=== PATIENT | female | born 1935 | race Caucasian/White ===

== ENCOUNTER → 2017-07-07 13:29 | Outpatient (CLI) | payer MEDICARE, OTHER, SELFPAY ==
--- NOTE | 2017-07-07 13:43 | RAD_ITS ---
STUDY: X-RAY CHEST REASON FOR EXAM: Female, 81 years old. Yearly screening TECHNIQUE: Frontal and lateral views of the chest were obtained. COMPARISON: July 15, 2016 FINDINGS: The lungs are slightly hyperinflated. There are no focal airspace opacities. There is no demonstrated pleural abnormality. The cardiac silhouette is normal in size. The mediastinum and hilar regions are unremarkable. Normal visualized pulmonary arteries. Normal visualized aortic arch and descending thoracic aorta. There are diffuse degenerative changes of the visualized spine. There are degenerative changes in both shoulders. There is no demonstrated abnormality of the visualized upper abdomen. RAD/Chest PA and Lateral IMPRESSION: No acute cardiopulmonary abnormalities or changes. Stable hyperinflation. Electronically Signed: Aimee Holloway MD at 23:38 EDT Tel Direct: [phone], Service support ,
[2017-07-07 15:41] LABS: Absolute Lymphocyte Count 2.44 X10^3/ul (0.83-4.51); Absolute Neutrophil Count 3.1 X10^3/uL (2.0-7.7); Basophil# 0.03 X10^3/uL; Basophil% 0.5 % (0-1); Eosinophil# 0.18 X10^3/uL; Eosinophils% 2.8 % (0-5); Hematocrit 34.1 % (37-47); Hemoglobin 10.8 g/dl (12.0-15.0); Lymphocyte # 2.44 X10^3/ul (4.0); Lymphocyte % 38.2 % (19-41); Mean Corp Hgb Conc 31.7 g/gl (32-36); Mean Corpuscular Hgb 28.1 pg (27.0-32.0); Mean Corpuscular Volume 88.6 fL (81-99); Mean Platelet Vol. 9.4 fl (6.2-12.0); Monocyte# 0.58 X10^3/uL; Monocyte% 9.1 % (0-10); Neutrophil # 3.14 X10^3/uL (2.7-7.7); Neutrophil % 49.1 % (47-70); Platelet Count 263 K/mm3 (150-450); RBC Distribution Width CV 14.9 % (11.6-14.6); RBC Distribution Width SD 47.8 fl (35.1-43.9); Red Blood Count 3.85 M/mm3 (4.2-5.4); White Blood Count 6.4 K/mm3 (4.4-11.0)
[2017-07-07 15:50] LABS: POSITIVE COUNT NO; POSITIVE DIFFERENTIAL NO; POSITIVE MORPHOLOGY NO
[2017-07-07 16:30] LABS: ALB/GLOB Ratio 0.8 RATIO (0.9-2.4); AST(SGOT) 21 U/L (15-37); Alanine Aminotransfer ALT/SGPT 19 U/L (13-56); Albumin, Serum 3.5 g/dL (3.2-5.0); Alkaline Phosphatase 116 U/L (45-117); Anion Gap 8 (5-15); BUN 10 mg/dL (7-18); BUN/Creat Ratio 9.3 RATIO (10-20); Calcium,Total 8.7 mg/dL (8.5-10.1); Chloride 105 mmol/L (98-107); Creatinine, Serum 1.07 mg/dL (0.55-1.02); EST Glomerular Filtration Rate 53 mL/min (>60); Est Glom Filt Rate - Afr Amer 64 mL/min (>60); Globulin 4.2 g/dL (2.2-4.2); Glucose 81 mg/dL (74-106); Potassium 4.4 mmol/L (3.5-5.1); Protein, Total 7.7 g/dL (6.4-8.2); Sodium Level 138 mmol/L (136-145); Thyroid Stim Hormone (TSH) 2.38 uIU/mL (0.358-3.74)
[2017-07-08 08:15] LABS: Vitamin D,25 Hydroxy 44.2 ng/mL (29.95-100.01)
== END ==
PROVIDERS: Family Provider Family Medicine Geriatric Medicine; PCP Family Medicine Geriatric Medicine; Visit Provider Family Medicine Geriatric Medicine
DX: E11.9 Type 2 diabetes mellitus without complications (principal); I10 Essential (primary) hypertension; E55.9 Vitamin D deficiency, unspecified; J44.9 Chronic obstructive pulmonary disease, unspecified
CPT/HCPCS: 36415; 71046; 80053; 82306; 84443; 85025

== ENCOUNTER → 2017-08-26 15:04 | Outpatient (CLI) | payer MEDICARE, OTHER, SELFPAY | PROVIDERS: Family Provider Family Medicine Geriatric Medicine; PCP Family Medicine Geriatric Medicine; Visit Provider Family Medicine Geriatric Medicine | DX: D64.9 Anemia, unspecified (principal) | CPT/HCPCS: 36415; 85014; 85018 ==

== ENCOUNTER → 2017-10-08 12:49 | Outpatient (CLI) | payer MEDICARE, OTHER, SELFPAY ==
--- NOTE | 2017-10-08 13:05 | RAD_ITS ---
STUDY: X-RAY CHEST REASON FOR EXAM: Female, 81 years old. Dyspnea, shortness of breath and coughing for one week. History of esophageal cancer. TECHNIQUE: PA and lateral views of the chest. COMPARISON: Prior chest radiograph of July 07, 2017 FINDINGS: The lungs are clear and expanded. There is no demonstrated pleural abnormality. Normal size heart. Normal mediastinum and dwayne. Normal visualized pulmonary arteries. Normal visualized aortic arch and descending thoracic aorta. Normal visualized thoracic spine. Normal visualized ribs, clavicles, and shoulders. There is no demonstrated abnormality of the visualized soft tissue structures of the upper abdomen. RAD/Chest PA and Lateral IMPRESSION: Normal x-ray examination of the chest. Electronically Signed: Violet Siegel MD at 23:19 EDT , Service support ,
== END ==
PROVIDERS: Family Provider Family Medicine Geriatric Medicine; PCP Family Medicine Geriatric Medicine; Visit Provider Internal Medicine Pulmonary Disease
DX: R06.00 Dyspnea, unspecified (principal)
CPT/HCPCS: 71046

== ENCOUNTER → 2017-10-29 14:30 | Outpatient (CLI) | payer MEDICARE, OTHER, SELFPAY ==
[2017-05-04 13:26] VITALS: BP 135/76; BMI 29.0
--- NOTE | 2017-10-29 14:34 | CT_ITS ---
STUDY: CT CHEST WITH CONTRAST REASON FOR EXAM: Female, 81 years old. History of esophageal neoplasm with chemotherapy and radiation and is esophageal dilatations. RADIATION DOSAGE (If Supplied By Facility): CTDIvol = ( 17.45 ) mGy, DLP = ( 1111.79 ) mGycm TECHNIQUE: Transaxial imaging was performed following intravenous administration of 100 ml of Isovue 300 contrast material. Multiplanar coronal and sagittal images were reformatted. Individualized dose optimization techniques were used for this CT. COMPARISON: Chest x-ray October 08, 2017. Chest CT August 26, 2016 FINDINGS: There is wall thickening of the proximal esophagus, series 2 image / through . There are fibrotic densities of the lungs. There is stable 0.6 cm right lower lung nodule, series 6 image 70/127. There is no demonstrated pleural abnormality. There are calcifications of the coronary arteries. There is stable 1.5 cm right lower paratracheal lymph node. Normal hilar regions. Normal enhanced pulmonary arteries. There is atherosclerotic calcification of the aortic arch with tortuosity and elongation of the aortic arch and descending thoracic aorta. Normal osseous structures. There is no demonstrated abnormality of the visualized upper abdomen. CT/Chest WITH Contrast IMPRESSION: Wall thickening of the proximal esophagus. Stable right lower lung nodule. Fibrotic densities. No new infiltrate. Electronically Signed: Zay Posadas MD at 8:41 EDT , Service support ,
--- NOTE | 2017-10-29 14:35 | CT_ITS ---
STUDY: CT SOFT TISSUE NECK WITH CONTRAST REASON FOR EXAM: Female, 81 years old. History of malignant neoplasm of esophagus RADIATION DOSAGE (If Supplied By Facility): CTDIvol = ( 17.45 ) mGy, DLP = ( 1111.79 ) mGycm TECHNIQUE: The patient was scanned in a multi-detector CT scanner. High resolution transaxial imaging was performed following intravenous administration of 100 ml of Isovue 300 contrast material. Sagittal and coronal images were reconstructed. Individualized dose optimization techniques were used for this CT. COMPARISON: Prior study of July 15, 2016 FINDINGS: Normal bilateral parotid glands. 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 Normal bilateral parapharyngeal spaces. Normal bilateral carotid spaces. Normal bilateral sublingual and submandibular glands and spaces. Normal visualized nasopharynx. Normal retropharyngeal space. Normal perivertebral space. Normal visualized bilateral faucial tonsils. The visualized tongue, tongue base and oropharynx are normal. The visualized cervical lymph nodes (levels I-) are within normal size limits, and maintain normal morphology. There is no demonstrated solid or cystic mass lesion. There is no abnormal contrast enhancement. Normal epiglottis, bilateral vallecula and hypopharynx. The pre-epiglottic and paraglottic adipose spaces are normal. Normal visualized bilateral piriform sinuses, aryepiglottic folds, vocal cords, and arytenoid-cricoid articulations. Normal subglottic trachea. Minimal thyroidal tissue is noted. Normal visualized pulmonary apices. Normal visualized paranasal sinuses. There are mild degenerative changes of the cervical spine. CT/Soft Tissue Neck WITH Contrast IMPRESSION: 1. Minimal thyroidal tissue is noted. 2. There are mild degenerative changes of the cervical spine. 3. Findings are otherwise unremarkable and similar to the previous study. Electronically Signed: Dawit Higgins MD at 23:51 EDT , Service support ,
[2017-10-29 15:06] LABS: CREATININE FINGERSTICK 0.7 mg/dL (0.55-1.02)
== END ==
PROVIDERS: Family Provider Family Medicine Geriatric Medicine; PCP Family Medicine Geriatric Medicine; Visit Provider Internal Medicine Medical Oncology
DX: R91.1 Solitary pulmonary nodule (principal); Z85.01 Personal history of malignant neoplasm of esophagus
CPT/HCPCS: 70491; 71260; Q9967

== ENCOUNTER 2017-11-12 18:23 | Emergency (ER) | payer MEDICARE, OTHER, SELFPAY ==
[2017-11-12 18:25] VITALS: BP 160/89; PULSE 103; RESP 12; TEMP 37.1; O2SAT 95; BMI 28.0
[2017-11-12] MEDS: 0.9% Normal Saline 1,000 ML 125 ML IV (19:01)
[2017-11-12 19:14] LABS: Absolute Lymphocyte Count 1.75 X10^3/ul (0.83-4.51); Absolute Neutrophil Count 7.6 X10^3/uL (2.0-7.7); Basophil# 0.02 X10^3/uL; Basophil% 0.2 % (0-1); Eosinophil# 0.36 X10^3/uL; Eosinophils% 3.3 % (0-5); Hematocrit 33.6 % (37-47); Hemoglobin 11.1 g/dl (12.0-15.0); Lymphocyte # 1.75 X10^3/ul (4.0); Lymphocyte % 16.2 % (19-41); Mean Corpuscular Hgb 29.1 pg (27.0-32.0); Mean Corpuscular Volume 88.2 fL (81-99); Mean Platelet Vol. 8.8 fl (6.2-12.0); Monocyte# 1.06 X10^3/uL; Monocyte% 9.8 % (0-10); Neutrophil # 7.57 X10^3/uL (2.7-7.7); Neutrophil % 70.3 % (47-70); Platelet Count 348 K/mm3 (150-450); RBC Distribution Width CV 13.4 % (11.6-14.6); RBC Distribution Width SD 43.1 fl (35.1-43.9); Red Blood Count 3.81 M/mm3 (4.2-5.4); White Blood Count 10.8 K/mm3 (4.4-11.0)
[2017-11-12 19:16] LABS: POSITIVE COUNT NO; POSITIVE DIFFERENTIAL NO; POSITIVE MORPHOLOGY NO
[2017-11-12 19:25] LABS: ALB/GLOB Ratio 0.5 RATIO (0.9-2.4); AST(SGOT) 20 U/L (15-37); Alanine Aminotransfer ALT/SGPT 15 U/L (13-56); Albumin, Serum 2.9 g/dL (3.2-5.0); Alkaline Phosphatase 114 U/L (45-117); Anion Gap 8 (5-15); BUN 9 mg/dL (7-18); BUN/Creat Ratio 9.4 RATIO (10-20); Calcium,Total 9.1 mg/dL (8.5-10.1); Chloride 103 mmol/L (98-107); Creatinine, Serum 0.96 mg/dL (0.55-1.02); EST Glomerular Filtration Rate 60 mL/min (>60); Est Glom Filt Rate - Afr Amer 72 mL/min (>60); Estimated Creatinine Clearance 39.31 ml/min; Globulin 5.4 g/dL (2.2-4.2); Glucose 115 mg/dL (74-106); Lipase 141 U/L (73-393); Potassium 3.7 mmol/L (3.5-5.1); Protein, Total 8.3 g/dL (6.4-8.2); Sodium Level 135 mmol/L (136-145)
[2017-11-12 19:32] LABS: Lactic Acid 1.4 mmol/L (0.4-2.0)
[2017-11-12 20:07] VITALS: BP 135/62; PULSE 81; RESP 16; O2SAT 95
[2017-11-12 22:35] VITALS: BP 121/76; PULSE 81; RESP 16; O2SAT 96
[2017-11-12 22:39] VITALS: BP 125/90; PULSE 84; RESP 17; O2SAT 96
[2017-11-12 23:11] LABS: Bacteria 0 SEEN /hpf (None Seen); Mucous, Urine 0 SEEN /hpf (<or=2+); Red Blood Cells-Urine 0 SEEN /hpf (0-5); Squamous Epithelial Cells - UA 0 SEEN /hpf (5-10)
[2017-11-12 23:17] LABS: Color, Urine Yellow (Yellow); Glucose, Dipstick Normal (Normal); Ketone-Dipstick Negative (Negative); Leukocyte Esterase-Dipstick 500 /ul (Negative); Nitrite-Dipstick Negative (Negative); Occult Blood-Urine 10 /ul (Negative); Protein-Dipstick 15 mg/dl (Negative); Specific Gravity, Urine 1.005 (1.002-1.030); Urine Bilirubin Dipstick Negative (Negative); Urine Clarity Sl. Cloudy (Clear); Urine Urobilinogen Normal (Normal)
[2017-11-12 23:18] LABS: Thyroid Stim Hormone (TSH) 3.37 uIU/mL (0.358-3.74)
[2017-11-12 23:29] LABS: White Blood Cells 5-10 SEEN /hpf (0-5)
--- NOTE | 2017-11-12 23:35 | ED.VISSUMM ---
- ER Visit Summary Date of Service: 11/12/17 Chief Complaint: [Abdominal pain and generalized weakness] History of Present Illness: The patient is a 81 F [presents to the emergency department complaint of abdominal pain that she has had for over a week. Patient states that she has had this intermittent discomfort in the upper abdomen at last minute of the time and then returns. Patient describes it as a aching and burning. Patient's had nausea but no vomiting. She denies any diarrhea. She denies any blood in her stool or black tarry stools. Patient also is just generally feels weak. Patient states that she does have a history of esophageal cancer and she underwent chemo and radiation 3 years ago. Because of the radiation she is developed strictures in her esophagus and gets dilated by Dr. Garcia every 4 weeks. Patient denies urinary symptoms. Patient denies fevers. She denies chest pain or shortness of breath.] Physical Examination: [HEENT-PERRLA, EOMI. Cranial nerves II through XII grossly intact. TMs clear. Mucous membranes moist. No adenopathy. Cardiovascular-regular rate and rhythm without murmur or ectopy Lungs-clear to auscultation, chest wall stable without crepitus or subcu emphysema Abdomen-normoactive bowel sounds, soft. Patient has some tenderness over the epigastric region that reproduces her pain. There is no rebound, rigidity, or perineal signs. Extremities-intact ?4, normal range of motion, normal pulses, atraumatic] Test Results: [CBC with differential obtained showed normal white count of 10.8, hemoglobin 11, hematocrit 33, platelets 348. Chemistries unremarkable. LFTs were normal. Lipase was normal at 141. EKG shows sinus rhythm with a ventricular rate of 89 bpm with no acute ST segment changes. Troponin was less than 0.015. CT scan of the abdomen pelvis with IV p.o. contrast showed nothing acute.] Urinalysis was unremarkable. Emergency Department Course and Treatment: [Patient was given normal saline and she did not want anything for pain here.] Treatment Plan: [Patient to follow-up with primary care physician within next 3-5 days] Disposition: [Discharged home in stable condition] Impression: [Abdominal pain-etiology uncertain Generalized weakness] This note was generated with [employer] dictation software. It may contain incorrect words, spelling, and punctuation that were not noted in review of the chart prior to signing ED Disposition - Plan for ED Patient: Chief Complaint: Abd Pain Referrals: Reynaldo Aden Chi, MD [Primary Care Provider] -
--- NOTE | 2017-11-12 23:38 | ED.DEP ---
ED Disposition - Plan for ED Patient: Chief Complaint: Abd Pain Instructions: ED Abdominal Pain Unkn Cause, ED Weakness [facility] Referrals: Reynaldo Aden Chi, MD [Primary Care Provider] - 3-5 Days
[2017-11-12 23:42] VITALS: PULSE 82; RESP 12; O2SAT 94
== END 2017-11-12 23:43 | disposition home or self-care (01) ==
LOC: ED 19:19
PROVIDERS: Emergency Provider Emergency Medicine; Family Provider Family Medicine Geriatric Medicine; PCP Family Medicine Geriatric Medicine
DX: R10.9 Unspecified abdominal pain (principal); R53.1 Weakness; R11.0 Nausea; J44.9 Chronic obstructive pulmonary disease, unspecified; E11.9 Type 2 diabetes mellitus without complications; I10 Essential (primary) hypertension; E03.9 Hypothyroidism, unspecified; K21.9 Gastro-esophageal reflux disease without esophagitis; Z79.899 Other long term (current) drug therapy; Z85.01 Personal history of malignant neoplasm of esophagus; Z92.21 Personal history of antineoplastic chemotherapy; Z92.3 Personal history of irradiation
CPT/HCPCS: 74177; 80053; 81001; 83605; 83690; 84443; 84484; 85025; 93005; 96360; 96361; 99285; J7030; Q9967; A4216

== ENCOUNTER → 2018-01-11 13:32 | Outpatient (CLI) | payer MEDICARE, OTHER, SELFPAY ==
[2018-01-11 16:31] LABS: Absolute Lymphocyte Count 2.79 X10^3/ul (0.83-4.51); Absolute Neutrophil Count 4.6 X10^3/uL (2.0-7.7); Basophil# 0.04 X10^3/uL; Basophil% 0.5 % (0-1); Eosinophil# 0.17 X10^3/uL; Hematocrit 34.8 % (37-47); Hemoglobin 11.1 g/dl (12.0-15.0); Lymphocyte # 2.79 X10^3/ul (4.0); Mean Corp Hgb Conc 31.9 g/gl (32-36); Mean Corpuscular Hgb 29.3 pg (27.0-32.0); Mean Corpuscular Volume 91.8 fL (81-99); Mean Platelet Vol. 9.9 fl (6.2-12.0); Monocyte% 9.5 % (0-10); Neutrophil # 4.64 X10^3/uL (2.7-7.7); Neutrophil % 54.8 % (47-70); Platelet Count 284 K/mm3 (150-450); RBC Distribution Width CV 15.5 % (11.6-14.6); RBC Distribution Width SD 50.4 fl (35.1-43.9); Red Blood Count 3.79 M/mm3 (4.2-5.4); White Blood Count 8.5 K/mm3 (4.4-11.0)
[2018-01-11 16:45] LABS: Vitamin D,25 Hydroxy 26.7 ng/mL (29.95-100.01)
[2018-01-11 17:03] LABS: ALB/GLOB Ratio 0.7 RATIO (0.9-2.4); AST(SGOT) 19 U/L (15-37); Alanine Aminotransfer ALT/SGPT 20 U/L (13-56); Albumin, Serum 3.3 g/dL (3.2-5.0); Alkaline Phosphatase 108 U/L (45-117); Anion Gap 7 (5-15); BUN 14 mg/dL (7-18); BUN/Creat Ratio 12.2 RATIO (10-20); Calcium,Total 9.2 mg/dL (8.5-10.1); Chloride 104 mmol/L (98-107); Creatinine, Serum 1.15 mg/dL (0.55-1.02); EST Glomerular Filtration Rate 48 mL/min (>60); Est Glom Filt Rate - Afr Amer 58 mL/min (>60); Globulin 4.7 g/dL (2.2-4.2); Glucose 99 mg/dL (74-106); Potassium 4.3 mmol/L (3.5-5.1); Sodium Level 138 mmol/L (136-145)
[2018-01-11 17:10] LABS: POSITIVE COUNT NO; POSITIVE DIFFERENTIAL NO; POSITIVE MORPHOLOGY NO
== END ==
PROVIDERS: Family Provider Family Medicine Geriatric Medicine; PCP Family Medicine Geriatric Medicine; Visit Provider Family Medicine Geriatric Medicine
DX: I10 Essential (primary) hypertension (principal); E55.9 Vitamin D deficiency, unspecified
CPT/HCPCS: 36415; 80053; 82306; 84443; 85025

== ENCOUNTER 2018-07-01 10:34 | Emergency (ER) | payer MEDICARE, OTHER, SELFPAY ==
[2018-07-01 10:34] VITALS: BMI 29.0
[2018-07-01 10:35] VITALS: BP 156/81; PULSE 64; RESP 18; TEMP 36.6; O2SAT 99; BMI 30.1
--- NOTE | 2018-07-01 12:09 | CT_ITS ---
STUDY: CT BRAIN WITHOUT CONTRAST REASON FOR EXAM: Female, 82 years old. Acute occipital headaches and vertigo. History of esophageal carcinoma. RADIATION DOSAGE (If Supplied By Facility): CTDIvol = ( 44.99 ) mGy, DLP = ( 711.75 ) mGycm TECHNIQUE: Transaxial CT imaging of the brain was performed without administration of intravenous contrast material. Individualized dose optimization techniques were used for this CT. COMPARISON: Comparison is made with prior study dated July 15, 2016. FINDINGS: Normal soft tissue structures. Normal calvarium. There is mild cerebral atrophy with widening of the extra-axial spaces and ventricular dilatation. There are areas of decreased attenuation within the white matter tracts of the supratentorial brain, consistent with microvascular disease changes. Normal basal ganglia and thalami. Normal brainstem. Normal cerebellum. There is no intracranial hemorrhage. There are no findings of an acute ischemic infarction. Atherosclerotic calcification of the cavernous portions of the internal carotid arteries bilaterally. Normal visualized paranasal sinuses. CT/Brain/Head without Contrast IMPRESSION: Chronic involutional changes of the brain. Electronically Signed: Josh Singh, at 13:33 EDT , Service support ,
--- NOTE | 2018-07-01 14:51 | ED.RN ---
PT FAMILY OUT TO THE DESK MULTIPLE TIMES REGARDING PT DISPO. REQUESTS DR TO COME AND TALK TO HER
--- NOTE | 2018-07-01 14:54 | ED.VIS.GEN ---
History of Present Illness Chief Complaint: Dizziness Detail of Chief Complaint: Acute positional vertigo Informant: Patient, Family Onset: Today Context: Sudden Onset Timing: Intermittent Quality: Spinning sensation Location: Home Maximum Severity: Severe Worsened by: Change in position Relieved by: Remaining still Associated Symptoms: Nausea only Narrative: Patient is an elderly woman who presents with abrupt onset of spinning sensation with no ocular symptoms. Does report nausea. Symptoms are precipitated by change in position especially upright position. She denies blurred vision, loss of vision or double vision. She denies ringing or ears, decreased hearing or ear pain. She does report occipital headache. She states his headache is unusual for her. She denies paresthesia, anesthesia or motor weakness upper or lower extremity. She denies cardiac, respiratory or GI symptoms other than nausea. She denies urologic symptoms. She is on no anticoagulant. Prior similar symptoms: No Recent Illness/Hospitalization: No - Past Medical History (1) COPD (chronic obstructive pulmonary disease) Status: Chronic (2) Dysphagia Status: Chronic (3) Esophageal cancer Status: Chronic (4) GERD (gastroesophageal reflux disease) Status: Chronic (5) HLD (hyperlipidemia) Status: Chronic (6) History of tobacco use Status: Chronic (7) Hypertension Status: Chronic (8) Hypothyroidism Status: Chronic (9) Obesity (BMI 30.0-34.9) Status: Chronic (10) Radiation-induced esophageal stricture Status: Chronic (11) Tachyarrhythmia Status: Chronic (12) Type II diabetes mellitus Status: Chronic Past Medical History - Allergies and Home Meds Allergies/Adverse Reactions: Allergies hydrocodone bitartrate [From Vicodin] Adverse Reaction (Verified 07/01/18 10:37) CONFUSION GETS WEIRD Primary Care Physician: Reynaldo Aden Chi, MD [Primary Care Provider] - Prior records reviewed: Yes Surgical History: arthroscopy, knee Smoking Status: Former smoker Alcohol: None Drugs: None - Family History Maternal Family History: Family History (Last Reviewed 11/03/17 @ 12:56 by Angela Kemp) Mother Osteoporosis Heart disease Family History: Reports: - - mother with heart disease Paternal Family History: Family History (Last Reviewed 11/03/17 @ 12:56 by Angela Kemp) Mother Osteoporosis Heart disease Family History: Reports: No pertinent history Review of Systems General: Denies: Chills, Fever, Malaise, Sweats Eyes: Denies: Visual changes - bilaterally, Blurred Vision - bilaterally, Diplopia ENT: Reports: - - Denies tinnitus or decreased hearing.. Denies: Bilateral ear pain, Rhinorrhea, Sore throat Cardiovascular: Denies: Chest pain, Palpitations Respiratory: Denies: Dyspnea, Cough, Dyspnea on exertion Gastrointestinal: Denies: Abdominal pain, Nausea, Vomiting, Diarrhea, Melena, Hematochezia Genitourinary: Denies: Dysuria, Hematuria, Frequency Musculoskeletal: Denies: Myalgias, Arthralgias, Neck pain, Back pain, Extremity Pain Skin: Denies: Rash, Wounds Neurological: Reports: Headache - Complains of occipital headache. Denies: Weakness, Parasthesia, Numbness, -, - Hematologic: Denies: Easy bruising, Easy bleeding Allergy: Denies: Uticaria Physical Exam Inital Vital Signs reviewed: Yes General: Well nourished, Well developed, No Acute Distress Head: Normocephalic, Atraumatic Eyes: Perrl, EOMI ENT: Moist mucous membranes, No rhinorrhea Neck: Supple, Nontender Cardiovascular: Regular rate, Regular rhythm, No murmurs Respiratory: No distress, CTA bilaterally, Chest nontender Abdomen: Soft, Nontender, Nondistended, Normal bowel sounds Back: Nontender, Normal Inspection Extremities: Nontender, No edema Skin: Normal color, No rash Neurological: Alert, Oriented x3, Cranial nerves II-XII grossly intact, Normal Strength, Normal Sensation, Normal DTR, Normal Gait, - - Finger-nose to finger and heel to flannery are normal. There is no truncal ataxia. Kisha-Hallpike maneuver initially causes upward deflection with fast component to the right. The eye Ifeoma test was negative. The HINT test was negative. Psychological: Normal affect, Normal Mood Diagnostic/Tx/Re-eval Impressions Brain CT 07/01/18 12:09 IMPRESSION: Chronic involutional changes of the brain. Electronically Signed: Josh Singh, at 13:33 EDT , Service support , 07/01/18 12:09 Brain/Head without Contrast [CT] Stat - Medical Decision Making Because she is elderly with unusual headaches CT was obtained to evaluate for intracranial bleed. None was noted on my review or intubation by radiologist. Since Gordon-Hallpike maneuver exacerbated her vertigo Yumi maneuver was performed. She had symptoms when she was upright and looking downward. Patient was reassessed at 1500. Headache is still present. Vertigo has resolved. Yumi maneuver was performed and took a total of 15 minutes. Procedures Procedure(s): Yumi maneuver total time 15 minutes ED Disposition - Plan for ED Patient: Disposition: Home or Assisted Living Diagnosis: Benign paroxysmal positional vertigo of left ear, Occipital headache Instructions: ED BPV Vertigo, ED Cephalgia Unspecified Referrals: Reynaldo Aden Chi, MD [Primary Care Provider] - 3-5 Days
[2018-07-01 15:13] VITALS: BP 146/81; PULSE 78; RESP 16; O2SAT 98
== END 2018-07-01 15:14 | disposition home or self-care (01) ==
PROVIDERS: Emergency Provider Emergency Medicine; Family Provider Family Medicine Geriatric Medicine; PCP Family Medicine Geriatric Medicine
DX: H81.12 Benign paroxysmal vertigo, left ear (principal); R51 Headache; R13.10 Dysphagia, unspecified; K22.2 Esophageal obstruction; Y84.2 Radiological procedure and radiotherapy as the cause of abnormal reaction of the patient, or of later complication, without mention of misadventure at the time of the procedure; Y92.9 Unspecified place or not applicable; E11.9 Type 2 diabetes mellitus without complications; J44.9 Chronic obstructive pulmonary disease, unspecified; C15.9 Malignant neoplasm of esophagus, unspecified; I10 Essential (primary) hypertension; E78.5 Hyperlipidemia, unspecified; E03.9 Hypothyroidism, unspecified; K21.9 Gastro-esophageal reflux disease without esophagitis; E66.9 Obesity, unspecified; Z87.891 Personal history of nicotine dependence
CPT/HCPCS: 70450; 99282; A4216

== ENCOUNTER → 2018-07-08 13:40 | Outpatient (CLI) | payer MEDICARE, OTHER, SELFPAY ==
[2018-07-01 10:35] VITALS: BMI 30.1
[2018-07-08 16:41] LABS: Absolute Lymphocyte Count 3.41 X10^3/ul (0.83-4.51); Absolute Neutrophil Count 6.7 X10^3/uL (2.0-7.7); Basophil# 0.04 X10^3/uL; Basophil% 0.3 % (0-1); Eosinophil# 0.27 X10^3/uL; Eosinophils% 2.4 % (0-5); Hematocrit 34.7 % (37-47); Hemoglobin 11.3 g/dl (12.0-15.0); Lymphocyte # 3.41 X10^3/ul (4.0); Lymphocyte % 29.8 % (19-41); Mean Corp Hgb Conc 32.6 g/gl (32-36); Mean Corpuscular Hgb 29.6 pg (27.0-32.0); Mean Corpuscular Volume 90.8 fL (81-99); Mean Platelet Vol. 10.1 fl (6.2-12.0); Monocyte# 1.04 X10^3/uL; Monocyte% 9.1 % (0-10); Neutrophil # 6.67 X10^3/uL (2.7-7.7); Neutrophil % 58.1 % (47-70); Platelet Count 343 K/mm3 (150-450); RBC Distribution Width CV 13.8 % (11.6-14.6); RBC Distribution Width SD 44.9 fl (35.1-43.9); Red Blood Count 3.82 M/mm3 (4.2-5.4); White Blood Count 11.5 K/mm3 (4.4-11.0)
[2018-07-08 16:44] LABS: POSITIVE COUNT NO; POSITIVE DIFFERENTIAL NO; POSITIVE MORPHOLOGY NO
[2018-07-08 17:34] LABS: Vitamin D,25 Hydroxy 14.5 ng/mL (29.95-100.01)
[2018-07-08 17:40] LABS: ALB/GLOB Ratio 0.7 RATIO (0.9-2.4); AST(SGOT) 22 U/L (15-37); Alanine Aminotransfer ALT/SGPT 22 U/L (13-56); Albumin, Serum 3.4 g/dL (3.2-5.0); Alkaline Phosphatase 118 U/L (45-117); Anion Gap 7 (5-15); BUN 16 mg/dL (7-18); BUN/Creat Ratio 14.3 RATIO (10-20); Calcium,Total 9.1 mg/dL (8.5-10.1); Chloride 100 mmol/L (98-107); Creatinine, Serum 1.12 mg/dL (0.55-1.02); EST Glomerular Filtration Rate 50 mL/min (>60); Est Glom Filt Rate - Afr Amer 60 mL/min (>60); Globulin 4.6 g/dL (2.2-4.2); Glucose 81 mg/dL (74-106); Potassium 4.5 mmol/L (3.5-5.1); Sodium Level 132 mmol/L (136-145)
== END ==
PROVIDERS: Family Provider Family Medicine Geriatric Medicine; PCP Family Medicine Geriatric Medicine; Visit Provider Family Medicine Geriatric Medicine
DX: I10 Essential (primary) hypertension (principal); E55.9 Vitamin D deficiency, unspecified
CPT/HCPCS: 36415; 80053; 82306; 84443; 85025

== ENCOUNTER → 2018-08-05 12:25 | Outpatient (CLI) | payer MEDICARE, OTHER, SELFPAY ==
--- NOTE | 2018-08-05 12:27 | RAD_ITS ---
STUDY: X-RAY - PELVIS AND BILATERAL HIPS REASON FOR EXAM: Female, 82 years old. Pain TECHNIQUE: AP view of the pelvis.? 2 views of the right hip, and 2 views of the left hip were obtained. COMPARISON: None. FINDINGS: There is a non-specific bowel gas pattern. Normal visualized soft tissue structures. There is diffuse demineralization of the osseous structures. There is narrowing with cortical sclerosis and osteophyte formation of the sacroiliac joint consistent with degenerative osteoarthritic changes. Normal bilateral superior and inferior pubic rami. Normal pubic symphysis. Normal bilateral ischial tuberosities. Normal visualized right femoral head. Normal right acetabulum. There is moderate articular joint space narrowing of the right hip. Normal visualized left femoral head. Normal left acetabulum. There is moderate articular joint space narrowing of the left hip. RAD/Hips B/L min 2 views w/ Pelvis IMPRESSION: Degenerative arthrosis, no demonstrated fracture or suspicious osseous lesion. However, hip and pelvic fractures in patients of this age can be subtle, if there is strong clinical suspicion of a fracture, recommend further evaluation with CT Electronically Signed: Reji Tucker MD at 16:44 EDT , Service support ,
[2018-08-05 17:36] LABS: Absolute Lymphocyte Count 2.92 X10^3/ul (0.83-4.51); Absolute Neutrophil Count 5.3 X10^3/uL (2.0-7.7); Basophil# 0.04 X10^3/uL; Basophil% 0.4 % (0-1); Eosinophil# 0.31 X10^3/uL; Eosinophils% 3.3 % (0-5); Hematocrit 36.1 % (37-47); Hemoglobin 11.7 g/dl (12.0-15.0); Lymphocyte # 2.92 X10^3/ul (4.0); Lymphocyte % 31.1 % (19-41); Mean Corp Hgb Conc 32.4 g/gl (32-36); Mean Corpuscular Hgb 29.5 pg (27.0-32.0); Mean Corpuscular Volume 91.2 fL (81-99); Mean Platelet Vol. 10.1 fl (6.2-12.0); Monocyte% 8.5 % (0-10); Neutrophil # 5.29 X10^3/uL (2.7-7.7); Neutrophil % 56.5 % (47-70); Platelet Count 290 K/mm3 (150-450); RBC Distribution Width CV 14.6 % (11.6-14.6); RBC Distribution Width SD 47.9 fl (35.1-43.9); Red Blood Count 3.96 M/mm3 (4.2-5.4); White Blood Count 9.4 K/mm3 (4.4-11.0)
[2018-08-05 17:37] LABS: POSITIVE COUNT NO; POSITIVE DIFFERENTIAL NO; POSITIVE MORPHOLOGY NO
[2018-08-05 17:59] LABS: Anion Gap 8 (5-15); BUN 16 mg/dL (7-18); Calcium,Total 9.6 mg/dL (8.5-10.1); Chloride 104 mmol/L (98-107); Creatinine, Serum 1.07 mg/dL (0.55-1.02); EST Glomerular Filtration Rate 52 mL/min (>60); Est Glom Filt Rate - Afr Amer 63 mL/min (>60); Glucose 114 mg/dL (74-106); Potassium 4.5 mmol/L (3.5-5.1); Sodium Level 137 mmol/L (136-145)
[2018-08-05 18:03] LABS: Erythrocyte Sedimentation Rate 33 mm/hr (0-30)
[2018-08-12 03:06] LABS: Lyme IgG P18 Ab Absent (.); Lyme IgG P23 Ab Absent (.); Lyme IgG P28 Ab Absent (.); Lyme IgG P30 Ab Absent (.); Lyme IgG P39 Ab Absent (.); Lyme IgG P41 Ab Absent (.); Lyme IgG P45 Ab Absent (.); Lyme IgG P58 Ab Absent (.); Lyme IgG P66 Ab Absent (.); Lyme IgG P93 Ab Absent (.); Lyme IgM P23 Ab Absent (.); Lyme IgM P39 Ab Absent (.); Lyme IgM P41 Ab Absent (.)
[2018-08-12 14:31] LABS: Lyme IgG WB Interpretation Negative (.); Lyme IgM WB Interpretation Negative (.)
== END ==
PROVIDERS: Family Provider Family Medicine Geriatric Medicine; PCP Family Medicine Geriatric Medicine; Referring Provider Family Medicine Geriatric Medicine; Visit Provider Family Medicine Geriatric Medicine
DX: M25.559 Pain in unspecified hip (principal); A69.20 Lyme disease, unspecified; L03.317 Cellulitis of buttock
CPT/HCPCS: 36415; 73521; 80048; 85025; 85652; 86140; 86617

== ENCOUNTER → 2018-08-06 11:08 | Outpatient (CLI) | payer MEDICARE, OTHER, SELFPAY ==
--- NOTE | 2018-08-06 11:13 | US_ITS ---
STUDY: SUPERFICIAL ULTRASOUND - RIGHT UPPER BUTTOCK. REASON FOR EXAM: Female, 82 years old. Palpable abnormality. TECHNIQUE: A superficial ultrasound was performed with real-time and static coy-scale imaging. COMPARISON: None. FINDINGS: The palpable abnormality corresponds to a 1.4 cm x 1.3 cm x 1 cm complex cystic density. A biopsy may be indicated for further evaluation. US/Ext Non Vasc Limited/Soft Tiss IMPRESSION: The palpable abnormality corresponds to a 1.4 cm x 1.3 cm x 1 cm complex cystic density. Histologic diagnosis is recommended. Electronically Signed: Josh Singh, at 12:29 EDT , Service support ,
== END ==
PROVIDERS: Family Provider Family Medicine Geriatric Medicine; PCP Family Medicine Geriatric Medicine; Referring Provider Family Medicine Geriatric Medicine; Visit Provider Family Medicine Geriatric Medicine
DX: L03.317 Cellulitis of buttock (principal); L02.31 Cutaneous abscess of buttock
CPT/HCPCS: 76882

== ENCOUNTER → 2018-10-29 12:24 | Outpatient (CLI) | payer MEDICARE, OTHER, SELFPAY ==
--- NOTE | 2018-10-29 12:35 | CT_ITS ---
STUDY: CT SOFT TISSUE NECK WITH CONTRAST REASON FOR EXAM: Female, 82 years old. Follow-up esophageal cancer. RADIATION DOSAGE (If Supplied By Facility): CTDIvol = ( 15.55 ) mGy, DLP = ( 1137.45 ) mGycm TECHNIQUE: The patient was scanned in a multi-detector CT scanner. High resolution transaxial imaging was performed following intravenous administration of 100 IV Isovue 300. Sagittal and coronal images were reconstructed. Individualized dose optimization techniques were used for this CT. COMPARISON: 10/29/2017. FINDINGS: Normal bilateral parotid glands. 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 Normal bilateral parapharyngeal spaces. Normal bilateral carotid spaces. Normal bilateral sublingual and submandibular glands and spaces. Normal visualized nasopharynx. Normal retropharyngeal space. Normal perivertebral space. Abnormal intramural thickening of the cervical esophagus is unchanged. Normal visualized bilateral faucial tonsils. The visualized tongue, tongue base and oropharynx are normal. The visualized cervical lymph nodes (levels I-) are within normal size limits, and maintain normal morphology. There is no demonstrated solid or cystic mass lesion. There is no abnormal contrast enhancement. Normal epiglottis, bilateral vallecula and hypopharynx. The pre-epiglottic and paraglottic adipose spaces are normal. Normal visualized bilateral piriform sinuses, aryepiglottic folds, vocal cords, and arytenoid-cricoid articulations. Normal subglottic trachea. Normal bilateral lobes of the thyroid gland. Normal visualized pulmonary apices. Normal visualized paranasal sinuses. Normal visualized cervical spine. CT/Soft Tissue Neck WITH Contrast IMPRESSION: 1. Intramural thickening of the cervical esophagus is unchanged. 2. No CT evidence of mass suprahyoid neck and infrahyoid neck outside the cervical esophagus. 3. No significant interval change when compared to 10/29/2017. Electronically Signed: Jamie Balderas MD at 11:14 EDT , Service support ,
--- NOTE | 2018-10-29 12:35 | CT_ITS ---
STUDY: CT CHEST WITH CONTRAST REASON FOR EXAM: Female, 82 years old. Esophageal cancer. History of chemotherapy and radiation. RADIATION DOSAGE (If Supplied By Facility): CTDIvol = ( 15.55 ) mGy, DLP = ( 1137.45 ) mGycm TECHNIQUE: Transaxial imaging was performed following intravenous administration of 100 ml of Isovue 300 contrast material. Coronal and sagittal reformatted images were created. Individualized dose optimization techniques were used for this CT. COMPARISON: 10/29/2017 FINDINGS: There are no pulmonary infiltrates or pleural effusions. There is a stable 6 cm nodule in the right lower lobe. There are no new pulmonary nodules or masses. There is no pneumothorax. The heart and pericardium are within normal limits. There is no esophageal mass identified. There is no thoracic lymphadenopathy. There is no evidence of thoracic aortic aneurysm. Images through the upper abdomen demonstrate no significant abnormality. There are no destructive osseous lesions. CT/Chest WITH Contrast IMPRESSION: No esophageal mass identified. Stable 6 mm nodule in the right lower lobe. Otherwise, clear lungs. No significant change when compared with the prior exam. Electronically Signed: Huy Steven, at 10:11 EDT Tel , Service support ,
[2018-10-29 12:42] LABS: Absolute Lymphocyte Count 2.84 X10^3/uL (0.83-4.51); Absolute Neutrophil Count 4.6 X10^3/uL (2.0-7.7); Basophil# 0.05 X10^3/uL; Basophil% 0.6 % (0-1); Eosinophil# 0.21 X10^3/uL; Eosinophils% 2.4 % (0-5); Hematocrit 34.5 % (37-47); Hemoglobin 11.3 g/dL (12.0-15.0); Lymphocyte # 2.84 X10^3/ul (4.0); Lymphocyte % 33.1 % (19-41); Mean Corp Hgb Conc 32.8 g/dL (32-36); Mean Corpuscular Hgb 29.9 pg (27.0-32.0); Mean Corpuscular Volume 91.3 fL (81-99); Mean Platelet Vol. 9.2 fl (6.2-12.0); Monocyte# 0.78 X10^3/uL; Monocyte% 9.1 % (0-10); NRBC Flagged by Analyzer 0 % (0-5); Neutrophil # 4.63 X10^3/uL (2.7-7.7); Platelet Count 276 K/mm3 (150-450); RBC Distribution Width SD 46.5 fl (35.1-43.9); Red Blood Count 3.78 M/mm3 (4.2-5.4); White Blood Count 8.6 K/mm3 (4.4-11.0)
[2018-10-29 12:51] LABS: CREATININE FINGERSTICK 0.8 mg/dL (0.55-1.02); EGFR FINGERSTICK > 60.0000 mL/min (>60)
[2018-10-29 12:55] LABS: ALB/GLOB Ratio 0.8 RATIO (0.9-2.4); AST(SGOT) 21 U/L (15-37); Alanine Aminotransfer ALT/SGPT 23 U/L (13-56); Albumin, Serum 3.5 g/dL (3.2-5.0); Alkaline Phosphatase 93 U/L (45-117); Anion Gap 6 (5-15); BUN 16 mg/dL (7-18); BUN/Creat Ratio 14.8 RATIO (10-20); Calcium,Total 9.2 mg/dL (8.5-10.1); Chloride 101 mmol/L (98-107); Creatinine, Serum 1.08 mg/dL (0.55-1.02); EST Glomerular Filtration Rate 52 mL/min (>60); Est Glom Filt Rate - Afr Amer 63 mL/min (>60); Globulin 4.5 g/dL (2.2-4.2); Glucose 95 mg/dL (74-106); Potassium 4.2 mmol/L (3.5-5.1); Sodium Level 134 mmol/L (136-145)
[2018-10-29 13:19] LABS: Thyroid Stim Hormone (TSH) 3.05 uIU/mL (0.358-3.74)
== END ==
PROVIDERS: Family Provider Family Medicine Geriatric Medicine; PCP Family Medicine Geriatric Medicine; Referring Provider Internal Medicine Medical Oncology; Visit Provider Internal Medicine Medical Oncology
DX: C15.3 Malignant neoplasm of upper third of esophagus (principal); Z92.21 Personal history of antineoplastic chemotherapy; Z92.3 Personal history of irradiation; Z85.01 Personal history of malignant neoplasm of esophagus
CPT/HCPCS: 36415; 70491; 71260; 80053; 84443; 85025; Q9967

== ENCOUNTER → 2019-01-12 13:50 | Outpatient (CLI) | payer MEDICARE, OTHER, SELFPAY ==
[2018-11-23 10:46] VITALS: BMI 30.6
[2019-01-12 17:10] LABS: Absolute Lymphocyte Count 2.72 X10^3/uL (0.83-4.51); Absolute Neutrophil Count 4.5 X10^3/uL (2.0-7.7); Basophil# 0.08 X10^3/uL; Basophil% 0.9 % (0-1); Eosinophil# 0.26 X10^3/uL; Eosinophils% 3.1 % (0-5); Hematocrit 33.4 % (37-47); Hemoglobin 10.8 g/dL (12.0-15.0); Lymphocyte # 2.72 X10^3/ul (4.0); Mean Corp Hgb Conc 32.3 g/dL (32-36); Mean Corpuscular Hgb 29.5 pg (27.0-32.0); Mean Corpuscular Volume 91.3 fL (81-99); Mean Platelet Vol. 9.8 fl (6.2-12.0); Monocyte# 0.85 X10^3/uL; NRBC Flagged by Analyzer 0 % (0-5); Neutrophil # 4.54 X10^3/uL (2.7-7.7); Neutrophil % 53.5 % (47-70); Platelet Count 321 K/mm3 (150-450); RBC Distribution Width SD 46.6 fl (35.1-43.9); Red Blood Count 3.66 M/mm3 (4.2-5.4); White Blood Count 8.5 K/mm3 (4.4-11.0)
[2019-01-12 17:35] LABS: Vitamin D,25 Hydroxy 26.4 ng/mL (29.95-100.01)
[2019-01-12 17:40] LABS: ALB/GLOB Ratio 0.7 RATIO (0.9-2.4); AST(SGOT) 24 U/L (15-37); Alanine Aminotransfer ALT/SGPT 27 U/L (13-56); Albumin, Serum 3.4 g/dL (3.2-5.0); Alkaline Phosphatase 110 U/L (45-117); Anion Gap 7 (5-15); BUN 14 mg/dL (7-18); BUN/Creat Ratio 13.5 RATIO (10-20); Calcium,Total 9.3 mg/dL (8.5-10.1); Chloride 102 mmol/L (98-107); Creatinine, Serum 1.04 mg/dL (0.55-1.02); EST Glomerular Filtration Rate 54 mL/min (>60); Est Glom Filt Rate - Afr Amer 65 mL/min (>60); Globulin 4.8 g/dL (2.2-4.2); Glucose 100 mg/dL (74-106); Potassium 4.2 mmol/L (3.5-5.1); Protein, Total 8.2 g/dL (6.4-8.2); Sodium Level 135 mmol/L (136-145); Thyroid Stim Hormone (TSH) 2.17 uIU/mL (0.358-3.74)
== END ==
PROVIDERS: Family Provider Family Medicine Geriatric Medicine; PCP Family Medicine Geriatric Medicine; Visit Provider Family Medicine Geriatric Medicine
DX: E11.9 Type 2 diabetes mellitus without complications (principal); I10 Essential (primary) hypertension; E55.9 Vitamin D deficiency, unspecified; E03.9 Hypothyroidism, unspecified
CPT/HCPCS: 36415; 80053; 82306; 84443; 85025

== ENCOUNTER 2019-02-01 05:52 | Day surgery (SDC) | payer MEDICARE, OTHER, SELFPAY ==
[2018-11-23 10:46] VITALS: BMI 30.6
--- NOTE | 2019-01-31 17:10 | PCM.HP.BLA ---
History and Physical Date of Admission: 02/01/19 HISTORY OF PRESENT ILLNESS 82 year old woman presents with a soft tissue mass right upper gluteal area that had increased in size over the last few months. It then started to decrease in size. She denies any trauma. She denies any fever. 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 The mass has decreased in size and has become less painful. An Ultrasound was done on 08/06/18. It showed a 1.4 cm complex cystic density. She presents at this time for further evaluation and treatment. PAST MEDICAL HISTORY Arthritis Cancer of upper third of esophagus Cataracts, bilateral Diabetes mellitus Hearing problem History of esophageal dilatation History of pneumonia Squamous cell carcinoma Thyroid disease Vitamin D deficiency PAST SURGICAL HISTORY cholecystectomy tubal ligation ALLERGIES hydrocodone bitartrate [From Vicodin] MEDICATIONS Atenolol [Tenormin (beta bear)] Pantoprazole Sodium [Protonix] Budesonide/Formoterol 160/4.5 [Symbicort 160/4.5 Mcg Inhaler (SP)] Levothyroxine Sodium Albuterol Inhaler [Ventolin Hfa] Cyanocobalamin [Vitamin B12] Ergocalciferol [Vitamin D] Ferrous Sulfate Syrup FAMILY HISTORY Mother - Osteoporosis, Heart disease SOCIAL HISTORY Smoking Status: Former smoker substance use type: does not use REVIEW OF SYSTEMS General - Denies fever, fatigue, and weight loss. Eyes - Denies cataracts and glaucoma. ENT - Denies nasal congestion and sore throat. Endocrine - Denies excessive thirst and urination. Skin - Has personal history of skin cancer. Has soft tissue mass right upper gluteal area. Musculoskeletal - Denies joint pain, joint stiffness, weakness of muscles and joints, back pain, and arthritis. Neuro - Denies headaches. Cardiovascular - Denies chest pain, fatigue, and shortness of breath with exertion. Psych - Denies anxiety and depression. Respiratory - Denies chronic cough and shortness of breath. Patient is a former smoker. Gastrointestinal - Denies nausea, vomiting, diarrhea, and constipation. Hematologic - Denies abnormal bruising and bleeding. Genitourinary - Denies hematuria and urinary frequency. PHYSICAL EXAMINATION General - Alert and Oriented. HEENT - PERRL. EOMI. Throat is clear. No suspicious lesions noted. Neck - Supple and nontender. No cervical adenopathy. No suspicious lesions noted. Lungs - Clear to auscultation. Heart - Regular rate and rhythm. Abdomen - Soft and nondistended. Extremities - FROM. No axillary adenopathy. Radial pulses are palpable. No suspicious lesions noted. Back - No suspicious lesions noted except for the right upper gluteal area. There is a palpable soft tissue mass. Mobile. Measures about 1.5 cm. No evidence of infection. No skin retraction or skin dimpling. Clinically feels cystic in nature. Mild tenderness to palpation. Neuro - CN II-XII grossly intact. Psych - Normal mood and affect. ASSESSMENT 1. 1.5 cm painful soft tissue mass right upper gluteal area. 2. Personal history of skin cancer. 3. Former smoker. PLAN Recommend excision of this soft tissue mass and send it to Pathology for analysis to rule out carcinoma. Clinically and ultrasonically it appears to be a cystic lesion. Since it is getting smaller and less painful, the patient wants to wait about having it excised and will think about it and let me know when she wants to proceed. She was instructed to come sooner if it became bigger in size or became more symptomatic for evaluation for excision. Surgery would be done on an outpatient basis under local anesthesia and IV sedation. Depending on how large the cavity is, a drain may be necessary after surgery. Followup 3 months for a re-evaluation. Patient was informed of the risks and complications of the procedure including alternatives to surgery. These were discussed with the patient personally. Patient voices understanding and wishes to proceed with the current plan of thinking about the surgery and will call us when she wants to proceed, otherwise she will followup in 3 months for re-evaluation.
[2019-02-01] VITALS (9 sets, daily range): BP systolic 99–131; BP diastolic 43–73; PULSE 67–79; RESP 16–18; TEMP 36.1–37; O2SAT 98–100; BMI 29.5
[2019-02-01 06:21] LABS: Bedside Glucose 111 mg/dL (70-110)
[2019-02-01] MEDS: Lactated Ringers 1,000 ML 100 ML IV (07:27)
--- NOTE | 2019-02-01 07:30 | MASS_PTH ---
PATIENT: TONO SHEN LOC: [facility] [place] U#:[id number] AGE/SX: 83/F ROOM: RE02/01/[address]: Dr. Roosevelt Mccarthy MD : [id number] BED: DIS: 02/01/2019 SPEC #: [id number] RECD: 02/01/19 12:32 STATUS: OSCAR BRITTANY #: [id number] VIPIN: 02/01/19 07:[address]: Roosevelt Mccarthy DEPT: SURGICAL PATHOLOGY RECD BY: Julio Houston ENTERED: 02/01/19 13:11 SP TYPE: Mass OTHR DR: Dr. Reynaldo Aden MD Tissues: Buttock, NOS Procedures: Surgery Specimen Level IV HEADER OPERATION: Excision, painful soft tissue mass, upper gluteal area PRE-OP DIAGNOSIS: 1.5 cm painful soft tissue mass right upper gluteal area; skin cancer TISSUE SUBMITTED: Soft tissue mass right upper gluteal area MICROSCOPIC DIAGNOSIS Soft tissue mass right upper gluteal area, excision: Mature adipose tissue consistent with lipoma with extensive fat necrosis and dystrophic calcifications. GRABIEL:meghan 02/02/19 MICROSCOPIC DESCRIPTION Slides are reviewed. GROSS DESCRIPTION Received in fixative is one container labeled with the patient's name and designated soft tissue mass right upper gluteal area. The specimen consists of an irregular piece of adipose tissue measuring 5 x 3 x 1.5 cm. A piece of skin is noted at one edge measuring 1.8 x 0.3 cm. Patient Care Specialist sections are submitted in three cassettes. Cassette 1 also contains the skin. / GRABIEL:meghan 02/01/19 TC:5 CPT: 35724
[2019-02-01] MEDS: Cefazolin 2 GM in 0.9% Normal Saline 100 ML IV (07:35)
[2019-02-01] MEDS: Mupirocin Ointment 22gm Tube 1 APPLIC (08:06)
--- NOTE | 2019-02-01 08:11 | PCM.OPRPT ---
Report of Operation Date of Procedure: 02/01/19 Pre-Operative Diagnosis: 1. 1.5 cm painful soft tissue mass right upper gluteal area. 2. Personal history of skin cancer. 3. Former smoker. Post-Operative Diagnosis: Same. Surgery/Procedure Performed:: Excision 1.5 cm painful soft tissue mass right upper gluteal area with 1.5 cm layered closure. Description of Surgical Findings:: 82 year old woman presents with a soft tissue mass right upper gluteal area that had increased in size over the last few months. It then started to decrease in size. She denies any trauma. She denies any fever. 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 The mass has decreased in size and has become less painful. An Ultrasound was done on 08/06/18. It showed a 1.4 cm complex cystic density. Patient was informed of the risks and complications of the procedure including alternatives to surgery. These were discussed with the patient personally. Patient voices understanding and wishes to proceed. Some of the risks and complications were included in a form from the [employer]. I used Miesha absorbable hemostat. Reference Number - [id number]. Lot Number - [id number]. October 25, 2023. medical and health services manager: None Type of Anesthesia:: Local MAC - xylocaine with epinephrine and IV sedation. Specimen's removed: Painful soft tissue mass right upper gluteal area to Pathology. Drains: None. Estimated Blood Loss (mL): 5 ml. Description of Procedure: Patient was taken to OR in supine position and was given IV sedation. She was then placed in the lateral position. The right upper gluteal area was prepped and draped in the usual fashion. SCD's were placed for DVT prophylaxis. Perioperative antibiotics were given intravenously. The painful soft tissue mass right upper gluteal area was infiltrated with xylocaine and epinephrine. After waiting 5 minutes for the anesthetic to take effect, I made an oblique elliptical excision over this mass. Dissection was carried into the subcutaneous tissue. The mass was easily palpable and firm. It was adherent to the underlying gluteus muscular fascia which explains her painful symptomatology. The mass was easily dissected off the muscular fascia without difficulty. It did not involve the muscular tissue. The mass was sent to Pathology for analysis to rule out carcinoma. Hemostasis was obtained with electrocautery. The wound was irrigated with saline. I then sprayed Miesha absorbable hemostat into the wound to minimize seroma formation. The wound was closed in a layered fashion using 3-0 Monocryl figure of eight interrupted sutures for the deep subcutaneous tissue to minimize space. The deep dermis and subcutaneous tissue was approximated with 3-0 Monocryl interrupted sutures. The skin was approximated with 3-0 Prolene simple interrupted sutures. Antibiotic ointment was applied to the suture line followed by compression gauze dressing. The length of the layered closure was 1.5 cm. Patient tolerated the procedure well and was sent to PACU in satisfactory condition. Patient will be sent home on antibiotics and pain medication. Patient will followup in a week for a wound check and for discussion of the pathology report. The sutures will be removed in 2 weeks. Grafts/Implants Used: None. - Complications None. - Admit VTE Documentation VTE Present on Admission: No VTE Mechan Device Prophylaxis: SCD's VTE Pharm Prophylaxis ordered?: No Code Visit Surgery Charges CPT - 75877 ICD-10 -R22.2, Z85.828, Z87.891
--- NOTE | 2019-02-01 08:18 | DCINST_ITS ---
You will use the following diet at home:: Calorie/Carbohydrate Controlled (specify 1200, 1400, etc) Discharge Activity: May not drive while taking narcotic pain medications., May Shower - in 2 days. May shower in (days): 2 May resume sexual activity in: No Restrictions Weight Bearing Status: Weight bearing as tolerated Call your doctor if your incision/area has: Continuous Slow Oozing, Sudden Increased Bleeding, Increased Pain/ Swelling, Increased Redness, Foul Smelling Discharge, Swelling at the incision site Call your doctor if you observe: Fever of 101 or Higher, Coldness, Increased Pain, Shortness of breath, Chest pain, Calf discomfort, Uncontrolled pain Suture Line Care: - - after dressing removed in two days, apply antibiotic ointment to suture line daily. Change Dressing in (Days):: 2 - antibiotic ointment daily. Cleanse incision/area with: - - may get incision wet in the shower in two days. Allergies/Adverse Reactions: Allergies hydrocodone bitartrate [From Vicodin] Adverse Reaction (Verified 02/01/19 06:16) CONFUSION GETS WEIRD Medications to take at Discharge Atenolol [Tenormin (beta bear)] 25 mg PO DAILY 06/01/15 Pantoprazole Sodium [Protonix] 40 mg PO DAILY 06/07/15 Budesonide/Formoterol 160/4.5 [Symbicort 160/4.5 Mcg Inhaler (SP)] 2 puff I NHALATION BID 07/15/16 Cyanocobalamin [Vitamin B12] 1 injectable SQ QMONTH 05/04/17 Ferrous Sulfate Syrup 300 mg PO DAILY@0800 11/12/17 Cholecalciferol (VIT D3) [Vitamin D3] 1,000 unit PO DAILY 11/23/18 Levothyroxine [Synthroid] 112 mcg PO DAILY 11/23/18 Cefadroxil [Duricef] 500 mg PO BID #8 cap 02/01/19 Lactobacillus Acidophilus/Fos [Acidophilus Probiotic Tablet] 1 ea PO BID #10 tab 02/01/19 Oxycodone HCl/Acetaminophen [Percocet 5/325] 1 tab PO TID PRN PRN 7 Days #20 tab 02/01/19 The following prescriptions were given: Lactobacillus Acidophilus/Fos [Acidophilus Probiotic Tablet] 1 ea PO BID #10 tab Prescription Printed Cefadroxil [Duricef] 500 mg PO BID #8 cap Prescription Printed Oxycodone HCl/Acetaminophen [Percocet 5/325] 1 tab PO TID PRN PRN 7 Days #20 tab PRN Reason: Pain Score 4-5/10 Prescription Printed Primary Care Physician: Reynaldo Aden Chi, MD [Primary Care Provider] - Test Results: Test results from this visit will be discussed in further detail at your follow- up appointment, if applicable. Please Follow Up With: Roosevelt Mccarthy MD Proposed Discharge Date: 02/01/19
== END 2019-02-01 09:38 | disposition home or self-care (01) ==
LOC: SDC 05:52 → AC 05:54
PROVIDERS: Family Provider Family Medicine Geriatric Medicine; PCP Family Medicine Geriatric Medicine; Referring Provider Surgery; Visit Provider Surgery
PROC: (CPT 27047; principal; 2019-02-01 07:15)
DX: R22.2 Localized swelling, mass and lump, trunk (principal); Z85.828 Personal history of other malignant neoplasm of skin; Z87.891 Personal history of nicotine dependence; M19.90 Unspecified osteoarthritis, unspecified site; E11.9 Type 2 diabetes mellitus without complications; E06.9 Thyroiditis, unspecified; J44.9 Chronic obstructive pulmonary disease, unspecified; G25.81 Restless legs syndrome; K21.9 Gastro-esophageal reflux disease without esophagitis; E78.00 Pure hypercholesterolemia, unspecified; D64.9 Anemia, unspecified; Z87.01 Personal history of pneumonia (recurrent); Z85.01 Personal history of malignant neoplasm of esophagus; Z78.0 Asymptomatic menopausal state; Z79.899 Other long term (current) drug therapy
CPT/HCPCS: 27047; 82962; 88305; J7120

== ENCOUNTER 2019-02-02 13:07 | Emergency (ER) | payer MEDICARE, OTHER, SELFPAY ==
[2019-02-01 06:09] VITALS: BMI 29.5
[2019-02-02 13:09] VITALS: BP 131/56; PULSE 82; RESP 18; TEMP 36.4; O2SAT 97; BMI 29.4
[2019-02-02] MEDS: DiphenhydrAMINE 50 MG/ML Syringe 25 MG IV (13:36)
[2019-02-02] MEDS: Famotidine 20 MG Tablet 40 MG PO (13:36)
[2019-02-02] MEDS: MethylPREDNISolone 125 MG/2 ML Vial IV (13:36)
--- NOTE | 2019-02-02 15:25 | ED.DCSUM_ITS ---
- ER Visit Summary Date of Service: 02/02/19 Chief Complaint: Allergic reaction History of Present Illness: The patient is a 83 F who states that she had a cyst taken off her right hip yesterday in the operating room by Dr. parvin Bueno. After the surgery at home last night she took an oxycodone and felt okay. This morning she took her other new medication which I find out through chart review was Duricef. She states that within the hour she began to have diffuse itching she felt very flushed shaky little short of breath. EMS was called. She refused an IV stating that she was a difficult stick. Physical Examination: Afebrile vital signs are stable Gen: Well-nourished well-developed Head: Normocephalic atraumatic Eyes: Perrl EOMI ENT: TMs clear no rhinorrhea moist mucous membranes Neck: Supple no lymphadenopathy no JVD nontender CVS: Regular rate rhythm no murmurs normal S1-S2 Respiratory: No distress clear to auscultation bilaterally chest nontender Abdomen: Soft nontender nondistended normal bowel sounds no masses Back: Nontender Extremity: Nontender no edema Skin: Patient is diffusely erythematous. Neuro: alert orientated ?3 CN II-XII intact Psych: Normal affect normal mood Emergency Department Course and Treatment: Patient received Benadryl Pepcid and Solu-Medrol. She was observed for several hours. She is doing better. No further itching no further rash. The patient will be discharged home with instructions to follow-up. I spoke with Dr. Mccarthy regarding the medication. Duricef will be stopped the patient will begin clindamycin Impression: 1. Acute allergic reaction to medication This note was generated with [employer] dictation software. It may contain incorrect words, spelling, and punctuation that were not noted in review of the chart prior to signing ED Disposition - Plan for ED Patient: Disposition: Home or Assisted Living Instructions: ALLERGIC REACTION, Drug Prescriptions: Clindamycin Palm Suspension [Cleocin Suspension] 300 mg PO 4X/DAY #400 ml Transmission Status: Pending to [facility]/pharmacy #[id number] Referrals: Reynaldo Aden Chi, MD [Primary Care Provider] - Keep Ophelia appointment Additional Instructions: Please inform your doctors of your new allergy. Benadryl 12.5 mg to 25 mg every 6 hours as needed for rash and itching. You call 911 if you feel your reaction is worsening
[2019-02-02 16:48] VITALS: BP 135/77; PULSE 62; RESP 17; O2SAT 97
== END 2019-02-02 16:50 | disposition home or self-care (01) ==
PROVIDERS: Emergency Provider Emergency Medicine; Family Provider Family Medicine Geriatric Medicine; PCP Family Medicine Geriatric Medicine
DX: R06.02 Shortness of breath (principal); R11.0 Nausea; R23.2 Flushing; T36.1X5A Adverse effect of cephalosporins and other beta-lactam antibiotics, initial encounter; Y92.9 Unspecified place or not applicable; J44.9 Chronic obstructive pulmonary disease, unspecified; E11.9 Type 2 diabetes mellitus without complications; I10 Essential (primary) hypertension; K21.9 Gastro-esophageal reflux disease without esophagitis; Z79.899 Other long term (current) drug therapy; Z87.891 Personal history of nicotine dependence
CPT/HCPCS: 96374; 96375; 99285; A4216

== ENCOUNTER → 2019-04-01 12:17 | Outpatient (CLI) | payer MEDICARE, OTHER, SELFPAY ==
[2019-02-16 15:36] VITALS: BMI 29.4
== END ==
PROVIDERS: Family Provider Family Medicine Geriatric Medicine; PCP Family Medicine Geriatric Medicine; Visit Provider Family Medicine Geriatric Medicine
DX: N39.0 Urinary tract infection, site not specified (principal)
CPT/HCPCS: 87086; 87088

== ENCOUNTER → 2019-04-04 08:22 | Outpatient (CLI) | payer MEDICARE, OTHER, SELFPAY ==
[2019-02-16 15:36] VITALS: BMI 29.4
--- NOTE | 2019-04-04 08:28 | RAD_ITS ---
STUDY: X-RAY - ESOPHAGUS (BARIUM SWALLOW) WITH FLUOROSCOPY REASON FOR EXAM: Female, 83 years old. DYSPHAGIA SINCE LAST ESOPHAGEAL STRETCHING LAST THURSDAY. HISTORY OF ESOPHAGEAL CANCER. PATIENT UNABLE TO SWALLOW 12mm TABLET. TECHNIQUE: 31 view(s) of the esophagus were obtained following swallowing of barium. FLUOROSCOPY TIME (if supplied): (0:46) minutes/seconds COMPARISON: Comparison is made with prior examination dated April 27, 2014. FINDINGS: There is no demonstrated esophageal foreign body. There is no demonstrated stricture or mucosal abnormality. There is a small hiatal hernia of the fundus of the stomach. The patient was unable to swallow a 12 mm tablet of barium. There is atherosclerotic calcification of the aortic arch with tortuosity of the descending aorta. Normal visualized pulmonary parenchyma. There are diffuse degenerative changes of the visualized thoracic spine. RAD/Esophagus Only IMPRESSION: Small sliding hiatal hernia without gastroesophageal reflux. Patient was unable to swallow a 12 mm tablet of barium. Electronically Signed: Josh Singh, at 14:59 EST , Service support ,
== END ==
PROVIDERS: Family Provider Family Medicine Geriatric Medicine; PCP Family Medicine Geriatric Medicine; Referring Provider Internal Medicine Gastroenterology; Visit Provider Internal Medicine Gastroenterology
DX: R13.10 Dysphagia, unspecified (principal); K44.9 Diaphragmatic hernia without obstruction or gangrene; Z85.01 Personal history of malignant neoplasm of esophagus
CPT/HCPCS: 74220

== ENCOUNTER → 2019-05-06 10:56 | Outpatient (CLI) | payer MEDICARE, OTHER, SELFPAY ==
[2019-02-16 15:36] VITALS: BMI 29.4
--- NOTE | 2019-05-06 13:05 | RAD_ITS ---
STUDY: X-RAY CHEST REASON FOR EXAM: Female, 83 years old. COPD TECHNIQUE: PA and lateral views of the chest. COMPARISON: 10/08/2017 FINDINGS: The lungs are clear and expanded. There is no demonstrated pleural abnormality. Normal size heart. Normal mediastinum and dwayne. Normal visualized pulmonary arteries. There is atherosclerotic calcification of the aortic arch with tortuosity. There is demineralization of the osseous structures. Normal visualized ribs, clavicles, and shoulders. There is no demonstrated abnormality of the visualized soft tissue structures of the upper abdomen. RAD/Chest PA and Lateral IMPRESSION: Stable, nonacute x-ray examination of the chest. Electronically Signed: Davie Funes MD (Brooks) at 11:33 EST , Service support ,
== END ==
PROVIDERS: PCP Family Medicine Geriatric Medicine; Referring Provider Internal Medicine Pulmonary Disease; Visit Provider Internal Medicine Pulmonary Disease
DX: J44.9 Chronic obstructive pulmonary disease, unspecified (principal)
CPT/HCPCS: 71046; 87070; 87205

== ENCOUNTER → 2019-05-26 14:29 | Outpatient (CLI) | payer MEDICARE, OTHER, SELFPAY ==
[2019-02-16 15:36] VITALS: BMI 29.4
--- NOTE | 2019-05-26 14:33 | CT_ITS ---
STUDY: CT SOFT TISSUE NECK WITH CONTRAST REASON FOR EXAM: Female, 83 years old. RT VOCAL CORD IMMOBILITY, HX VOCAL CORD CANCER W/ RADIATION/CHEMO, VOCAL CORD DILATION EVERY 2 WKS, MOST RECENT 1 DAY AGO RADIATION DOSAGE (If Supplied By Facility): CTDIvol = ( 18.88 ) mGy, DLP = ( 575.16 ) mGycm TECHNIQUE: The patient was scanned in a multi-detector CT scanner. High resolution transaxial imaging was performed following intravenous administration of IV 75mL Isovue-300. Sagittal and coronal images were reconstructed. Individualized dose optimization techniques were used for this CT. COMPARISON: October 29, 2018 FINDINGS: Normal bilateral parotid glands. Normal bilateral investigator operator spaces. Normal bilateral parapharyngeal spaces. Carotid calcifications. Normal bilateral sublingual and submandibular glands and spaces. Normal visualized nasopharynx. Normal retropharyngeal space. Normal perivertebral space. Normal visualized bilateral faucial tonsils. The visualized tongue, tongue base and oropharynx are normal. The visualized cervical lymph nodes (levels I-) are within normal size limits, and maintain normal morphology. There is no demonstrated solid or cystic mass lesion. There is no abnormal contrast enhancement. Normal epiglottis, bilateral vallecula and hypopharynx. The pre-epiglottic and paraglottic adipose spaces are normal. Normal visualized bilateral piriform sinuses, aryepiglottic folds, vocal cords, and arytenoid-cricoid articulations. Normal subglottic trachea. Normal bilateral lobes of the thyroid gland. Normal visualized pulmonary apices. Normal visualized paranasal sinuses. There is multilevel degenerative changes of the cervical spine. Bilateral lens replacements. Wall thickening of the proximal esophagus could be related to prior radiation therapy. Correlate clinically for esophagitis. CT/Soft Tissue Neck WITH Contrast IMPRESSION: No evidence of mass or adenopathy. Wall thickening of the proximal esophagus could be related to prior radiation therapy. Correlate clinically for esophagitis. Electronically Signed: Cesar Ruiz MD at 0:59 EST Tel , Service support ,
[2019-05-26 14:45] LABS: CREATININE FINGERSTICK 0.9 mg/dL (0.55-1.02); EGFR FINGERSTICK > 60.0000 mL/min (>60)
== END ==
PROVIDERS: PCP Family Medicine Geriatric Medicine; Referring Provider Otolaryngology; Visit Provider Otolaryngology
DX: J38.01 Paralysis of vocal cords and larynx, unilateral (principal)
CPT/HCPCS: 70491; Q9967

== ENCOUNTER 2019-10-25 07:57 | Day surgery (SDC) | payer MEDICARE, OTHER, SELFPAY ==
[2019-02-16 15:36] VITALS: BMI 29.4
[2019-06-16 11:34] VITALS: BMI 27.3
--- NOTE | 2019-10-21 14:44 | EKG12_ITS ---
Test Reason : PRE OP Blood Pressure : / mmHG Vent. Rate : 078 BPM Atrial Rate : 078 BPM P-R Int : 144 ms QRS Dur : 086 ms QT Int : 362 ms P-R-T Axes : 053 038 064 degrees QTc Int : 412 ms Normal sinus rhythm Normal ECG Confirmed by CYNTHIA WANG ([id number]), web content editor PEGGY JOHNSTON ([id number]) on 10/24/2019 11:40:52 AM Referred By: Ravi Last Confirmed By:CYNTHIA WANG
[2019-10-21 16:13] LABS: Anion Gap 4 (5-15); BUN 30 mg/dL (7-18); BUN/Creat Ratio 31.5 RATIO (10-20); Calcium,Total 9.2 mg/dL (8.5-10.1); Chloride 97 mmol/L (98-107); Creatinine, Serum 0.95 mg/dL (0.55-1.02); EST Glomerular Filtration Rate 60 mL/min (>60); Est Glom Filt Rate - Afr Amer 72 mL/min (>60); Glucose 105 mg/dL (74-106); Potassium 4.4 mmol/L (3.5-5.1); Sodium Level 131 mmol/L (136-145)
[2019-10-25] VITALS (9 sets, daily range): BP systolic 116–144; BP diastolic 34–69; PULSE 77–89; RESP 16; TEMP 35.8–36.9; O2SAT 92–100; BMI 28.6
[2019-10-25 08:30] LABS: Bedside Glucose 103 mg/dL (70-110)
[2019-10-25] MEDS: Lactated Ringers 1,000 ML 100 ML IV ×2 (08:35→10:11)
--- NOTE | 2019-10-25 08:39 | DCINST_ITS ---
You will use the following diet at home:: No restrictions Your food should be the consistency of: Regular Discharge Activity: Return to Normal Activity Additional Activity Instructions:: voice rest for 24 hours Allergies/Adverse Reactions: Allergies acetaminophen [From Percocet] Allergy (Verified 10/18/19 11:20) Rash cefadroxil Allergy (Verified 10/25/19 08:24) PT UNSURE OF REACTION clindamycin Allergy (Verified 10/25/19 08:24) PT UNSURE OF REACTION oxycodone [From Percocet] Allergy (Verified 10/18/19 11:20) Rash hydrocodone bitartrate [From Vicodin] Adverse Reaction (Verified 10/18/19 11:20) CONFUSION GETS WEIRD Medications to take at Discharge Atenolol [Tenormin (beta bear)] 25 mg PO QHS 06/01/15 Levothyroxine [Synthroid] 112 mcg PO DAILY 11/23/18 Fluticasone/Salmeterol [Advair Hfa 115-21 Mcg Inhaler] 2 puff INHALATION BID 10/18/19 Omeprazole [Prilosec] 10 mg PO BID 10/18/19 Primary Care Physician: Reynaldo Aden Chi, MD [Primary Care Provider] - Test Results: Test results from this visit will be discussed in further detail at your follow- up appointment, if applicable. Please Follow Up With: Ravi Last MD When: 1 month
--- NOTE | 2019-10-25 08:39 | PCM.OPRPT ---
Problem List (1) Vocal cord paralysis, unilateral complete Status: Chronic Report of Operation Date of Procedure: 10/25/19 Pre-Operative Diagnosis: right vocal cord immobility Post-Operative Diagnosis: right vocal cord immobility Surgery/Procedure Performed:: diagnostic laryngoscopy with injection vocal cord, right Type of Anesthesia:: General Description of Procedure: on the day of the procedure, after appropriate informed consent was obtained, the patient was brought to the operating room and placed in supine position on the operating table. she was placed under general endotracheal anesthesia by the anesthesiologist. the endotracheal tube was secured. the eyes were taped. the table was rotated 90 degrees toward the surgeon. a mouth guard was placed and the shaunna laryngoscope was inserted and suspended. the zero degree endoscope was used to visualize the glottis. the right vocal cord junction of the anterior 2/3 and posterior 1/3 was noted and 0.8cc of prolaryn plus was injected lateral to this point into the paraglottic space, medializing the vocal cord. the patient was brought out of anesthesia and transferred to the PACU in stable condition.
== END 2019-10-25 12:01 | disposition home or self-care (01) ==
LOC: SDC 07:59 → AC 07:59
PROVIDERS: Anesthesiology; PCP Family Medicine Geriatric Medicine; Referring Provider Otolaryngology; Visit Provider Otolaryngology
PROC: (CPT 31570; principal; 2019-10-25 09:15)
DX: J38.01 Paralysis of vocal cords and larynx, unilateral (principal); J44.9 Chronic obstructive pulmonary disease, unspecified; K21.9 Gastro-esophageal reflux disease without esophagitis; E78.00 Pure hypercholesterolemia, unspecified; E11.9 Type 2 diabetes mellitus without complications; E06.9 Thyroiditis, unspecified; R00.0 Tachycardia, unspecified; Z79.899 Other long term (current) drug therapy; Z85.01 Personal history of malignant neoplasm of esophagus; Z87.891 Personal history of nicotine dependence; Z20.828 Contact with and (suspected) exposure to other viral communicable diseases
CPT/HCPCS: 00320; 31570; 36415; 80048; 82962; 87635; 93005; G2023; J7120; J2405; U0003

== ENCOUNTER → 2019-12-12 13:24 | Outpatient (CLI) | payer MEDICARE, OTHER, SELFPAY ==
[2019-10-25 08:25] VITALS: BMI 28.6
--- NOTE | 2019-12-12 13:27 | CT_ITS ---
STUDY: CT CHEST WITHOUT CONTRAST REASON FOR EXAM: Female, 84 years old. LUNG NODULE FOLLOW UP -- HX-ESOPHAGUS CA W/ RAD TX and amp; CHEMO RADIATION DOSAGE (If Supplied By Facility): CTDIvol = ( 9.67 ) mGy, DLP = ( 281.03 ) mGycm TECHNIQUE: Transaxial imaging was performed without the administration of intravenous contrast material. Multiplanar coronal and sagittal images were reformatted. Individualized dose optimization techniques were used for this CT. COMPARISON: Comparison is made with prior examination 10/29/2018. FINDINGS: Enlargement of the right lobe of the thyroid gland with focal calcification posteriorly. This compresses the right side of the trachea. Stable calcified granuloma in the peripheral lateral aspect of the right upper lobe. Stable 5.2 mm noncalcified nodule in the posterior medial segment of the right lower lobe as seen on axial image #127. There is no demonstrated pleural abnormality. There are calcifications of the coronary arteries. There are multiple small lymph nodes within the mediastinum, which are normal in size and morphology most compatible with reactive lymph hyperplasia. Normal hilar regions. Normal unenhanced pulmonary arteries. There is atherosclerotic calcification of the aortic arch with tortuosity and elongation of the aortic arch and descending thoracic aorta. There is demineralization of the thoracic spine. Small hiatal hernia. CT/Chest without Contrast IMPRESSION: Stable examination. Electronically Signed: Josh Singh, at 15:48 EDT , Service support ,
== END ==
PROVIDERS: PCP Family Medicine Geriatric Medicine; Referring Provider Internal Medicine Pulmonary Disease; Visit Provider Internal Medicine Pulmonary Disease
DX: R91.1 Solitary pulmonary nodule (principal); Z85.01 Personal history of malignant neoplasm of esophagus
CPT/HCPCS: 71250

== ENCOUNTER 2020-01-07 05:33 | Emergency (ER) | payer MEDICARE, OTHER, SELFPAY ==
[2019-10-25 08:25] VITALS: BMI 28.6
[2020-01-07 05:34] VITALS: BP 130/68; PULSE 90; RESP 18; TEMP 36.4; O2SAT 98; BMI 29.5
--- NOTE | 2020-01-07 05:55 | ED.DCSUM_ITS ---
- ER Visit Summary Date of Service: 01/07/20 Chief Complaint: Feeding tube coming out History of Present Illness: The patient is a 84 F who comes in this morning complaining that her feeding tube is coming out. She had a gush of fluid come out of the hole that houses her PEG tube. Her family is concerned that the tube balloon deflated. Yesterday at [facility] the patient had the PEG tube replaced by Dr. Garcia. She is denying any pain in this area. The patient has a history of esophageal strictures and cancer. She usually feeds herself at night through the feeding tube. Physical Examination: Vital signs reviewed. HEENT exam unremarkable. Heart is regular rate and rhythm without murmurs. Lungs are clear to auscultation. Abdomen is soft and nontender. There is a PEG tube in the right upper quadrant. The area is moist with fluid but there is no bleeding, erythema or drainage. Extremities reveal no edema. Skin exam normal. Neurologic exam normal. Test Results: None performed Emergency Department Course and Treatment: The balloon is supposed to be filled with 20 cc of fluid. When I shabbir back there was no return. The balloon was not holding any air. I then replaced this with a new 20 Arabic PEG tube. There was return of stomach contents into the tube. I heard a auscultation during air bolus. I feel confident that this is in the correct position. The daughter states that only the tube was replaced yesterday. No new hole in the abdominal wall or tract was made at that time. It looks well-healed and mature. Patient will be discharged to follow-up with her GI doctor Treatment Plan: [] Disposition: Discharge Impression: PEG tube dysfunction This note was generated with [employer] dictation software. It may contain incorrect words, spelling, and punctuation that were not noted in review of the chart prior to signing ED Disposition - Plan for ED Patient: Disposition: Home or Assisted Living Instructions: ED GASTROSTOMY TUBE REPLACEMENT Referrals: Reynaldo Aden Chi, MD [Primary Care Provider] -
[2020-01-07 06:02] VITALS: BP 130/68; PULSE 90; RESP 18; O2SAT 98
== END 2020-01-07 06:07 | disposition home or self-care (01) ==
LOC: ED 06:06
PROVIDERS: Emergency Provider Emergency Medicine; PCP Family Medicine Geriatric Medicine
DX: K94.23 Gastrostomy malfunction (principal); K21.9 Gastro-esophageal reflux disease without esophagitis; I10 Essential (primary) hypertension; E03.9 Hypothyroidism, unspecified; Z85.01 Personal history of malignant neoplasm of esophagus
CPT/HCPCS: 43762; 99282; J7030

== ENCOUNTER → 2020-01-18 13:00 | Outpatient (CLI) | payer MEDICARE, OTHER, SELFPAY ==
[2020-01-07 05:34] VITALS: BMI 29.5
[2020-01-18 16:39] LABS: Absolute Neutrophil Count 11.1 X10^3/uL (2.0-7.7); Basophil# 0.07 X10^3/uL; Basophil% 0.4 % (0-1); Eosinophil# 0.18 X10^3/uL; Eosinophils% 1.1 % (0-5); Hematocrit 36.1 % (37-47); Hemoglobin 11.4 g/dL (12.0-15.0); Lymphocyte % 21.2 % (19-41); Mean Corp Hgb Conc 31.6 g/dL (32-36); Mean Corpuscular Hgb 28.6 pg (27.0-32.0); Mean Corpuscular Volume 90.5 fL (81-99); Mean Platelet Vol. 10.3 fl (6.2-12.0); Monocyte# 1.47 X10^3/uL; Monocyte% 8.9 % (0-10); NRBC Flagged by Analyzer 0 % (0-5); Neutrophil # 11.14 X10^3/uL (2.7-7.7); Neutrophil % 67.6 % (47-70); Platelet Count 365 K/mm3 (150-450); RBC Distribution Width CV 14.5 % (11.6-14.6); RBC Distribution Width SD 47.8 fl (35.1-43.9); Red Blood Count 3.99 M/mm3 (4.2-5.4); White Blood Count 16.5 K/mm3 (4.4-11.0)
[2020-01-18 17:00] LABS: Vitamin D,25 Hydroxy 17.6 ng/mL
[2020-01-18 17:09] LABS: ALB/GLOB Ratio 0.7 RATIO (0.9-2.4); AST(SGOT) 22 U/L (15-37); Alanine Aminotransfer ALT/SGPT 34 U/L (13-56); Albumin, Serum 3.3 g/dL (3.2-5.0); Alkaline Phosphatase 139 U/L (45-117); Anion Gap 8 (5-15); BUN 31 mg/dL (7-18); BUN/Creat Ratio 29.8 RATIO (10-20); Calcium,Total 9.5 mg/dL (8.5-10.1); Chloride 100 mmol/L (98-107); Creatinine, Serum 1.04 mg/dL (0.55-1.02); EST Glomerular Filtration Rate 54 mL/min (>60); Est Glom Filt Rate - Afr Amer 65 mL/min (>60); Globulin 4.5 g/dL (2.2-4.2); Glucose 102 mg/dL (74-106); Potassium 4.6 mmol/L (3.5-5.1); Protein, Total 7.8 g/dL (6.4-8.2); Sodium Level 133 mmol/L (136-145)
== END ==
PROVIDERS: PCP Family Medicine Geriatric Medicine; Visit Provider Family Medicine Geriatric Medicine
DX: E55.9 Vitamin D deficiency, unspecified (principal); I10 Essential (primary) hypertension
CPT/HCPCS: 36415; 80053; 82306; 84443; 85025

== ENCOUNTER → 2020-03-08 14:22 | Outpatient (CLI) | payer MEDICARE, OTHER, SELFPAY ==
--- NOTE | 2020-03-08 14:35 | RAD_ITS ---
STUDY: X-RAY - ABDOMEN/PELVIS REASON FOR EXAM: Female, 84 years old. G-TUBE PLACEMENT CHECK -- 50/50 MIXTURE GASTRO AND WATER MIX. 120cc TECHNIQUE: Single AP view of the abdomen / pelvis. COMPARISON: None. FINDINGS: A gastrostomy tube has been placed. It lies in the distal stomach. Contrast is seen within the stomach and proximal small bowel loops. RAD/Abdomen Single View IMPRESSION: Satisfactory position of the gastrostomy tube. Electronically Signed: Josh Singh, at 15:10 EST , Service support ,
== END ==
PROVIDERS: PCP Family Medicine Geriatric Medicine; Visit Provider Family Medicine Geriatric Medicine
DX: Z93.1 Gastrostomy status (principal)
CPT/HCPCS: 74018

== ENCOUNTER → 2020-05-15 14:48 | Outpatient (CLI) | payer MEDICARE, OTHER, SELFPAY ==
--- NOTE | 2020-05-15 14:51 | RAD_ITS ---
STUDY: X-RAY CHEST REASON FOR EXAM: Female, 84 years old. Hemoptysis -- cough, sob TECHNIQUE: PA and lateral views of the chest. COMPARISON: Comparison is made with prior study dated 05/06/2019. FINDINGS: Hyperinflation. Scattered calcified granulomas. There is no demonstrated pleural abnormality. Normal size heart. Normal mediastinum and dwayne. Normal visualized pulmonary arteries. Normal visualized aortic arch and descending thoracic aorta. Normal visualized thoracic spine. Normal visualized ribs, clavicles, and shoulders. There is no demonstrated abnormality of the visualized soft tissue structures of the upper abdomen. RAD/Chest PA and Lateral IMPRESSION: Hyperinflation. Electronically Signed: Josh Singh MD at 15:09 EST , Service support ,
== END ==
PROVIDERS: PCP Family Medicine Geriatric Medicine; Referring Provider Internal Medicine Gastroenterology; Visit Provider Internal Medicine Gastroenterology
DX: R04.2 Hemoptysis (principal)
CPT/HCPCS: 71046

== ENCOUNTER 2020-07-10 06:25 | Day surgery (SDC) | payer MEDICARE, OTHER, SELFPAY ==
--- NOTE | 2020-07-05 10:33 | EKG12_ITS ---
Test Reason : PRE OP Blood Pressure : / mmHG Vent. Rate : 081 BPM Atrial Rate : 081 BPM P-R Int : 142 ms QRS Dur : 078 ms QT Int : 368 ms P-R-T Axes : 077 067 078 degrees QTc Int : 427 ms Normal sinus rhythm Normal ECG Confirmed by TIANA GRANT, DESIRAE ([id number]), business editor KIKO SÁNCHEZ ([id number]) on 07/06/2020 2:45:17 PM Referred By: Ravi Last Confirmed By:SOFYA MONTIEL MD
[2020-07-05 11:39] LABS: Anion Gap 5 (5-15); BUN 32 mg/dL (7-18); BUN/Creat Ratio 28.8 RATIO (10-20); Calcium,Total 9.4 mg/dL (8.5-10.1); Chloride 103 mmol/L (98-107); Creatinine, Serum 1.11 mg/dL (0.55-1.02); EST Glomerular Filtration Rate 50 mL/min (>60); Est Glom Filt Rate - Afr Amer 60 mL/min (>60); Glucose 105 mg/dL (74-106); Potassium 4.8 mmol/L (3.5-5.1); Sodium Level 135 mmol/L (136-145)
[2020-07-10] VITALS (17 sets, daily range): BP systolic 94–134; BP diastolic 49–83; PULSE 70–100; RESP 16–20; TEMP 35.8–37.2; O2SAT 95–100; BMI 30.4
[2020-07-10] MEDS: Lactated Ringers 1,000 ML 100 ML IV ×2 (07:13→11:05)
[2020-07-10 08:01] LABS: Bedside Glucose 126 mg/dL (70-110)
--- NOTE | 2020-07-10 08:05 | DCINST_ITS ---
You will use the following diet at home:: No restrictions Your food should be the consistency of: Regular Discharge Activity: Return to Normal Activity Call your doctor if your incision/area has: Increased Pain/ Swelling Allergies/Adverse Reactions: Allergies acetaminophen [From Percocet] Allergy (Verified 07/10/20 07:05) Rash cefadroxil Allergy (Verified 07/10/20 07:05) PT UNSURE OF REACTION clindamycin Allergy (Verified 07/10/20 07:05) PT UNSURE OF REACTION oxycodone [From Percocet] Allergy (Verified 07/10/20 07:05) Rash codeine Adverse Reaction (Verified 07/10/20 07:05) PT UNSURE OF REACTION hydrocodone bitartrate [From Vicodin] Adverse Reaction (Verified 07/10/20 07:05) CONFUSION GETS WEIRD Medications to take at Discharge Atenolol [Tenormin (beta bear)] 25 mg PO QHS 06/01/15 Levothyroxine [Synthroid] 112 mcg PO DAILY 11/23/18 Fluticasone/Salmeterol [Advair Hfa 115-21 Mcg Inhaler] 2 puff INHALATION BID 10/18/19 Omeprazole [Prilosec] 40 mg PO DAILY 10/18/19 Albuterol Inhaler [Ventolin Hfa (SP)] 1 - 2 puff INHALATION Q6H PRN PRN 07/03/20 Primary Care Physician: Reynaldo Aden Chi, MD [Primary Care Provider] - Test Results: Test results from this visit will be discussed in further detail at your follow- up appointment, if applicable. Please Follow Up With: Ravi Last MD When: 1 month
--- NOTE | 2020-07-10 08:07 | PCM.OPRPT ---
Problem List (1) Vocal cord paralysis, unilateral complete Status: Chronic Report of Operation Date of Procedure: 07/10/20 Pre-Operative Diagnosis: vocal cord immobility, right Post-Operative Diagnosis: vocal cord immobility, right Surgery/Procedure Performed:: diagnostic laryngoscopy with use of operative telescope and injection vocal cord, right Type of Anesthesia:: General Description of Procedure: on the day of the procedure, after appropriate informed consent was obtained, the patient was brought to the operating room and placed in supine position on the operating table. she was placed under general endotracheal anesthesia by the anesthesiologist. the endotracheal tube was secured. the eyes were taped. the table was rotated 90 degrees toward the surgeon. a mouth guard was placed and the shaunna laryngoscope was inserted and suspended. the zero degree endoscope was used to visualize the glottis. the right vocal cord junction of the anterior 2/3 and posterior 1/3 was noted and 0.6cc of prolaryn plus was injected lateral to this point into the paraglottic space, medializing the vocal cord. the patient was brought out of anesthesia and transferred to the PACU in stable condition.
--- NOTE | 2020-07-10 08:57 | SUR.PHASEI ---
Patient states sensation of unable to breathe through her mouth. Her pulse ox is 95-97%. I told her that it is probably from the procedure. the sensation. She is coughing up frequent red/white colored sputum.
--- NOTE | 2020-07-10 09:24 | SUR.PHASEI ---
PATIENT CONTINUALLY SAYS SHE CANT BREATHE. HER PULSE OXIMETRY IS 96-98%. AIRWAY CLEAR. I PUT A COUPLE LITERS OF O2 ON TO SEE IF THE SENSATION DISAPPEARS.
[2020-07-10] MEDS: Ipratropium/Albuterol Sulfate 3 ML AMPUL.NEB INHALATION (09:50)
--- NOTE | 2020-07-10 09:50 | SUR.PHASEI ---
DR ALVAREZ CALLED BY THIS NURSE TO REQUEST A BREATHING TREATMENT FOR THE PATIENT. HER O2 SAT IS STILL 98-100 ON 2 LITERS O2. I LISTENED TO HER LUNGS AGAIN AND SHE DOES HAS SOME ANTERIOR UPPER AIRWAY FAINT WHEEZING. RESPIRATORY CALLED FOR THE TREATMENT.
[2020-07-10] MEDS: Racepinephrine HCl 0.5 ML VIAL.NEB. INHALATION (10:24)
--- NOTE | 2020-07-10 10:56 | SUR.PHASEI ---
Patient states she is feeling better after racemic epi via breathing treatment.
== END 2020-07-10 12:00 | disposition home or self-care (01) ==
LOC: SDC 06:27 → AC 06:27
PROVIDERS: PCP Family Medicine Geriatric Medicine; Referring Provider Otolaryngology; Visit Provider Otolaryngology
PROC: (CPT 31571; principal; 2020-07-10 07:55)
DX: J38.01 Paralysis of vocal cords and larynx, unilateral (principal); E11.9 Type 2 diabetes mellitus without complications; E07.9 Disorder of thyroid, unspecified; J44.9 Chronic obstructive pulmonary disease, unspecified; K21.9 Gastro-esophageal reflux disease without esophagitis; R00.0 Tachycardia, unspecified; Z79.899 Other long term (current) drug therapy; Z85.01 Personal history of malignant neoplasm of esophagus; Z87.891 Personal history of nicotine dependence
CPT/HCPCS: 00320; 31571; 36415; 80048; 82962; 93005; 94640; J7120; A4216; J2405

== ENCOUNTER 2020-07-11 10:24 | Observation (INO) | payer MEDICARE, OTHER, SELFPAY ==
[2020-07-10 06:54] VITALS: BMI 30.4
[2020-07-11] VITALS (19 sets, daily range): BP systolic 111–152; BP diastolic 39–84; PULSE 71–101; RESP 12–22; TEMP 36.3–36.7; O2SAT 65–99; BMI 32.1; BMI 30.1
--- NOTE | 2020-07-11 10:37 | ED.DCSUM_ITS ---
History of Present Illness Chief Complaint: Edema Informant: Patient, Family Narrative: 84-year-old female with a history of esophageal cancer status post radiation therapy received a second injection of pro-Flaco yesterday in the operating room under anesthesia with endotracheal tube. The patient states that her throat feels swollen and her voice is extremely hoarse. She is having difficulty clearing her secretions. Daughter states she gave her something to drink today and almost aspirated. They did not to get in contact with her surgeon but called 911 to bring her to the hospital. Daughter tells me that EMS reported that her throat was swollen. - Past Medical History (1) Hoarseness of voice Status: Chronic (2) COPD (chronic obstructive pulmonary disease) Status: Chronic (3) Dysesthesia Status: Chronic Comment: right upper gluteal area (4) Dysphagia Status: Chronic (5) Esophageal cancer Status: Chronic (6) GERD (gastroesophageal reflux disease) Status: Chronic (7) HLD (hyperlipidemia) Status: Chronic (8) History of esophageal cancer Status: Chronic (9) History of skin cancer Status: Chronic (10) History of tobacco use Status: Chronic (11) Hypertension Status: Chronic (12) Hypothyroidism Status: Chronic (13) Radiation-induced esophageal stricture Status: Chronic (14) Type II diabetes mellitus Status: Chronic (15) Vocal cord paralysis, unilateral complete Status: Chronic Past Medical History - Allergies and Home Meds Allergies/Adverse Reactions: Allergies acetaminophen [From Percocet] Allergy (Verified 07/11/20 10:30) Rash amoxicillin [From Augmentin] Allergy (Verified 07/11/20 10:30) PT UNSURE OF REACTION cefadroxil Allergy (Verified 07/11/20 10:30) PT UNSURE OF REACTION clavulanic acid [From Augmentin] Allergy (Verified 07/11/20 10:30) PT UNSURE OF REACTION clindamycin Allergy (Verified 07/11/20 10:30) PT UNSURE OF REACTION oxycodone [From Percocet] Allergy (Verified 07/11/20 10:30) Rash codeine Adverse Reaction (Verified 07/11/20 10:30) PT UNSURE OF REACTION hydrocodone bitartrate [From Vicodin] Adverse Reaction (Verified 07/11/20 10:30) CONFUSION GETS WEIRD Primary Care Physician: Ravi Last MD [STAFF PHYSICIAN] - (Go directly to the office) Surgical History: arthroscopy, knee, - - Soffa GL dilation. Vocal cord inject ions. Lives: With Family Smoking Status: Never smoker Drugs: None - Family History Maternal Family History: Family History (Last Reviewed 06/16/19 @ 11:31 by Sadie Forte) Mother Osteoporosis Heart disease Family History: Reports: - Paternal Family History: Family History (Last Reviewed 06/16/19 @ 11:31 by Sadie Forte) Mother Osteoporosis Heart disease Family History: Reports: No pertinent history Review of Systems General: Denies: Chills, Fever, Sweats Eyes: Denies: Visual changes - bilaterally, Diplopia ENT: Reports: Sore throat. Denies: Rhinorrhea Cardiovascular: Denies: Chest pain, Palpitations Respiratory: Denies: Dyspnea, Cough, Dyspnea on exertion Gastrointestinal: Denies: Abdominal pain, Nausea, Vomiting, Diarrhea, Melena, Hematochezia Genitourinary: Denies: Dysuria, Hematuria, Frequency Musculoskeletal: Denies: Back pain, Extremity Pain Skin: Denies: Rash, Wounds Neurological: Denies: Headache, Weakness, Numbness Physical Exam Vital Signs/Narrative: Vital Signs Temp Pulse Resp BP Pulse Ox 07/11/20 10:32 98 F 98 22 H 146/63 H 99 07/11/20 10:25 98 F 87 21 H 146/66 H 99 Inital Vital Signs reviewed: Yes General: Well nourished, Well developed, No Acute Distress Head: Normocephalic, Atraumatic Eyes: Perrl, EOMI ENT: Moist mucous membranes, No rhinorrhea, - - Patient has a hoarse voice but no stridor. I do not see any oral pharyngeal swelling to the limits that I can see the injection site though. She is spitting some of her secretions. Neck: Supple, Nontender Cardiovascular: Regular rate, Regular rhythm, No murmurs Respiratory: No distress, CTA bilaterally, Chest nontender Abdomen: Soft, Nontender, Nondistended, Normal bowel sounds Back: Nontender, Normal Inspection Extremities: Nontender, No edema Skin: Normal color, No rash Neurological: Alert, Oriented x3, Cranial nerves II-XII grossly intact, Normal Strength, Normal Sensation Psychological: Normal affect, Normal Mood Diagnostic/Tx/Re-eval - Medical Decision Making I spoke with Dr. Blair who would like to have the patient sent to his office for a scope. Prior to that he would like her to have a dose of Decadron. Family states that she is an extremely hard IV stick and would prefer to give the medicine a different route. I will give her 10 mg through her PEG tube. If there is something that they feel she needs to be hospitalized for after the scope she can be brought back to the ED. I spoke with Dr. Burks after he scoped in the office. He notes some swelling related to the injection sites. He states that treatment will be supportive but we should watch her in the ICU tonight. Patient was brought back to the emergency room and we will work on getting an ICU bed and an IV. ED Disposition - Plan for ED Patient: Disposition: Acute Care Hospital [facility] Diagnosis: Throat swelling Referrals: Ravi Last MD [STAFF PHYSICIAN] - (Go directly to the office)
[2020-07-11] MEDS: dexAMETHasone 10 MG/ML Vial PO.IVFORM (11:08)
[2020-07-11 12:13] LABS: Absolute Lymphocyte Count 2.81 X10^3/uL (0.83-4.51); Absolute Neutrophil Count 7.1 X10^3/uL (2.0-7.7); Basophil# 0.06 X10^3/uL; Basophil% 0.5 % (0-1); Eosinophil# 0.24 X10^3/uL; Eosinophils% 2.2 % (0-5); Hematocrit 34.5 % (37-47); Lymphocyte # 2.81 X10^3/ul (4.0); Lymphocyte % 25.2 % (19-41); Mean Corp Hgb Conc 31.9 g/dL (32-36); Mean Corpuscular Hgb 28.2 pg (27.0-32.0); Mean Corpuscular Volume 88.5 fL (81-99); Mean Platelet Vol. 10.1 fl (6.2-12.0); Monocyte# 0.91 X10^3/uL; Monocyte% 8.2 % (0-10); NRBC Flagged by Analyzer 0 % (0-5); Neutrophil # 7.08 X10^3/uL (2.7-7.7); Neutrophil % 63.5 % (47-70); Platelet Count 323 K/mm3 (150-450); RBC Distribution Width CV 14.5 % (11.6-14.6); RBC Distribution Width SD 46.5 fl (35.1-43.9); White Blood Count 11.1 K/mm3 (4.4-11.0)
[2020-07-11 12:32] LABS: Anion Gap 4 (5-15); BUN 24 mg/dL (7-18); BUN/Creat Ratio 21.8 RATIO (10-20); Calcium,Total 9.2 mg/dL (8.5-10.1); Chloride 104 mmol/L (98-107); EST Glomerular Filtration Rate 51 mL/min (>60); Est Glom Filt Rate - Afr Amer 61 mL/min (>60); Estimated Creatinine Clearance 32.62 ml/min; Glucose 116 mg/dL (74-106); Potassium 4.9 mmol/L (3.5-5.1); Sodium Level 135 mmol/L (136-145)
--- NOTE | 2020-07-11 14:55 | CON.PCM_ITS ---
Problem List (1) Type II diabetes mellitus Status: Chronic (2) History of skin cancer Status: Chronic (3) HLD (hyperlipidemia) Status: Chronic (4) Tachyarrhythmia Status: Chronic (5) Dysphagia Status: Chronic (6) Obesity (BMI 30.0-34.9) Status: Chronic (7) COPD (chronic obstructive pulmonary disease) Status: Chronic (8) GERD (gastroesophageal reflux disease) Status: Chronic (9) Hypertension Status: Chronic (10) Esophageal cancer Status: Chronic (11) Radiation-induced esophageal stricture Status: Chronic (12) Hoarseness of voice Status: Chronic (13) Vocal cord paralysis, unilateral complete Status: Chronic (14) Throat swelling Status: Acute Reason for Consult Date of Consultation: 07/11/20 Reason for Consultation: Stridor History of Present Illness: The patient is an 84 year old F, with past medical history listed below, who presented to [facility] on 07/11/2020 secondary to progressive shortness of breath following a second injection of pro-Flaco in the operating room yesterday under anesthesia secondary to a unilateral vocal cord paralysis. Patient had stated that her throat was feeling more swollen and her voice was becoming more hoarse so she was concerned enough to come to the ER for evaluation. Patient reportedly has had issues with handling her secretions and had choked on a drink of water earlier in the day. In the ER, patient was slightly hypertensive at 146/66, but saturating 99% on room air. Patient was not tachycardic, but was noted to have a significant hoarse voice. Patient reportedly was spitting out some of her secretions. ENT was called and recommended a dose of Decadron. Given family concerns, patient was admitted to the intensive care unit for observation. On arrival to the intensive care unit, patient felt she was subjectively unchanged compared to previous. Patient continues to report significant hoarseness, but has not had any fevers or chills. Patient was saturating well on room air. Patient reportedly has had injections previously without complications. Did discuss with ENT, ER and hospitalist independently. Review of systems otherwise negative from a constitutional, HEENT, respiratory, cardiovascular, GI, genitourinary, musculoskeletal, skin, neurologic, psychiatric and hematologic system unless stated above. Past Medical History Past Medical History (Chronic Problems): Chronic Problems (Last Reviewed 06/20/19 @ 16:49 by Angela Kemp) Type II diabetes mellitus (Chronic) History of skin cancer (Chronic) History of tobacco use (Chronic) HLD (hyperlipidemia) (Chronic) Hypothyroidism (Chronic) Tachyarrhythmia (Chronic) Dysphagia (Chronic) Obesity (BMI 30.0-34.9) (Chronic) COPD (chronic obstructive pulmonary disease) (Chronic) GERD (gastroesophageal reflux disease) (Chronic) Hypertension (Chronic) Esophageal cancer (Chronic) Radiation-induced esophageal stricture (Chronic) History of esophageal cancer (Chronic) Pulmonary nodule, right (Chronic) Nodule of buttock (Chronic) 1.5 cm soft tissue mass right upper gluteal area Lipoma of buttock (Chronic) 1.5 cm painful lipoma right upper gluteal area Dysesthesia (Chronic) right upper gluteal area Hoarseness of voice (Chronic) Vocal cord paralysis, unilateral complete (Chronic) Medical History: Medical History (Last Reviewed 06/20/19 @ 16:49 by Angela Kemp) Arthritis M19.90 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 Cataracts, bilateral H26.9 Diabetes mellitus E11.9 Hearing problem H91.90 History of esophageal dilatation Z98.890 every [address] Garcia History of pneumonia Z87.01 Squamous cell carcinoma C44.92 Thyroid disease E07.9 Vitamin D deficiency E55.9 Allergies acetaminophen [From Percocet] Allergy (Verified 07/11/20 10:30) Rash amoxicillin [From Augmentin] Allergy (Verified 07/11/20 10:30) PT UNSURE OF REACTION cefadroxil Allergy (Verified 07/11/20 10:30) PT UNSURE OF REACTION clavulanic acid [From Augmentin] Allergy (Verified 07/11/20 10:30) PT UNSURE OF REACTION clindamycin Allergy (Verified 07/11/20 10:30) PT UNSURE OF REACTION oxycodone [From Percocet] Allergy (Verified 07/11/20 10:30) Rash codeine Adverse Reaction (Verified 07/11/20 10:30) PT UNSURE OF REACTION hydrocodone bitartrate [From Vicodin] Adverse Reaction (Verified 07/11/20 10:30) CONFUSION GETS WEIRD Home Medications: Ambulatory Orders Medication Instructions Recorded Atenolol [Tenormin (beta bear)] 25 mg PO QHS 06/01/15 Levothyroxine [Synthroid] 112 mcg PO DAILY 11/23/18 Fluticasone/Salmeterol [Advair Hfa 2 puff INHALATION BID 10/18/19 115-21 Mcg Inhaler] Omeprazole [Prilosec] 40 mg PO DAILY 10/18/19 Albuterol Inhaler [Ventolin Hfa 1 - 2 puff INHALATION Q6H PRN PRN 07/03/20 (SP)] Surgical History: Surgical History (Last Reviewed 06/16/19 @ 11:31 by Sadie Forte) History of cholecystectomy Z98.890, Z90.49 History of tubal ligation Z98.51 S/P dilatation of esophageal stricture Z98.890, Z87.19 Every two weeks [address] Dr Garcia. Surgical History: arthroscopy, knee, - - Soffa GL dilation. Vocal cord injections. 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 hx INTERPRETER DEAF History: No pertinent INTERPRETER DEAF history Lives: With Family Smoking Status: Former smoker Tobacco Use: Cigarettes Drugs: None - *Family History Maternal Family History: Family History (Last Reviewed 06/16/19 @ 11:31 by Sadie Forte) Mother Osteoporosis Heart disease History Items: - Paternal Family History: Family History (Last Reviewed 06/16/19 @ 11:31 by Sadie Forte) Mother Osteoporosis Heart disease History Items: No pertinent history Review of Systems Comment: See HPI Patient Problems: Active and Suspected Problems (Last Reviewed 06/20/19 @ 16:49 by Angela Kemp) Throat swelling (Acute) - Physical Exam Vitals/I&O's: Vital Signs Temp Pulse Resp BP Pulse Ox 36.6 C 99 18 142/67 H 99 07/11/20 12:53 07/11/20 12:53 07/11/20 12:53 07/11/20 12:53 07/11/20 14:03 Oxygen Delivery Method Room Air Weight: 77.2 kg Body Mass Index (BMI) 30.1 General: Alert, Oriented x3, Cooperative, No apparent distress, - - Very hoarse voice HEENT: Atraumatic, PERRLA, EOMI, Normocephalic, - - No scleral icterus or injection noted Oral: Moist Mucosa, No Gingival or Mucosal Lesions/ Ulcerations, - - No tongue or pharyngeal swelling appreciated Neck: Supple, No JVD, No Nodes, Trachea Midline, - - No stridor Lungs: Normal air movement, No rhonchi, No wheeze, No rales Cardiovascular: Regular rate, Regular Rhythm, Normal S1, Normal S2, No murmurs, No rub noted, No Gallop Abdomen: Bowel Sounds Present, Soft, Non Tender, Non-Distended, Obese Extremities: No clubbing, No cyanosis, No edema Skin: No rashes, No breakdown Musculoskeletal: No Tenderness to Palpation of Joints or Extremities Lymphatic: No Cervical, Supraclavicular, or Inguinal Adenopathy Neurological: Cranial nerves II-XII grossly intact, Neuro grossly intact, Motor Exam 5/5 strength throughout Psych/Mental Status: Alert and oriented to time, place, person, mood and affect Laboratory Results 07/11/20 12:10: WBC 11.1 H, RBC 3.90 L, Hgb 11.0 L, Hct 34.5 L, MCV 88.5, MCH 28.2, MCHC 31.9 L, RDW Std Deviation 46.5 H, RDW Coeff of Mickey 14.5, Plt Count 323, MPV 10.1, Immature Gran % (Auto) 0.400, Neut % (Auto) 63.5, Lymph % (Auto) 25.2, [place] % (Auto) 8.2, Eos % (Auto) 2.2, Baso % (Auto) 0.5, Absolute Neuts (auto) 7.1, Absolute Lymphs (auto) 2.81, Nucleated RBC % 0 07/11/20 12:10: Sodium 135 L, Potassium 4.9, Chloride 104, Carbon Dioxide 27.0, Anion Gap 4 L, BUN 24 H, Creatinine 1.10 H, Estim Creat Clear Calc 32.62, Est GFR (MDRD) Af Amer 61, Est GFR (MDRD) Non-Af 51 L, BUN/Creatinine Ratio 21.8 H, Glucose 116 H, Calcium 9.2 Current Medications Dexamethasone (Dexamethasone 4 Mg Tablet) 6 mg PO DAILYCM ANISH Heparin Sodium (Porcine) (Heparin Injection (Vial) 5,000 Unit/Ml Vial) 5,000 unit SC Q8 ANISH Hydromorphone HCl (Hydromorphone 0.5 Mg/0.5 Ml Syringe) 0.5 mg IV Q4H PRN PRN PRN Reason: Pain Score 6-10 Ondansetron HCl (Ondansetron 4 Mg/2 Ml Vial) 4 mg IV Q8H PRN PRN PRN Reason: NAUSEA/VOMITING Sodium Chloride (0.9% Saline Lock 10 Ml Syringe) 10 - 40 ml IV UD PRN PRN Reason: SALINE FLUSH Assessment/Plan Active and Suspected Problems (Last Reviewed 06/20/19 @ 16:49 by Angela Kemp) Throat swelling (Acute) RECOMMENDATIONS: 1. Await ENT recommendations 2. Monitor overnight in intensive care 3. Optimize availability of glide scope 4. Possible discharge after 24 hours IMPRESSIONS: 1. Respiratory insufficiency secondary to vocal cord injection Patient with increased hoarseness and shortness of breath following intervention on vocal cord. Airway appears to be stable at this time. There does not appear to be any indication that intubation is required urgently. Patient has been given steroids. ENT to evaluate patient. Will make glide scope readily available. Patient will have her CODE STATUS changed to DNR comfort care with intubation with the understanding that intubation would be temporary to allow for recovery from vocal cord complications. Defer antibiotics to ENT. 2. Reported COPD Reportedly follows with Dr. Ramos. Patient does have a history of smoking in the past and reports that she is on Advair. Therapeutic substitution would be appropriate. Patient does not appear to be in acute exacerbation of COPD. 3. GERD/history of esophageal cancer/hyperlipidemia/diabetes Complicates care, management, recovery and prognosis. Recommend monitorin g blood sugars given Decadron therapy as this can lead to significant hyperglycemia. Inpatient E&M: 78184 Init Hosp L2
--- NOTE | 2020-07-11 14:55 | PCM.NTREPORT ---
Nutrition Therapy Report - History Nutrition Services has been consulted to:: Manage nutrient details of diet order, Manage enteral nutrition Current diet / nutrition support order:: NPO - Anthropometric Measurements Height:: 5 ft 3 in Weight:: 77.2 kg Body Mass Index (BMI):: 30.1 - Relevant Labs Relevant Labs:: WBC 11.1 K/mm3 (4.4-11.0) H 07/11/20 12:10 RBC 3.90 M/mm3 (4.2-5.4) L 07/11/20 12:10 Hgb 11.0 g/dL (12.0-15.0) L 07/11/20 12:10 Hct 34.5 % (37-47) L 07/11/20 12:10 MCHC 31.9 g/dL (32-36) L 07/11/20 12:10 RDW Std Deviation 46.5 fl (35.1-43.9) H 07/11/20 12:10 Sodium 135 mmol/L (136-145) L 07/11/20 12:10 Anion Gap 4 (5-15) L 07/11/20 12:10 BUN 24 mg/dL (7-18) H 07/11/20 12:10 Creatinine 1.10 mg/dL (0.55-1.02) H 07/11/20 12:10 Est GFR (MDRD) Non-Af 51 mL/min (>60) L 07/11/20 12:10 BUN/Creatinine Ratio 21.8 RATIO (10-20) H 07/11/20 12:10 Glucose 116 mg/dL (74-106) H 07/11/20 12:10 - Assessment Food / Nutrition-Related History:: Information gathered from pt and daughter via telephone. Pt states most calories/protein provided via PEG. Occassionally takes soft foods PO but cannot at this time d/t throat swelling. Nocturnally does 3.5 cartons of TwoCal HN from 9PM to 7AM (provides 1659 calories, 69.65 g protein). Pt flushes PEG w/ 60mL H2O every 2 hours (720mL in flushes, 581mL from formula= 1301mL fluid/day). Denies wt changes. Feels she has been gradually gaining wt. - Nutrition Diagnosis Problem / Etiology / Signs & Symptoms (PES):: swallow difficulty r/t hx of radiation induced esophageal stricture as evidenced by inability to consume sufficient nutrients via oral diet and need for PEG tube for long-term nutrition support. Evidence of Malnutrition Exists:: No - Nutrition Intervention Nutrition Prescription:: [id number] calories/day (1.3xRMR). 77-87 g protein/day (1g/kg). 1925mL fluid/day (1mL/kg) - Food / Nutrient Delivery Interventions Summary of nutrition intervention:: Will provide enteral nutrition recommendations/orders while admitted. Discussed home tube feeds further w/ pt. Pt states Dr. Garcia has been signing script for tube feeds and supplies. Current home tube feeds have pt awakening every 2 hours to provide flush and add formula to bag. Pt also states she has loose BMs throughout the night. Noted home formula only provides ~4 g fiber/day which is not ideal for long-term enteral nutrition support. Nutrition support ordered as / adjusted to:: maintain NPO status; Pivot 1.5 at 80mL/hour for 12 hours overnight (8P-8A) w/ 200mL H2O flush every 4 hours to provide 1440 calories, 90 g protein, and 1920mL fluid/day. OK to start at goal rate, home tube feeds generally infuse at 84mL/hour. Nutrition education provided?: Yes - Pt would strongly benefit from outpatient f/u w/RDN to address home TFs - MNT Monitoring Further MNT monitoring and evaluation required?: Yes MNT Follow-up in:: 1-2 days
[2020-07-11] MEDS: Heparin Injection (Vial) 5,000 UNIT/ML VIAL 5000 UNIT SC ×2 (15:00→22:08)
--- NOTE | 2020-07-11 15:42 | PCM.CONS.GEN ---
Problem List (1) Dysphagia Status: Chronic Reason for Consult Date of Consultation: 07/11/20 History of Present Illness: The patient is a 84 year old F s/p radiation therapy for esophageal carcinoma who is POD#1 s/p right vocal cord injection. she noted increasing difficulty tolerating secretions, voice changes and shortness of breath. she has never had stridor. she was scoped at [facility] which noted right sided isolated supraglottic watery edema and a patent airway. she wasd admitted to the ICU after recieving decadron in the ED for observation. she feels a bit better than she did this am with no acute changes since. Past Medical History Past Medical History (Chronic Problems): Chronic Problems (Last Reviewed 06/20/19 @ 16:49 by Angela Kemp) Type II diabetes mellitus (Chronic) History of skin cancer (Chronic) History of tobacco use (Chronic) HLD (hyperlipidemia) (Chronic) Hypothyroidism (Chronic) Tachyarrhythmia (Chronic) Dysphagia (Chronic) Obesity (BMI 30.0-34.9) (Chronic) COPD (chronic obstructive pulmonary disease) (Chronic) GERD (gastroesophageal reflux disease) (Chronic) Hypertension (Chronic) Esophageal cancer (Chronic) Radiation-induced esophageal stricture (Chronic) History of esophageal cancer (Chronic) Pulmonary nodule, right (Chronic) Nodule of buttock (Chronic) 1.5 cm soft tissue mass right upper gluteal area Lipoma of buttock (Chronic) 1.5 cm painful lipoma right upper gluteal area Dysesthesia (Chronic) right upper gluteal area Hoarseness of voice (Chronic) Vocal cord paralysis, unilateral complete (Chronic) Medical History: Medical History (Last Reviewed 06/20/19 @ 16:49 by Angela Kemp) Arthritis M19.90 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 Cataracts, bilateral H26.9 Diabetes mellitus E11.9 Hearing problem H91.90 History of esophageal dilatation Z98.890 every [address] Garcia History of pneumonia Z87.01 Squamous cell carcinoma C44.92 Thyroid disease E07.9 Vitamin D deficiency E55.9 Allergies acetaminophen [From Percocet] Allergy (Verified 07/11/20 10:30) Rash amoxicillin [From Augmentin] Allergy (Verified 07/11/20 10:30) PT UNSURE OF REACTION cefadroxil Allergy (Verified 07/11/20 10:30) PT UNSURE OF REACTION clavulanic acid [From Augmentin] Allergy (Verified 07/11/20 10:30) PT UNSURE OF REACTION clindamycin Allergy (Verified 07/11/20 10:30) PT UNSURE OF REACTION oxycodone [From Percocet] Allergy (Verified 07/11/20 10:30) Rash codeine Adverse Reaction (Verified 07/11/20 10:30) PT UNSURE OF REACTION hydrocodone bitartrate [From Vicodin] Adverse Reaction (Verified 07/11/20 10:30) CONFUSION GETS WEIRD Home Medications: Ambulatory Orders Medication Instructions Recorded Atenolol [Tenormin (beta bear)] 25 mg PO QHS 06/01/15 Levothyroxine [Synthroid] 112 mcg PO DAILY 11/23/18 Fluticasone/Salmeterol [Advair Hfa 2 puff INHALATION BID 10/18/19 115-21 Mcg Inhaler] Omeprazole [Prilosec] 40 mg PO DAILY 10/18/19 Albuterol Inhaler [Ventolin Hfa 1 - 2 puff INHALATION Q6H PRN PRN 07/03/20 (SP)] Surgical History: Surgical History (Last Reviewed 06/16/19 @ 11:31 by Sadie Forte) History of cholecystectomy Z98.890, Z90.49 History of tubal ligation Z98.51 S/P dilatation of esophageal stricture Z98.890, Z87.19 Every two weeks with Dr Garcia. Surgical History: arthroscopy, knee, - - Soffa GL dilation. Vocal cord injections. 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 Denies: Shortness of Breath, Shortness of breath at rest Patient Problems: Active and Suspected Problems (Last Reviewed 06/20/19 @ 16:49 by Angela Kemp) Throat swelling (Acute) Subjective: x - Physical Exam Vitals/I&O's: Vital Signs Temp Pulse Resp BP Pulse Ox 98 F 99 18 142/67 H 99 07/11/20 12:53 07/11/20 12:53 07/11/20 12:53 07/11/20 12:53 07/11/20 14:03 Oxygen Delivery Method Room Air Weight: 77.2 kg Body Mass Index (BMI) 30.1 Intake and Output for Last 24 Hours 07/09/20 07/10/20 07/11/20 23:59 23:59 23:59 Output Total 150 / 150 Balance -150 / -150 General: Alert, Oriented x3 Oral: Moist Mucosa, - - no palate edema Neck: - - soft, no tenderness Lungs: - - voice hoarse, no stridor or stertor Laboratory Results 07/11/20 12:10: WBC 11.1 H, RBC 3.90 L, Hgb 11.0 L, Hct 34.5 L, MCV 88.5, MCH 28.2, MCHC 31.9 L, RDW Std Deviation 46.5 H, RDW Coeff of Mickey 14.5, Plt Count 323, MPV 10.1, Immature Gran % (Auto) 0.400, Neut % (Auto) 63.5, Lymph % (Auto) 25.2, [place] % (Auto) 8.2, Eos % (Auto) 2.2, Baso % (Auto) 0.5, Absolute Neuts (auto) 7.1, Absolute Lymphs (auto) 2.81, Nucleated RBC % 0 07/11/20 12:10: Sodium 135 L, Potassium 4.9, Chloride 104, Carbon Dioxide 27.0, Anion Gap 4 L, BUN 24 H, Creatinine 1.10 H, Estim Creat Clear Calc 32.62, Est GFR (MDRD) Af Amer 61, Est GFR (MDRD) Non-Af 51 L, BUN/Creatinine Ratio 21.8 H, Glucose 116 H, Calcium 9.2 Current Medications Dexamethasone (Dexamethasone 4 Mg Tablet) 6 mg PO DAILYCM ANISH Heparin Sodium (Porcine) (Heparin Injection (Vial) 5,000 Unit/Ml Vial) 5,000 unit SC Q8 ANISH Last Admin: 07/11/20 15:00 Dose: 5,000 unit Documented by: Hydromorphone HCl (Hydromorphone 0.5 Mg/0.5 Ml Syringe) 0.5 mg IV Q4H PRN PRN PRN Reason: Pain Score 6-10 Ondansetron HCl (Ondansetron 4 Mg/2 Ml Vial) 4 mg IV Q8H PRN PRN PRN Reason: NAUSEA/VOMITING Sodium Chloride (0.9% Saline Lock 10 Ml Syringe) 10 - 40 ml IV UD PRN PRN Reason: SALINE FLUSH Assessment/Plan All Active Problems (Last Reviewed 06/20/19 @ 16:49 by Angela Kemp) Abdominal pain (Acute) Medical management (Acute) Throat swelling (Acute) 84 year old female with a history of RT for esophageal carcinoma, POD #1 s/p right vocal cord injection -supraglottic edema on right attributable to previous radiation and injection site reaction -stable, if not improved exam since 11am. resting comfortably watching TV -IVF, antibiotics -will re-scope in the am
--- NOTE | 2020-07-11 16:32 | HP.PCM_ITS ---
History of Present Illness Date of Admission: 07/11/20 Mrs. Peña is a 84 year old WF with a history of esophageal cancer status post radiation therapy and multiple esophageal dilations who presented to the emergency department at [facility] on 07/11/2020 complaining that her throat feels swollen and her voice was extremely hoarse. She received a pro-Flaco injection on 07/10/2020 in the operating room under anesthesia while endotracheal intubated and reported that today her throat feels more swollen and she was having trouble clearing her secretions. The daughter reports that she was giving her some Tylenol for pain to drink orally and that she almost aspirated. The patient does have a PEG tube as well for nutrition. The ER physician talked to the ENT physician and had her sent to the office for scope and right sided isolated supraglottic watery edema with a patent airway was noted. She was given Decadron in the emergency department and we were asked to admit her as an observation to the ICU to monitor her airway closely. There are plans to repeat her scope in the morning and if she is improved possibly discharge. She was placed on Decadron daily at this time. Past Medical History Past Medical History (Chronic Problems): Chronic Problems (Last Reviewed 06/20/19 @ 16:49 by Angela Kemp) Type II diabetes mellitus (Chronic) History of skin cancer (Chronic) History of tobacco use (Chronic) HLD (hyperlipidemia) (Chronic) Hypothyroidism (Chronic) Tachyarrhythmia (Chronic) Dysphagia (Chronic) Obesity (BMI 30.0-34.9) (Chronic) COPD (chronic obstructive pulmonary disease) (Chronic) GERD (gastroesophageal reflux disease) (Chronic) Hypertension (Chronic) Esophageal cancer (Chronic) Radiation-induced esophageal stricture (Chronic) History of esophageal cancer (Chronic) Pulmonary nodule, right (Chronic) Nodule of buttock (Chronic) 1.5 cm soft tissue mass right upper gluteal area Lipoma of buttock (Chronic) 1.5 cm painful lipoma right upper gluteal area Dysesthesia (Chronic) right upper gluteal area Hoarseness of voice (Chronic) Vocal cord paralysis, unilateral complete (Chronic) Medical History: Medical History (Last Reviewed 07/11/20 @ 16:[address] Amy Soto DO) Arthritis M19.90 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 Cataracts, bilateral H26.9 Diabetes mellitus E11.9 Hearing problem H91.90 History of esophageal dilatation Z98.890 every [address] Garcia History of pneumonia Z87.01 Squamous cell carcinoma C44.92 Thyroid disease E07.9 Vitamin D deficiency E55.9 Allergies acetaminophen [From Percocet] Allergy (Verified 07/11/20 10:30) Rash amoxicillin [From Augmentin] Allergy (Verified 07/11/20 10:30) PT UNSURE OF REACTION cefadroxil Allergy (Verified 07/11/20 10:30) PT UNSURE OF REACTION clavulanic acid [From Augmentin] Allergy (Verified 07/11/20 10:30) PT UNSURE OF REACTION clindamycin Allergy (Verified 07/11/20 10:30) PT UNSURE OF REACTION oxycodone [From Percocet] Allergy (Verified 07/11/20 10:30) Rash codeine Adverse Reaction (Verified 07/11/20 10:30) PT UNSURE OF REACTION hydrocodone bitartrate [From Vicodin] Adverse Reaction (Verified 07/11/20 10:30) CONFUSION GETS WEIRD Home Medications: Ambulatory Orders Medication Instructions Recorded Atenolol [Tenormin (beta bear)] 25 mg PO QHS 16 Levothyroxine [Synthroid] 112 mcg PO DAILY 11/23/18 Fluticasone/Salmeterol [Advair Hfa 2 puff INHALATION BID 10/18/19 115-21 Mcg Inhaler] Omeprazole [Prilosec] 40 mg PO DAILY 10/18/19 Albuterol Inhaler [Ventolin Hfa 1 - 2 puff INHALATION Q6H PRN PRN 07/03/20 (SP)] Surgical History: Surgical History (Last Reviewed 07/11/20 @ 16:[address] Amy Soto, DO) History of cholecystectomy Z98.890, Z90.49 History of tubal ligation Z98.51 S/P dilatation of esophageal stricture Z98.890, Z87.19 Every two weeks [address] Dr Garcia. Surgical History: arthroscopy, knee, - - Soffa GL dilation. Vocal cord injections. 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 Amy Soto DO) Mother Osteoporosis Heart disease History Items: - Paternal Family History: Family History (Last Reviewed 07/11/20 @ 16:[address] Amy Soto DO) Mother Osteoporosis Heart disease History Items: No pertinent history Review of Systems Constitutional: Denies: Anorexia, Chills, Fever, Night Sweats, Malaise, Weakness, Weight Change, Fatigue HEENT: Reports: Difficulty Swallowing, Dysphasia, Sore Throat. Denies: Difficulty Hearing, Ear Pain, Eye Pain, Head Aches, Hearing Changes, Nasal bleeding, Nasal Congestion, Post Nasal Drip, Sinus Congestion, Sinus Drainage, Visual Changes Cardiovascular: Denies: Chest Pain, Claudication, Chest Pressure, Chest Tightness, Edema, Heaviness, Light Headedness, Orthopnea, Palpitations, Paroxysmal Noc. Dyspnea, Syncope Respiratory: Reports: Shortness of Breath, Shortness of breath at rest, Shortness of breath upon exertion. Denies: Cough, Hemoptysis, Pleuritic Pain, Sputum production, Wheezing Gastrointestinal: Denies: Abdominal Pain, Constipation, Diarrhea, Dyspepsia, Hematemesis, Hematochezia, Nausea, Melena, Vomiting Genitourinary: Reports: Frequency, Incontinence, Nocturia. Denies: Dysuria, Hematuria, Hesitancy, Retention, Urgency Musculoskeletal: Denies: Back Pain, Joint Pain, Joint stiffness, Joint swelling, Joint Tenderness, Muscle pain, Neck Pain Skin: Denies: Dryness, Jaundice, Lesions, Pruritis, Rash, Skin Changes, Wounds Neurological: Denies: Balance problems, Blurred vision, Double vision, Change in Speech, Slurred speech, Confusion, Difficulty swallowing, Focal weakness, Headaches, Incoordination, Numbness, Tingling, Tremor, Seizures Psychiatric: Denies: Anxiety, Depression Endocrine: Denies: Change in Body Habitus, Heat/ Cold Intolerance, Polydipsia, Polyuria Hematologic/ Lymphatic: Denies: Adenopathy, Anemia, Easy Bruising, Easy Ble eding, Petechiae, Purpura VTE Information - Inpt Only VTE Present on Admission: No VTE Mechan Device Prophylaxis: SCD's VTE Pharm Prophylaxis ordered?: Yes Patient Problems: Active and Suspected Problems (Last Reviewed 06/20/19 @ 16:49 by Angela Kemp) Throat swelling (Acute) - Physical Exam Vitals/I&O's: Vital Signs Temp Pulse Resp BP Pulse Ox 98.1 F 90 13 129/70 H 95 07/11/20 13:30 07/11/20 15:30 07/11/20 15:30 07/11/20 15:30 07/11/20 15:30 Oxygen Delivery Method Room Air Weight: 77.2 kg Body Mass Index (BMI) 30.1 Intake and Output for Last 24 Hours 07/09/20 07/10/20 07/11/20 23:59 23:59 23:59 Output Total 150 / 150 Balance -150 / -150 General: Alert, Oriented x3, Cooperative, No apparent distress, Well developed, Well nourished, - - Elderly white female in right side-lying, weak voice, no current signs of respiratory distress HEENT: Atraumatic, EOMI Oral: Moist Mucosa Neck: Supple, Trachea Midline, Thyroid Normal Size and Texture, - - No audible stridor Lungs: No rhonchi, No wheeze, No rales, Diminished Cardiovascular: Regular rate, Regular Rhythm, Normal S1, Normal S2, No murmurs, No Ectopic Activity, No rub noted, No Gallop Abdomen: Bowel Sounds Present, Soft, Non Tender, Non-Distended, Obese Extremities: No clubbing, No cyanosis, No edema, Capillary Refill Less than 3 Seconds, Peripheral Pulses Normal Neurological: Cranial nerves II-XII grossly intact, Neuro grossly intact Psych/Mental Status: Anxious, Flat Affect Laboratory Results 07/11/20 12:10: WBC 11.1 H, RBC 3.90 L, Hgb 11.0 L, Hct 34.5 L, MCV 88.5, MCH 28.2, MCHC 31.9 L, RDW Std Deviation 46.5 H, RDW Coeff of Mickey 14.5, Plt Count 323, MPV 10.1, Immature Gran % (Auto) 0.400, Neut % (Auto) 63.5, Lymph % (Auto) 25.2, [place] % (Auto) 8.2, Eos % (Auto) 2.2, Baso % (Auto) 0.5, Absolute Neuts (auto) 7.1, Absolute Lymphs (auto) 2.81, Nucleated RBC % 0 07/11/20 12:10: Sodium 135 L, Potassium 4.9, Chloride 104, Carbon Dioxide 27.0, Anion Gap 4 L, BUN 24 H, Creatinine 1.10 H, Estim Creat Clear Calc 32.62, Est GFR (MDRD) Af Amer 61, Est GFR (MDRD) Non-Af 51 L, BUN/Creatinine Ratio 21.8 H, Glucose 116 H, Calcium 9.2 Current Medications Dexamethasone (Dexamethasone 4 Mg Tablet) 6 mg PO DAILYCM ANISH Diphenhydramine HCl (Diphenhydramine 50 Mg/Ml Syringe) 25 mg IV Q6H PRN PRN PRN Reason: itching with narcotics Heparin Sodium (Porcine) (Heparin Injection (Vial) 5,000 Unit/Ml Vial) 5,000 unit SC Q8 ANISH Last Admin: 07/11/20 15:00 Dose: 5,000 unit Documented by: Hydromorphone HCl (Hydromorphone 0.5 Mg/0.5 Ml Syringe) 0.5 mg IV Q4H PRN PRN PRN Reason: Pain Score 6-10 Ondansetron HCl (Ondansetron 4 Mg/2 Ml Vial) 4 mg IV Q8H PRN PRN PRN Reason: NAUSEA/VOMITING Sodium Chloride (0.9% Saline Lock 10 Ml Syringe) 10 - 40 ml IV UD PRN PRN Reason: SALINE FLUSH Assessment/Plan All Active Problems (Last Reviewed 06/20/19 @ 16:49 by Angela Kemp) Abdominal pain (Acute) Medical management (Acute) Throat swelling (Acute) Respiratory insufficiency secondary to supraglottic edema right secondary to previous radiation and injection reaction -Continue Decadron -Overall has improved -Plan to rescope in a.m -Continue supportive care -[place] scope has been available at bedside -IV Dilaudid for pain with Benadryl support for itching -Appreciate pulmonary/ENT input History of esophageal cancer -Sequelae of this diagnosis as above Hypothyroidism -Continue levothyroxine GERD -Continue PPI Hypertension -Continue atenolol COPD Continue Advair HFA and as needed albuterol DVT prophylaxis -Heparin subcu 5000 units every 8 hours CODE STATUS -DNR CCA okay for short-term intubation Inpatient E&M: 52184 Init Hosp L2
[2020-07-11] MEDS: Pivot 1.5 Cal 1,000 ML 80 ML GT (20:14)
[2020-07-11] MEDS: 0.9% Saline Lock 10 ML Syringe IV (23:44)
[2020-07-12] VITALS (23 sets, daily range): BP systolic 86–130; BP diastolic 45–64; PULSE 69–91; RESP 11–19; TEMP 36.2–36.6; O2SAT 92–99; BMI 30.3
[2020-07-12] MEDS: Heparin Injection (Vial) 5,000 UNIT/ML VIAL 5000 UNIT SC ×2 (05:45→13:34)
--- NOTE | 2020-07-12 06:47 | PN_ITS ---
Subjective: Patient did well through the evening without any respiratory compromise. Patient feels subjectively slightly improved today compared to previous. Patient is not reporting any chest pain, abdominal pain, nausea or vomiting. Patient has continued to be hoarse with a harsh cough that is nonproductive. Patient told nursing staff that she is to wake up every 2 hours to flush her PEG tube to avoid occlusion. Patient was reportedly told this by an ER physician and has been doing this at home. General: Alert, Oriented x3, Cooperative, No apparent distress, - - Obese. Hoarse voice. HEENT: Atraumatic, PERRLA, EOMI, Normocephalic, - - No scleral icterus or injection noted Oral: Moist Mucosa, No Gingival or Mucosal Lesions/ Ulcerations Neck: Supple, No JVD, No Nodes, Trachea Midline Lungs: Normal air movement, No rhonchi, No wheeze, No rales, - - Rhonchi transmitted from some upper airway. No stridor. Cardiovascular: Regular rate, Regular Rhythm, Normal S1, Normal S2, No murmurs, No rub noted, No Gallop Abdomen: Bowel Sounds Present, Soft, Non Tender, Non-Distended, Obese, - - PEG is clean, dry and intact Extremities: No clubbing, No cyanosis, No edema Skin: - - No change from previous Musculoskeletal: No Tenderness to Palpation of Joints or Extremities Lymphatic: No Cervical, Supraclavicular, or Inguinal Adenopathy Neurological: Cranial nerves II-XII grossly intact, Neuro grossly intact, Motor Exam 5/5 strength throughout Psych/Mental Status: Alert and oriented to time, place, person, mood and affect Vital Signs Temp Pulse Resp BP Pulse Ox 36.2 C L 78 18 103/57 L 98 07/12/20 04:00 07/12/20 06:00 07/12/20 06:00 07/12/20 06:00 07/12/20 06:00 Oxygen Delivery Method Room Air Weight: 77.6 kg Body Mass Index (BMI) 30.1 Intake and Output for Last 24 Hours 07/10/20 07/11/20 07/12/20 23:59 23:59 23:59 Intake Total 688 / 688 919 / 919 Output Total 725 / 725 225 / 225 Balance -37 / -37 694 / 694 Labs (Last 48 Hours) 07/11/20 07/11/20 12:10 12:10 WBC 11.1 H RBC 3.90 L Hgb 11.0 L Hct 34.5 L MCV 88.5 MCH 28.2 MCHC 31.9 L RDW Std Deviation 46.5 H RDW Coeff of Mickey 14.5 Plt Count 323 MPV 10.1 Immature Gran % (Auto) 0.400 Neut % (Auto) 63.5 Lymph % (Auto) 25.2 [place] % (Auto) 8.2 Eos % (Auto) 2.2 Baso % (Auto) 0.5 Absolute Neuts (auto) 7.1 Absolute Lymphs (auto) 2.81 Nucleated RBC % 0 Sodium 135 L Potassium 4.9 Chloride 104 Carbon Dioxide 27.0 Anion Gap 4 L BUN 24 H Creatinine 1.10 H Estim Creat Clear Calc 32.62 Est GFR (MDRD) Af Amer 61 Est GFR (MDRD) Non-Af 51 L BUN/Creatinine Ratio 21.8 H Glucose 116 H Calcium 9.2 Medical Necessity - Tobacco Use Smoking Status: Former smoker Tobacco Use: Cigarettes Assessment/Plan All Active Problems (Last Reviewed 07/11/20 @ 16:[address] Amy Soto, DO) Abdominal pain (Acute) Medical management (Acute) Throat swelling (Acute) RECOMMENDATIONS: 1. Await visualization by ENT 2. Possible discharge later today 3. Dietitian to evaluate patient for recommendations and possible outpatient follow-up 4. No indication for labs from my perspective IMPRESSIONS: 1. Respiratory insufficiency secondary to vocal cord injection Patient appears to be doing well at this time. Patient subjectively is improved and is not having any stridor on exam. Patient did receive steroids yesterday. ENT to evaluate this morning. Possible discharge pending the results of this investigation. Defer to ENT on course of Decadron necessary. 2. Reported COPD Reportedly follows with Dr. Ramos. Patient does have a history of smoking in the past and reports that she is on Advair. Therapeutic substitution would be appropriate. Patient does not appear to be in acute exacerbation of COPD. 3. GERD/history of esophageal cancer/hyperlipidemia/diabetes Complicates care, management, recovery and prognosis. Recommend monitoring blood sugars given Decadron therapy as this can lead to significant hyperglycemia. Await dietitian recommendations on free water and caloric needs. Inpatient E&M: 63420 Subs Hosp L2
[2020-07-12] MEDS: dexAMETHasone 4 MG Tablet 6 MG PO (07:55)
--- NOTE | 2020-07-12 08:50 | PCM.PROGNOTE ---
Patient Problems: Active and Suspected Problems (Last Reviewed 07/11/20 @ 16:[address] Amy Soto DO) Throat swelling (Acute) Subjective: doing well - Physical Exam Vitals/I&O's: Vital Signs Temp Pulse Resp BP Pulse Ox 97.8 F 82 12 129/56 H 99 07/12/20 08:00 07/12/20 08:00 07/12/20 08:00 07/12/20 08:00 07/12/20 08:00 Oxygen Delivery Method Room Air Weight: 77.6 kg Body Mass Index (BMI) 30.1 Intake and Output for Last 24 Hours 07/10/20 07/11/20 07/12/20 23:59 23:59 23:59 Intake Total 688 / 688 1119 / 1119 Output Total 725 / 725 425 / 425 Balance -37 / -37 694 / 694 General: Alert Oral: - - no soft palate edema Neck: - - no edema Lungs: - - no stridor Laboratory Results 07/11/20 12:10: WBC 11.1 H, RBC 3.90 L, Hgb 11.0 L, Hct 34.5 L, MCV 88.5, MCH 28.2, MCHC 31.9 L, RDW Std Deviation 46.5 H, RDW Coeff of Mickey 14.5, Plt Count 323, MPV 10.1, Immature Gran % (Auto) 0.400, Neut % (Auto) 63.5, Lymph % (Auto) 25.2, [place] % (Auto) 8.2, Eos % (Auto) 2.2, Baso % (Auto) 0.5, Absolute Neuts (auto) 7.1, Absolute Lymphs (auto) 2.81, Nucleated RBC % 0 07/11/20 12:10: Sodium 135 L, Potassium 4.9, Chloride 104, Carbon Dioxide 27.0, Anion Gap 4 L, BUN 24 H, Creatinine 1.10 H, Estim Creat Clear Calc 32.62, Est GFR (MDRD) Af Amer 61, Est GFR (MDRD) Non-Af 51 L, BUN/Creatinine Ratio 21.8 H, Glucose 116 H, Calcium 9.2 Current Medications Dexamethasone (Dexamethasone 4 Mg Tablet) 6 mg PO DAILYCM [facility] Last Admin: 07/12/20 07:55 Dose: 6 mg Documented by: Diphenhydramine HCl (Diphenhydramine 50 Mg/Ml Syringe) 25 mg IV Q6H PRN PRN PRN Reason: itching with narcotics Heparin Sodium (Porcine) (Heparin Injection (Vial) 5,000 Unit/Ml Vial) 5,000 unit SC Q8 ANISH Last Admin: 07/12/20 05:45 Dose: 5,000 unit Documented by: Hydromorphone HCl (Hydromorphone 0.5 Mg/0.5 Ml Syringe) 0.5 mg IV Q4H PRN PRN PRN Reason: Pain Score 6-10 Ondansetron HCl (Ondansetron 4 Mg/2 Ml Vial) 4 mg IV Q8H PRN PRN PRN Reason: NAUSEA/VOMITING Sodium Chloride (0.9% Saline Lock 10 Ml Syringe) 10 - 40 ml IV UD PRN PRN Reason: SALINE FLUSH Last Admin: 07/11/20 23:44 Dose: 10 ml Documented by: Medical Necessity - Tobacco Use Smoking Status: Former smoker Tobacco Use: Cigarettes Assessment/Plan All Active Problems (Last Reviewed 07/11/20 @ 16:[address] Amy Soto, DO) Abdominal pain (Acute) Medical management (Acute) Throat swelling (Acute) 84 year old POD #2 s/p vocal cord injection -dramatically improved laryngeal exam -will d/w dr brink
--- NOTE | 2020-07-12 08:55 | PCM.OPRPT ---
Problem List (1) Dysphagia Status: Chronic Report of Operation Date of Procedure: 07/12/20 Pre-Operative Diagnosis: laryngeal edema Post-Operative Diagnosis: laryngeal edema Surgery/Procedure Performed:: flexible laryngoscopy Type of Anesthesia:: Local Description of Procedure: the flexible laryngoscope was inserted into the left nasal cavity. the choanae were normal. the oropharynx is normal. the right vocal cord is medialized with a dramatic reduction / resolution of right supraglottic edema. the left cord is mobile. airway widely patent. visualized subglottis normal.
--- NOTE | 2020-07-12 10:02 | CASEMGMT ---
RN CM NOTE: Per tram inspectorMaría, she is recommending a change in pt's PEG tube formula. Dr Garcia manages pt's TF's as an Out-pt. Call placed to Dr Garcia's office and spoke w/nurse Jacklyn. She was made aware of tram inspector's recommendations. Marbleizing Machine Tender to fax new script for change in TF's to Dr Garcia's office for his signature and then to arrange delivery of same through pt's current DME co: [employer]. María to give pt/dtr detailed instructions w/new TF regimen and flushes. Maryam ANGELES RN CM
--- NOTE | 2020-07-12 10:30 | CASEMGMT ---
Addendum entered by Tiffani Wilks 07/12/20 14:46: Pt being discharged home. RN CM to room to review MEYER form. MEYER form explained re: Observation status for treatment of respiratory insufficiency. Explained hospitalization will be paid per insurance policy for Outpatient billing and condition will continue to be evaluated for Inpt necessity. Also let pt know that [facility] sends paper in the billing packet with their phone number if questions arise. Discussed Pharmacy section of MEYER form and self administered medication guideline. Pt verbalizes understanding and does not have further questions. Form signed, copy made and placed in chart, and original given to pt. PT/OT evals have been done. HHC is recommended. Pt has been provided with list of [facility] providers including quality and resource use data and consistent with the patient's preferred geographic region, medical needs, and insurance network. The pt's preferred provider is [facility]. Call placed to [facility] and spoke w/Maria E--referral made. She was made aware pt is discharging home today. They are able to accept pt. SOC will be either tomorrow or Sat. Pt made aware and is agreeable to same. Script for FWW obtained from Dr Soto and faxed to [facility]. FWW has been delivered to pt's room. . Original Note: RN CM BUSINESS MANAGEMENT ANALYST CM to room to meet with patient for initial transition planning/care coordination assessment. RN JEANNINE introduced self and role at [facility]. Pt voices understanding and consents to assessment at this time. Pt resting in bed in no distress at this time. Pt is A/O at this time and answers all questions appropriately. There were a few things pt could not recall, and asked RN CM to call her daughter, Soo. Call placed to Soo at this time. Care providers, pharmacy, and demographics verified at this time w/pt and daughter. PCP: Dr Aden Specialists: Dr Last--ENT, Dr Garcia--GI, Dr Ramos--pulmonology Preferred Pharmacy: [facility] Retail Insurance: MCR, AARP Prescription Benefit: Yes Living Will/HPOA: States does not have LW or HCPOA . Interested in more information but [facility] does not want to talk with SW at this time to complete paperwork. Provided information on advanced directives and given Social Service rac card with number to call if chooses in the future to utilize [facility] social work for advanced directive completion. Educated pt/dtr that, if patient so chooses, can come back to [facility] and meet with a SW as an outpatient to complete health care advanced directives. They express understanding. LNOK: DaughterSoo Living Arrangements: Lives with her daughter, Soo, and son-in-law in one-story home w/one step to enter. Independent w/ADL's and IADL's. Daughter able to help if needed. Pt manages her own PEG TF's and flushes. Pt gets TF formula and supplies from [employer]. Transportation: dtr/son-in-law DME: States has the following DME: shower chair, cane, walker, adjustable bed. Pt states she would like a new walker and did not get the current walker she has through [facility]. Pt provided w/list of local DME companies. Made aware [facility] is affiliated w/[facility] and she states agreeable w/[facility]. HHC/SNF: No history of SNF. Has had [facility]HC in the past after getting PEG tube. Pt/dtr report that pt has been having difficulty with her legs and has been using a walker recently. Pt wishes to return home and may be interested in HHC--she states she wants to see how well she does once she gets OOB. CM to follow for any discharge planning/needs. Pt voices no further concerns/needs at this time. Advised pt to ask for CM if any further questions/concerns/needs arise. Voices understanding. PLAN: Home w/support of daughter and discharge plans in place. Follow for any HHC needs. Maryam ANGELES RN CM
--- NOTE | 2020-07-12 12:19 | NT.THERAPY_ITS ---
Nutrition Therapy Report - History Nutrition Services has been consulted to:: Manage nutrient details of diet order, Manage enteral nutrition Current diet / nutrition support order:: NPO. overnight- Pivot 1.5 via PEG for 12 hours w/ 200mL H2O flush every 4 hours to provide 1440 calories, 90 g p rotein, and 1920mL fluid/day - Anthropometric Measurements Height:: 5 ft 3 in Weight:: 77.6 kg Body Mass Index (BMI):: 30.3 - Relevant Labs Relevant Labs:: WBC 11.1 K/mm3 (4.4-11.0) H 07/11/20 12:10 RBC 3.90 M/mm3 (4.2-5.4) L 07/11/20 12:10 Hgb 11.0 g/dL (12.0-15.0) L 07/11/20 12:10 Hct 34.5 % (37-47) L 07/11/20 12:10 MCHC 31.9 g/dL (32-36) L 07/11/20 12:10 RDW Std Deviation 46.5 fl (35.1-43.9) H 07/11/20 12:10 Sodium 135 mmol/L (136-145) L 07/11/20 12:10 Anion Gap 4 (5-15) L 07/11/20 12:10 BUN 24 mg/dL (7-18) H 07/11/20 12:10 Creatinine 1.10 mg/dL (0.55-1.02) H 07/11/20 12:10 Est GFR (MDRD) Non-Af 51 mL/min (>60) L 07/11/20 12:10 BUN/Creatinine Ratio 21.8 RATIO (10-20) H 07/11/20 12:10 Glucose 116 mg/dL (74-106) H 07/11/20 12:10 - Assessment Food / Nutrition-Related History:: Tolerated enteral nutrition support overnight. SANDBLAST OR SHOTBLAST EQUIPMENT TENDER evaluated- to continue NPO status. Pt does not desire to follow- up w/ speech as an outpatient and plans to use PEG for all nutrition/hydration needs. Discussed w/ pt and daughter about quality of life w/ nocturnal feeds. Pt does not sleep well at night, wakes up every 2 hours for flushes and has to be positioned upright for feeds. Pt has frequent loose stools w/ current formula not providing significant fiber. Pt states she also continues to gain wt w/ current home tube feeds. - Nutrition Diagnosis Problem / Etiology / Signs & Symptoms (PES):: swallowing difficulty as evidenced by inability to consume sufficient nutrients via oral diet and need for PEG tube for long-term nutrition support. Evidence of Malnutrition Exists:: No - Nutrition Intervention Nutrition Prescription:: 7984-3320 calories/day (1.2-1.3xRMR). 60-70 g protein/day (0.8g/kg). 1940mL fluid/day (25mL/kg) - Food / Nutrient Delivery Interventions Summary of nutrition intervention:: Pt is agreeable to adjusting home tube feed formula/rate. RN JEANNINE Nixon called Dr. Garcia's RN who stated physician is agreeable to this RDN adjusting tube feeds. Will switch formula to Jevity 1.5 which provides more fiber/day. Will change to bolus feeds 4x/day while awake. Pt agreeable to starting Jevity 1.5 while admitted via continuous, trophic rate. Pt will need to gradually increase intake of Jevity 1.5 d/t change in fiber content of formula. Nutrition support ordered as / adjusted to:: continue NPO status; will trial Jevity 1.5 at 20mL/hour and continue 200mL H2O flush every 4 hours while admitted. For discharge, will recommend Jevity 1.5 - 4 cartons per day (237mL each) w/ 150mL H2O flush before and after each bolus to provide 1420 calories, 60.4 g protein, and 1920mL total fluid/day. Pt will be provided instructions on gradually increasing home tube feeds as tolerated. - MNT Monitoring Further MNT monitoring and evaluation required?: Yes MNT Follow-up in:: 1-2 days
[2020-07-12] MEDS: Jevity 1.5 1,000 ML 20 ML GT (13:34)
--- NOTE | 2020-07-12 14:42 | NS ---
Updated enteral nutrition order sent to Dr. Garcia's office. Discharge instructions for new home tube feeds discussed w/ pt. Alma Hannah MS, RDN, LD.
--- NOTE | 2020-07-12 15:31 | DCINST_ITS ---
- Discharge Diagnoses Current Active Problems: Current Active and Chronic Problems (Last Reviewed 07/11/20 @ 16:[address] Amy Soto, DO) Type II diabetes mellitus (Chronic) History of skin cancer (Chronic) History of tobacco use (Chronic) HLD (hyperlipidemia) (Chronic) Hypothyroidism (Chronic) Tachyarrhythmia (Chronic) Dysphagia (Chronic) Obesity (BMI 30.0-34.9) (Chronic) COPD (chronic obstructive pulmonary disease) (Chronic) GERD (gastroesophageal reflux disease) (Chronic) Hypertension (Chronic) Esophageal cancer (Chronic) Radiation-induced esophageal stricture (Chronic) History of esophageal cancer (Chronic) Dysesthesia (Chronic) right upper gluteal area Hoarseness of voice (Chronic) Vocal cord paralysis, unilateral complete (Chronic) Throat swelling (Acute) You will use the following diet at home:: Other - Nothing by mouth until 07/16/2020 continue tube feed and free water flushes as were already performing Discharge Activity: Return to Normal Activity Allergies/Adverse Reactions: Allergies acetaminophen [From Percocet] Allergy (Verified 07/11/20 10:30) Rash amoxicillin [From Augmentin] Allergy (Verified 07/11/20 10:30) PT UNSURE OF REACTION cefadroxil Allergy (Verified 07/11/20 10:30) PT UNSURE OF REACTION clavulanic acid [From Augmentin] Allergy (Verified 07/11/20 10:30) PT UNSURE OF REACTION clindamycin Allergy (Verified 07/11/20 10:30) PT UNSURE OF REACTION oxycodone [From Percocet] Allergy (Verified 07/11/20 10:30) Rash codeine Adverse Reaction (Verified 07/11/20 10:30) PT UNSURE OF REACTION hydrocodone bitartrate [From Vicodin] Adverse Reaction (Verified 07/11/20 10:30) CONFUSION GETS WEIRD Medications to take at Discharge Atenolol [Tenormin (beta bear)] 25 mg PO QHS 06/01/15 Levothyroxine [Synthroid] 112 mcg PO DAILY 11/23/18 Fluticasone/Salmeterol [Advair Hfa 115-21 Mcg Inhaler] 2 puff INHALATION BID 10/18/19 Omeprazole [Prilosec] 40 mg PO DAILY 10/18/19 Albuterol Inhaler [Ventolin Hfa] 1 - 2 puff INHALATION Q6H PRN PRN 07/03/20 Dexamethasone [Decadron] 6 mg PO DAILYCM #2 tablet 07/12/20 The following prescriptions were given: Dexamethasone [Decadron] 6 mg PO DAILYCM #2 tablet Transmission Status: Pending to [facility] Primary Care Physician: Ravi Last MD [STAFF PHYSICIAN] - (Go directly to the office) Please follow up with your Primary Care Physician in: end of next week as scheduled Test Results: Test results from this visit will be discussed in further detail at your follow- up appointment, if applicable.
--- NOTE | 2020-07-12 15:34 | PCM.DC.SUM ---
Discharge Date and Diagnosis - Problem List Patient Problems: Active and Suspected Problems (Last Reviewed 07/11/20 @ 16:[address] Amy Soto DO) Throat swelling (Acute) Date of Admission: 07/11/20 - Primary Discharge Diagnosis Acute Problems: Active Problems (Last Reviewed 07/11/20 @ 16:[address] Amy Soto DO) Throat swelling (Acute) - Secondary Discharge Diagnosis Chronic Problems: Chronic Problems (Last Reviewed 07/11/20 @ 16:[address] Amy Soto DO) Type II diabetes mellitus (Chronic) History of skin cancer (Chronic) History of tobacco use (Chronic) HLD (hyperlipidemia) (Chronic) Hypothyroidism (Chronic) Tachyarrhythmia (Chronic) Dysphagia (Chronic) Obesity (BMI 30.0-34.9) (Chronic) COPD (chronic obstructive pulmonary disease) (Chronic) GERD (gastroesophageal reflux disease) (Chronic) Hypertension (Chronic) Esophageal cancer (Chronic) Radiation-induced esophageal stricture (Chronic) History of esophageal cancer (Chronic) Pulmonary nodule, right (Chronic) Nodule of buttock (Chronic) 1.5 cm soft tissue mass right upper gluteal area Lipoma of buttock (Chronic) 1.5 cm painful lipoma right upper gluteal area Dysesthesia (Chronic) right upper gluteal area Hoarseness of voice (Chronic) Vocal cord paralysis, unilateral complete (Chronic) Hospital Course and Treatment Operations: ERCP - attempt, - - PEG tube placement, EGD w/ bx mass, dilation Summary of Care Provided: Mrs. Peña is a 84 year old WF with a history of esophageal cancer status post radiation therapy and multiple esophageal dilations who presented to the emergency department at [facility] on 07/11/2020 complaining that her throat feels swollen and her voice was extremely hoarse. She received a pro-Flaco injection on 07/10/2020 in the operating room under anesthesia while endotracheal intubated and reported that today her throat feels more swollen and she was having trouble clearing her secretions. The daughter reports that she was giving her some Tylenol for pain to drink orally and that she almost aspirated. The patient does have a PEG tube as well for nutrition. The ER physician talked to the ENT physician and had her sent to the office for scope and right sided isolated supraglottic watery edema with a patent airway was noted. She was given Decadron in the emergency department and we were asked to admit her as an observation to the ICU to monitor her airway closely. She was maintained on Decadron and remained n.p.o. while she was in the hospital. On the a.m. of 07/12/2020 she reported that she felt like she was approximately 50% better than she was upon admission. A repeat flexible laryngoscopy was performed in the right glottic area that was edematous the day prior showed resolution of the edema. It was felt that she was safe for discharge home. Dr. Burks, ENT, would like her continued on Decadron 6 mg daily for another 48 hours. She is to remain nothing by mouth until Thursday when she can resume p.o. intake. She is to continue with her PEG tube feeds as she does at baseline. He will see her in the office at the end of next week for follow-up. Discharge diagnoses Respiratory insufficiency secondary to supraglottic edema due to previous radiation and injection reaction History of esophageal cancer Hypothyroidism GERD Hypertension COPD Obesity Patient Problems: Active and Suspected Problems (Last Reviewed 07/11/20 @ 16:[address] Amy Soto, DO) Throat swelling (Acute) Subjective: Reports being at least 50% better since admission. She still concerned about thin liquids with swallowing. - Physical Exam Vitals/I&O's: Vital Signs Temp Pulse Resp BP Pulse Ox 98 F 73 11 L 114/62 96 07/12/20 14:00 07/12/20 14:00 07/12/20 14:00 07/12/20 14:00 07/12/20 14:00 Oxygen Delivery Method Room Air Weight: 77.6 kg Body Mass Index (BMI) 30.3 Intake and Output for Last 24 Hours 07/10/20 07/11/20 07/12/20 23:59 23:59 23:59 Intake Total 688 / 688 1319 / 1319 Output Total 725 / 725 925 / 925 Balance -37 / -37 394 / 394 General: Alert, Oriented x3, Cooperative, No apparent distress, Well developed, Well nourished, - - Elderly white female sitting up in bed, watching television, appears comfortable HEENT: Atraumatic, PERRLA, EOMI, Normocephalic, EAC Clear Oral: Moist Mucosa Lungs: Clear to auscultation, Normal air movement, No rhonchi, No wheeze, No rales, - - Mild upper airway wheeze Cardiovascular: Regular rate, Regular Rhythm, Normal S1, Normal S2, No murmurs, No Ectopic Activity, No rub noted, No Gallop Abdomen: Bowel Sounds Present, Soft, Non Tender, Non-Distended, Obese Extremities: No clubbing, No cyanosis, No edema, Capillary Refill Less than 3 Seconds, Peripheral Pulses Normal Neurological: Cranial nerves II-XII grossly intact, Neuro grossly intact Psych/Mental Status: Appropriate, Flat Affect Current Medications Dexamethasone (Dexamethasone 4 Mg Tablet) 6 mg PO DAILYCM [facility] Last Admin: 07/12/20 07:55 Dose: 6 mg Documented by: Diphenhydramine HCl (Diphenhydramine 50 Mg/Ml Syringe) 25 mg IV Q6H PRN PRN PRN Reason: itching with narcotics Heparin Sodium (Porcine) (Heparin Injection (Vial) 5,000 Unit/Ml Vial) 5,000 unit SC Q8 [facility] Last Admin: 07/12/20 13:34 Dose: 5,000 unit Documented by: Hydromorphone HCl (Hydromorphone 0.5 Mg/0.5 Ml Syringe) 0.5 mg IV Q4H PRN PRN PRN Reason: Pain Score 6-10 Enteral Nutritional Formula (Jevity 1.5) 1,000 mls @ 20 mls/hr GT .Q48H [facility] Last Admin: 07/12/20 13:34 Dose: 20 mls/hr Documented by: Ondansetron HCl (Ondansetron 4 Mg/2 Ml Vial) 4 mg IV Q8H PRN PRN PRN Reason: NAUSEA/VOMITING Sodium Chloride (0.9% Saline Lock 10 Ml Syringe) 10 - 40 ml IV UD PRN PRN Reason: SALINE FLUSH Last Admin: 07/11/20 23:44 Dose: 10 ml Documented by: Discharge Activity: Return to Normal Activity Home Medications: Medications to take at Discharge Atenolol [Tenormin (beta bear)] 25 mg PO QHS 06/01/15 Levothyroxine [Synthroid] 112 mcg PO DAILY 11/23/18 Fluticasone/Salmeterol [Advair Hfa 115-21 Mcg Inhaler] 2 puff INHALATION BID 10/18/19 Omeprazole [Prilosec] 40 mg PO DAILY 10/18/19 Albuterol Inhaler [Ventolin Hfa] 1 - 2 puff INHALATION Q6H PRN PRN 07/03/20 Dexamethasone [Decadron] 6 mg PO DAILYCM #2 tablet 07/12/20 Following Prescriptions Were Given to Patient: Dexamethasone [Decadron] 6 mg PO DAILYCM #2 tablet Transmission Status: Pending to [facility] Primary Care Physician: Ravi Last MD [STAFF PHYSICIAN] - (Go directly to the office) Please follow up with your Primary Care Physician in: end of next week as scheduled Medical Necessity - Tobacco Use Smoking Status: Former smoker Tobacco Use: Cigarettes Meaningful Use Info Meaningful Use Diagnoses (Choose all that apply): None applicable Inpatient E&M: [address] [facility]
== END 2020-07-12 16:44 | disposition home health service (06) ==
LOC: ED 11:07 → ICU 13:02
PROVIDERS: Admitting Provider Internal Medicine; Emergency Provider Emergency Medicine; PCP Family Medicine Geriatric Medicine; Visit Provider Internal Medicine
DX: J38.4 Edema of larynx (principal); R06.89 Other abnormalities of breathing; J44.9 Chronic obstructive pulmonary disease, unspecified; R20.8 Other disturbances of skin sensation; K21.9 Gastro-esophageal reflux disease without esophagitis; E78.5 Hyperlipidemia, unspecified; E11.9 Type 2 diabetes mellitus without complications; E03.9 Hypothyroidism, unspecified; J38.01 Paralysis of vocal cords and larynx, unilateral; I10 Essential (primary) hypertension; R91.1 Solitary pulmonary nodule; C15.3 Malignant neoplasm of upper third of esophagus; M19.90 Unspecified osteoarthritis, unspecified site; Z92.3 Personal history of irradiation; Z87.891 Personal history of nicotine dependence; Z85.828 Personal history of other malignant neoplasm of skin; Z79.899 Other long term (current) drug therapy; Z79.51 Long term (current) use of inhaled steroids; E66.9 Obesity, unspecified; Z68.30 Body mass index [BMI] 30.0-30.9, adult; Z93.1 Gastrostomy status; Z66 Do not resuscitate
CPT/HCPCS: 31575; 80048; 85025; 92526; 92610; 96372; 97162; 97166; 97802; 97803; 99218; 99251; 99285; A4216; G0378; G0463

== ENCOUNTER 2020-07-13 13:10 | Emergency (ER) | payer MEDICARE, OTHER, SELFPAY ==
[2020-07-12 12:46] VITALS: BMI 30.3
[2020-07-13 13:12] VITALS: BP 140/68; PULSE 75; RESP 18; TEMP 36.9; O2SAT 99; BMI 30.1
--- NOTE | 2020-07-13 14:40 | RAD_ITS ---
STUDY: X-RAY - ABDOMEN/PELVIS REASON FOR EXAM: Female, 84 years old. Gastrografin after PEG replacement TECHNIQUE: Single AP view of the abdomen / pelvis. COMPARISON: Comparison is made with prior examination dated 03/08/2020. FINDINGS: Normal visualized lung bases. A PEG tube is seen in the distal stomach. Contrast is seen within the stomach. RAD/Abdomen Single View IMPRESSION: The PEG tube is in the distal stomach. Oral contrast is seen within the stomach. Electronically Signed: Josh Singh MD at 14:53 EDT , Service support ,
--- NOTE | 2020-07-13 14:48 | ED.DCSUM_ITS ---
- ER Visit Summary Date of Service: 07/13/20 Chief Complaint: PEG tube leaking History of Present Illness: The patient is a [address] Garcia and Dr. Aden. She has a history of esophageal cancer and gets all nutrition through her PEG tube. She has had this current tube for approximately 1 year. She states that she went to use it today and that it leaked around it onto her abdomen. States that this is happened in the past when she has needed to have it replaced. Patient reports that 3 days ago she had an injection by Dr. Burks and it sounds as though she had an allergic reaction. She was discharged from the hospital yesterday and reports that she has been doing well until her PEG tube did not work. She denies abdominal pain. She denies nausea or vomiting. She reports he has chronic diarrhea that is unchanged. There is been no blood in her stools. She is passing flatus. Physical Examination: Vitals: Stable. Afebrile. General: Well-nourished and well-developed. Head: Normocephalic atraumatic. Neck: Supple, no lymphadenopathy. No JVD. Nontender. Cardiovascular: Regular rate and rhythm. 2 out of 6 systolic murmur. Respiratory: No respiratory distress. Clear to auscultation bilaterally. Abdominal: Soft, nontender, nondistended, normal bowel sounds. No guarding, rebound, or peritoneal signs. The PEG site appears irritated. However, there is no significant erythema. There is no induration or fluctuance. Back: Nontender. Extremities: Nontender, no edema. Skin: Normal color, no rash. Neurologic: Alert and oriented ?3. Cranial nerves II through XII are intact. Normal strength and sensation. Psych: Normal affect. Test Results: KUB shows the PEG tube to be in place. Emergency Department Course and Treatment: Patient refused pain medications. She had her PEG tube replaced. She tolerated this well. Treatment Plan: Patient be discharged instructions to follow-up Dr. Garcia as needed. Return to the emergency department for any worsening symptoms. Disposition: To home in improved and stable condition. Impression: 1. PEG tube replacement. This note was generated with [employer] software. It may contain incorrect words, spelling, and punctuation that were not noted in review of the chart prior to signing ED Disposition - Plan for ED Patient: Instructions: ED Feeding Tube Replacement Referrals: Michael Garcia MD [NON-STAFF] - As Needed
== END 2020-07-13 15:10 | disposition home or self-care (01) ==
LOC: ED 13:50
PROVIDERS: Emergency Provider Emergency Medicine; PCP Family Medicine Geriatric Medicine
DX: K94.23 Gastrostomy malfunction (principal); J44.9 Chronic obstructive pulmonary disease, unspecified; Z79.899 Other long term (current) drug therapy; Z85.01 Personal history of malignant neoplasm of esophagus
CPT/HCPCS: 43762; 74018; 99281; 99282

== ENCOUNTER → 2020-07-18 13:54 | Outpatient (CLI) | payer MEDICARE, OTHER, SELFPAY ==
[2020-07-13 13:12] VITALS: BMI 30.1
[2020-07-18 14:28] LABS: Absolute Lymphocyte Count 3.97 X10^3/uL (0.83-4.51); Absolute Neutrophil Count 6.6 X10^3/uL (2.0-7.7); Basophil# 0.04 X10^3/uL; Basophil% 0.3 % (0-1); Eosinophil# 0.18 X10^3/uL; Eosinophils% 1.5 % (0-5); Hematocrit 37.1 % (37-47); Hemoglobin 11.6 g/dL (12.0-15.0); Lymphocyte # 3.97 X10^3/ul (0.83-4.51); Lymphocyte % 33.2 % (19-41); Mean Corp Hgb Conc 31.3 g/dL (32-36); Mean Corpuscular Hgb 27.5 pg (27.0-32.0); Mean Corpuscular Volume 87.9 fL (81-99); Mean Platelet Vol. 10.4 fl (6.2-12.0); Monocyte# 1.12 X10^3/uL; Monocyte% 9.4 % (0-10); NRBC Flagged by Analyzer 0 % (0-5); Neutrophil # 6.55 X10^3/uL (2.7-7.7); Neutrophil % 54.9 % (47-70); Platelet Count 351 K/mm3 (150-450); RBC Distribution Width CV 14.7 % (11.6-14.6); RBC Distribution Width SD 46.9 fl (35.1-43.9); Red Blood Count 4.22 M/mm3 (4.2-5.4); White Blood Count 11.9 K/mm3 (4.4-11.0)
[2020-07-18 14:49] LABS: ALB/GLOB Ratio 0.7 RATIO (0.9-2.4); AST(SGOT) 34 U/L (15-37); Alanine Aminotransfer ALT/SGPT 54 U/L (13-56); Albumin, Serum 3.2 g/dL (3.2-5.0); Alkaline Phosphatase 120 U/L (45-117); Anion Gap 7 (5-15); BUN 23 mg/dL (7-18); BUN/Creat Ratio 19.8 RATIO (10-20); Chloride 99 mmol/L (98-107); Creatinine, Serum 1.16 mg/dL (0.55-1.02); EST Glomerular Filtration Rate 48 mL/min (>60); Est Glom Filt Rate - Afr Amer 57 mL/min (>60); Globulin 4.6 g/dL (2.2-4.2); Glucose 106 mg/dL (74-106); Potassium 4.2 mmol/L (3.5-5.1); Protein, Total 7.8 g/dL (6.4-8.2); Sodium Level 132 mmol/L (136-145); Thyroid Stim Hormone (TSH) 3.45 uIU/mL (0.358-3.74)
== END ==
PROVIDERS: PCP Family Medicine Geriatric Medicine; Visit Provider Family Medicine Geriatric Medicine
DX: E55.9 Vitamin D deficiency, unspecified (principal); R53.83 Other fatigue
CPT/HCPCS: 36415; 80053; 82306; 84443; 85025

== ENCOUNTER 2020-08-07 09:05 | Emergency (ER) | payer MEDICARE, OTHER, SELFPAY ==
[2020-08-07 09:06] VITALS: BP 138/75; PULSE 78; RESP 15; TEMP 36.4; O2SAT 99; BMI 29.7
--- NOTE | 2020-08-07 09:17 | EDS_ITS ---
HPI History of Present Illness Chief Complaint: Other, Pain/Inj Informant: patient Onset/Context/Timing Onset: Hours Context: Sudden Onset Timing: Continuous Quality: Sleep of gastric contents around gastrostomy tube Location: Gastrostomy tube Current Severity: Moderate Maximum Severity: Moderate Worsened by: Nothing Relieved by: Nothing Associated Symptoms Associated Symptoms: Skin irritation Narrative Narrative: Patient is an elderly woman who had her gastrostomy tube replaced several weeks ago. She presents because of significant leakage. She has a 22 [place] [employer] Manuel tube in place. Prior similar symptoms: Yes Recent Illness/Hospitalization: Yes PFSH PFS Medical History Arthritis Cancer of upper third of esophagus Cataracts, bilateral Diabetes mellitus Hearing problem History of esophageal dilatation History of pneumonia Squamous cell carcinoma Thyroid disease Vitamin D deficiency Home Medications atenolol 25 mg PO QHS 06/01/15 [History Last Taken 07/09/20] levothyroxine 112 mcg PO DAILY 11/23/18 [History Last Taken 07/09/20] fluticasone propion-salmeterol 2 puff INHALATION BID 10/18/19 [History Last Taken 07/10/20] omeprazole 40 mg PO DAILY 10/18/19 [History Last Taken 07/09/20] albuterol sulfate 1 - 2 puff INHALATION Q6H PRN PRN 07/03/20 [History Last Taken 07/10/20] dexamethasone 6 mg PO DAILYCM #2 tablet 07/12/20 [Rx Last Taken Unknown] Allergy/AdvReac Type Severity Reaction Status Date / Time acetaminophen [From Percocet] Allergy Rash Verified 08/07/20 09:08 amoxicillin [From Augmentin] Allergy PT UNSURE Verified 08/07/20 09:08 OF REACTION cefadroxil Allergy PT UNSURE Verified 08/07/20 09:08 OF REACTION clavulanic acid Allergy PT UNSURE Verified 08/07/20 09:08 [From Augmentin] OF REACTION clindamycin Allergy PT UNSURE Verified 08/07/20 09:08 OF REACTION oxycodone [From Percocet] Allergy Rash Verified 08/07/20 09:08 codeine AdvReac PT UNSURE Verified 08/07/20 09:08 OF REACTION hydrocodone bitartrate AdvReac CONFUSION Verified 08/07/20 09:08 [From Vicodin] Family History Mother Osteoporosis Heart disease Surgical History History of cholecystectomy History of tubal ligation S/P dilatation of esophageal stricture Social History (Updated 08/07/20 @ 09:[address] Albert Cabrera MD) household members: none Smoking Status: Former smoker alcohol intake: never substance use type: does not use ROS ROS ED Constitutional Constitutional ED: Denies chills, fever(s), subjective or sweats Cardiovascular Cardiovascular: Denies chest pain or palpitations Respiratory/Chest Respiratory/Chest: Denies cough, dyspnea or dyspnea on exertion Gastrointestinal Gastrointestinal: Reports other Details: Gastrostomy tube is leaking ; Denies abdominal pain, diarrhea, nausea or vomiting Integumentary Reports rash and other Details: Irritation due to gastric fluid ; Denies abscess or Abrasions EXAM Physical Exam Const Vital Signs: 08/07/20 09:06 Temperature 97.5 F L Temperature Source Temporal Pulse Rate 78 Respiratory Rate 15 Blood Pressure 138/75 H Blood Pressure Mean 96 Pulse Ox 99 Oxygen Delivery Method Room Air Positive well nourished, well developed and obese General Appearance ED: well developed and NAD; Negative for pallor Nutritional Appearance: obese Eyes PERRL and EOMs intact bilaterally General Eye ED: Negative for pale conjunctiva or scleral icterus Neck no lymphadenopathy, supple and no JVD Chest Wall inspection of chest normal Resp normal respiratory effort and clear to auscultation bilaterally Cardio regular rate, regular rhythm, S1 normal heart sound, S2 normal heart sound and no murmurs GI non-tender, non-distended and no masses GI Narrative: There is leakage of gastric fluid around the gastrostomy tube. Plan is to replace. Auscultation: hypoactive bowel sounds Palpation: soft Extremity normal to inspection Neuro oriented x3, CN's II-XII intact bilaterally and no sensory deficits noted Sensorium / Orientation: alert Motor Exam: strength 5/5 throughout Psych mental status grossly normal Skin skin turgor normal General Skin Exam: Negative for pallor Rashes: rashes noted Erythema due to irritation from gastric juices. MDM MDM MDM Narrative Medical decision making narrative: Plan is to replace PAUL gastrostomy tube. Please read procedure note. Procedures Other Procedures Procedure(s): The gastrostomy tube was placed prior visit had a leak. There was only 4 cc of saline in the balloon. The response to B6. A new tube was placed. A [employer] standard balloon replacement kit was used. Ox 322 [place]. The old tube was removed easily. The new tube was inserted easily. Gauze was placed to protect the skin. Presently there is no leakage of gastric contents. Will reassess and if there is no leakage patient will be discharged home otherwise she will need to follow-up with her GI specialist, Dr. Michael Garcia. Discharge Plan Triage Chief Complaint: Other, Pain/Inj ED Provider: Albert Cabrera Dx/Rx/DC Orders Clinical Impression: Malfunction of gastrostomy tube, Gastrostomy tube skin breakdown Instructions: Caring for Your Gastrostomy Tube (G-Tube), ED Feeding Tube Replacement Prescriptions: No Action atenolol 25 MG tablet 25 mg PO QHS RF: 0 levothyroxine 112 MCG tablet 112 mcg PO DAILY RF: 0 omeprazole 10 MG capsule 40 mg PO DAILY RF: 0 fluticasone propion-salmeterol 1 PUFF inhaler 2 puff inhalation BID RF: 0 albuterol sulfate 1 INHALER inhaler 1 - 2 puff INHALATION Q6H PRN PRN (Reason: Asthma) RF: 0 dexamethasone 4 MG tablet 6 mg PO DAILYCM Qty: 2 RF: 0 Primary Care Provider: Reynaldo Aden Chi Referrals: Reynaldo Aden Chi, MD [Primary Care Provider] - Michael Garcia MD [NON-STAFF] - As Needed Disposition Disposition: Home, self care
== END 2020-08-07 09:51 | disposition home or self-care (01) ==
LOC: ED 09:47
PROVIDERS: Emergency Provider Emergency Medicine; PCP Family Medicine Geriatric Medicine
DX: K94.23 Gastrostomy malfunction (principal); M19.90 Unspecified osteoarthritis, unspecified site; E66.9 Obesity, unspecified; Z68.29 Body mass index [BMI] 29.0-29.9, adult; Z79.899 Other long term (current) drug therapy; Z87.891 Personal history of nicotine dependence
CPT/HCPCS: 43762; 99282

== ENCOUNTER 2020-08-12 08:24 | Emergency (ER) | payer MEDICARE, OTHER, SELFPAY ==
[2020-08-12 08:25] VITALS: BP 124/76; PULSE 78; RESP 18; TEMP 36.4; O2SAT 98; BMI 29.9
--- NOTE | 2020-08-12 08:42 | EDS_ITS ---
HPI History of Present Illness Chief Complaint: Wound Check Informant: patient Onset/Context/Timing Onset: Today Context: Gradual Onset Timing: Continuous Current Severity: Mild Maximum Severity: Mild Narrative Narrative: The patient is an 84-year-old female that presents to the emergency department with PEG tube leaking. She states she had a replaced 2 weeks ago. She states that they did put a larger tube in. She notices that from time to time in the morning, she will have some leakage. She has a difficult time keeping the tube site tight because she does have some skin irritation around it. She has been using barrier cream 3 times a day. She denies any vomiting. She has been tolerating her tube use without issue. She is moving bowels without issue. She denies any significant pain. [facility] Medical History Arthritis Cancer of upper third of esophagus Cataracts, bilateral Diabetes mellitus Hearing problem History of esophageal dilatation History of pneumonia Squamous cell carcinoma Thyroid disease Vitamin D deficiency Home Medications atenolol 25 mg PO QHS 06/01/15 [History Last Taken 07/09/20] levothyroxine 112 mcg PO DAILY 11/23/18 [History Last Taken 07/09/20] fluticasone propion-salmeterol 2 puff INHALATION BID 10/18/19 [History Last Taken 07/10/20] omeprazole 40 mg PO DAILY 10/18/19 [History Last Taken 07/09/20] albuterol sulfate 1 - 2 puff INHALATION Q6H PRN PRN 07/03/20 [History Last Taken 07/10/20] dexamethasone 6 mg PO DAILYCM #2 tablet 07/12/20 [Rx Last Taken Unknown] Allergy/AdvReac Type Severity Reaction Status Date / Time acetaminophen [From Percocet] Allergy Rash Verified 08/12/20 08:28 amoxicillin [From Augmentin] Allergy PT UNSURE Verified 08/12/20 08:28 OF REACTION cefadroxil Allergy PT UNSURE Verified 08/12/20 08:28 OF REACTION clavulanic acid Allergy PT UNSURE Verified 08/12/20 08:28 [From Augmentin] OF REACTION clindamycin Allergy PT UNSURE Verified 08/12/20 08:28 OF REACTION oxycodone [From Percocet] Allergy Rash Verified 08/12/20 08:28 codeine AdvReac PT UNSURE Verified 08/12/20 08:28 OF REACTION hydrocodone bitartrate AdvReac CONFUSION Verified 08/12/20 08:28 [From Vicodin] Family History Mother Osteoporosis Heart disease Surgical History History of cholecystectomy History of tubal ligation S/P dilatation of esophageal stricture Social History household members: none Smoking Status: Former smoker alcohol intake: never substance use type: does not use ROS ROS ED Constitutional Constitutional ED: Denies chills or fever(s) Eyes Eyes: Denies blurry vision or change in vision ENT ENT ED: Denies ear pain or sore throat Cardiovascular Cardiovascular: Denies chest pain or palpitations Respiratory/Chest Respiratory/Chest: Denies cough, dyspnea or dyspnea on exertion Gastrointestinal Gastrointestinal: Denies abdominal pain, nausea or vomiting Genitourinary Genitourinary ED: Denies dysuria or urinary frequency Musculoskeletal Musculoskeletal: Denies arthralgias or myalgias Integumentary Denies rash Neurologic Neurologic: Denies headache(s) or paresthesias Psychiatric Psychiatric: Denies anxiety or depression Endocrine Endocrinology: Denies polydipsia or polyuria Allergic/Immunologic Allergic/Immunologic ED: Denies urticaria EXAM Physical Exam Const Vital Signs: 08/12/20 08:25 08/12/20 08:44 Temperature 97.6 F L 97.6 F L Temperature Source Temporal Temporal Pulse Rate 78 78 Respiratory Rate 18 18 Blood Pressure 124/76 H 124/76 H Blood Pressure Mean 92 92 Pulse Ox 98 98 Oxygen Delivery Method Room Air Room Air Positive well nourished and well developed General Appearance ED: well developed HEENT Reports normocephalic, head/scalp atraumatic and moist mucous membranes Eyes PERRL and EOMs intact bilaterally Neck no lymphadenopathy and supple General: Negative for tenderness Chest Wall inspection of chest normal Resp normal respiratory effort and clear to auscultation bilaterally Cardio regular rate, regular rhythm and no murmurs GI normal to inspection, nondistended, normoactive bowel sounds GI Narrative: The PEG site is intact. There is some erythema around the edges. There is some leakage around the dressing. There is no purulence. Palpation: Negative for tender, guarding or rebound tenderness present Back/Spine no CVA tenderness Cervical Spine: Negative for cervical spine tenderness Thoracic Spine / Upper Back: Negative for thoracic spinal tenderness Extremity normal to inspection General Extremety ED: Negative for tenderness Neuro oriented x3 and CN's II-XII intact bilaterally Neuro Narrative: No focal deficits appreciated. Sensorium / Orientation: alert Psych mental status grossly normal Skin no rashes or lesions noted, no wounds and skin turgor normal MDM MDM MDM Narrative Medical decision making narrative: The patient presents with leaking from her PEG tube. It was recently replaced. I did aspirate from the balloon and there was only about 5 cc as opposed to the 6. Because of this, I did replace the tube. [employer] was done. This was replaced easily and secured. Gastrografin KUB was obtained. The PEG site is normal and Gastrografin does fill the stomach. Unfortunately, I do feel that this leaking is going to be difficult to control. The patient cannot wear it very tight because of skin breakdown. I did discuss her case with Dr. Bustos. He states that there is actually various procedures that can be done as an outpatient to protect the site and encourage wound healing. He is very comfortable seeing the patient as an outpatient. The patient and her daughter are very appreciative of this and they are going to follow-up with Dr. Bustos in the office this week. She will be discharged home. Impression 1. PEG tube replacement Discharge Plan Triage Chief Complaint: Wound Check ED Provider: Alok Blount Dx/Rx/DC Orders Instructions: ED Feeding Tube Replacement Prescriptions: No Action atenolol 25 MG tablet 25 mg PO QHS RF: 0 levothyroxine 112 MCG tablet 112 mcg PO DAILY RF: 0 omeprazole 10 MG capsule 40 mg PO DAILY RF: 0 fluticasone propion-salmeterol 1 PUFF inhaler 2 puff inhalation BID RF: 0 albuterol sulfate 1 INHALER inhaler 1 - 2 puff INHALATION Q6H PRN PRN (Reason: Asthma) RF: 0 dexamethasone 4 MG tablet 6 mg PO DAILYCM Qty: 2 RF: 0 Primary Care Provider: Reynaldo Aden Chi Referrals: Charlie Bustos MD [STAFF PHYSICIAN] - 3-5 Days Reynaldo Aden Chi, MD [Primary Care Provider] -
[2020-08-12 08:44] VITALS: BP 124/76; PULSE 78; RESP 18; TEMP 36.4; O2SAT 98
--- NOTE | 2020-08-12 09:11 | RAD_ITS ---
STUDY: X-RAY - ABDOMEN/PELVIS REASON FOR EXAM: Female, 84 years old. peg replacement TECHNIQUE: Single AP view of the abdomen / pelvis. COMPARISON: 07/13/2020 FINDINGS: Percutaneous gastrostomy tube was injected with contrast which empties into the stomach without evidence of contrast extravasation to suggest leak. There is an unremarkable bowel gas pattern. The visualized liver, spleen and kidneys are grossly normal in size and morphology. Normal soft tissue structures. Normal visualized osseous structures. RAD/Abdomen Single View IMPRESSION: Percutaneous gastrostomy tube empties into the stomach without leak. Electronically Signed: Sander Garcia MD at 10:13 EDT Tel , Service support ,
[2020-08-12 09:41] VITALS: RESP 18
== END 2020-08-12 09:42 | disposition home or self-care (01) ==
LOC: ED 09:14
PROVIDERS: Emergency Provider Emergency Medicine; PCP Family Medicine Geriatric Medicine
DX: K94.23 Gastrostomy malfunction (principal); E55.9 Vitamin D deficiency, unspecified; M19.90 Unspecified osteoarthritis, unspecified site; Z79.899 Other long term (current) drug therapy; Z87.891 Personal history of nicotine dependence
CPT/HCPCS: 43762; 74018; 99282

== ENCOUNTER → 2021-01-21 14:14 | Outpatient (CLI) | payer MEDICARE, OTHER, SELFPAY ==
[2021-01-21 16:28] LABS: Absolute Lymphocyte Count 3.49 X10^3/uL (0.83-4.51); Absolute Neutrophil Count 4.9 X10^3/uL (2.0-7.7); Basophil# 0.05 X10^3/uL; Basophil% 0.5 % (0-1); Eosinophils% 2.1 % (0-5); Hematocrit 31.4 % (37-47); Lymphocyte # 3.49 X10^3/ul (0.83-4.51); Lymphocyte % 36.3 % (19-41); Mean Corp Hgb Conc 31.8 g/dL (32-36); Mean Corpuscular Hgb 27.6 pg (27.0-32.0); Mean Corpuscular Volume 86.7 fL (81-99); Mean Platelet Vol. 10.3 fl (6.2-12.0); Monocyte# 0.94 X10^3/uL; Monocyte% 9.8 % (0-10); NRBC Flagged by Analyzer 0 % (0-5); Neutrophil # 4.89 X10^3/uL (2.7-7.7); Neutrophil % 50.8 % (47-70); Platelet Count 331 K/mm3 (150-450); RBC Distribution Width CV 14.8 % (11.6-14.6); RBC Distribution Width SD 47.2 fl (35.1-43.9); Red Blood Count 3.62 M/mm3 (4.2-5.4); White Blood Count 9.6 K/mm3 (4.4-11.0)
[2021-01-21 16:48] LABS: Vitamin D,25 Hydroxy 23.8 ng/mL
[2021-01-21 16:56] LABS: ALB/GLOB Ratio 0.6 RATIO (0.9-2.4); AST(SGOT) 24 U/L (15-37); Alanine Aminotransfer ALT/SGPT 29 U/L (13-56); Alkaline Phosphatase 107 U/L (45-117); Anion Gap 8 (5-15); BUN 25 mg/dL (7-18); BUN/Creat Ratio 24.5 RATIO (10-20); Calcium,Total 9.2 mg/dL (8.5-10.1); Chloride 97 mmol/L (98-107); Creatinine, Serum 1.02 mg/dL (0.55-1.02); EST Glomerular Filtration Rate 55 mL/min (>60); Est Glom Filt Rate - Afr Amer 67 mL/min (>60); Glucose 101 mg/dL (74-106); Potassium 4.4 mmol/L (3.5-5.1); Sodium Level 131 mmol/L (136-145); Thyroid Stim Hormone (TSH) 0.61 uIU/mL (0.358-3.74)
== END ==
PROVIDERS: PCP Family Medicine Geriatric Medicine; Visit Provider Family Medicine Geriatric Medicine
DX: I10 Essential (primary) hypertension (principal); E11.9 Type 2 diabetes mellitus without complications; E55.9 Vitamin D deficiency, unspecified
CPT/HCPCS: 36415; 80053; 82306; 84443; 85025

== ENCOUNTER 2021-01-25 12:42 | Emergency (ER) | payer MEDICARE, OTHER, SELFPAY ==
[2021-01-25 12:43] VITALS: BP 102/68; PULSE 74; RESP 20; TEMP 35.9; O2SAT 100; BMI 28.5
--- NOTE | 2021-01-25 13:30 | RAD_ITS ---
STUDY: X-RAY - ABDOMEN/PELVIS REASON FOR EXAM: Female, 85 years old. PEG Tube Replacement TECHNIQUE: Single AP view of the abdomen / pelvis. GASTROGRAFIN was introduced into the PEG tube. COMPARISON: None. FINDINGS: Normal visualized lung bases. The PEG tube is seen within the distal portion of the stomach. No evidence of extravasation. The visualized liver, spleen and kidneys are grossly normal in size and morphology. Normal soft tissue structures. Normal visualized osseous structures. RAD/Abdomen Single View (Portable) IMPRESSION: PEG tube is seen within the distal portion of the stomach. There is no evidence of extravasation Electronically Signed: Josh Singh MD at 13:50 EDT , Service support ,
--- NOTE | 2021-01-25 13:37 | EDS_ITS ---
HPI History of Present Illness Chief Complaint: General Illness Informant: patient and family Narrative Narrative: 85-year-old female presents with leakage around her PEG tube. Patient had a PEG tube for about 2 years due to esophageal cancer and radiation-induced stricture. Patient states that after her feedings today there is a significant amount of tube feeds coming out around it. She last had her feeding tube change 6 months ago. PFSH PFSH Medical History Arthritis Cancer of upper third of esophagus Cataracts, bilateral Diabetes mellitus Hearing problem History of esophageal dilatation History of pneumonia Squamous cell carcinoma Thyroid disease Vitamin D deficiency Home Medications atenolol 25 mg PO QHS 06/01/15 [History Last Taken 07/09/20] levothyroxine 112 mcg PO DAILY 11/23/18 [History Last Taken 07/09/20] fluticasone propion-salmeterol 2 puff INHALATION BID 10/18/19 [History Last Taken 07/10/20] omeprazole 40 mg PO DAILY 10/18/19 [History Last Taken 07/09/20] albuterol sulfate 1 - 2 puff INHALATION Q6H PRN PRN 07/03/20 [History Last Taken 07/10/20] dexamethasone 6 mg PO DAILYCM #2 tablet 07/12/20 [Rx Last Taken Unknown] Allergy/AdvReac Type Severity Reaction Status Date / Time acetaminophen [From Percocet] Allergy Rash Verified 01/25/21 12:45 amoxicillin [From Augmentin] Allergy PT UNSURE Verified 01/25/21 12:45 OF REACTION cefadroxil Allergy PT UNSURE Verified 01/25/21 12:45 OF REACTION clavulanic acid Allergy PT UNSURE Verified 01/25/21 12:45 [From Augmentin] OF REACTION clindamycin Allergy PT UNSURE Verified 01/25/21 12:45 OF REACTION oxycodone [From Percocet] Allergy Rash Verified 01/25/21 12:45 codeine AdvReac PT UNSURE Verified 01/25/21 12:45 OF REACTION hydrocodone bitartrate AdvReac CONFUSION Verified 01/25/21 12:45 [From Vicodin] Family History Mother Osteoporosis Heart disease Surgical History History of cholecystectomy History of tubal ligation S/P dilatation of esophageal stricture Social History household members: none Smoking Status: Former smoker alcohol intake: never substance use type: does not use ROS ROS ED Constitutional Constitutional ED: Denies chills, fever(s) or weight loss Eyes Eyes: Denies change in vision or diplopia ENT ENT ED: Denies ear pain, rhinorrhea or sore throat Cardiovascular Cardiovascular: Denies chest pain, orthopnea, palpitations or racing heartbeat Respiratory/Chest Respiratory/Chest: Denies cough, dyspnea or orthopnea Gastrointestinal Gastrointestinal: Denies abdominal pain, diarrhea, nausea or vomiting Genitourinary Genitourinary ED: Denies dysuria, hematuria or urinary frequency Musculoskeletal Musculoskeletal: Denies arthralgias or myalgias Integumentary Denies abscess or rash Neurologic Neurologic: Denies headache(s) or weakness Psychiatric Psychiatric: Denies anxiety, depression, suicidal ideation or suicidal thoughts Endocrine Endocrinology: Denies polydipsia, polyphagia or polyuria Allergic/Immunologic Allergic/Immunologic ED: Denies mouth swelling, tongue swelling or urticaria EXAM Physical Exam Const Vital Signs: 01/25/21 12:43 01/25/21 13:26 Temperature 96.7 F L Temperature Source Temporal Pulse Rate 74 Respiratory Rate 20 H Respiratory Effort Normal Non-Labored Blood Pressure 102/68 Blood Pressure Mean 79 Pulse Ox 100 Oxygen Delivery Method Room Air Positive well nourished and well developed General Appearance ED: well developed HEENT Reports normocephalic, head/scalp atraumatic, TM's clear and moist mucous membranes Negative for trauma Tympanic Membrane ED: Yes TM's clear Eyes PERRL and EOMs intact bilaterally Neck no lymphadenopathy, supple and no JVD Resp normal respiratory effort and clear to auscultation bilaterally Cardio regular rate, regular rhythm and no murmurs GI non-tender GI Narrative: PEG tube is in place. There is leakage of tube feeds coming from the stoma. Auscultation: normoactive bowel sounds Palpation: soft; Negative for tender Back/Spine no CVA tenderness and normal ROM Extremity normal to inspection General Extremety ED: Negative for edema General Extremity: Negative for edema Neuro oriented x3 and CN's II-XII intact bilaterally Sensorium / Orientation: alert Motor Exam: strength 5/5 throughout Psych mental status grossly normal Mood & Affect: Negative for depressed or tearful Skin no rashes or lesions noted and no wounds MDM MDM MDM Narrative Medical decision making narrative: 24 [place] PEG tube was removed and a 24 [place] PEG tube was placed easily without any difficulty. Balloon inflated to 6 cc. My interpretation of the plain film of the abdomen with Gastrografin injection is adequate placement. Patient will be referred to GI. Discharge Plan Triage Chief Complaint: General Illness ED Provider: Charlie Vaughan Dx/Rx/DC Orders Clinical Impression: PEG tube malfunction, Malfunction of gastrostomy tube Prescriptions: No Action atenolol 25 MG tablet 25 mg PO QHS RF: 0 levothyroxine 112 MCG tablet 112 mcg PO DAILY RF: 0 omeprazole 10 MG capsule 40 mg PO DAILY RF: 0 fluticasone propion-salmeterol 1 PUFF inhaler 2 puff inhalation BID RF: 0 albuterol sulfate 1 INHALER inhaler 1 - 2 puff INHALATION Q6H PRN PRN (Reason: Asthma) RF: 0 dexamethasone 4 MG tablet 6 mg PO DAILYCM Qty: 2 RF: 0 Primary Care Provider: Reynaldo Aden Chi Referrals: Dexter Alvarez DO [STAFF PHYSICIAN] - As Needed (For gastroenterology) Reynaldo Aden Chi, MD [Primary Care Provider] - Disposition Disposition: Home, Self Care
== END 2021-01-25 14:06 | disposition home or self-care (01) ==
PROVIDERS: Emergency Provider Emergency Medicine; PCP Family Medicine Geriatric Medicine
DX: K94.23 Gastrostomy malfunction (principal); M19.90 Unspecified osteoarthritis, unspecified site; Z79.899 Other long term (current) drug therapy; Z87.891 Personal history of nicotine dependence
CPT/HCPCS: 43762; 74018; 99282

== ENCOUNTER 2021-01-25 19:39 | Emergency (ER) | payer MEDICARE, OTHER, SELFPAY ==
[2021-01-25 19:40] VITALS: BP 96/66; PULSE 71; RESP 18; TEMP 36.2; O2SAT 99; BMI 28.5
--- NOTE | 2021-01-25 21:37 | RAD_ITS ---
STUDY: X-RAY - ABDOMEN/PELVIS REASON FOR EXAM: Female, 85 years old. PEG tube placement -- Please use Gastrografin TECHNIQUE: KUB COMPARISON: None. FINDINGS: Normal visualized lung bases. There is an unremarkable bowel gas pattern. There is no demonstrated free abdominal air. PEG tube noted with tip in gastric antrum. There is contrast noted within the stomach, small bowel and colon but no extraluminal extravasation The visualized liver, spleen and kidneys are grossly normal in size and morphology. Normal soft tissue structures. Lumbar spine demonstrates degenerative change RAD/Abdomen Single View (Portable) IMPRESSION: Headache tube placement with tip in the gastric antrum. Electronically Signed: Alec Pham MD at 22:12 EDT , Service support ,
--- NOTE | 2021-01-25 21:58 | EDS_ITS ---
HPI History of Present Illness Chief Complaint: General Illness Narrative Narrative: Patient has a longstanding history of PEG tube. Her last [address] for about 6 months when it began to malfunction and she was actually seen in the ER earlier today. At that time she had the PEG tube replaced. She states that this evening she noticed that it seems like the balloon has ruptured as the tube is trying to slide out. Therefore with concern that she will need a repeat replacement she presents for evaluation [facility] Medical History Arthritis Cancer of upper third of esophagus Cataracts, bilateral Diabetes mellitus Hearing problem History of esophageal dilatation History of pneumonia Squamous cell carcinoma Thyroid disease Vitamin D deficiency Home Medications atenolol 25 mg PO QHS 06/01/15 [History Last Taken 07/09/20] levothyroxine 112 mcg PO DAILY 11/23/18 [History Last Taken 07/09/20] fluticasone propion-salmeterol 2 puff INHALATION BID 10/18/19 [History Last Taken 07/10/20] omeprazole 40 mg PO DAILY 10/18/19 [History Last Taken 07/09/20] albuterol sulfate 1 - 2 puff INHALATION Q6H PRN PRN 07/03/20 [History Last Taken 07/10/20] dexamethasone 6 mg PO DAILYCM #2 tablet 07/12/20 [Rx Last Taken Unknown] Allergy/AdvReac Type Severity Reaction Status Date / Time acetaminophen [From Percocet] Allergy Rash Verified 01/25/21 19:40 amoxicillin [From Augmentin] Allergy PT UNSURE Verified 01/25/21 19:40 OF REACTION cefadroxil Allergy PT UNSURE Verified 01/25/21 19:40 OF REACTION clavulanic acid Allergy PT UNSURE Verified 01/25/21 19:40 [From Augmentin] OF REACTION clindamycin Allergy PT UNSURE Verified 01/25/21 19:40 OF REACTION oxycodone [From Percocet] Allergy Rash Verified 01/25/21 19:40 codeine AdvReac PT UNSURE Verified 01/25/21 19:40 OF REACTION hydrocodone bitartrate AdvReac CONFUSION Verified 01/25/21 19:40 [From Vicodin] Family History Mother Osteoporosis Heart disease Surgical History History of cholecystectomy History of tubal ligation S/P dilatation of esophageal stricture Social History household members: none Smoking Status: Former smoker alcohol intake: never substance use type: does not use ROS ROS ED Constitutional Constitutional ED: Denies chills or fever(s) ENT ENT ED: Reports sore throat Cardiovascular Cardiovascular: Denies chest pain Respiratory/Chest Respiratory/Chest: Denies cough or dyspnea Gastrointestinal Gastrointestinal: Denies abdominal pain Musculoskeletal Musculoskeletal: Denies myalgias Integumentary Denies rash Neurologic Neurologic: Denies headache(s) Hematologic/Lymphatic Hematologic/Lymphatic: Denies easy bleeding or easy bruising EXAM Physical Exam Const Vital Signs: 01/25/21 19:40 01/25/21 20:10 Temperature 97.1 F L Temperature Source Temporal Pulse Rate 71 Respiratory Rate 18 Respiratory Effort Normal Respiratory Pattern Normal Blood Pressure 96/66 Blood Pressure Mean 76 Pulse Ox 99 Oxygen Delivery Method Room Air Positive well nourished and well developed General Appearance ED: well developed Eyes PERRL and EOMs intact bilaterally Neck supple Resp normal respiratory effort and clear to auscultation bilaterally Cardio regular rate and regular rhythm GI normal to inspection, nondistended, normoactive bowel sounds, non-tender and non-distended GI Narrative: Patient has a PEG tube in place in the midepigastric region with no surrounding soft tissue changes to suggest infection however the PEG tube is very loose and does not feel secure at this time Auscultation: hypoactive bowel sounds Palpation: soft Extremity normal to inspection Neuro oriented x3 and CN's II-XII intact bilaterally Sensorium / Orientation: alert Psych mental status grossly normal Skin no rashes or lesions noted MDM MDM MDM Narrative Medical decision making narrative: Patient presented with a PEG tube that appeared to be malfunctioning and the fact that the balloon was no longer holding fluid/air. The PEG tube was removed and a new 22 Portuguese PEG tube was inserted. The PEG tube was threaded through the opening without difficulty and then a Gastrografin KUB was obtained which confirmed placement. Therefore at this time as the PEG tube is in the proper place and there is no signs of malfunction after insertion she is safe for discharge. Radiography Diagnostic Testing: Clinical Impression(s) from Imaging Studies KUB X-Ray 01/25/21 21:37 IMPRESSION: Headache tube placement with tip in the gastric antrum. Electronically Signed: Alec Pham MD at 22:12 EDT , Service support , Discharge Plan Triage Chief Complaint: General Illness ED Provider: Josue Irene Dx/Rx/DC Orders Clinical Impression: PEG tube malfunction Instructions: ED Feeding Tube Insertion Prescriptions: No Action atenolol 25 MG tablet 25 mg PO QHS RF: 0 levothyroxine 112 MCG tablet 112 mcg PO DAILY RF: 0 omeprazole 10 MG capsule 40 mg PO DAILY RF: 0 fluticasone propion-salmeterol 1 PUFF inhaler 2 puff inhalation BID RF: 0 albuterol sulfate 1 INHALER inhaler 1 - 2 puff INHALATION Q6H PRN PRN (Reason: Asthma) RF: 0 dexamethasone 4 MG tablet 6 mg PO DAILYCM Qty: 2 RF: 0 Primary Care Provider: Reynaldo Aden Chi Referrals: Reynaldo Aden Chi, MD [Primary Care Provider] - Disposition Disposition: Home, Self Care Discharge Date/Time: 01/25/21 22:06
== END 2021-01-25 22:06 | disposition home or self-care (01) ==
PROVIDERS: Emergency Provider Emergency Medicine; PCP Family Medicine Geriatric Medicine
DX: K94.23 Gastrostomy malfunction (principal); M19.90 Unspecified osteoarthritis, unspecified site; Z79.899 Other long term (current) drug therapy; Z87.891 Personal history of nicotine dependence
CPT/HCPCS: 43762; 74018; 99282

== ENCOUNTER 2021-03-09 10:41 | Emergency (ER) | payer MEDICARE, OTHER, SELFPAY ==
[2021-03-09 10:42] VITALS: BP 98/66; PULSE 79; RESP 18; TEMP 36; O2SAT 100; BMI 27.8
--- NOTE | 2021-03-09 11:49 | RAD_ITS ---
STUDY: X-RAY - ABDOMEN/PELVIS REASON FOR EXAM: Female, 85 years old. PEG placement -- Needs gastrographin injection TECHNIQUE: Single AP view of the abdomen / pelvis. COMPARISON: None. FINDINGS: Single AP view of the abdomen was obtained following injection of contrast through the existing gastrostomy tube. Contrast opacified the stomach. No definite extravasation is seen. RAD/Abdomen Single View IMPRESSION: G-tube appears to be in the stomach. Electronically Signed: Shubham Rose, at 12:34 EST Tel , Service support ,
--- NOTE | 2021-03-09 12:18 | EX.ED.DYSGE1 ---
HPI History of Present Illness Chief Complaint: General Illness Detail of Chief Complaint: PEG tube leaking Informant: patient Narrative Narrative: Patient presents needing a PEG tube change. She had longstanding PEG tube. She believes the balloon is leaking. This particular PEG tube is been in since the end of December. She has an appointment coming up with Dr. Garcia to see about having her PEG tube site changed. [facility] Medical History Arthritis Cancer of upper third of esophagus Cataracts, bilateral Diabetes mellitus Hearing problem History of esophageal dilatation History of pneumonia Squamous cell carcinoma Thyroid disease Vitamin D deficiency Home Medications atenolol 25 mg PO QHS 06/01/15 [History Last Taken 07/09/20] levothyroxine 112 mcg PO DAILY 11/23/18 [History Last Taken 07/09/20] fluticasone propion-salmeterol 2 puff INHALATION BID 10/18/19 [History Last Taken 07/10/20] omeprazole 40 mg PO DAILY 10/18/19 [History Last Taken 07/09/20] albuterol sulfate 1 - 2 puff INHALATION Q6H PRN PRN 07/03/20 [History Last Taken 07/10/20] dexamethasone 6 mg PO DAILYCM #2 tablet 07/12/20 [Rx Last Taken Unknown] Allergy/AdvReac Type Severity Reaction Status Date / Time acetaminophen [From Percocet] Allergy Rash Verified 03/09/21 10:45 amoxicillin [From Augmentin] Allergy PT UNSURE Verified 03/09/21 10:45 OF REACTION cefadroxil Allergy PT UNSURE Verified 03/09/21 10:45 OF REACTION clavulanic acid Allergy PT UNSURE Verified 03/09/21 10:45 [From Augmentin] OF REACTION clindamycin Allergy PT UNSURE Verified 03/09/21 10:45 OF REACTION oxycodone [From Percocet] Allergy Rash Verified 03/09/21 10:45 codeine AdvReac PT UNSURE Verified 03/09/21 10:45 OF REACTION hydrocodone bitartrate AdvReac CONFUSION Verified 03/09/21 10:45 [From Vicodin] Family History Mother Osteoporosis Heart disease Surgical History History of cholecystectomy History of tubal ligation S/P dilatation of esophageal stricture Social History household members: none Smoking Status: Former smoker alcohol intake: never substance use type: does not use ROS ROS ED Constitutional Constitutional ED: Denies chills or fever(s) Eyes Eyes: Denies change in vision ENT ENT ED: Denies sore throat Cardiovascular Cardiovascular: Denies chest pain Respiratory/Chest Respiratory/Chest: Denies cough or dyspnea Gastrointestinal Gastrointestinal: Denies abdominal pain, nausea or vomiting Musculoskeletal Musculoskeletal: Denies back pain Integumentary Reports rash Neurologic Neurologic: Denies headache(s) or weakness Allergic/Immunologic Allergic/Immunologic ED: Denies urticaria EXAM Physical Exam Const Vital Signs: 03/09/21 10:42 03/09/21 10:54 Temperature 96.8 F L Temperature Source Temporal Pulse Rate 79 Respiratory Rate 18 Respiratory Effort Normal Non-Labored Respiratory Pattern Normal Blood Pressure 98/66 Blood Pressure Mean 76 Pulse Ox 100 Oxygen Delivery Method Room Air Positive well nourished and well developed General Appearance ED: well developed HEENT Reports moist mucous membranes Eyes PERRL and EOMs intact bilaterally Neck supple Chest Wall inspection of chest normal and palpation of chest normal Resp normal respiratory effort and clear to auscultation bilaterally Cardio regular rate and regular rhythm GI normal to inspection, nondistended, normoactive bowel sounds and non-tender GI Narrative: Skin irritation around the PEG tube site with no sign of secondary infection. Palpation: soft Neuro oriented x3 Sensorium / Orientation: alert MDM MDM Treatment and Re-Evaluation Comments:: 22 Bangladeshi PEG tube removed easily and new tube placed. Abdominal x-ray with Gastrografin obtained and tube in good position. Patient will follow up Dr. Garcia as planned. Discharge Plan Triage Chief Complaint: General Illness ED Provider: Aimee White Dx/Rx/DC Orders Clinical Impression: PEG tube malfunction Instructions: ED Feeding Tube Replacement Prescriptions: No Action atenolol 25 MG tablet 25 mg PO QHS RF: 0 levothyroxine 112 MCG tablet 112 mcg PO DAILY RF: 0 omeprazole 10 MG capsule 40 mg PO DAILY RF: 0 fluticasone propion-salmeterol 1 PUFF inhaler 2 puff inhalation BID RF: 0 albuterol sulfate 1 INHALER inhaler 1 - 2 puff INHALATION Q6H PRN PRN (Reason: Asthma) RF: 0 dexamethasone 4 MG tablet 6 mg PO DAILYCM Qty: 2 RF: 0 Primary Care Provider: Reynaldo Aden Chi Referrals: Reynaldo Aden Chi, MD [Primary Care Provider] - Michael Garcia MD [NON-STAFF] - Keep Ophelia appointment Disposition Disposition: Home, Self Care
== END 2021-03-09 12:47 | disposition home or self-care (01) ==
PROVIDERS: Emergency Provider Emergency Medicine; PCP Family Medicine Geriatric Medicine
DX: K94.23 Gastrostomy malfunction (principal); C15.3 Malignant neoplasm of upper third of esophagus; E07.9 Disorder of thyroid, unspecified; M19.90 Unspecified osteoarthritis, unspecified site; Z79.899 Other long term (current) drug therapy; Z87.891 Personal history of nicotine dependence
CPT/HCPCS: 43762; 74018; 99282

== ENCOUNTER 2021-04-29 20:50 | Emergency (ER) | payer MEDICARE, OTHER, SELFPAY ==
[2021-04-29 20:51] VITALS: BP 143/70; PULSE 95; RESP 18; TEMP 36.9; O2SAT 96; BMI 28.5
--- NOTE | 2021-04-29 21:41 | CT_ITS ---
INDICATION: headache EXAMINATION: CT BRAIN - CT Head or Brain W/O Contrast Injection TECHNIQUE: Multiple axial images were obtained of the head without intravenous contrast. A radiation dose optimization technique was used for this scan. IV Contrast dosage and agent: None. COMPARISON: 07/01/[address] FINDINGS: BRAIN PARENCHYMA: No intra- or extra-axial hemorrhage. No intracranial mass or mass effect. Osorio/white matter differentiation is maintained and there is no blurring of the basal ganglia. There is no hyperdense vessel. Posterior fossa structures are unremarkable. CSF SPACES: Appropriate for age. No hydrocephalus. Basal cisterns are patent. CALVARIUM, SKULL BASE, PARANASAL SINUSES AND MASTOID AIR CELLS: Right mastoid is underpneumatized compared to the left, unchanged in appearance compared with 07/01/2018. Mastoid air cells, middle ear some paranasal sinuses are otherwise clear. No discrete lytic or blastic abnormalities. ORBITS: Both globes, extraocular muscles, optic nerves and retrobulbar fat appear unremarkable. CT/Brain/Head without Contrast IMPRESSION: Negative Brain CT without contrast. Electronically Signed: Alok Xavier DO at 22:43 EST ,
--- NOTE | 2021-04-29 21:41 | EKG12_ITS ---
Test Reason : DYSRYTHMIA Blood Pressure : / mmHG Vent. Rate : 101 BPM Atrial Rate : 101 BPM P-R Int : 148 ms QRS Dur : 078 ms QT Int : 340 ms P-R-T Axes : 042 038 057 degrees QTc Int : 440 ms Sinus tachycardia Otherwise normal ECG Confirmed by MABEL GRANT, ROSALES ([id number]), development editor MELQUIADES MEJIAS ([id number]) on 04/30/2021 8:42:12 AM Referred By: AYLIN Confirmed By:ROSALES MONROE MD
[2021-04-29 21:50] LABS: Absolute Lymphocyte Count 2.81 X10^3/uL (0.83-4.51); Basophil# 0.06 X10^3/uL; Basophil% 0.6 % (0-1); Hematocrit 28.6 % (37-47); Hemoglobin 9.4 g/dL (12.0-15.0); Lymphocyte # 2.81 X10^3/ul (0.83-4.51); Mean Corp Hgb Conc 32.9 g/dL (32-36); Mean Corpuscular Hgb 28.1 pg (27.0-32.0); Mean Corpuscular Volume 85.6 fL (81-99); Monocyte# 0.95 X10^3/uL; Monocyte% 9.5 % (0-10); NRBC Flagged by Analyzer 0 % (0-5); Neutrophil # 5.96 X10^3/uL (2.7-7.7); Neutrophil % 59.5 % (47-70); Platelet Count 354 K/mm3 (150-450); RBC Distribution Width CV 14.7 % (11.6-14.6); RBC Distribution Width SD 46.3 fl (35.1-43.9); Red Blood Count 3.34 M/mm3 (4.2-5.4)
--- NOTE | 2021-04-29 21:55 | EDS_ITS ---
HPI History of Present Illness Chief Complaint: Nausea/Vomiting Informant: patient and family Narrative Narrative: Patient presents with episodes of nausea at home. She has not really vomited. She has no abdominal pain. No diarrhea. She occasionally does get ba d reflux and will get symptoms like this. However they noted that it gets much worse if she moves. If she stays still is not as bad. She has had vertigo before. But she does not have as much of the spinning sensation as she normally has. She does feel that when she sits up things shake a little bit and then she gets nauseated but she is not sure if it is the same as the spinning. She has no chest pain or palpitations. No headache. She has not been sick recently. It sounds like she has had success with Yumi maneuver in the past. She has no neurologic complaints. [facility] Medical History Arthritis Cancer of upper third of esophagus Cataracts, bilateral Diabetes mellitus Hearing problem History of esophageal dilatation History of pneumonia Squamous cell carcinoma Thyroid disease Vitamin D deficiency Home Medications atenolol 25 mg PO QHS 06/01/15 [History Last Taken 07/09/20] levothyroxine 112 mcg PO DAILY 11/23/18 [History Last Taken 07/09/20] fluticasone propion-salmeterol 2 puff INHALATION BID 10/18/19 [History Last Taken 07/10/20] omeprazole 40 mg PO DAILY 10/18/19 [History Last Taken 07/09/20] albuterol sulfate 1 - 2 puff INHALATION Q6H PRN PRN 07/03/20 [History Last Taken 07/10/20] Allergy/AdvReac Type Severity Reaction Status Date / Time acetaminophen [From Percocet] Allergy Rash Verified 04/29/21 20:51 amoxicillin [From Augmentin] Allergy PT UNSURE Verified 04/29/21 20:51 OF REACTION cefadroxil Allergy PT UNSURE Verified 04/29/21 20:51 OF REACTION clavulanic acid Allergy PT UNSURE Verified 04/29/21 20:51 [From Augmentin] OF REACTION clindamycin Allergy PT UNSURE Verified 04/29/21 20:51 OF REACTION oxycodone [From Percocet] Allergy Rash Verified 04/29/21 20:51 codeine AdvReac PT UNSURE Verified 04/29/21 20:51 OF REACTION hydrocodone bitartrate AdvReac CONFUSION Verified 04/29/21 20:51 [From Vicodin] Family History Mother Osteoporosis Heart disease Surgical History History of cholecystectomy History of tubal ligation S/P dilatation of esophageal stricture Social History household members: none Smoking Status: Former smoker alcohol intake: never substance use type: does not use ROS ROS ED Constitutional Constitutional ED: Denies chills or fever(s) Eyes Eyes: Reports other Details: Sense of shaking if she sits up. ; Denies blurry vision or diplopia ENT ENT ED: Denies rhinorrhea or sore throat Cardiovascular Cardiovascular: Denies chest pain, palpitations or racing heartbeat Respiratory/Chest Respiratory/Chest: Denies dyspnea Gastrointestinal Gastrointestinal: Reports nausea; Denies abdominal pain or vomiting Genitourinary Genitourinary ED: Denies dysuria Musculoskeletal Musculoskeletal: Denies arthralgias or myalgias Integumentary Denies rash Neurologic Neurologic: Denies headache(s), paresthesias or weakness Psychiatric Psychiatric: Denies anxiety or depression Endocrine Endocrinology: Denies polydipsia or polyuria Allergic/Immunologic Allergic/Immunologic ED: Denies mouth swelling or urticaria EXAM Physical Exam Const Vital Signs: 04/29/21 20:51 04/29/21 23:18 Temperature 98.4 F Temperature Source Oral Pulse Rate 95 91 Respiratory Rate 18 15 Blood Pressure 143/70 H 116/57 L Blood Pressure Mean 94 76 Pulse Ox 96 97 Oxygen Delivery Method Room Air Room Air Positive well nourished and well developed General Appearance ED: well developed and NAD; Negative for cyanotic, diaphoretic or pallor HEENT Reports moist mucous membranes Eyes General Eye ED: Negative for pale conjunctiva or scleral icterus Neck no JVD Chest Wall inspection of chest normal Resp normal respiratory effort and clear to auscultation bilaterally Effort and Inspection: Negative for pain with movement Auscultation: Negative for rales, rhonchi or wheezes Cardio regular rhythm GI normal to inspection, nondistended, normoactive bowel sounds and non-tender GI Narrative: PEG tube intact. No sign of infection. Palpation: soft Back/Spine no CVA tenderness Extremity normal to inspection General Extremety ED: Negative for tenderness Neuro oriented x3 Neuro Narrative: Patient does seem to have more symptoms sitting up. Right now she really does not want to move a lot. She states she gets too nauseated. We will repeat testing after some Zofran. It was hard to get her to lay fully back and then sit fully up to look for nystagmus. Sensorium / Orientation: alert Psych mental status grossly normal Mood & Affect: Negative for depressed or tearful Skin no rashes or lesions noted General Skin Exam: Negative for jaundice or pallor MDM MDM MDM Narrative Medical decision making narrative: Blood work shows normal white count. Mild anemia but she has a history of this. Platelets are normal. Electrolytes show minimal decreased sodium part of which is attributed to the elevated sugar at 181. BUN and creatinine have minimal elevations but not significantly off baseline. Troponin is negative. CT is negative. Patient kept stating that she is not dizzy but when she moves she gets a shaking feeling in her vision like things are shaking [id number]. I think she is describing nystagmus. She prefers her to keep her eyes closed when she feels this. We did perform the Yumi maneuver. This was done over about a 7-minute period. When we sat her up she states that that shaking in her vision is gone. She was able to look left right up and down and felt like her symptoms had resolved. We will recheck her and make sure she is stable and getting up and walking. Patient's recheck. She states she walked to the bathroom and back. She has no symptoms at all anymore. She states they resolved with the Yumi maneuver. She verifies that she has no urinary symptoms at all. She states she has had UTIs before but when she does she has symptoms of them and she sees her physician. She would prefer not to wait for urinalysis Lab Data Attestation: I reviewed the patient's lab results. Labs: Laboratory Results - last 24 hr 04/29/21 04/29/21 21:00 21:00 WBC 10.0 RBC 3.34 L Hgb 9.4 L Hct 28.6 L MCV 85.6 MCH 28.1 MCHC 32.9 RDW Std Deviation 46.3 H RDW Coeff of Mickey 14.7 H Plt Count 354 MPV 10.0 Immature Gran % (Auto) 0.400 Neut % (Auto) 59.5 Lymph % (Auto) 28.0 [place] % (Auto) 9.5 Eos % (Auto) 2.0 Baso % (Auto) 0.6 Absolute Neuts (auto) 6.0 Absolute Lymphs (auto) 2.81 Nucleated RBC % 0 Sodium 130 L Potassium 4.5 Chloride 99 Carbon Dioxide 23.0 Anion Gap 8 BUN 25 H Creatinine 1.05 H Estim Creat Clear Calc 33.58 Est GFR (MDRD) Af Amer 64 Est GFR (MDRD) Non-Af 53 L BUN/Creatinine Ratio 23.8 H Glucose 181 H Calcium 8.8 Troponin I High Sens 8 Radiography Diagnostic Testing: Clinical Impression(s) from Imaging Studies Brain CT 04/29/21 21:41 IMPRESSION: Negative Brain CT without contrast. Electronically Signed: Alok Xavier, at 22:43 EST , EKG Initial EKG: Comments: EKG done due to nausea and elderly female. EKG read by me shows sinus rhythm with mildly tachycardic rate at 101. No ventricular ectopy. No acute ST elevation or depression. ME interval, QRS duration and QTc normal. Discharge Plan Triage Chief Complaint: Nausea/Vomiting ED Provider: Harris Mars Dx/Rx/DC Orders Clinical Impression: Vertigo, Nausea Instructions: ED Vertigo, Unspecified Prescriptions: No Action atenolol 25 MG tablet 25 mg PO QHS RF: 0 levothyroxine 112 MCG tablet 112 mcg PO DAILY RF: 0 omeprazole 10 MG capsule 40 mg PO DAILY RF: 0 fluticasone propion-salmeterol 1 PUFF inhaler 2 puff inhalation BID RF: 0 albuterol sulfate 1 INHALER inhaler 1 - 2 puff INHALATION Q6H PRN PRN (Reason: Asthma) RF: 0 Primary Care Provider: Reynaldo Aden Chi Referrals: Reynaldo Aden Chi, MD [Primary Care Provider] - 3-5 Days if not improving Disposition Disposition: Home, Self Care
[2021-04-29 22:11] LABS: Anion Gap 8 (5-15); BUN 25 mg/dL (7-18); BUN/Creat Ratio 23.8 RATIO (10-20); Calcium,Total 8.8 mg/dL (8.5-10.1); Chloride 99 mmol/L (98-107); Creatinine, Serum 1.05 mg/dL (0.55-1.02); EST Glomerular Filtration Rate 53 mL/min (>60); Est Glom Filt Rate - Afr Amer 64 mL/min (>60); Estimated Creatinine Clearance 33.58 ml/min; Glucose 181 mg/dL (74-106); Potassium 4.5 mmol/L (3.5-5.1); Sodium Level 130 mmol/L (136-145); Troponin-I HS 8 pg/mL (3.0-54.0)
[2021-04-29] MEDS: Ondansetron 4 MG/2 ML Vial IV (22:20)
--- NOTE | 2021-04-29 22:32 | ED.RN ---
Antivert given through G-tube per dr order. Unable to document on may due to required Dysphagia screen. pt takes no oral Meds or nutrition. melissa stringer, rn [id number]
[2021-04-29 23:18] VITALS: BP 116/57; PULSE 91; RESP 15; O2SAT 97
[2021-04-29 23:34] VITALS: O2SAT 98
[2021-04-29 23:47] LABS: Bacteria 0 SEEN /hpf (None Seen); Mucous, Urine 0 SEEN /hpf (<or=2+); Red Blood Cells-Urine 0 SEEN /hpf (0-5); Squamous Epithelial Cells - UA 0 SEEN /hpf (5-10)
[2021-04-30 00:05] VITALS: BP 100/67; PULSE 93; RESP 17; O2SAT 98
[2021-04-30 00:15] LABS: Color, Urine Yellow (Yellow); Glucose, Dipstick Normal (Normal); Ketone-Dipstick Negative (Negative); Leukocyte Esterase-Dipstick 25 /ul (Negative); Nitrite-Dipstick Negative (Negative); Occult Blood-Urine Negative /ul (Negative); Protein-Dipstick Negative (Negative); Urine Bilirubin Dipstick Negative (Negative); Urine Clarity Clear (Clear); Urine Urobilinogen Normal (Normal)
[2021-04-30 00:24] LABS: Amorphous Sediment 1+; White Blood Cells 0-5 SEEN /hpf (0-5)
== END 2021-04-30 00:06 | disposition home or self-care (01) ==
PROVIDERS: Emergency Provider Emergency Medicine; PCP Family Medicine Geriatric Medicine; Visit Provider Emergency Medicine
DX: R42 Dizziness and giddiness (principal); R11.2 Nausea with vomiting, unspecified; D64.9 Anemia, unspecified; E07.9 Disorder of thyroid, unspecified; M19.90 Unspecified osteoarthritis, unspecified site; Z87.440 Personal history of urinary (tract) infections; Z79.899 Other long term (current) drug therapy; Z87.891 Personal history of nicotine dependence
CPT/HCPCS: 70450; 80048; 81001; 84484; 85025; 93005; 96374; 99285; A4216; J2405

== ENCOUNTER 2021-05-07 04:50 | Inpatient (IN) | payer MEDICARE, OTHER, SELFPAY ==
[2021-05-07] VITALS (14 sets, daily range): BP systolic 101–129; BP diastolic 45–61; PULSE 64–84; RESP 12–20; TEMP 36.1–37.3; O2SAT 92–100; BMI 31.8; BMI 27.3
--- NOTE | 2021-05-07 05:14 | EDS_ITS ---
HPI History of Present Illness Chief Complaint: Complaint Informant: patient Onset/Context/Timing Onset: Weeks (1) Context: Gradual Onset Timing: Continuous Quality: Weakness Location: Generalized Worsened by: Nothing Relieved by: Nothing Narrative Narrative: Patient presents with multiple complaints that have been getting worse over the past week. Patient states she has been constipated. Patient states she was recently started on a medication that may cause constipation. Patient admits to some nausea and leaking around her PEG tube site. Patient denies any vomiting. Patient also admits to some generalized weakness. Patient also admits to some urinary frequency. Patient denies any melena or hematochezia. Patient denies any dysuria or hematuria. Patient admits to some subjective chills. Patient has a history of esophageal cancer. [facility] Medical History Arthritis Cancer of upper third of esophagus Cataracts, bilateral Diabetes mellitus Hearing problem History of esophageal dilatation History of pneumonia Squamous cell carcinoma Thyroid disease Vitamin D deficiency Home Medications atenolol 25 mg PO QHS 06/01/15 [History Last Taken 07/09/20] levothyroxine 112 mcg PO DAILY 11/23/18 [History Last Taken 07/09/20] fluticasone propion-salmeterol 2 puff INHALATION BID 10/18/19 [History Last Taken 07/10/20] omeprazole 40 mg PO DAILY 10/18/19 [History Last Taken 07/09/20] albuterol sulfate 1 - 2 puff INHALATION Q6H PRN PRN 07/03/20 [History Last Taken 07/10/20] Allergy/AdvReac Type Severity Reaction Status Date / Time acetaminophen [From Percocet] Allergy Rash Verified 05/07/21 05:00 amoxicillin [From Augmentin] Allergy PT UNSURE Verified 05/07/21 05:00 OF REACTION cefadroxil Allergy PT UNSURE Verified 05/07/21 05:00 OF REACTION clavulanic acid Allergy PT UNSURE Verified 05/07/21 05:00 [From Augmentin] OF REACTION clindamycin Allergy PT UNSURE Verified 05/07/21 05:00 OF REACTION oxycodone [From Percocet] Allergy Rash Verified 05/07/21 05:00 codeine AdvReac PT UNSURE Verified 05/07/21 05:00 OF REACTION hydrocodone bitartrate AdvReac CONFUSION Verified 05/07/21 05:00 [From Vicodin] Family History Mother Osteoporosis Heart disease Surgical History History of cholecystectomy History of tubal ligation S/P dilatation of esophageal stricture Social History household members: none Smoking Status: Former smoker alcohol intake: never substance use type: does not use ROS ROS ED Constitutional Constitutional ED: Reports chills and subjective; Denies fever(s) Eyes Eyes: Denies blurry vision or change in vision ENT ENT ED: Denies rhinorrhea or sore throat Cardiovascular Cardiovascular: Reports chest pain; Denies palpitations Respiratory/Chest Respiratory/Chest: Denies cough or dyspnea Gastrointestinal Gastrointestinal: Reports constipation and nausea; Denies vomiting Genitourinary Genitourinary ED: Reports urinary frequency; Denies dysuria or hematuria Musculoskeletal Musculoskeletal: Reports back pain; Denies neck pain Integumentary Denies abscess or rash Neurologic Neurologic: Reports headache(s); Denies weakness Allergic/Immunologic Allergic/Immunologic ED: Denies mouth swelling or urticaria EXAM Physical Exam Const Vital Signs: 05/07/21 04:51 05/07/21 06:00 Temperature 99.1 F 98.3 F Temperature Source Temporal Oral Pulse Rate 84 82 Respiratory Rate 16 18 Blood Pressure 129/60 H 120/52 L Blood Pressure Mean 83 74 Pulse Ox 100 97 Oxygen Delivery Method Room Air Room Air Positive well nourished and well developed General Appearance ED: well developed HEENT Reports moist mucous membranes Neck supple and no JVD Resp normal respiratory effort and clear to auscultation bilaterally Cardio regular rate and regular rhythm GI normal to inspection, nondistended, normoactive bowel sounds Palpation: soft and tender other (There is some mild tenderness and erythema around the PEG tube site.) Neuro oriented x3, CN's II-XII intact bilaterally and no sensory deficits noted Sensorium / Orientation: alert Motor Exam: strength 5/5 throughout Psych mental status grossly normal MDM MDM MDM Narrative Medical decision making narrative: EKG was obtained. On my interpretation, it showed a normal sinus rhythm with a rate of 86. NM interval, QRS interval, and QTc intervals were all normal. [place] was normal. There are no acute ST or T wave changes. CBC shows a leukocytosis of 15.7. There is also mild anemia with a hemoglobin of 10.3 hematocrit 31.9. PT was INR and PTT are within normal limits. Comprehensive metabolic profile showed a mild hyponatremia of 127 and a hypochloremia of 94. Glucose was slightly elevated at 137. Lipase was normal. Urinalysis was obtained and was within normal limits. Portable chest x-ray was obtained. There is 1 view. On my interpretation there is a possible right upper lobe infiltrate. There are multiple lung nodules and masses. Radiologist also interpreted the x-ray and agrees. Because of this, CTA of the chest was ordered. This is pending. CT scan of the abdomen pelvis was also ordered and is pending. Care of the patient was turned over to the oncoming physician. Lab Data Attestation: I reviewed the patient's lab results. Labs: Laboratory Results - last 24 hr 05/07/21 05/07/21 05/07/21 04:58 04:58 04:58 WBC 15.7 H RBC 3.78 L Hgb 10.3 L Hct 31.9 L MCV 84.4 MCH 27.2 MCHC 32.3 RDW Std Deviation 45.0 H RDW Coeff of Mickey 14.6 Plt Count 363 MPV 9.6 Immature Gran % (Auto) 0.800 Neut % (Auto) 80.6 H Lymph % (Auto) 9.0 L [place] % (Auto) 9.0 Eos % (Auto) 0.4 Baso % (Auto) 0.2 Absolute Neuts (auto) 12.6 H Absolute Lymphs (auto) 1.41 Nucleated RBC % 0 PT 13.7 INR 1.1 APTT 34.2 Sodium 127 L Potassium 4.7 Chloride 94 L Carbon Dioxide 24.0 Anion Gap 9 BUN 27 H Creatinine 0.95 Estim Creat Clear Calc 37.12 Est GFR (MDRD) Af Amer 72 Est GFR (MDRD) Non-Af 60 BUN/Creatinine Ratio 28.5 H Glucose 137 H Lactic Acid Calcium 9.2 Total Bilirubin 0.30 AST 14 L ALT 22 Alkaline Phosphatase 109 Troponin I High Sens 46 Total Protein 8.2 Albumin 2.6 L Globulin 5.6 H Albumin/Globulin Ratio 0.5 L Lipase 129 Urine Color Urine Clarity Urine pH Ur Specific [place] Urine Protein Urine Glucose (UA) Urine Ketones Urine Occult Blood Urine Nitrite Urine Bilirubin Urine Urobilinogen Ur Leukocyte Esterase Urine RBC Urine WBC Ur Squamous Epith Cells Amorphous Sediment Urine Bacteria Urine Mucus 05/07/21 05/07/21 05:30 06:10 WBC RBC Hgb Hct MCV MCH MCHC RDW Std Deviation RDW Coeff of [place] Plt Count MPV Immature Gran % (Auto) Neut % (Auto) Lymph % (Auto) [place] % (Auto) Eos % (Auto) Baso % (Auto) Absolute Neuts (auto) Absolute Lymphs (auto) Nucleated RBC % PT INR APTT Sodium Potassium Chloride Carbon Dioxide Anion Gap BUN Creatinine Estim Creat Clear Calc Est GFR (MDRD) Af Amer Est GFR (MDRD) Non-Af BUN/Creatinine Ratio Glucose Lactic Acid 2.3 H* Calcium Total Bilirubin AST ALT Alkaline Phosphatase Troponin I High Sens Total Protein Albumin Globulin Albumin/Globulin Ratio Lipase Urine Color Yellow Urine Clarity Sl Cloudy Urine pH 8.0 Ur Specific [place] 1.015 Urine Protein 30 H Urine Glucose (UA) Normal Urine Ketones Negative Urine Occult Blood 10 H Urine Nitrite Negative Urine Bilirubin Negative Urine Urobilinogen Normal Ur Leukocyte Esterase Negative Urine RBC 0-5 SEEN Urine WBC 0-5 SEEN Ur Squamous Epith Cells 0 SEEN Amorphous Sediment 1+ Urine Bacteria 1+ Urine Mucus 0 SEEN Radiography Chest X-Ray - ED: 1 View, Read by ED Physician, Read by Radiologist and Right Infiltrate Diagnostic Testing: Clinical Impression(s) from Imaging Studies Chest X-Ray 05/07/21 05:17 IMPRESSION: Hyperinflation, possible mild underlying interstitial lung disease. Multiple lung nodules/masses. Neoplastic etiology possible. Consider CT examination chest. Focal area of airspace disease in the right upper lung, this could be acute or chronic. Obscuration of the aortopulmonary window. Shoulder GE. Attention on CT chest recommended. Electronically Signed: Laurence Dover MD at 6:41 EST Reading Location ID and State: , Service support , EKG Initial EKG: Attestation: I personally reviewed and interpreted this EKG as follows: Interpretation: Sinus Rhythm (86) and No Acute Injury Pattern Prior EKG tracings: available for review Prior: Unchanged (04/29/21) Discharge Plan Triage Chief Complaint: Complaint Other Complaint: Constipation ED Provider: Jacob Carvalho Dx/Rx/DC Orders Clinical Impression: General weakness Prescriptions: No Action atenolol 25 MG tablet 25 mg PO QHS RF: 0 levothyroxine 112 MCG tablet 112 mcg PO DAILY RF: 0 omeprazole 10 MG capsule 40 mg PO DAILY RF: 0 fluticasone propion-salmeterol 1 PUFF inhaler 2 puff inhalation BID RF: 0 albuterol sulfate 1 INHALER inhaler 1 - 2 puff INHALATION Q6H PRN PRN (Reason: Asthma) RF: 0 Primary Care Provider: Reynaldo Aden Chi Referrals: Reynaldo Aden Chi, MD [Primary Care Provider] -
--- NOTE | 2021-05-07 05:17 | RAD_ITS ---
STUDY: X-RAY CHEST REASON FOR EXAM: Female, 85 years old. Chest pain TECHNIQUE: Single AP portable view of the chest. COMPARISON: None. FINDINGS: There are superimposed monitor leads. There is hyperinflation. Multiple nodular densities in the right perihilar parenchyma measuring 0.8 x 1.3, 1.1 x 1.6 and in the left upper lung 1.1 x 1.6 cm. Hazy airspace disease in the right upper lung. There is no demonstrated pleural abnormality. Normal size heart. Obscured aortopulmonary window. Normal visualized pulmonary arteries. There is atherosclerotic calcification of the aortic arch with tortuosity. There are diffuse degenerative changes of the visualized thoracic spine. There is demineralization of osseous structures. Normal visualized ribs, clavicles, and shoulders. There is no demonstrated abnormality of the visualized soft tissue structures of the upper abdomen. RAD/Chest 1 View (Portable) IMPRESSION: Hyperinflation, possible mild underlying interstitial lung disease. Multiple lung nodules/masses. Neoplastic etiology possible. Consider CT examination chest. Focal area of airspace disease in the right upper lung, this could be acute or chronic. Obscuration of the aortopulmonary window. Shoulder GE. Attention on CT chest recommended. Electronically Signed: Laurence Dover MD at 6:41 EST Reading Location ID and State: , Service support ,
--- NOTE | 2021-05-07 05:17 | EKG12_ITS ---
Test Reason : WEAKNESS Blood Pressure : / mmHG Vent. Rate : 086 BPM Atrial Rate : 086 BPM P-R Int : 140 ms QRS Dur : 080 ms QT Int : 340 ms P-R-T Axes : 057 042 068 degrees QTc Int : 406 ms Normal sinus rhythm Normal ECG Confirmed by MABEL GRANT, ROSALES ([id number]), newspaper copy editor MELQUIADES MEJIAS ([id number]) on 05/08/2021 9:41:01 AM Referred By: PEDRO Confirmed By:ROSALES MONROE MD
--- NOTE | 2021-05-07 05:19 | CT_ITS ---
STUDY: CT ABDOMEN AND PELVIS WITH CONTRAST REASON FOR EXAM: Female, 85 years old. Abdominal pain -- IV PO Contrast RADIATION DOSAGE (If Supplied By Facility): CTDIvol = ( 13.59 ) mGy, DLP = ( 1370.3 ) mGycm TECHNIQUE: Transaxial 3.75 mm images were obtained from the dome of the diaphragm to the symphysis pubis with luminal contrast. Oral and amp; IV Gastrografin and amp; 100mL Isovue-370 was administered. Sagittal and coronal images were reconstructed. There is obesity, the entirety of soft tissue is not imaged. Individualized dose optimization techniques were used for this CT. COMPARISON: None. FINDINGS: The visualized lung bases are unremarkable. The visualized portions of the heart are within normal limits. Normal liver. Mild intrahepatic biliary ductal prominence with absent gallbladder most consistent cholecystectomy. Left hepatic low attenuation measuring 0.9 x 1.2 cm slightly denser than water at 20 [place] units. Splenic low attenuation 1 x 1 cm with 25 [place] units likely a cyst. Normal pancreas. Normal bilateral adrenal glands. Right renal cyst 5 x 4.7 cm. Low-attenuation in the right upper renal cortex and left posterior interpolar cortex are too small to characterize. Normal left kidney. Percutaneous gastrostomy catheter in good position. Minimal subcutaneous stranding along the catheter course.. Normal small intestine. There are multiple predominantly sigmoid colonic diverticula consistent with diverticulosis. Wall thickening of the sigmoid colon without pericolonic fat stranding. Retained fecal material in the right colon from cecum to the transverse colon. The appendix is visualized and appears normal. There is atherosclerosis of the abdominal aorta, greater branches and pelvic arteries without aneurysm or leak. Normal inferior vena cava. Normal retroperitoneum. Normal urinary bladder. There is atrophy of the uterus. Calcification off subcutaneous gluteal fat likely injection granulomata. There are diffuse degenerative changes of the visualized lumbar spine, bilateral sacroiliac joints, osteopenia, mild retrolisthesis L3 on L4. Acute angulation at the sacral coccygeal junction. No acute cortical disruption. CT/Abdomen/Pelvis WITH Contrast IMPRESSION: There is no appendicitis, colitis, ascites, hydronephrosis, abscess, collection, perforation or obstruction. Significant sigmoid diverticulosis, there is mild wall thickening without pericolonic fat stranding which may be due to chronic changes. No acute diverticulitis detected. Hepatic and splenic cysts, right renal cysts, the smallest ones are indeterminate. If needed this can be further assessed with ultrasound. Retained fecal material in the right colon. Arteriosclerosis, degenerative changes, osteopenia and other nonacute findings as above. Electronically Signed: Laurence Dover MD at 7:33 EST Reading Location ID and State: , Service support ,
[2021-05-07 05:30] LABS: Absolute Lymphocyte Count 1.41 X10^3/uL (0.83-4.51); Absolute Neutrophil Count 12.6 X10^3/uL (2.0-7.7); Basophil# 0.03 X10^3/uL; Basophil% 0.2 % (0-1); Eosinophil# 0.07 X10^3/uL; Eosinophils% 0.4 % (0-5); Hematocrit 31.9 % (37-47); Hemoglobin 10.3 g/dL (12.0-15.0); Lymphocyte # 1.41 X10^3/ul (0.83-4.51); Mean Corp Hgb Conc 32.3 g/dL (32-36); Mean Corpuscular Hgb 27.2 pg (27.0-32.0); Mean Corpuscular Volume 84.4 fL (81-99); Mean Platelet Vol. 9.6 fl (6.2-12.0); Monocyte# 1.41 X10^3/uL; NRBC Flagged by Analyzer 0 % (0-5); Neutrophil # 12.61 X10^3/uL (2.7-7.7); Neutrophil % 80.6 % (47-70); Platelet Count 363 K/mm3 (150-450); RBC Distribution Width CV 14.6 % (11.6-14.6); Red Blood Count 3.78 M/mm3 (4.2-5.4); White Blood Count 15.7 K/mm3 (4.4-11.0)
[2021-05-07] MEDS: Morphine 4 MG/ML Syringe IV (05:35)
[2021-05-07] MEDS: Ondansetron 4 MG/2 ML Vial IV (05:35)
[2021-05-07 05:50] LABS: International Normalized Ratio 1.1; Prothrombin Time (Protime)PT. 13.7 SECONDS (11.7-14.9)
[2021-05-07 05:51] LABS: ALB/GLOB Ratio 0.5 RATIO (0.9-2.4); AST(SGOT) 14 U/L (15-37); Alanine Aminotransfer ALT/SGPT 22 U/L (13-56); Albumin, Serum 2.6 g/dL (3.2-5.0); Alkaline Phosphatase 109 U/L (45-117); Anion Gap 9 (5-15); BUN 27 mg/dL (7-18); BUN/Creat Ratio 28.5 RATIO (10-20); Calcium,Total 9.2 mg/dL (8.5-10.1); Chloride 94 mmol/L (98-107); Creatinine, Serum 0.95 mg/dL (0.55-1.02); EST Glomerular Filtration Rate 60 mL/min (>60); Est Glom Filt Rate - Afr Amer 72 mL/min (>60); Estimated Creatinine Clearance 37.12 ml/min; Globulin 5.6 g/dL (2.2-4.2); Glucose 137 mg/dL (74-106); Lipase 129 U/L (73-393); Potassium 4.7 mmol/L (3.5-5.1); Protein, Total 8.2 g/dL (6.4-8.2); Sodium Level 127 mmol/L (136-145); Troponin-I HS 46 pg/mL (3.0-54.0)
[2021-05-07 05:52] LABS: Partial Thromboplast Time 34.2 Seconds (24.1-36.2)
[2021-05-07 06:09] LABS: Lactic Acid 2.3 mmol/L (0.4-1.9)
[2021-05-07 06:13] LABS: Mucous, Urine 0 SEEN /hpf (<or=2+); Squamous Epithelial Cells - UA 0 SEEN /hpf (5-10)
[2021-05-07 06:16] LABS: Glucose, Dipstick Normal (Normal); Ketone-Dipstick Negative (Negative); Leukocyte Esterase-Dipstick Negative /ul (Negative); Nitrite-Dipstick Negative (Negative); Occult Blood-Urine 10 /ul (Negative); Protein-Dipstick 30 mg/dl (Negative); Specific Gravity, Urine 1.015 (1.002-1.030); Urine Bilirubin Dipstick Negative (Negative); Urine Urobilinogen Normal (Normal)
[2021-05-07 06:19] LABS: Color, Urine Yellow (Yellow); Urine Clarity Sl Cloudy (Clear)
[2021-05-07 06:22] LABS: Amorphous Sediment 1+; Bacteria 1+ /hpf (None Seen); Red Blood Cells-Urine 0-5 SEEN /hpf (0-5); White Blood Cells 0-5 SEEN /hpf (0-5)
[2021-05-07] MEDS: 0.9% Normal Saline 1,000 ML 1000 ML IV (06:24)
--- NOTE | 2021-05-07 06:49 | CT_ITS ---
STUDY: CTA CHEST REASON FOR EXAM: Female, 85 years old. Pulmonary nodules RADIATION DOSAGE (If Supplied By Facility): CTDIvol = ( 13.59 ) mGy, DLP = ( 1370.3 ) mGycm TECHNIQUE: The examination was performed with the intravenous administration of Oral and amp; IV Gastrografin and amp; 100mL Isovue-370. Post-processing of the angiographic images was performed, with multiplanar reformation and 3D reconstruction. Individualized dose optimization techniques were used for this CT. COMPARISON: Portable chest x-ray 05/07/2021. Neck soft tissue 05/26/2019. FINDINGS: Bilateral numerous parenchymal masses most pronounced in the right lower lobe, bilobed in contour versus 2 adjacent nodules measuring 2.5 and 0.6 with a width of 1.2 cm image 125, 0.7 x 0.7 cm image 112, 1.3 x 1.5 cm image 107, 1.5 x 1.7 cm image 95, pleural-based 0.3 cm image 90 and 0.6 x 0.7 cm image 80. The left upper lobe contains an spiculated mass off one 0.2 x 1.5 cm image 124. Right upper lobe contains numerous small nodular densities and interstitial changes. There are bilateral interseptal prominence in the left greater than right upper lobe. Nonspecific compression of dependent lung parenchyma. Images correlated on series 2. Small calcified granuloma right upper lobe. There is soft tissue in the right superior mediastinum surrounding the proximal common carotid artery, superior aspect is incompletely imaged. There is displacement of the trachea to the left and indentation along the posterior right tracheal contour. Greatest dimension measures approximately 4.7 x 3.8 cm there is a punctate calcification. Normal enhancement of the main pulmonary artery and right and left pulmonary arteries. Normal enhancement of the bilateral peripheral pulmonary arteries. There is no demonstrated pulmonary embolism. There is mild atherosclerosis of the abdominal aorta, greater branches and pelvic arteries without aneurysm or leak. There is no demonstrated aortic dissection. Normal heart and pericardium. There are calcifications of the coronary arteries. Subcarinal soft tissue mass limited separation from adjacent esophagus measuring 1.9 x 5.6 x 4 cm. Smaller right and left hilar lymph nodes. The lungs are well expanded. Normal pleura. Multiple right axillary lymph nodes, largest measures 1 x 1.2 cm.. There are degenerative changes of thoracic spine and osteopenia. No destructive osseous lesions. Normal adrenal glands. CT/CTA Chest W/WO Contrast IMPRESSION: No demonstrated pulmonary embolism, aneurysm, leak or arterial dissection. Numerous lung masses as above, as seen on chest x-ray suspicious for neoplasm. PET scan, staging and tissue sampling recommended. Mediastinal lymphadenopathy. There is an incomplete soft tissue mass along the right lower neck extending into superior mediastinum. This was not present on previous CT neck soft tissue 05/26/2019. CT neck contrast recommended. Right axillary lymphadenopathy. Mild atherosclerosis and coronary artery disease. No destructive osseous lesions detected. Normal adrenal glands. Electronically Signed: Laurence Dover MD at 7:48 EST Reading Location ID and State: , Service support ,
--- NOTE | 2021-05-07 08:35 | HP.PCM.HOS_ITS ---
HPI - General General Date of Admission: 05/08/21 HPI Narrative TONO SHEN, is a 85 F with an extensive PMH as outlined who presents via the ED on 05/07/2021 with multiple myriad complaints. She complained of generalized weakness, frequency of urination and constipation. She has a history of esophageal cancer and is s/p radiation. She apparently had esophageal strictures after the radiation and required repeated esophageal dilatations till the point where she was told she couldnt have such dilatations again. She subsequently had a PEG tube placed and has been on tube feeds since. She denied any burning with urination, and denied any fever, chills, cough, chest pain, nausea or vomiting. REview of systems is otherwise negative. Vitals in [facility] ed were temperature of 98.8F, GA of 66, BP of 127/49 and RR of 16. .CBC showed Hb of 10.3, with wbc of 15.7, platelets of 363. BMp shwoed sodium of 127, bicarb of 24 nad potassium of 4.7. Lactic acid was 1.7. Urinalysis showed 1+ bacteria. CT done in the ED showed no PE, but showed numerous lung masses, and mediastinal lymphadenopathy, with an incomplete soft tissue mass along the right lower neck extending into the superior mediastinum which wasn't present on previous imaging. She is being admitted to be managed for debility due to hyponatremia, UTI and lung lesions, likely due to metastatic cancer. [facility] Medical History Arthritis Cancer of upper third of esophagus Cataracts, bilateral Diabetes mellitus Hearing problem History of esophageal dilatation History of pneumonia Squamous cell carcinoma Thyroid disease Vitamin D deficiency Home Medications atenolol 25 mg PO BID 06/01/15 [History Last Taken 07/09/20] levothyroxine 112 mcg PO DAILY 11/23/18 [History Last Taken 07/09/20] fluticasone propion-salmeterol 2 puff INHALATION BID 10/18/19 [History Last Take n 07/10/20] omeprazole 40 mg PO DAILY 10/18/19 [History Last Taken 07/09/20] albuterol sulfate 1 - 2 puff INHALATION Q4H PRN PRN 07/03/20 [History Last Taken 07/10/20] food supplemt, lactose-reduced [Jevity] 240 ml FEEDING TUBE Q6H 05/07/21 [History Last Taken Unknown] simethicone [Infants Simethicone] 0.6 ml FEEDING TUBE TID 05/07/21 [History Last Taken Unknown] Allergy/AdvReac Type Severity Reaction Status Date / Time amoxicillin [From Augmentin] Allergy PT UNSURE Verified 05/07/21 05:00 OF REACTION cefadroxil Allergy PT UNSURE Verified 05/07/21 05:00 OF REACTION clavulanic acid Allergy PT UNSURE Verified 05/07/21 05:00 [From Augmentin] OF REACTION clindamycin Allergy PT UNSURE Verified 05/07/21 05:00 OF REACTION oxycodone [From Percocet] Allergy Rash Verified 05/07/21 05:00 codeine AdvReac PT UNSURE Verified 05/07/21 05:00 OF REACTION hydrocodone bitartrate AdvReac CONFUSION Verified 05/07/21 05:00 [From Vicodin] Family History Mother Osteoporosis Heart disease Surgical History History of cholecystectomy History of tubal ligation S/P dilatation of esophageal stricture Social History household members: none Smoking Status: Former smoker alcohol intake: never substance use type: does not use ROS Constitutional Constitutional: Reports fatigue, malaise and weakness; Denies anorexia, change in weight, chills or fever(s) Eyes Eyes: Denies change in vision ENT HEENT: Denies abnormal hearing, dysphagia, headache(s) or sore throat Cardiovascular Cardiovascular: Denies chest pain, dyspnea on exertion, edema, lightheadedness, orthopnea, palpitations, paroxysmal nocturnal dyspnea or rapid heart rate Respiratory/Chest Respiratory/Chest: Denies cough, dyspnea, productive cough, shortness of breath at rest, shortness of breath with exertion or wheezing Gastrointestinal Gastrointestinal: Reports nausea; Denies abdominal pain, constipation, diarrhea, hematemesis, melena or vomiting Genitourinary Genitourinary: Reports urinary frequency; Denies burning urination, difficulty urinating, dysuria, nocturia, urinary hesitancy, urinary incontinence or urinary urgency Musculoskeletal Musculoskeletal: Denies back pain Neurologic Neurologic: Denies confusion, dizziness, focal weakness, headache(s), numbness, seizure-like activity or seizures Psychiatric Psychiatric: Denies anxiety or depression Endocrine Endocrinology: Denies change in body appearance or cold intolerance Hematologic/Lymphatic Hematologic/Lymphatic: Denies anemia Allergic/Immunologic Allergic/Immunologic: Denies asthma Vital Signs Vital Signs Vital Signs: 05/07/21 04:51 05/07/21 06:00 05/07/21 07:00 Temperature 99.1 F 98.3 F 98.2 F Temperature Source Temporal Oral Oral Pulse Rate 84 82 78 Respiratory Rate 16 18 19 H Blood Pressure 129/60 H 120/52 L 104/61 Blood Pressure Mean 83 74 75 Pulse Ox 100 97 94 Oxygen Delivery Method Room Air Room Air Room Air Weight Weight: 179 lb 10.828 oz Body Mass Index (BMI) 31.8 Physical Exam Const alert, oriented x3 and no apparent distress General Appearance: cooperative HEENT normocephalic, head/scalp atraumatic, moist oral mucous membranes and oropharynx normal Eyes PERRL, EOMs intact bilaterally and conjunctivae normal Neck no lymphadenopathy and supple Resp normal respiratory effort, no retractions and clear to auscultation bilaterally Cardio regular rate, regular rhythm, S1 normal heart sound, S2 normal heart sound and no murmurs GI normal to inspection, nondistended, normoactive bowel sounds, soft to palpation, non-tender and non-distended GI Narrative: PEG Tube in situ Extremity normal to inspection, full ROM and no clubbing, cyanosis or edema Peripheral Pulses: Yes pulses 2+ throughout Skin no rashes or lesions noted, no wounds and skin turgor normal Neuro oriented x3, CN's II-XII intact bilaterally and moves all extremities Sensorium / Orientation: awake and alert Psych affect normal Results Lab / Micro Data Result Diagrams: 05/08/21 04:07 05/08/21 04:07 Labs: Laboratory Results - last 24 hr 05/07/21 04:58: WBC 15.7 H, RBC 3.78 L, Hgb 10.3 L, Hct 31.9 L, MCV 84.4, MCH 27.2, MCHC 32.3, RDW Std Deviation 45.0 H, RDW Coeff of Imckey 14.6, Plt Count 363, MPV 9.6, Immature Gran % (Auto) 0.800, Neut % (Auto) 80.6 H, Lymph % (Auto) 9.0 L, [place] % (Auto) 9.0, Eos % (Auto) 0.4, Baso % (Auto) 0.2, Absolute Neuts (auto) 12.6 H, Absolute Lymphs (auto) 1.41, Nucleated RBC % 0 05/07/21 04:58: PT 13.7, INR 1.1, APTT 34.2 05/07/21 04:58: Sodium 127 L, Potassium 4.7, Chloride 94 L, Carbon Dioxide 24.0, Anion Gap 9, BUN 27 H, Creatinine 0.95, Estim Creat Clear Calc 37.12, Est GFR (MDRD) Af Amer 72, Est GFR (MDRD) Non-Af 60, BUN/Creatinine Ratio 28.5 H, Glucose 137 H, Calcium 9.2, Total Bilirubin 0.30, AST 14 L, ALT 22, Alkaline Phosphatase 109, Troponin I High Sens 46, Total Protein 8.2, Albumin 2.6 L, Globulin 5.6 H, Albumin/Globulin Ratio 0.5 L, Lipase 129 05/07/21 05:30: Lactic Acid 2.3 H* 05/07/21 06:10: Urine Color Yellow, Urine Clarity Sl Cloudy, Urine pH 8.0, Ur Specific [place] 1.015, Urine Protein 30 H, Urine Glucose (UA) Normal, Urine Ketones Negative, Urine Occult Blood 10 H, Urine Nitrite Negative, Urine Bilirubin Negative, Urine Urobilinogen Normal, Ur Leukocyte Esterase Negative, Urine RBC 0-5 SEEN, Urine WBC 0-5 SEEN, Ur Squamous Epith Cells 0 SEEN, Amorphous Sediment 1+, Urine Bacteria 1+, Urine Mucus 0 SEEN Micro: Microbiology 05/07/21 05:26 Nasal Secretion SARS-CoV-2 Antigen (Rapid) - Final Radiology Impression Chest X-Ray 05/07/21 05:17 IMPRESSION: Hyperinflation, possible mild underlying interstitial lung disease. Multiple lung nodules/masses. Neoplastic etiology possible. Consider CT examination chest. Focal area of airspace disease in the right upper lung, this could be acute or chronic. Obscuration of the aortopulmonary window. Shoulder GE. Attention on CT chest recommended. Electronically Signed: Laurence Dover MD at 6:41 EST Reading Location ID and State: , Service support , Abdomen/Pelvis CT 05/07/21 05:19 IMPRESSION: There is no appendicitis, colitis, ascites, hydronephrosis, abscess, collection, perforation or obstruction. Significant sigmoid diverticulosis, there is mild wall thickening without pericolonic fat stranding which may be due to chronic changes. No acute diverticulitis detected. Hepatic and splenic cysts, right renal cysts, the smallest ones are indeterminate. If needed this can be further assessed with ultrasound. Retained fecal material in the right colon. Arteriosclerosis, degenerative changes, osteopenia and other nonacute findings as above. Electronically Signed: Laurence Dover MD at 7:33 EST Reading Location ID and State: , Service support , Chest CTA 05/07/21 06:49 IMPRESSION: No demonstrated pulmonary embolism, aneurysm, leak or arterial dissection. Numerous lung masses as above, as seen on chest x-ray suspicious for neoplasm. PET scan, staging and tissue sampling recommended. Mediastinal lymphadenopathy. There is an incomplete soft tissue mass along the right lower neck extending into superior mediastinum. This was not present on previous CT neck soft tissue 05/26/2019. CT neck contrast recommended. Right axillary lymphadenopathy. Mild atherosclerosis and coronary artery disease. No destructive osseous lesions detected. Normal adrenal glands. Electronically Signed: Laurence Dover MD at 7:48 EST Reading Location ID and State: , Service support , Assessment & Plan Assessment/Plan (1) Esophageal cancer: (2) Hyponatremia: (3) UTI (urinary tract infection): PLAN: #Hyponatremia * sodium is 127. Likely due to dehydration. * Patient is on PEG tube feed and says she also gives herself free water flushes' * admit to [facility] with telemetry * hydrate with IVF NS @ 125cc/hr * if hyponatremia worsens,will get full workup with serum osmolality and urine osmolality et al * #UTI * UA showed 1+ bacteria. Start IV ceftriaxone 1gram q24. * urine culture pending * #Lung lesions, probably due to mets from esophageal CA * CT chest showed multiple lung lesions. Was known to have a 2mm lesion in the right lower lobe, per oncology documentation in 2019. * oncology consulted. Will order CT guided biopsy of lung lesion * #Debillity due to hyponatremia and UTI * PT/OT consulted. Fall precautions * #History of esophageal cancer * S/p radiation. Has PEG tube in place due to esophageal strictures. * oncology consulted in light of new lung lesions per CT chest' * #Hypertension: On atenolol 25 mg twice daily #Nutrition: On Jevity 240mls every 6 hours via PEG tube #Hypothyroidism: On Synthroid DVT prophylaxis: Lovenox CODE STATUS: * Patient and daughter counseled extensively about different types of CODE STATUS including full code, DNR CCA and DNR CCA. * Patient elects to be DNRCCA no intubation * Total [id number] time 17 minutes. Charges/Coding Visit Charges Inpatient E&M: 85234 Init Hosp L3 Procedures Hospitalists Procedures: 08085 Advncd Care Plan 30 Min
--- NOTE | 2021-05-07 08:36 | NURSING ---
DR LUCIO KUNZ
--- NOTE | 2021-05-07 09:16 | NURSING ---
med surg obs koram weakness, hyponatremia
[2021-05-07 09:36] LABS: Reflex Lactate? Y
[2021-05-07 11:26] LABS: Bedside Glucose 97 mg/dL (70-110)
[2021-05-07 11:31] LABS: Lactic Acid 1.7 mmol/L (0.4-1.9)
[2021-05-07] MEDS: 0.9% Saline Lock 10 ML Syringe IV (12:52)
[2021-05-07] MEDS: 0.9% Normal Saline 1,000 ML 125 ML IV ×2 (12:53→21:35)
--- NOTE | 2021-05-07 13:38 | CHAPLAIN ---
Type of Pastoral Visit _x__ Initial Visit ___ Follow-up Visit ___ On-call Visit ___ General Patient Visit ___ Spiritual Assessment ___ Family Conference ___ Bereavement ___ Rapid Response ___ Code Blue ___ Other (describe below) Pastoral Care Referral From _x__ Patient ___ Family ___ Nurse ___ Physician ___ Airborne Operations ___ Front End Developer ___ Other (describe below) Sacrament/Intervention _x__ Active listening ___ Anointing ___ Church ___ Bereavement ___ Communion ___ Yari exploration ___ ___ Life review _x__ Prayer ___ Reconciliation ___ Sacrament of Sick _x__ Supportive presence ___ Wedding ___ Other (describe below) Pastoral Comments patient speaks of her health in recent years including her bout with cancer; pt just wants to hope; pt lives with daughter for support/help; 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
--- NOTE | 2021-05-07 13:50 | ONC.CONSULT ---
Assessment & Plan Assessment/Plan (1) History of esophageal cancer: Status: Chronic Code(s): Z85.01 - Personal history of malignant neoplasm of esophagus (2) Multiple lung nodules: Status: Acute Code(s): R91.8 - Other nonspecific abnormal finding of lung field Plan: R/o metastatic disease from esophageal cancer vs new primary cancer. Suggest obtaining CT guided biopsy of lung nodules. Will follow with further management suggestions base on biopsy results. If she is discharged, she should follow up in the [facility] clinic. HPI Consult Data Date of Service:: 05/07/21 PCP / Referring Provider: Dr. Reynaldo Aden MD Attending: Dr. Alice Silverman MD Chief Complaint Chief Complaint: Asked to see Pt for new lung nodules. History of Present Illness History of Present Illness: 85-year-old woman was diagnosed with upper third esophageal cancer, squamous cell type on 05/18/2014, she was treated with chemotherapy with Taxol + carboplatin and radiation therapy. She developed esophageal stricture and has been getting periodic dilation by Dr. Garcia. CT chest showed small RLL nodule. She developed hoarseness and ENT evaluation showed some edema in vocal cords, throat. CT on 05/26/2019 showed thickening of the proximal esophagus. PET/CT on 06/13/2019 was negative. She presented to ER with vague symptoms, CTA on 05/06/2021 showed multiple bilateral lung nodules. Advanced Directives Power of [employer]: No Living Will: No PFSH Medical History Arthritis Cancer of upper third of esophagus Cataracts, bilateral Diabetes mellitus Hearing problem History of esophageal dilatation History of pneumonia Squamous cell carcinoma Thyroid disease Vitamin D deficiency Home Medications atenolol 25 mg PO BID 06/01/15 [History Last Taken 07/09/20] levothyroxine 112 mcg PO DAILY 11/23/18 [History Last Taken 07/09/20] fluticasone propion-salmeterol 2 puff INHALATION BID 10/18/19 [History Last Taken 07/10/20] omeprazole 40 mg PO DAILY 10/18/19 [History Last Taken 07/09/20] albuterol sulfate 1 - 2 puff INHALATION Q4H PRN PRN 07/03/20 [History Last Taken 07/10/20] food supplemt, lactose-reduced [Jevity] 240 ml FEEDING TUBE Q6H 05/07/21 [History Last Taken Unknown] simethicone [Infants Simethicone] 0.6 ml FEEDING TUBE TID 05/07/21 [History Last Taken Unknown] Allergy/AdvReac Type Severity Reaction Status Date / Time acetaminophen [From Percocet] Allergy Rash Verified 05/07/21 05:00 amoxicillin [From Augmentin] Allergy PT UNSURE Verified 05/07/21 05:00 OF REACTION cefadroxil Allergy PT UNSURE Verified 05/07/21 05:00 OF REACTION clavulanic acid Allergy PT UNSURE Verified 05/07/21 05:00 [From Augmentin] OF REACTION clindamycin Allergy PT UNSURE Verified 05/07/21 05:00 OF REACTION oxycodone [From Percocet] Allergy Rash Verified 05/07/21 05:00 codeine AdvReac PT UNSURE Verified 05/07/21 05:00 OF REACTION hydrocodone bitartrate AdvReac CONFUSION Verified 05/07/21 05:00 [From Vicodin] Family History Mother Osteoporosis Heart disease Surgical History History of cholecystectomy History of tubal ligation S/P dilatation of esophageal stricture Social History household members: none Smoking Status: Former smoker alcohol intake: never substance use type: does not use ROS Constitutional Constitutional: Reports fatigue and poor appetite ENT HEENT: Reports dysphagia Cardiovascular Cardiovascular: Denies chest pain, dyspnea at rest or dyspnea on exertion Respiratory/Chest Respiratory/Chest: Denies cough or dyspnea Gastrointestinal Gastrointestinal: Reports other Details: + Peg-tube ; Denies abdominal pain or anorexia Genitourinary Genitourinary: Denies change in urinary stream Vital Signs Temperature 98.8 F 05/07/21 10:49 Temperature Source Oral 05/07/21 10:49 Pulse Rate 64 05/07/21 11:10 Respiratory Rate 16 05/07/21 10:49 Respiratory Effort 05/07/21 10:55 Respiratory Depth Normal 05/07/21 10:55 Respiratory Pattern Normal 05/07/21 10:55 Blood Pressure 127/49 H 05/07/21 10:49 Blood Pressure Mean 75 05/07/21 10:49 Blood Pressure Source Monitor 05/07/21 10:49 Blood Pressure Position Semi-Fowlers 05/07/21 10:49 Blood Pressure Location Left Arm 05/07/21 10:49 Pulse Ox 92 05/07/21 10:49 Oxygen Delivery Method Room Air 05/07/21 10:55 Laboratory Results - last 24 hr 05/07/21 04:58: WBC 15.7 H, RBC 3.78 L, Hgb 10.3 L, Hct 31.9 L, MCV 84.4, MCH 27.2, MCHC 32.3, RDW Std Deviation 45.0 H, RDW Coeff of [place] 14.6, Plt Count 363, MPV 9.6, Immature Gran % (Auto) 0.800, Neut % (Auto) 80.6 H, Lymph % (Auto) 9.0 L, [place] % (Auto) 9.0, Eos % (Auto) 0.4, Baso % (Auto) 0.2, Absolute Neuts (auto) 12.6 H, Absolute Lymphs (auto) 1.41, Nucleated RBC % 0 05/07/21 04:58: PT 13.7, INR 1.1, APTT 34.2 05/07/21 04:58: Sodium 127 L, Potassium 4.7, Chloride 94 L, Carbon Dioxide 24.0, Anion Gap 9, BUN 27 H, Creatinine 0.95, Estim Creat Clear Calc 37.12, Est GFR (MDRD) Af Amer 72, Est GFR (MDRD) Non-Af 60, BUN/Creatinine Ratio 28.5 H, Glucose 137 H, Calcium 9.2, Total Bilirubin 0.30, AST 14 L, ALT 22, Alkaline Phosphatase 109, Troponin I High Sens 46, Total Protein 8.2, Albumin 2.6 L, Globulin 5.6 H, Albumin/Globulin Ratio 0.5 L, Lipase 129 05/07/21 05:30: Lactic Acid 2.3 H* 05/07/21 06:10: Urine Color Yellow, Urine Clarity Sl Cloudy, Urine pH 8.0, Ur Specific [place] 1.015, Urine Protein 30 H, Urine Glucose (UA) Normal, Urine Ketones Negative, Urine Occult Blood 10 H, Urine Nitrite Negative, Urine Bilirubin Negative, Urine Urobilinogen Normal, Ur Leukocyte Esterase Negative, Urine RBC 0-5 SEEN, Urine WBC 0-5 SEEN, Ur Squamous Epith Cells 0 SEEN, Amorphous Sediment 1+, Urine Bacteria 1+, Urine Mucus 0 SEEN 05/07/21 10:33: Lactic Acid 1.7 05/07/21 11:18: POC Glucose 97 Microbiology 05/07/21 05:26 Nasal Secretion SARS-CoV-2 Antigen (Rapid) - Final Diagnostic Data Chest X-Ray 05/07/21 05:17 IMPRESSION: Hyperinflation, possible mild underlying interstitial lung disease. Multiple lung nodules/masses. Neoplastic etiology possible. Consider CT examination chest. Focal area of airspace disease in the right upper lung, this could be acute or chronic. Obscuration of the aortopulmonary window. Shoulder GE. Attention on CT chest recommended. Electronically Signed: Laurence Dover MD at 6:41 EST , Abdomen/Pelvis CT 05/07/21 05:19 IMPRESSION: There is no appendicitis, colitis, ascites, hydronephrosis, abscess, collection, perforation or obstruction. Significant sigmoid diverticulosis, there is mild wall thickening without pericolonic fat stranding which may be due to chronic changes. No acute diverticulitis detected. Hepatic and splenic cysts, right renal cysts, the smallest ones are indeterminate. If needed this can be further assessed with ultrasound. Retained fecal material in the right colon. Arteriosclerosis, degenerative changes, osteopenia and other nonacute findings as above. Electronically Signed: Laurence Dover MD at 7:33 EST , Chest CTA 05/07/21 06:49 IMPRESSION: No demonstrated pulmonary embolism, aneurysm, leak or arterial dissection. Numerous lung masses as above, as seen on chest x-ray suspicious for neoplasm. PET scan, staging and tissue sampling recommended. Mediastinal lymphadenopathy. There is an incomplete soft tissue mass along the right lower neck extending into superior mediastinum. This was not present on previous CT neck soft tissue 05/26/2019. CT neck contrast recommended. Right axillary lymphadenopathy. Mild atherosclerosis and coronary artery disease. No destructive osseous lesions detected. Normal adrenal glands. Electronically Signed: Laurence Dover MD at 7:48 EST Reading Location ID and State: , Service support , Charges/Coding Visit Charges Office Visits / Consults: [id number] IP Consult L3
[2021-05-07 16:51] LABS: Bedside Glucose 120 mg/dL (70-110)
[2021-05-07] MEDS: Vancomycin IV 1,000 MG/200 ML BAG 200 MG IV (17:31)
[2021-05-07] MEDS: Jevity 1.5. 1,000 ML Bottle 250 ML GT (18:45)
[2021-05-07] MEDS: Acetaminophen 650 MG/20 ML UDC GT (18:46)
[2021-05-07] MEDS: Budesonide Respules 0.5 MG/2 ML AMPUL.NEB. INHALATION (21:00)
[2021-05-07] MEDS: Albuterol 2.5 MG/3 ML VIAL.NEB. INHALATION (21:00)
--- NOTE | 2021-05-07 22:17 | PCM.RX.CS ---
Consult Pharmacy has been consulted to manage selected antiobiotic: Vancomycin Type of Consult: New start Suspected Infection: Other Prior Doses of Antibiotics Received/Current Regimen: Medications Vancomycin HCl (Vancomycin) 1,000 mg in 200 mls @ 200 mls/hr IV Q24H ANISH Discontinued Medications Vancomycin HCl (Vancomycin) 1,000 mg in 200 mls @ 200 mls/hr IV X1 ONE Stop: 05/07/21 17:59 Last Admin: 05/07/21 17:31 Dose: 200 mls/hr Labs: Sodium 127 mmol/L (136-145) L 05/07/21 04:58 Potassium 4.7 mmol/L (3.5-5.1) 05/07/21 04:58 Chloride 94 mmol/L (98-107) L 05/07/21 04:58 Carbon Dioxide 24.0 mmol/L (21.0-32.0) 05/07/21 04:58 Anion Gap 9 (5-15) 05/07/21 04:58 BUN 27 mg/dL (7-18) H 05/07/21 04:58 Creatinine 0.95 mg/dL (0.55-1.02) 05/07/21 04:58 Est GFR (MDRD) Af Amer 72 mL/min (>60) 05/07/21 04:58 Est GFR (MDRD) Non-Af 60 mL/min (>60) 05/07/21 04:58 BUN/Creatinine Ratio 28.5 RATIO (10-20) H 05/07/21 04:58 Glucose 137 mg/dL (74-106) H 05/07/21 04:58 Microbiology: Microbiology 05/07/21 05:30 Blood Culture (Wb) - Left Hand Blood Culture - Preliminary 05/07/21 05:26 Nasal Secretion SARS-CoV-2 Antigen (Rapid) - Final Weight used for dosin kg Estimated Creatinine Clearance: 37 Goal Trough: 15-20 mcg/mL Pharmacy Plan for Drug Dosing: Pharmacy Service will continue to monitor and adjust dosing as required. Follow-Up Labs: Trough Vancomycin Labs to be done on [date and time ordered]: 05/09/21 @1700
[2021-05-08] VITALS (24 sets, daily range): BP systolic 92–149; BP diastolic 42–67; PULSE 16–107; RESP 10–20; TEMP 36.5–37.6; O2SAT 94–100; BMI 27.4
--- NOTE | 2021-05-08 | IMM_PTH ---
PATIENT: TONO SHEN LOC: [facility] U#:[id number] AGE/SX: 85/F ROOM: FL320 RE05/08/[address]: Dr. Pepe Hodge MD : [id number] BED: 1 DIS: 05/13/2021 SPEC #: [id number] RECD: 05/09/21 13:43 STATUS: OSCAR REQ #: [id number] VIPIN: 05/08/21 00:[address]: Alice Silverman DEPT: IMMUNOHISTOCHEMISTRY RECD BY: Cleopatra Pisano ENTERED: 05/09/21 13:45 SP TYPE: IMMUNO OTHR DR: MD Dr. Emerson Pathak MD Dr. Mansour Isckarus, MD Dr. Robert Field, MD Dr. Ryan Jin, MD Dr. Robert Leininger, MD Dr. Roger Macklis, MD Dr. Steve Walston, DO Dr. Tai Chi Kwok, MD Tyra Schlabach, [facility] Tissues: Right lung, NOS Procedures: RCC (add) NAPSIN A (add) CK20 (add) CK5-6 (add) CK7 (add) CK8 (add) HEP PAR (add) KI-67 (add) P16 (add) ME (add) TTF1 (add) Pankeratin (add) P40 (add) ER (initial) PHYSICIAN & INSTITUTION [address] [address] SPECIMEN INFORMATION: Tissue Source: Right lung Clinical Info: Right lung mass Specimen Number: [id number] CPT code: 37671, 22448 x13 METHODOLOGY: Deparaffinized sections of prefer/formalin-fixed tissue or PAP/DQ stained slides are incubated with monoclonal/polyclonal antibodies/oligonucleotide probes. Localization is made via biotin free immunoperoxidase method. Appropriate controls are performed and reacted as expected. Results on target cell population are indicated in the following table: RESULTS: ANTIBODY / CLONE RESULT ER (6F11) negative ME (1E2) negative AE1-3 (AE1/AE3/PCK26) positive CK7 (OV-TL12/30) negative CK8 (32tctrU66) positive, focal CK20 (KS20.8) negative TTF-1 (8G7G3/1) negative Napsin A (Rabbit Polyclonal) negative HepPar (OCh1E5) negative RCC (PN-15) negative CK5-6 (D5 & 1684) positive P40 (BC28) positive P16 (E6H4) negative Ki-67 (30-9) positive, moderate These tests were developed and their performance characteristics determined by [facility]. They may not have been cleared or approved by the U.S. Food and Drug Administration. The FDA has determined that such clearance or approval is not necessary. The above immunohistochemical/dualISH markers are ordered and reviewed by the Pathologist. INTERPRETATION: Right lung, CT-guided core biopsy: Non-small cell carcinoma, favor squamous cell carcinoma. GRABIEL:meghan 05/10/2021
--- NOTE | 2021-05-08 | LUNG_PTH ---
PATIENT: TONO SHEN LOC: MS3 U#:[id number] AGE/SX: 85/F [place] [facility] [place]08/[address]: Dr. Pepe Hodge MD : [id number] BED: 1 DIS: 05/13/2021 SPEC #: [id number] RECD: 05/08/21 11:30 STATUS: OSCAR BRITTANY #: [id number] VIPIN: 05/08/21 00:[address]: Alice Silverman DEPT: SURGICAL PATHOLOGY RECD BY: Celeste Garvey ENTERED: 05/08/21 12:46 SP TYPE: LUNG BX OTHR DR: MD Dr. Emerson Pathak MD Dr. Mansour Isckarus, MD Dr. Robert Field, MD Dr. Ryan Jin, MD Dr. Robert Leininger, MD Dr. Roger Macklis, MD Dr. Steve Walston, DO Dr. Tai Chi Kwok, MD Tyra Schlabach, CONFERENCE ASSISTANT-C Tissues: Lung, NOS Procedures: Surgery Specimen Level IV HEADER OPERATION: CT-guided lung biopsy, right PRE-OP DIAGNOSIS: Mass TISSUE SUBMITTED: Lung core x4 MICROSCOPIC DIAGNOSIS Right lung, CT-guided core biopsy: Non-small cell carcinoma, favor squamous cell carcinoma. See comment. SJ:rg 05/09/2021 COMMENT The specimen is evaluated at the time of biopsy by Dr. Collado. Immediate Evaluation = Atypical cells suspicious for malignancy noted. Immunohistochemistry ([id number]) supports the above diagnosis. Molecular studies on the tumor can be performed if clinically indicated. Please notify the laboratory if they are needed. Please make reference to previous specimen ([id number]) proximal esophageal mass, biopsy with diagnosis of ?invasive moderately differentiated squamous cell carcinoma.? MICROSCOPIC DESCRIPTION Slides are reviewed. GROSS DESCRIPTION Received in fixative is one container labeled with the patient's name and designated right lung, CT-guided core biopsy. The specimen consists of multiple elongated fragments of carroll soft tissue measuring in aggregate 1 x 0.1 x <0.1 cm. The entire specimen is submitted in one cassette. Two touch imprints are prepared at the time of core biopsy. / SJ:rg 05/08/2021 TC:0 [facility]: [id number] ADDENDUM ADDENDUM ADDENDUM ADDENDUM ADDENDUM ADDENDUM ADDENDUM ADDENDUM ADDENDUM ADDENDUM ADDENDUM ADDENDUM ADDENDUM ADDENDUM ADDENDUM ADDENDUM 06/10/2021 09:32 ADDENDUM 06/10/2021 09:32 ADDENDUM 06/10/2021 09:32 ADDENDUM 06/10/2021 09:32 ADDENDUM 06/10/2021 09:32 [facility] REPORT FROM [employer] RESULT SUMMARY: Abnormal IMMUNOTHERAPY BIOMARKERS: Tumor Mutation [place]: Low (7.1 Mutations / MB) Microsatellite Instability: MSI Negative PERTINENT NEGATIVE RESULTS: The following genes are NEGATIVE for clinically relevant mutations. Mutational hotspots and surrounding exonic regions were interrogated for DNA level point mutations and indels (fusions not assayed). AKT1, ALK, ATR, BRAF, CHEK1, DDR2, EGFR, ERBB2, FGFR1, KRAS, MAP2K1, MET, NRAS, NTRK1, PIK3CA, POLD1, POLE, ROS1, STK11, TERT Please see complete report in e-chart or EMR
[2021-05-08 04:56] LABS: Absolute Lymphocyte Count 1.97 X10^3/uL (0.83-4.51); Absolute Neutrophil Count 5.6 X10^3/uL (2.0-7.7); Basophil# 0.04 X10^3/uL; Basophil% 0.5 % (0-1); Eosinophil# 0.17 X10^3/uL; Eosinophils% 1.9 % (0-5); Hematocrit 26.7 % (37-47); Hemoglobin 8.7 g/dL (12.0-15.0); Lymphocyte # 1.97 X10^3/ul (0.83-4.51); Lymphocyte % 22.3 % (19-41); Mean Corp Hgb Conc 32.6 g/dL (32-36); Mean Corpuscular Hgb 27.8 pg (27.0-32.0); Mean Corpuscular Volume 85.3 fL (81-99); Mean Platelet Vol. 9.5 fl (6.2-12.0); Monocyte# 0.99 X10^3/uL; Monocyte% 11.2 % (0-10); NRBC Flagged by Analyzer 0 % (0-5); Neutrophil # 5.61 X10^3/uL (2.7-7.7); Neutrophil % 63.4 % (47-70); Platelet Count 294 K/mm3 (150-450); RBC Distribution Width CV 14.9 % (11.6-14.6); RBC Distribution Width SD 46.2 fl (35.1-43.9); Red Blood Count 3.13 M/mm3 (4.2-5.4); White Blood Count 8.8 K/mm3 (4.4-11.0)
[2021-05-08 05:15] LABS: Anion Gap 6 (5-15); BUN 20 mg/dL (7-18); BUN/Creat Ratio 25.1 RATIO (10-20); Calcium,Total 8.3 mg/dL (8.5-10.1); Chloride 101 mmol/L (98-107); EST Glomerular Filtration Rate 73 mL/min (>60); Est Glom Filt Rate - Afr Amer 89 mL/min (>60); Estimated Creatinine Clearance 44.08 ml/min; Glucose 105 mg/dL (74-106); Potassium 4.5 mmol/L (3.5-5.1); Sodium Level 130 mmol/L (136-145)
[2021-05-08] MEDS: Levothyroxine 112 MCG Tablet GT (05:36)
[2021-05-08] MEDS: Acetaminophen 650 MG/20 ML UDC GT (05:57)
--- NOTE | 2021-05-08 07:00 | CT_ITS ---
PROCEDURE: CT GUIDED CORE NEEDLE BIOPSY OF A right lower lobe LUNG LESION INDICATION: Female, 85 years old. Lung lesions PHYSICIAN: Dr. SARAH Small CONSENT: Written informed consent was obtained having explained the risks, benefits and alternatives in detail with the patient who accepted the risks and agreed to proceed. Laboratory review and clinical assessment was performed. CONSCIOUS SEDATION PROTOCOL: The Drugs used were: 1 mg Versed, IV., and 25 mcg Fentanyl, IV. The sedation time was: 25 minutes. Conscious sedation was started at 11:31 AM and terminated at 11:56 AM. The conscious sedation protocol was independently monitored. RADIATION DOSAGE (If Supplied By Facility): CTDIvol = ( 18 ) mGy, DLP = ( 94.94 ) mGycm Individualized dose optimization techniques were used for this CT. TECHNIQUE: The patient was placed in the prone position. A noncontrast CT was performed to localize the lesion in the right lower lobe . The skin surface was prepped and draped in a sterile fashion. 1% lidocaine was used for local anesthesia. Using CT guidance, a 20-gauge coaxial biopsy device was advanced to the periphery of the lesion. A total of 3 core specimens were obtained. The specimens were placed in a formalin solution. A post procedure CT demonstrated no adverse sequelae or pneumothorax. The patient tolerated the procedure well without adverse event. A negative biopsy does not exclude malignancy. Further imaging or clinical followup based on patient condition and degree of clinical suspicion for malignancy. Suggest rebiopsy, if biopsy results do not match with clinical scenario. CT/Biopsy/Inj or Needle Placement IMPRESSION: 1. CT directed core needle biopsy of the right lower lobe nodule using CT image guidance with image documentation as described. Pathology results are pending. 2. Conscious Sedation protocol utilized with independent monitoring. Electronically Signed: Josh Singh MD at 13:00 EST ,
[2021-05-08] MEDS: Albuterol 2.5 MG/3 ML VIAL.NEB. INHALATION (07:28)
[2021-05-08] MEDS: Budesonide Respules 0.5 MG/2 ML AMPUL.NEB. INHALATION (07:28)
[2021-05-08] MEDS: Ceftriaxone 1 GM/50 ML BAG IV (10:24)
--- NOTE | 2021-05-08 10:45 | NURSING ---
Patient off unit for CT biopsy at this time.
--- NOTE | 2021-05-08 11:00 | CASEMGMT ---
RN CM POLICY INTERN CM to room to meet with patient's daughter, Soo, for initial transition planning/care coordination assessment. Pt is out of room for testing at this time. ANNALISA PAEZ introduced self and role at [facility]. Care providers, pharmacy, and demographics verified/updated at this time. PCP: Dr Aden Specialists: Dr Garcia for chronic feeding tube mgmt. Dtr states is interested in her mother switching to a different GI specialist and interested in pt going to Dr Alvarez. Contact info provided. [facility] Insurance: [facility], [employer] Prescription Benefit: Yes Living Will/HPOA: Pt does not currently have LW/HCPOA LNOK: Daughter, Soo, is only child Living Arrangements: Pt lives w/dtr, Soo, and son-in-law in one-story home w/2 steps to enter. Dtr does not work and able to assist pt as needed. Pt usually is independent w/ADL's. Daughter does most home mgmt tasks. D/t pt's increase in weakness since Thursday, dtr has been assisting pt w/ADL's. Transportation: daughter DME: Dtr has the following DME: shower chair, cane, walker, adjustable bed, functioning glucometer w/supplies. Pt has chronic feeding tube and gets supplies from [employer]. Dtr states no need for further DME at this time. HHC/SNF: No hx of SNF, but pt has had HHC in the past through [facility]. Dtr states is interested in pt getting HHC again through [facility] for SN. She does not want therapy for pt at this time, stating she did not think it was very beneficial to pt in the past. Dtr voices concern that pt's cancer is back and thus causing the pain pt has been having. Dtr states may be interested in Palliative care for symptom mgmt, if tests do show cancer could be the cause. Dtr wishes for pt to return home w/HHC at time of discharge. CM to follow for any further discharge planning/needs. Dtr voices no further concerns/needs at this time. Advised her to ask for CM if any further questions/concerns/needs arise. Voices understanding. PLAN: Home w/HHC, family support and discharge plans in place. Maryam ANGELES RN, CM
--- NOTE | 2021-05-08 11:30 | RAD_ITS ---
STUDY: X-RAY CHEST REASON FOR EXAM: Female, 85 years old. POST LUNG BX -- Immediately post lung biopsy TECHNIQUE: AP inspiration and expiration views. COMPARISON: Comparison is made with prior study done earlier today. FINDINGS: Two-hour post right lung biopsy radiographs. No evidence of pneumothorax. RAD/Chest Insp/Exp 2 View IMPRESSION: No evidence of pneumothorax on the two-hour delayed post right lung biopsy radiographs. Electronically Signed: Josh Singh MD at 15:28 EST ,
[2021-05-08] MEDS: Midazolam 2 MG/2 ML Syringe IV (11:31)
[2021-05-08] MEDS: fentaNYL 100 MCG/2 ML Ampul IV (11:33)
[2021-05-08] MEDS: Lidocaine 2% (20 ml mdv) 20 ML Vial INFILT (11:35)
[2021-05-08] MEDS: 0.9% Saline Lock 10 ML Syringe IV (11:35)
--- NOTE | 2021-05-08 12:11 | PN.HOSP_ITS ---
Subjective Subjective Patient seen and examined. She still complains of feeling tired. She denies any fever, chills, nausea or vomiting. She does complain of constipation. Blood cultures were positive for gram-positive cocci in chains so she was started on vancomycin. Review of symptoms otherwise negative. She is due for biopsy of the lung lesion today. Objective Data Objective Data Vital Signs: Vital Signs Temp Pulse Resp BP Pulse Ox 98.8 F 84 12 134/55 H 97 05/08/21 11:03 05/08/21 11:03 05/08/21 11:03 05/08/21 11:03 05/08/21 11:03 Oxygen Delivery Method Room Air Weight: 155 lb Body Mass Index (BMI) 27.4 Intake & Output: Intake and Output for Last 24 Hours 05/06/21 05/07/21 05/08/21 23:59 23:59 23:59 Intake Total 1779.17 / 1779.17 1043.75 / 1043.75 Output Total 1100 / 1300 600 / 600 Balance 679.17 / 479.17 443.75 / 443.75 Lab / Micro Data Result Diagrams: 05/08/21 04:07 05/08/21 04:07 Labs: Laboratory Results - last 24 hr 05/07/21 16:33: POC Glucose 120 H 05/08/21 04:07: WBC 8.8, RBC 3.13 L, Hgb 8.7 L, Hct 26.7 L, MCV 85.3, MCH 27.8, MCHC 32.6, RDW Std Deviation 46.2 H, RDW Coeff of Mickey 14.9 H, Plt Count 294, MPV 9.5, Immature Gran % (Auto) 0.700, Neut % (Auto) 63.4, Lymph % (Auto) 22.3, [place] % (Auto) 11.2 H, Eos % (Auto) 1.9, Baso % (Auto) 0.5, Absolute Neuts (auto) 5.6, Absolute Lymphs (auto) 1.97, Nucleated RBC % 0 05/08/21 04:07: Sodium 130 L, Potassium 4.5, Chloride 101, Carbon Dioxide 23.0, Anion Gap 6, BUN 20 H, Creatinine 0.80, Estim Creat Clear Calc 44.08, Est GFR (MDRD) Af Amer 89, Est GFR (MDRD) Non-Af 73, BUN/Creatinine Ratio 25.1 H, Glucose 105, Calcium 8.3 L Micro: Microbiology 05/07/21 05:30 Blood Culture (Wb) - Left Hand Blood Culture - Preliminary Streptococcus agalactiae (B) 05/07/21 05:26 Nasal Secretion SARS-CoV-2 Antigen (Rapid) - Final Physical Exam Const alert, oriented x3 and no apparent distress General Appearance: cooperative Exam Limitations: no limitations HEENT normocephalic, head/scalp atraumatic, moist oral mucous membranes and oropharynx normal Head and Scalp: normocephalic Eyes PERRL, EOMs intact bilaterally and conjunctivae normal Neck no lymphadenopathy and supple Resp normal respiratory effort, no retractions, no use of accessory muscles and clear to auscultation bilaterally Cardio regular rate, regular rhythm, S1 normal heart sound, S2 normal heart sound and no murmurs GI normal to inspection, nondistended, normoactive bowel sounds, soft to palpation, non-tender and non-distended GI Narrative: PEG Tube in situ Extremity normal to inspection, full ROM and no clubbing, cyanosis or edema Peripheral Pulses: Yes pulses 2+ throughout Skin no rashes or lesions noted, no wounds and skin turgor normal Neuro oriented x3, CN's II-XII intact bilaterally and moves all extremities Sensorium / Orientation: awake and alert Psych affect normal Assessment & Plan Assessment/Plan (1) Esophageal cancer: (2) Hyponatremia: (3) UTI (urinary tract infection): PLAN: #Hyponatremia * sodium is up to 130. * Patient is on PEG tube feed and says she also gives herself free water flushes' * continue gentle hydration wtih IVF for now. * * #UTI * UA showed 1+ bacteria. On IV ceftriaxone 1gram q24 hrly * urine culture pending * #Bacteremia * Blood cultures positive for gram-positive cocci in chains. IV vancomycin started yesterday. * ID consulted. Await recs. Awaiting speciation of blood culture results. * #Lung lesions, probably due to mets from esophageal CA * CT chest showed multiple lung lesions. Was known to have a 2mm lesion in the right lower lobe, per oncology documentation in 2019. * oncology on board. For biopsy of one of the lung lesions today by radiology. * #Debillity due to hyponatremia and UTI * PT/OT consulted. Fall precautions * #History of esophageal cancer * S/p radiation. Has PEG tube in place due to esophageal strictures. * oncology on board in light of new lung lesions per CT chest' * #Hypertension: On atenolol 25 mg twice daily #Nutrition: On Jevity 240mls every 6 hours via PEG tube #Hypothyroidism: On Synthroid DVT prophylaxis: Lovenox CODE STATUS: DNRCCA no intubation * Charges/Coding Visit Charges Inpatient E&M: 38816 Subs Hosp L2
--- NOTE | 2021-05-08 13:30 | RAD_ITS ---
STUDY: X-RAY CHEST REASON FOR EXAM: Female, 85 years old. POST LUNG BX -- 2 hours post lung biopsy TECHNIQUE: AP inspiration and expiration views. COMPARISON: Comparison is made with prior study dated May 07 2021. FINDINGS: AP inspiration and expiration views were obtained. No evidence of pneumothorax. RAD/Chest Insp/Exp 2 View IMPRESSION: No evidence of pneumothorax on the post right lung biopsy radiographs. Electronically Signed: Josh Singh MD at 15:30 EST ,
--- NOTE | 2021-05-08 13:54 | PCM.CONS.GEN ---
Assessment & Plan Assessment/Plan (1) General weakness: PLAN: Single Bcx with GBS. Possible source is PEG cellulitis, CAP, or (less likely) uti. UA was benign. Pt not feeling any better. Bx pending. Will stop vanc, cont ceftriaxone. Will follow. Vaccinated for covid x3. Encouraged daughter to get covid vaccine, but she is not interested. HPI Consult Data Date of Consult: 05/08/21 HPI Narrative HPI Narrative: TONO SHEN, is a 85 F with h/o esophageal cancer, presented with 2 weeks of back/L shoulder pain. Went to ED a week ago, then saw Dr. Aden as outpt, given several meds including steroid without improvement. Had progressive generalized weakness, some redness/drainage around PEG. No dysuria, no other rash. Has chronic cough and sputum. No fever/chills/night sweats. Covid vaccine x3. With worsened pain and weakness, came back to ED, admitted on ceftriaxone, vanc added yesterday after Bcx turned (+). Bx done today. Additional history from daughter at bedside. Full ROS performed and neg except as noted above. [facility] Medical History Arthritis Cancer of upper third of esophagus Cataracts, bilateral Diabetes mellitus Hearing problem History of esophageal dilatation History of pneumonia Squamous cell carcinoma Thyroid disease Vitamin D deficiency Home Medications atenolol 25 mg PO BID 06/01/15 [History Last Taken 07/09/20] levothyroxine 112 mcg PO DAILY 11/23/18 [History Last Taken 07/09/20] fluticasone propion-salmeterol 2 puff INHALATION BID 10/18/19 [History Last Taken 07/10/20] omeprazole 40 mg PO DAILY 10/18/19 [History Last Taken 07/09/20] albuterol sulfate 1 - 2 puff INHALATION Q4H PRN PRN 07/03/20 [History Last Taken 07/10/20] food supplemt, lactose-reduced [Jevity] 240 ml FEEDING TUBE Q6H 05/07/21 [History Last Taken Unknown] simethicone [Infants Simethicone] 0.6 ml FEEDING TUBE TID 05/07/21 [History Last Taken Unknown] Allergy/AdvReac Type Severity Reaction Status Date / Time amoxicillin [From Augmentin] Allergy PT UNSURE Verified 05/07/21 05:00 OF REACTION cefadroxil Allergy PT UNSURE Verified 05/07/21 05:00 OF REACTION clavulanic acid Allergy PT UNSURE Verified 05/07/21 05:00 [From Augmentin] OF REACTION clindamycin Allergy PT UNSURE Verified 05/07/21 05:00 OF REACTION oxycodone [From Percocet] Allergy Rash Verified 05/07/21 05:00 codeine AdvReac PT UNSURE Verified 05/07/21 05:00 OF REACTION hydrocodone bitartrate AdvReac CONFUSION Verified 05/07/21 05:00 [From Vicodin] Family History Mother Osteoporosis Heart disease Surgical History History of cholecystectomy History of tubal ligation S/P dilatation of esophageal stricture Social History household members: none Smoking Status: Former smoker alcohol intake: never substance use type: does not use Physical Exam Const alert and no apparent distress General Appearance: cooperative Exam Limitations: no limitations HEENT normocephalic and head/scalp atraumatic Eyes PERRL and EOMs intact bilaterally Neck supple and No nodes Resp clear to auscultation bilaterally Cardio regular rate and regular rhythm GI soft to palpation, non-tender and non-distended Extremity Extremity Narrative: mild General Extremity: edema Skin no rashes or lesions noted Neuro CN's II-XII intact bilaterally Lab / Micro Data Result Diagrams: 05/08/21 04:07 05/08/21 04:07 Labs: Laboratory Results - last 24 hr 05/07/21 16:33: POC Glucose 120 H 05/08/21 04:07: WBC 8.8, RBC 3.13 L, Hgb 8.7 L, Hct 26.7 L, MCV 85.3, MCH 27.8, MCHC 32.6, RDW Std Deviation 46.2 H, RDW Coeff of Mickey 14.9 H, Plt Count 294, MPV 9.5, Immature Gran % (Auto) 0.700, Neut % (Auto) 63.4, Lymph % (Auto) 22.3, [place] % (Auto) 11.2 H, Eos % (Auto) 1.9, Baso % (Auto) 0.5, Absolute Neuts (auto) 5.6, Absolute Lymphs (auto) 1.97, Nucleated RBC % 0 05/08/21 04:07: Sodium 130 L, Potassium 4.5, Chloride 101, Carbon Dioxide 23.0, Anion Gap 6, BUN 20 H, Creatinine 0.80, Estim Creat Clear Calc 44.08, Est GFR (MDRD) Af Amer 89, Est GFR (MDRD) Non-Af 73, BUN/Creatinine Ratio 25.1 H, Glucose 105, Calcium 8.3 L Micro: Microbiology 05/07/21 05:30 Blood Culture (Wb) - Left Hand Blood Culture - Preliminary Streptococcus agalactiae (B) Radiology Impression Biopsy CT 05/08/21 07:00 IMPRESSION: 1. CT directed core needle biopsy of the right lower lobe nodule using CT image guidance with image documentation as described. Pathology results are pending. 2. Conscious Sedation protocol utilized with independent monitoring. Electronically Signed: Josh Singh MD at 13:00 EST ,
[2021-05-08] MEDS: Lansoprazole 15 MG Capsule.DR 30 MG GT (14:15)
[2021-05-08] MEDS: Senna Tablet 2 TABLET GT (15:50)
[2021-05-08] MEDS: Jevity 1.5. 1,000 ML Bottle 250 ML GT ×2 (15:50→19:29)
[2021-05-08] MEDS: oxyCODONE 5 MG Tablet 10 MG GT (15:50)
[2021-05-08] MEDS: Morphine 2 MG/ML Syringe IV (19:26)
[2021-05-08] MEDS: Atenolol 25 MG Tablet GT (22:47)
[2021-05-09] VITALS (12 sets, daily range): BP systolic 104–130; BP diastolic 53–60; PULSE 75–95; RESP 17–20; TEMP 36.6–37.3; O2SAT 90–97
[2021-05-09] MEDS: Morphine 2 MG/ML Syringe IV ×4 (03:29→22:53)
[2021-05-09 05:00] LABS: Absolute Lymphocyte Count 2.77 X10^3/uL (0.83-4.51); Absolute Neutrophil Count 6.4 X10^3/uL (2.0-7.7); Basophil# 0.05 X10^3/uL; Basophil% 0.5 % (0-1); Eosinophils% 1.8 % (0-5); Hematocrit 27.5 % (37-47); Hemoglobin 9.2 g/dL (12.0-15.0); Lymphocyte # 2.77 X10^3/ul (0.83-4.51); Lymphocyte % 25.1 % (19-41); Mean Corp Hgb Conc 33.5 g/dL (32-36); Mean Corpuscular Hgb 28.1 pg (27.0-32.0); Mean Corpuscular Volume 84.1 fL (81-99); Mean Platelet Vol. 9.5 fl (6.2-12.0); Monocyte# 1.44 X10^3/uL; Monocyte% 13.1 % (0-10); NRBC Flagged by Analyzer 0 % (0-5); Neutrophil # 6.43 X10^3/uL (2.7-7.7); Neutrophil % 58.3 % (47-70); Platelet Count 315 K/mm3 (150-450); RBC Distribution Width CV 14.7 % (11.6-14.6); RBC Distribution Width SD 45.7 fl (35.1-43.9); Red Blood Count 3.27 M/mm3 (4.2-5.4)
[2021-05-09 05:30] LABS: Anion Gap 7 (5-15); BUN 21 mg/dL (7-18); BUN/Creat Ratio 25.1 RATIO (10-20); Calcium,Total 8.7 mg/dL (8.5-10.1); Chloride 97 mmol/L (98-107); Creatinine, Serum 0.84 mg/dL (0.55-1.02); EST Glomerular Filtration Rate 69 mL/min (>60); Est Glom Filt Rate - Afr Amer 84 mL/min (>60); Estimated Creatinine Clearance 41.98 ml/min; Glucose 112 mg/dL (74-106); Potassium 4.5 mmol/L (3.5-5.1); Sodium Level 127 mmol/L (136-145)
[2021-05-09] MEDS: Levothyroxine 112 MCG Tablet GT (06:04)
[2021-05-09] MEDS: Albuterol 2.5 MG/3 ML VIAL.NEB. INHALATION ×3 (06:51→19:46)
[2021-05-09] MEDS: Budesonide Respules 0.5 MG/2 ML AMPUL.NEB. INHALATION ×2 (06:51→19:46)
[2021-05-09] MEDS: Lansoprazole 15 MG Capsule.DR 30 MG GT (08:44)
[2021-05-09] MEDS: Atenolol 25 MG Tablet GT (08:45)
[2021-05-09] MEDS: Senna Tablet 2 TABLET GT (08:46)
[2021-05-09] MEDS: Ceftriaxone 1 GM/50 ML BAG IV (10:32)
[2021-05-09] MEDS: 0.9% Saline Lock 10 ML Syringe IV ×2 (11:45→22:54)
--- NOTE | 2021-05-09 12:14 | RAD_ITS ---
STUDY: X-RAY - LEFT SHOULDER REASON FOR EXAM: Female, 85 years old. left shoulder pain TECHNIQUE: 4 view(s) of the shoulder. COMPARISON: None. FINDINGS: Normal glenohumeral articulation. Normal acromioclavicular joint. Normal acromion. Normal humeral head and visualized proximal humerus. The soft tissue structures are unremarkable. Normal visualized pulmonary apex. RAD/Shoulder min 2 Views IMPRESSION: Normal x-ray examination of the shoulder. Electronically Signed: Sander Garcia MD at 17:11 EST ,
--- NOTE | 2021-05-09 12:53 | PN.HOSP_ITS ---
Subjective Subjective Patient seen and examined. She complained of left shoulder pain which have been going on for some time and was persistent. She says she had been told it was due to arthritis. She denied any fever or chills, cough, chest pain, vomiting or diarrhea. She does admit to nausea, but hasnt vomited. REview of systems is otherwise negative. She has remained hemodynamically stable. She also complains of her PEG tube leaking. Objective Data Objective Data Vital Signs: Vital Signs Temp Pulse Resp BP Pulse Ox 98.3 F 78 18 104/55 L 90 05/09/21 08:37 05/09/21 11:00 05/09/21 08:37 05/09/21 08:37 05/09/21 08:37 Oxygen Flow Rate (L/min) [6] 2 Oxygen Flow Rate (L/min) [5] 2 Oxygen Flow Rate (L/min) [4] 2 Oxygen Flow Rate (L/min) [3] 2 Oxygen Flow Rate (L/min) [2] 2 Oxygen Flow Rate (L/min) [1 ( 2 Initial Baseline)] Oxygen Delivery Method [6] Nasal Cannula Oxygen Delivery Method [5] Nasal Cannula Oxygen Delivery Method [4] Nasal Cannula Oxygen Delivery Method [3] Nasal Cannula Oxygen Delivery Method [2] Nasal Cannula Oxygen Delivery Method [1 ( Nasal Cannula Initial Baseline)] Oxygen Delivery Method Room Air Weight: 155 lb 6.814 oz Body Mass Index (BMI) 27.4 Intake & Output: Intake and Output for Last 24 Hours 05/07/21 05/08/21 05/09/21 23:59 23:59 23:59 Intake Total 1779.17 / 1779.17 1053.75 / 1053.75 90 / 90 Output Total 1100 / 1300 600 / 1100 650 / 650 Balance 679.17 / 479.17 453.75 / -46.25 -560 / -560 Lab / Micro Data Result Diagrams: 05/09/21 04:29 05/09/21 04:29 Labs: Laboratory Results - last 24 hr 05/09/21 04:29: WBC 11.0, RBC 3.27 L, Hgb 9.2 L, Hct 27.5 L, MCV 84.1, MCH 28.1, MCHC 33.5, RDW Std Deviation 45.7 H, RDW Coeff of Mickey 14.7 H, Plt Count 315, MPV 9.5, Immature Gran % (Auto) 1.200 H, Neut % (Auto) 58.3, Lymph % (Auto) 25.1, [place] % (Auto) 13.1 H, Eos % (Auto) 1.8, Baso % (Auto) 0.5, Absolute Neuts (auto) 6.4, Absolute Lymphs (auto) 2.77, Nucleated RBC % 0 05/09/21 04:29: Sodium 127 L, Potassium 4.5, Chloride 97 L, Carbon Dioxide 23.0, Anion Gap 7, BUN 21 H, Creatinine 0.84, Estim Creat Clear Calc 41.98, Est GFR (MDRD) Af Amer 84, Est GFR (MDRD) Non-Af 69, BUN/Creatinine Ratio 25.1 H, Glucose 112 H, Calcium 8.7 Micro: Microbiology 05/07/21 Unknown Urine, Clean Catch Urine Culture - Preliminary Culture exhibits no growth. 05/07/21 05:30 Blood Culture (Wb) - Left Hand Blood Culture - Final Streptococcus agalactiae (B) 05/07/21 05:32 Blood Culture (Wb) - Anticubital Right Blood Culture - Preliminary No growth in 48 hours. 05/07/21 05:26 Nasal Secretion SARS-CoV-2 Antigen (Rapid) - Final Radiography Diagnostic Testing: Radiology Impression Biopsy CT 05/08/21 07:00 IMPRESSION: 1. CT directed core needle biopsy of the right lower lobe nodule using CT image guidance with image documentation as described. Pathology results are pending. 2. Conscious Sedation protocol utilized with independent monitoring. Electronically Signed: Josh Singh MD at 13:00 EST , Chest X-Ray 05/08/21 11:30 IMPRESSION: No evidence of pneumothorax on the two-hour delayed post right lung biopsy radiographs. Electronically Signed: Josh Singh MD at 15:28 EST , Chest X-Ray 05/08/21 13:30 IMPRESSION: No evidence of pneumothorax on the post right lung biopsy radiographs. Electronically Signed: Josh Singh MD at 15:30 EST , Physical Exam Const alert, oriented x3 and no apparent distress General Appearance: cooperative Exam Limitations: no limitations HEENT normocephalic, head/scalp atraumatic, moist oral mucous membranes and oropharynx normal Head and Scalp: normocephalic Eyes PERRL, EOMs intact bilaterally and conjunctivae normal Neck no lymphadenopathy and supple Resp normal respiratory effort, no retractions, no use of accessory muscles and clear to auscultation bilaterally Cardio regular rate, regular rhythm, S1 normal heart sound, S2 normal heart sound and no murmurs GI normal to inspection, nondistended, normoactive bowel sounds, soft to palpation, non-tender and non-distended GI Narrative: PEG Tube in situ Extremity normal to inspection, full ROM and no clubbing, cyanosis or edema Skin no rashes or lesions noted, no wounds and skin turgor normal Neuro oriented x3, CN's II-XII intact bilaterally and moves all extremities Sensorium / Orientation: awake and alert Psych affect normal Assessment & Plan Assessment/Plan (1) Esophageal cancer: (2) Hyponatremia: (3) UTI (urinary tract infection): PLAN: #Hyponatremia * sodium is still 127. This is chronic also. * received IVF. On tube feed via PEG tube * #UTI * UA showed 1+ bacteria. On IV ceftriaxone 1gram q24. * urine culture pending * #Lung lesions, probably due to mets from esophageal CA * CT chest showed multiple lung lesions. Was known to have a 2mm lesion in the right lower lobe, per oncology documentation in 2019. * had biopsy of liver lesion done yesterday. Awaiting pathology results * oncology on board * * #Malfunctioning PEG tube * Patient states the PEG tube is leaking profusely. Will consult general surger y to evaluate as the only source of nutrition patient has now is through the PEG tube. * #Left shoulder pain * says she has been having left shoulder pain. was told it was due to arthritis. * will get a left shoulder xray * on tylenol and morphine prn * #Debility due to hyponatremia and UTI * PT/OT consulted. Fall precautions * #History of esophageal cancer * S/p radiation. Has PEG tube in place due to esophageal strictures. * oncology on board. * #Hypertension: On atenolol 25 mg twice daily #Nutrition: On Jevity 240mls every 6 hours via PEG tube #Hypothyroidism: On Synthroid DVT prophylaxis: Lovenox CODE STATUS: * DNRCCA. Charges/Coding Visit Charges Inpatient E&M: 95799 Subs Hosp L2
[2021-05-09] MEDS: Jevity 1.5. 1,000 ML Bottle 250 ML GT ×2 (13:50→18:07)
--- NOTE | 2021-05-09 16:19 | EX.PCM.CON.S ---
Assessment & Plan Assessment/Plan (1) Malfunction of gastrostomy tube: PLAN: Patient with leaking around her gastrostomy. Family and patient expressed frustration with this issue. They question whether the tube can simply be relocated to another place on her abdomen. I explained how the gastrocutaneous tract that is now formed somewhat precludes this as an easy change. Instead, I recommend downsizing the gastrostomy tube to attempt to encourage the gastrotomy site to close down and then reinsert to a larger tube in a couple of days. There is also a small area of gastric mucosa and granulation tissue showing the medial aspect of the gastrotomy that would do well to be treated with silver nitrate. Family and patient are both agreeable to this plan and expressed understanding that this may be a preferred course given the potential palliative treatment the patient may require for the other findings of this hospitalization (with respect to the pending biopsies on the liver and the lung). Therefore, I undertook a gastrostomy tube exchange at bedside. The 22 Serbian gastrostomy was exchanged for a 20 Serbian gastrostomy and 6 mL of sterile water were instilled in the retention balloon after it was tested extracorporeally. Prior to tube exchange, a local application of silver nitrate was made along the medial aspect of the gastrotomy. A dressing of Aquacel Ag and standard dressing sponge was placed. The patient tolerated the procedure without issue. Would recommend changing this dressing as it becomes saturated. Also agree with aggressive management of patient's constipation as resolution of this issue is likely to reduce the risk of some gastrostomy tube leakage. We will continue to follow and plan for upsizing in the coming days. (2) Gastrostomy tube skin breakdown: PLAN: As above, gastrostomy tube was exchanged. Please plan to change dressings as they become saturated. Wound care has become involved and will assist with surveillance. HPI Consult Data Date of Consult: 05/09/21 HPI Narrative HPI Narrative: TONO SHEN, is a 85 F who presented to [facility] on 05/07[facility]2021 for complaints of weakness constipation and leaking PEG tube. She was additionally found to be hyponatremic and exhibited multiple bilateral lung nodules as well as a new right neck mass and possible liver mass. Biopsies are now pending on lung nodules and liver mass. Surgery is consulted to evaluate patient for her leaking PEG tube. Patient was diagnosed with esophageal squamous cell in 2014 and underwent treatment with chemotherapy and radiation. Unfortunately, she experienced severe esophageal stricture in response to the radiation and has undergone serial dilations with Dr. Garcia. She reached a point, where this was no longer possible and received a PEG tube. According to the patient's daughter who is present with her room, patient has actually had 2 separate PEG tubes with the [address] being more lateral from the initial PEG tube insertion site. Patient now lives with her daughter and as patient's primary caregiver, her daughter relates that there has been numerous tube?related issues. She states they are frequently in the ER because the tubes are falling out secondary to busted balloons and in the interim experiencing significant leakage of any tube feeds from around the tube. Both the patient and her daughter confirm that she is dependent on tube feeds for her nutrition/hydration given the severity of her esophageal process. [facility] Medical History Arthritis Cancer of upper third of esophagus Cataracts, bilateral Diabetes mellitus Hearing problem History of esophageal dilatation History of pneumonia Squamous cell carcinoma Thyroid disease Vitamin D deficiency Home Medications atenolol 25 mg PO BID 06/01/15 [History Last Taken 07/09/20] levothyroxine 112 mcg PO DAILY 11/23/18 [History Last Taken 07/09/20] fluticasone propion-salmeterol 2 puff INHALATION BID 10/18/19 [History Last Taken 07/10/20] omeprazole 40 mg PO DAILY 10/18/19 [History Last Taken 07/09/20] albuterol sulfate 1 - 2 puff INHALATION Q4H PRN PRN 07/03/20 [History Last Taken 07/10/20] food supplemt, lactose-reduced [Jevity] 240 ml FEEDING TUBE Q6H 05/07/21 [History Last Taken Unknown] simethicone [Infants Simethicone] 0.6 ml FEEDING TUBE TID 05/07/21 [History Last Taken Unknown] Allergy/AdvReac Type Severity Reaction Status Date / Time amoxicillin [From Augmentin] Allergy PT UNSURE Verified 05/07/21 05:00 OF REACTION cefadroxil Allergy PT UNSURE Verified 05/07/21 05:00 OF REACTION clavulanic acid Allergy PT UNSURE Verified 05/07/21 05:00 [From Augmentin] OF REACTION clindamycin Allergy PT UNSURE Verified 05/07/21 05:00 OF REACTION oxycodone [From Percocet] Allergy Rash Verified 05/07/21 05:00 codeine AdvReac PT UNSURE Verified 05/07/21 05:00 OF REACTION hydrocodone bitartrate AdvReac CONFUSION Verified 05/07/21 05:00 [From Vicodin] Family History Mother Osteoporosis Heart disease Surgical History History of cholecystectomy History of tubal ligation S/P dilatation of esophageal stricture Social History household members: none Smoking Status: Former smoker alcohol intake: never substance use type: does not use Physical Exam Const alert, oriented x3 and no apparent distress GI GI Narrative: Has rather severe excoriation to her abdominal wall around her gastrostomy. This is particularly the case inferior medially, gastrostomy. There is also a slight invagination of her abdominal wall where the gastrostomy sits in the base of this concavity. Gastrostomy in place is a 22 Serbian tube that is snug to the anterior abdominal wall but there is evidence of chyle leakage around the tube. Patient's abdomen is otherwise mildly distended and nontender to palpation. Lab / Micro Data Result Diagrams: 05/09/21 04:29 05/09/21 04:29 Labs: Laboratory Results - last 24 hr 05/09/21 04:29: WBC 11.0, RBC 3.27 L, Hgb 9.2 L, Hct 27.5 L, MCV 84.1, MCH 28.1, MCHC 33.5, RDW Std Deviation 45.7 H, RDW Coeff of Mickey 14.7 H, Plt Count 315, MPV 9.5, Immature Gran % (Auto) 1.200 H, Neut % (Auto) 58.3, Lymph % (Auto) 25.1, [place] % (Auto) 13.1 H, Eos % (Auto) 1.8, Baso % (Auto) 0.5, Absolute Neuts (auto) 6.4, Absolute Lymphs (auto) 2.77, Nucleated RBC % 0 05/09/21 04:29: Sodium 127 L, Potassium 4.5, Chloride 97 L, Carbon Dioxide 23.0, Anion Gap 7, BUN 21 H, Creatinine 0.84, Estim Creat Clear Calc 41.98, Est GFR (MDRD) Af Amer 84, Est GFR (MDRD) Non-Af 69, BUN/Creatinine Ratio 25.1 H, Glucose 112 H, Calcium 8.7 Micro: Microbiology 05/07/21 Unknown Urine, Clean Catch Urine Culture - Preliminary Culture exhibits no growth. 05/07/21 05:30 Blood Culture (Wb) - Left Hand Blood Culture - Final Streptococcus agalactiae (B) 05/07/21 05:32 Blood Culture (Wb) - Anticubital Right Blood Culture - Preliminary No growth in 48 hours. Charges/Coding Visit Charges Inpatient E&M: 32988 Init Hosp L2
[2021-05-10] VITALS (12 sets, daily range): BP systolic 97–114; BP diastolic 45–58; PULSE 71–101; RESP 12–20; TEMP 36.6–37.2; O2SAT 94–100
[2021-05-10] MEDS: Levothyroxine 112 MCG Tablet GT (06:38)
[2021-05-10 07:00] LABS: Absolute Neutrophil Count 5.9 X10^3/uL (2.0-7.7); Basophil# 0.03 X10^3/uL; Basophil% 0.3 % (0-1); Eosinophil# 0.28 X10^3/uL; Eosinophils% 2.8 % (0-5); Hematocrit 27.7 % (37-47); Mean Corp Hgb Conc 32.5 g/dL (32-36); Mean Corpuscular Volume 83.2 fL (81-99); Mean Platelet Vol. 9.5 fl (6.2-12.0); Monocyte# 1.08 X10^3/uL; Monocyte% 10.8 % (0-10); NRBC Flagged by Analyzer 0 % (0-5); Neutrophil # 5.86 X10^3/uL (2.7-7.7); Neutrophil % 58.6 % (47-70); Platelet Count 315 K/mm3 (150-450); RBC Distribution Width CV 14.8 % (11.6-14.6); RBC Distribution Width SD 45.2 fl (35.1-43.9); Red Blood Count 3.33 M/mm3 (4.2-5.4)
[2021-05-10] MEDS: Budesonide Respules 0.5 MG/2 ML AMPUL.NEB. INHALATION ×2 (07:30→20:05)
[2021-05-10] MEDS: Albuterol 2.5 MG/3 ML VIAL.NEB. INHALATION ×3 (07:30→20:05)
[2021-05-10 07:31] LABS: Anion Gap 8 (5-15); BUN 20 mg/dL (7-18); Calcium,Total 8.8 mg/dL (8.5-10.1); Chloride 97 mmol/L (98-107); Creatinine, Serum 0.83 mg/dL (0.55-1.02); EST Glomerular Filtration Rate 70 mL/min (>60); Est Glom Filt Rate - Afr Amer 84 mL/min (>60); Estimated Creatinine Clearance 42.48 ml/min; Glucose 92 mg/dL (74-106); Potassium 4.6 mmol/L (3.5-5.1); Sodium Level 128 mmol/L (136-145)
[2021-05-10] MEDS: Lansoprazole 15 MG Capsule.DR 30 MG GT (09:01)
[2021-05-10] MEDS: Senna Tablet 2 TABLET GT (09:01)
[2021-05-10] MEDS: Jevity 1.5. 1,000 ML Bottle 250 ML GT ×2 (09:17→13:03)
[2021-05-10] MEDS: Ceftriaxone 1 GM/50 ML BAG IV (10:03)
--- NOTE | 2021-05-10 12:18 | PN.HOSP_ITS ---
Subjective Subjective Patient seen and examined. She had no active complaints today. She does feel a bit weak still. She had her PEG tube replaced by general surgery yesterday. Review of systems otherwise negative. Objective Data Objective Data Vital Signs: Vital Signs Temp Pulse Resp BP Pulse Ox 98.4 F 85 16 97/45 L 97 05/10/21 08:43 05/10/21 10:45 05/10/21 08:43 05/10/21 08:43 05/10/21 08:43 Oxygen Flow Rate (L/min) [6] 2 Oxygen Flow Rate (L/min) [5] 2 Oxygen Flow Rate (L/min) [4] 2 Oxygen Flow Rate (L/min) [3] 2 Oxygen Flow Rate (L/min) [2] 2 Oxygen Flow Rate (L/min) [1 ( 2 Initial Baseline)] Oxygen Delivery Method [6] Nasal Cannula Oxygen Delivery Method [5] Nasal Cannula Oxygen Delivery Method [4] Nasal Cannula Oxygen Delivery Method [3] Nasal Cannula Oxygen Delivery Method [2] Nasal Cannula Oxygen Delivery Method [1 ( Nasal Cannula Initial Baseline)] Oxygen Delivery Method Room Air Weight: 154 lb 12.232 oz Body Mass Index (BMI) 27.4 Intake & Output: Intake and Output for Last 24 Hours 05/08/21 05/09/21 05/10/21 23:59 23:59 23:59 Intake Total 1053.75 / 1053.75 1020 / 1020 690 / 690 Output Total 600 / 1100 800 / 1000 650 / 650 Balance 453.75 / -46.25 220 / 20 40 / 40 Lab / Micro Data Result Diagrams: 05/10/21 06:15 05/10/21 06:15 Labs: Laboratory Results - last 24 hr 05/10/21 06:15: WBC 10.0, RBC 3.33 L, Hgb 9.0 L, Hct 27.7 L, MCV 83.2, MCH 27.0, MCHC 32.5, RDW Std Deviation 45.2 H, RDW Coeff of Mickey 14.8 H, Plt Count 315, MPV 9.5, Immature Gran % (Auto) 1.500 H, Neut % (Auto) 58.6, Lymph % (Auto) 26.0, [place] % (Auto) 10.8 H, Eos % (Auto) 2.8, Baso % (Auto) 0.3, Absolute Neuts (auto) 5.9, Absolute Lymphs (auto) 2.60, Nucleated RBC % 0 05/10/21 06:15: Sodium 128 L, Potassium 4.6, Chloride 97 L, Carbon Dioxide 23.0, Anion Gap 8, BUN 20 H, Creatinine 0.83, Estim Creat Clear Calc 42.48, Est GFR (MDRD) Af Amer 84, Est GFR (MDRD) Non-Af 70, BUN/Creatinine Ratio 24.0 H, Glucose 92, Calcium 8.8 Micro: Microbiology 05/07/21 05:32 Blood Culture (Wb) - Anticubital Right Blood Culture - Preliminary Strep not Strep pneumo Alpha Hemolytic Streptococcus 05/07/21 Unknown Urine, Clean Catch Urine Culture - Final Culture exhibits no growth. 05/07/21 05:30 Blood Culture (Wb) - Left Hand Blood Culture - Final Streptococcus agalactiae (B) 05/07/21 05:26 Nasal Secretion SARS-CoV-2 Antigen (Rapid) - Final Radiography Diagnostic Testing: Radiology Impression Shoulder X-Ray 05/09/21 12:14 IMPRESSION: Normal x-ray examination of the shoulder. Electronically Signed: Sander Garcia MD at 17:11 EST , Physical Exam Const alert, oriented x3 and no apparent distress General Appearance: cooperative Exam Limitations: no limitations HEENT normocephalic, head/scalp atraumatic, moist oral mucous membranes and oropharynx normal Head and Scalp: normocephalic Eyes PERRL, EOMs intact bilaterally and conjunctivae normal Neck no lymphadenopathy and supple Resp normal respiratory effort, no retractions, no use of accessory muscles and clear to auscultation bilaterally Cardio regular rate, regular rhythm, S1 normal heart sound, S2 normal heart sound and no murmurs GI normal to inspection, nondistended, normoactive bowel sounds, soft to palpation, non-tender and non-distended GI Narrative: PEG Tube in situ; PEG tube has been changed. Extremity normal to inspection, full ROM and no clubbing, cyanosis or edema Peripheral Pulses: Yes pulses 2+ throughout Skin no rashes or lesions noted, no wounds and skin turgor normal Neuro oriented x3, CN's II-XII intact bilaterally and moves all extremities Sensorium / Orientation: awake and alert Psych affect normal Charges/Coding Addendum Addendum: Assessment and plan #Chronic Hyponatremia * sodium is 128 today which is around her baseline. . * on tube feed via PEG tube with free water flushes. * #UTI * Urine cultures negative so far. Blood cultures grew alphahemolytic Streptococcus and strep agalactiae. * ID on board. On IV ceftriaxone. * #Lung and liver lesions probably due to metastatic disease from esophageal ca * CT chest showed multiple lung lesions. Was known to have a 2mm lesion in the right lower lobe, per oncology documentation in 2019. * is s/p biopsy of the liver lesion. Pathology results pending * oncology on board #Malfunctioning PEG tube * PEG tube changed by general surgery yesterday. * PEG tube now functioning well. * * #Left shoulder pain * left shoulder xray was normal * PT/OT on board. Does have a history of arthritis * on tylenol and morphine prn * #Debility due to hyponatremia and UTI * PT/OT on board. Fall precautions * #History of esophageal cancer * S/p radiation. Has PEG tube in place due to esophageal strictures. * oncology on board. * #Hypertension: On atenolol 25 mg twice daily #Nutrition: On Jevity 240mls every 6 hours via PEG tube #Hypothyroidism: On Synthroid DVT prophylaxis: Lovenox Visit Charges Inpatient E&M: 02895 Subs Hosp L2
--- NOTE | 2021-05-10 12:27 | PCM.PN.ID ---
Physical Exam Narrative Feeling better, no fever, no abd pain Const alert and no apparent distress General Appearance: cooperative Resp normal air movement and clear to auscultation bilaterally Cardio regular rate and regular rhythm GI soft to palpation, non-tender and non-distended Skin no rashes or lesions noted ID ID: Route of nutrition/ use of supplements: [] Nutritional Intake: [] IV Site: [] Conrad Catheter: [] Assessment & Plan Assessment/Plan (1) General weakness: PLAN: Single Bcx with GBS. Possible source is PEG cellulitis, CAP, or (less likely) uti. UA was benign. Pt feeling better. On ceftriaxone, plan on one week total of abx starting from 05/08. Can change to po omnicef 300mg bid to complete course if she is discharged. Will follow. Vaccinated for covid x3.
--- NOTE | 2021-05-10 12:59 | CASEMGMT ---
Addendum entered by Flor Peña 05/10/21 14:30: Pt accepted to [facility] upon dc. Original Note: RN CM in to pt room, pt dtr at bedside. Discussed HHC with pt. They both still want [facility] for SN only. Deny need for therapy. Pt [facility] PEG supplies [facility] and at this time will go home with same TF as when she came in. TC to [facility], spoke with Maria E, referral made. Will await acceptance.
[2021-05-10] MEDS: Morphine 2 MG/ML Syringe IV (22:16)
[2021-05-10] MEDS: 0.9% Saline Lock 10 ML Syringe IV (22:16)
[2021-05-10] MEDS: Atenolol 25 MG Tablet GT (22:31)
[2021-05-11] VITALS (13 sets, daily range): BP systolic 97–114; BP diastolic 52–54; PULSE 70–100; RESP 16–18; TEMP 36.5–37.1; O2SAT 92–97
[2021-05-11 04:57] LABS: Absolute Lymphocyte Count 2.38 X10^3/uL (0.83-4.51); Absolute Neutrophil Count 6.5 X10^3/uL (2.0-7.7); Basophil# 0.04 X10^3/uL; Basophil% 0.4 % (0-1); Eosinophil# 0.29 X10^3/uL; Eosinophils% 2.8 % (0-5); Hematocrit 27.1 % (37-47); Hemoglobin 9.1 g/dL (12.0-15.0); Lymphocyte # 2.38 X10^3/ul (0.83-4.51); Lymphocyte % 23.2 % (19-41); Mean Corp Hgb Conc 33.6 g/dL (32-36); Mean Corpuscular Hgb 27.8 pg (27.0-32.0); Mean Corpuscular Volume 82.9 fL (81-99); Mean Platelet Vol. 9.1 fl (6.2-12.0); Monocyte# 0.95 X10^3/uL; Monocyte% 9.3 % (0-10); NRBC Flagged by Analyzer 0 % (0-5); Neutrophil # 6.45 X10^3/uL (2.7-7.7); Neutrophil % 62.8 % (47-70); Platelet Count 324 K/mm3 (150-450); RBC Distribution Width CV 14.6 % (11.6-14.6); RBC Distribution Width SD 44.7 fl (35.1-43.9); Red Blood Count 3.27 M/mm3 (4.2-5.4); White Blood Count 10.3 K/mm3 (4.4-11.0)
[2021-05-11 05:21] LABS: Anion Gap 7 (5-15); BUN 24 mg/dL (7-18); BUN/Creat Ratio 29.6 RATIO (10-20); Calcium,Total 8.8 mg/dL (8.5-10.1); Chloride 96 mmol/L (98-107); Creatinine, Serum 0.81 mg/dL (0.55-1.02); EST Glomerular Filtration Rate 72 mL/min (>60); Est Glom Filt Rate - Afr Amer 87 mL/min (>60); Estimated Creatinine Clearance 43.53 ml/min; Glucose 109 mg/dL (74-106); Potassium 4.3 mmol/L (3.5-5.1); Sodium Level 128 mmol/L (136-145)
[2021-05-11] MEDS: Levothyroxine 112 MCG Tablet GT (06:42)
[2021-05-11] MEDS: Albuterol 2.5 MG/3 ML VIAL.NEB. INHALATION ×3 (06:55→18:21)
[2021-05-11] MEDS: Budesonide Respules 0.5 MG/2 ML AMPUL.NEB. INHALATION ×2 (06:59→18:21)
--- NOTE | 2021-05-11 08:49 | ONC.PN.INPT ---
Subjective Subjective Upon entering the room patient is sitting upright in bedside chair. States she just completed some physical therapy. Only complaint this morning is left-sided shoulder pain. Describes as a deep ache rates pain 6-7 out of 10, points anteriorly and posteriorly. States pain has been present x2 weeks but is progressively worsening. Physical Exam Const alert, oriented x3 and no apparent distress General Appearance: cooperative Exam Limitations: no limitations HEENT normocephalic and head/scalp atraumatic Head and Scalp: normocephalic Eyes conjunctivae normal and no scleral icterus Neck no lymphadenopathy and supple Resp normal respiratory effort, no retractions, no use of accessory muscles and clear to auscultation bilaterally Cardio regular rate, regular rhythm, S1 normal heart sound and S2 normal heart sound GI normal to inspection, nondistended, normoactive bowel sounds and non-tender GI Narrative: PEG Tube in in place Extremity normal to inspection, full ROM and no clubbing, cyanosis or edema Peripheral Pulses: Yes pulses 2+ throughout Skin no rashes or lesions noted and no wounds Neuro oriented x3, CN's II-XII intact bilaterally and moves all extremities Sensorium / Orientation: awake and alert Psych affect normal Mood & Affect: tearful Vital Signs Temperature 97.7 F L 05/11/21 08:05 Temperature Source Oral 05/11/21 08:05 Pulse Rate 89 05/11/21 08:05 Respiratory Rate 18 05/11/21 08:05 Respiratory Effort Short of Breath 05/08/21 09:44 Respiratory Depth Normal 05/08/21 09:44 Respiratory Pattern Normal 05/11/21 06:55 Blood Pressure 97/54 L 05/11/21 08:05 Blood Pressure Mean 68 05/11/21 08:05 Blood Pressure Source Monitor 05/11/21 08:05 Blood Pressure Position Semi-Fowlers 05/11/21 08:05 Blood Pressure Location Right Arm 05/11/21 08:05 Baseline BP 126/51 05/08/21 12:56 Pulse Ox 97 05/11/21 08:05 Oxygen Delivery Method Room Air 05/11/21 08:05 Oxygen Flow Rate (L/min) 2 05/08/21 11:31 Laboratory Results - last 24 hr 05/11/21 04:38: WBC 10.3, RBC 3.27 L, Hgb 9.1 L, Hct 27.1 L, MCV 82.9, MCH 27.8, MCHC 33.6, RDW Std Deviation 44.7 H, RDW Coeff of Mickey 14.6, Plt Count 324, MPV 9.1, Immature Gran % (Auto) 1.500 H, Neut % (Auto) 62.8, Lymph % (Auto) 23.2, [place] % (Auto) 9.3, Eos % (Auto) 2.8, Baso % (Auto) 0.4, Absolute Neuts (auto) 6.5, Absolute Lymphs (auto) 2.38, Nucleated RBC % 0 05/11/21 04:38: Sodium 128 L, Potassium 4.3, Chloride 96 L, Carbon Dioxide 25.0, Anion Gap 7, BUN 24 H, Creatinine 0.81, Estim Creat Clear Calc 43.53, Est GFR (MDRD) Af Amer 87, Est GFR (MDRD) Non-Af 72, BUN/Creatinine Ratio 29.6 H, Glucose 109 H, Calcium 8.8 Microbiology 05/07/21 05:32 Blood Culture (Wb) - Anticubital Right Blood Culture - Preliminary Strep not Strep pneumo Alpha Hemolytic Streptococcus 05/07/21 Unknown Urine, Clean Catch Urine Culture - Final Culture exhibits no growth. Diagnostic Data Abdomen/Pelvis CT 05/07/21 05:19 IMPRESSION: There is no appendicitis, colitis, ascites, hydronephrosis, abscess, collection, perforation or obstruction. Significant sigmoid diverticulosis, there is mild wall thickening without pericolonic fat stranding which may be due to chronic changes. No acute diverticulitis detected. Hepatic and splenic cysts, right renal cysts, the smallest ones are indeterminate. If needed this can be further assessed with ultrasound. Retained fecal material in the right colon. Arteriosclerosis, degenerative changes, osteopenia and other nonacute findings as above. Electronically Signed: Laurence Dover MD at 7:33 EST Reading Location ID and State: , Service support , Chest CTA 05/07/21 06:49 IMPRESSION: No demonstrated pulmonary embolism, aneurysm, leak or arterial dissection. Numerous lung masses as above, as seen on chest x-ray suspicious for neoplasm. PET scan, staging and tissue sampling recommended. Mediastinal lymphadenopathy. There is an incomplete soft tissue mass along the right lower neck extending into superior mediastinum. This was not present on previous CT neck soft tissue 05/26/2019. CT neck contrast recommended. Right axillary lymphadenopathy. Mild atherosclerosis and coronary artery disease. No destructive osseous lesions detected. Normal adrenal glands. Electronically Signed: Laurence Dover MD at 7:48 EST Reading Location ID and State: , Service support , Biopsy CT 05/08/21 07:00 IMPRESSION: 1. CT directed core needle biopsy of the right lower lobe nodule using CT image guidance with image documentation as described. Pathology results are pending. 2. Conscious Sedation protocol utilized with independent monitoring. Electronically Signed: Josh Singh MD at 13:00 EST , Chest X-Ray 05/08/21 13:30 IMPRESSION: No evidence of pneumothorax on the post right lung biopsy radiographs. Electronically Signed: Josh Singh MD at 15:30 EST , Shoulder X-Ray 05/09/21 12:14 IMPRESSION: Normal x-ray examination of the shoulder. 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 It was explained to patient IHC similar to IHC report from 05/22/2014 biopsy of her esophagus, indicating this is most likely recurrent disease now with metastasis to lung. CT abdomen and pelvis obtained 05/07/2021, demonstrated attenuation in the liver. PET/CT needed to further characterize. Also will request PDL1 to be performed on tissue. Patient requested I call her daughter Soo and share this information- I attempted to reach her by phone. The patient verbalized she is interested in treatment. Treatment recommendations will be discussed after restaging with PET CT and PDL1 status in the outpatient setting. Patient to follow-up with [facility] upon discharge. Case was discussed with Dr. Crawford who was in agreement with aforementioned plan. (2) History of esophageal cancer: (3) Left shoulder pain: QUALIFIERS: Chronicity: acute Qualified Code(s): M25.512 - Pain in left shoulder PLAN: Plain films done yesterday were read as normal. Explained PET/CT may be helpful. Alk phos within normal limits.
[2021-05-11] MEDS: Ceftriaxone 1 GM/50 ML BAG IV (09:40)
[2021-05-11] MEDS: Lansoprazole 15 MG Capsule.DR 30 MG GT (09:40)
[2021-05-11] MEDS: 0.9% Saline Lock 10 ML Syringe IV ×2 (09:40→22:49)
[2021-05-11] MEDS: Jevity 1.5. 1,000 ML Bottle 250 ML GT ×3 (09:40→18:09)
--- NOTE | 2021-05-11 12:13 | PN.HOSP_ITS ---
Subjective Subjective Patient seen and examined. She had no active complaints today, apart from feeling tired. 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 She states she was told by general surgery that she would need a bigger PEG tube placed before discharge. She did have a bowel movement yesterday. Review of symptoms otherwise negative. Objective Data Objective Data Vital Signs: Vital Signs Temp Pulse Resp BP Pulse Ox 97.7 F L 89 18 97/54 L 97 05/11/21 08:05 05/11/21 08:05 05/11/21 08:05 05/11/21 08:05 05/11/21 08:05 Oxygen Flow Rate (L/min) [6] 2 Oxygen Flow Rate (L/min) [5] 2 Oxygen Flow Rate (L/min) [4] 2 Oxygen Flow Rate (L/min) [3] 2 Oxygen Flow Rate (L/min) [2] 2 Oxygen Flow Rate (L/min) [1 ( 2 Initial Baseline)] Oxygen Delivery Method [6] Nasal Cannula Oxygen Delivery Method [5] Nasal Cannula Oxygen Delivery Method [4] Nasal Cannula Oxygen Delivery Method [3] Nasal Cannula Oxygen Delivery Method [2] Nasal Cannula Oxygen Delivery Method [1 ( Nasal Cannula Initial Baseline)] Oxygen Delivery Method Room Air Weight: 152 lb 6 oz Body Mass Index (BMI) 27.4 Intake & Output: Intake and Output for Last 24 Hours 05/09/21 05/10/21 05/11/21 23:59 23:59 23:59 Intake Total 1020 / 1020 690 / 690 340 / 340 Output Total 800 / 1000 650 / 650 250 / 250 Balance 220 / 20 40 / 40 90 / 90 Lab / Micro Data Result Diagrams: 05/11/21 04:38 05/11/21 04:38 Labs: Laboratory Results - last 24 hr 05/11/21 04:38: WBC 10.3, RBC 3.27 L, Hgb 9.1 L, Hct 27.1 L, MCV 82.9, MCH 27.8, MCHC 33.6, RDW Std Deviation 44.7 H, RDW Coeff of Mickey 14.6, Plt Count 324, MPV 9.1, Immature Gran % (Auto) 1.500 H, Neut % (Auto) 62.8, Lymph % (Auto) 23.2, [place] % (Auto) 9.3, Eos % (Auto) 2.8, Baso % (Auto) 0.4, Absolute Neuts (auto) 6.5, Absolute Lymphs (auto) 2.38, Nucleated RBC % 0 05/11/21 04:38: Sodium 128 L, Potassium 4.3, Chloride 96 L, Carbon Dioxide 25.0, Anion Gap 7, BUN 24 H, Creatinine 0.81, Estim Creat Clear Calc 43.53, Est GFR (MDRD) Af Amer 87, Est GFR (MDRD) Non-Af 72, BUN/Creatinine Ratio 29.6 H, Glucose 109 H, Calcium 8.8 Micro: Microbiology 05/07/21 05:32 Blood Culture (Wb) - Anticubital Right Blood Culture - Final Strep anginosus 05/07/21 Unknown Urine, Clean Catch Urine Culture - Final Culture exhibits no growth. 05/07/21 05:30 Blood Culture (Wb) - Left Hand Blood Culture - Final Streptococcus agalactiae (B) 05/07/21 05:26 Nasal Secretion SARS-CoV-2 Antigen (Rapid) - Final Physical Exam Const alert, oriented x3 and no apparent distress General Appearance: cooperative Exam Limitations: no limitations HEENT normocephalic, head/scalp atraumatic, moist oral mucous membranes and oropharynx normal Head and Scalp: normocephalic Eyes PERRL, EOMs intact bilaterally and conjunctivae normal Neck no lymphadenopathy and supple Resp normal respiratory effort, no retractions, no use of accessory muscles and clear to auscultation bilaterally Cardio regular rate, regular rhythm, S1 normal heart sound, S2 normal heart sound and no murmurs GI normal to inspection, nondistended, normoactive bowel sounds, soft to palpation, non-tender and non-distended GI Narrative: PEG Tube in situ; PEG tube has been changed. Extremity normal to inspection, full ROM and no clubbing, cyanosis or edema Peripheral Pulses: Yes pulses 2+ throughout Skin no rashes or lesions noted, no wounds and skin turgor normal Neuro oriented x3, CN's II-XII intact bilaterally and moves all extremities Sensorium / Orientation: awake and alert Psych Psych Narrative: flat affect Assessment & Plan Assessment/Plan (1) Esophageal cancer: (2) Hyponatremia: (3) UTI (urinary tract infection): PLAN: #Chronic hyponatremia * sodium is 128 today. This is chronic also. . On tube feed via PEG tube * #UTI * UA showed 1+ bacteria. On IV ceftriaxone 1gram q24. * urine culture pending * #Lung lesions, probably due to mets from esophageal CA * CT chest showed multiple lung lesions. Was known to have a 2mm lesion in the right lower lobe, per oncology documentation in 2019. * had biopsy of liver lesion done; pathology shows a squamous cell carcinoma. 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 * Oncology following and for patient to have PET scan on outpatient basis to stage III malignancy and discuss treatment options. * oncology on board * * #Malfunctioning PEG tube * PEG tube changed by general surgery. Per general surgery note and patient, to upsize to a bigger PEG tube before discharge. * Discharge cussed with Dr. Mayo today, PEG tube will be upsized tomorrow * #Left shoulder pain * left shoulder xray showed no acute pathology. This is likely due to osteoathritis * on tylenol and morphine prn * #Debility due to hyponatremia and UTI * PT/OT on board.. Fall precautions * #History of esophageal cancer * S/p radiation. Has PEG tube in place due to esophageal strictures. * oncology on board. * #Hypertension: On atenolol 25 mg twice daily #Nutrition: On Jevity 240mls every 6 hours via PEG tube #Hypothyroidism: On Synthroid DVT prophylaxis: Lovenox CODE STATUS: * DNRCCA. Charges/Coding Visit Charges Inpatient E&M: 83686 Subs Hosp L2
[2021-05-11] MEDS: oxyCODONE 5 MG Tablet 10 MG GT (13:19)
--- NOTE | 2021-05-11 15:03 | PN.SURG_ITS ---
Subjective Subjective Patient states that she has still had some leaking with the G-tube as it was changed from a 22 [address] Espinoza. Per patient Dr. Espinoza plan to place back to 22 on Thursday. Objective Data Objective Data Vital Signs: Vital Signs Temp Pulse Resp BP Pulse Ox 98.6 F 73 18 103/53 L 97 05/11/21 13:15 05/11/21 13:15 05/11/21 14:05 05/11/21 13:15 05/11/21 13:15 Oxygen Flow Rate (L/min) [6] 2 Oxygen Flow Rate (L/min) [5] 2 Oxygen Flow Rate (L/min) [4] 2 Oxygen Flow Rate (L/min) [3] 2 Oxygen Flow Rate (L/min) [2] 2 Oxygen Flow Rate (L/min) [1 ( 2 Initial Baseline)] Oxygen Delivery Method [6] Nasal Cannula Oxygen Delivery Method [5] Nasal Cannula Oxygen Delivery Method [4] Nasal Cannula Oxygen Delivery Method [3] Nasal Cannula Oxygen Delivery Method [2] Nasal Cannula Oxygen Delivery Method [1 ( Nasal Cannula Initial Baseline)] Oxygen Delivery Method Room Air Weight: 152 lb 6 oz Body Mass Index (BMI) 27.4 Intake & Output: Intake and Output for Last 24 Hours 05/09/21 05/10/21 05/11/21 23:59 23:59 23:59 Intake Total 1020 / 1020 690 / 690 440 / 440 Output Total 800 / 1000 650 / 650 250 / 250 Balance 220 / 20 40 / 40 190 / 190 Lab / Micro Data Result Diagrams: 05/11/21 04:38 05/11/21 04:38 Labs: Laboratory Results - last 24 hr 05/11/21 04:38: WBC 10.3, RBC 3.27 L, Hgb 9.1 L, Hct 27.1 L, MCV 82.9, MCH 27.8, MCHC 33.6, RDW Std Deviation 44.7 H, RDW Coeff of Mickey 14.6, Plt Count 324, MPV 9.1, Immature Gran % (Auto) 1.500 H, Neut % (Auto) 62.8, Lymph % (Auto) 23.2, [place] % (Auto) 9.3, Eos % (Auto) 2.8, Baso % (Auto) 0.4, Absolute Neuts (auto) 6.5, Absolute Lymphs (auto) 2.38, Nucleated RBC % 0 05/11/21 04:38: Sodium 128 L, Potassium 4.3, Chloride 96 L, Carbon Dioxide 25.0, Anion Gap 7, BUN 24 H, Creatinine 0.81, Estim Creat Clear Calc 43.53, Est GFR (MDRD) Af Amer 87, Est GFR (MDRD) Non-Af 72, BUN/Creatinine Ratio 29.6 H, Glucose 109 H, Calcium 8.8 Micro: Microbiology 05/07/21 05:32 Blood Culture (Wb) - Anticubital Right Blood Culture - Final Strep anginosus 05/07/21 Unknown Urine, Clean Catch Urine Culture - Final Culture exhibits no growth. 05/07/21 05:30 Blood Culture (Wb) - Left Hand Blood Culture - Final Streptococcus agalactiae (B) 05/07/21 05:26 Nasal Secretion SARS-CoV-2 Antigen (Rapid) - Final Physical Exam Narrative Abdomen: Soft, nondistended, mild tenderness near PEG tube, excoriation around PEG tube dressed with drain gauze, no peritoneal signs Resp normal respiratory effort Cardio regular rate Assessment & Plan Assessment/Plan (1) Malfunction of gastrostomy tube: (2) Gastrostomy tube skin breakdown: PLAN: We will plan for upsizing of the G-tube back to by Dr. Espinoza on Thursday. Continue wound care to the site Brittany Azul M.D. Pager: [phone] [facility] [address] [place] [address], [facility], [address] [place] [address] Office: [phone]
[2021-05-11] MEDS: Atenolol 25 MG Tablet GT (22:48)
[2021-05-12] VITALS (14 sets, daily range): BP systolic 98–122; BP diastolic 50–59; PULSE 70–89; RESP 16–20; TEMP 36.8–37.1; O2SAT 93–98
[2021-05-12] MEDS: Levothyroxine 112 MCG Tablet GT (06:13)
[2021-05-12] MEDS: 0.9% Saline Lock 10 ML Syringe IV (06:26)
[2021-05-12 06:55] LABS: Absolute Lymphocyte Count 2.66 X10^3/uL (0.83-4.51); Absolute Neutrophil Count 6.3 X10^3/uL (2.0-7.7); Basophil# 0.05 X10^3/uL; Basophil% 0.5 % (0-1); Eosinophil# 0.33 X10^3/uL; Eosinophils% 3.1 % (0-5); Hematocrit 27.9 % (37-47); Hemoglobin 9.5 g/dL (12.0-15.0); Lymphocyte # 2.66 X10^3/ul (0.83-4.51); Lymphocyte % 25.3 % (19-41); Mean Corp Hgb Conc 34.1 g/dL (32-36); Mean Corpuscular Hgb 28.4 pg (27.0-32.0); Mean Corpuscular Volume 83.3 fL (81-99); Mean Platelet Vol. 9.2 fl (6.2-12.0); Monocyte# 0.99 X10^3/uL; Monocyte% 9.4 % (0-10); NRBC Flagged by Analyzer 0 % (0-5); Neutrophil # 6.28 X10^3/uL (2.7-7.7); Neutrophil % 59.9 % (47-70); Platelet Count 337 K/mm3 (150-450); RBC Distribution Width CV 14.6 % (11.6-14.6); RBC Distribution Width SD 44.1 fl (35.1-43.9); Red Blood Count 3.35 M/mm3 (4.2-5.4); White Blood Count 10.5 K/mm3 (4.4-11.0)
[2021-05-12 07:25] LABS: Anion Gap 9 (5-15); BUN 23 mg/dL (7-18); BUN/Creat Ratio 26.8 RATIO (10-20); Calcium,Total 8.7 mg/dL (8.5-10.1); Chloride 97 mmol/L (98-107); Creatinine, Serum 0.86 mg/dL (0.55-1.02); EST Glomerular Filtration Rate 67 mL/min (>60); Est Glom Filt Rate - Afr Amer 81 mL/min (>60); Glucose 89 mg/dL (74-106); Potassium 4.3 mmol/L (3.5-5.1); Sodium Level 129 mmol/L (136-145)
[2021-05-12] MEDS: Budesonide Respules 0.5 MG/2 ML AMPUL.NEB. INHALATION ×2 (07:28→19:24)
[2021-05-12] MEDS: Albuterol 2.5 MG/3 ML VIAL.NEB. INHALATION ×3 (07:28→19:24)
[2021-05-12] MEDS: Lansoprazole 15 MG Capsule.DR 30 MG GT (09:55)
[2021-05-12] MEDS: Jevity 1.5. 1,000 ML Bottle 250 ML GT ×3 (09:55→18:35)
[2021-05-12] MEDS: Ceftriaxone 1 GM/50 ML BAG IV (09:57)
--- NOTE | 2021-05-12 11:41 | PN.HOSP_ITS ---
Subjective Subjective Patient seen and examined. She had no active complaints today and had an uneventful night. Review of systems otherwise negative. Blood pressure running a bit low today at 98/52. She is for PEG tube replacement tomorrow. Objective Data Objective Data Vital Signs: Vital Signs Temp Pulse Resp BP Pulse Ox 98.6 F 72 16 98/52 L 97 05/12/21 09:53 05/12/21 09:53 05/12/21 09:53 05/12/21 09:53 05/12/21 09:53 Oxygen Flow Rate (L/min) [6] 2 Oxygen Flow Rate (L/min) [5] 2 Oxygen Flow Rate (L/min) [4] 2 Oxygen Flow Rate (L/min) [3] 2 Oxygen Flow Rate (L/min) [2] 2 Oxygen Flow Rate (L/min) [1 ( 2 Initial Baseline)] Oxygen Delivery Method [6] Nasal Cannula Oxygen Delivery Method [5] Nasal Cannula Oxygen Delivery Method [4] Nasal Cannula Oxygen Delivery Method [3] Nasal Cannula Oxygen Delivery Method [2] Nasal Cannula Oxygen Delivery Method [1 ( Nasal Cannula Initial Baseline)] Oxygen Delivery Method Room Air Weight: 152 lb 5.96 oz Body Mass Index (BMI) 27.4 Intake & Output: Intake and Output for Last 24 Hours 05/10/21 05/11/21 05/12/21 23:59 23:59 23:59 Intake Total 690 / 690 540 / 640 250 / 250 Output Total 650 / 650 550 / 850 550 / 550 Balance 40 / 40 -10 / -210 -300 / -300 Lab / Micro Data Result Diagrams: 05/12/21 06:40 05/12/21 06:40 Labs: Laboratory Results - last 24 hr 05/12/21 06:40: WBC 10.5, RBC 3.35 L, Hgb 9.5 L, Hct 27.9 L, MCV 83.3, MCH 28.4, MCHC 34.1, RDW Std Deviation 44.1 H, RDW Coeff of Mickey 14.6, Plt Count 337, MPV 9.2, Immature Gran % (Auto) 1.800 H, Neut % (Auto) 59.9, Lymph % (Auto) 25.3, [place] % (Auto) 9.4, Eos % (Auto) 3.1, Baso % (Auto) 0.5, Absolute Neuts (auto) 6.3, Absolute Lymphs (auto) 2.66, Nucleated RBC % 0 05/12/21 06:40: Sodium 129 L, Potassium 4.3, Chloride 97 L, Carbon Dioxide 23.0, Anion Gap 9, BUN 23 H, Creatinine 0.86, Estim Creat Clear Calc 41.00, Est GFR (MDRD) Af Amer 81, Est GFR (MDRD) Non-Af 67, BUN/Creatinine Ratio 26.8 H, Glucose 89, Calcium 8.7 Micro: Microbiology 05/07/21 05:32 Blood Culture (Wb) - Anticubital Right Blood Culture - Final Strep anginosus 05/07/21 Unknown Urine, Clean Catch Urine Culture - Final Culture exhibits no growth. 05/07/21 05:30 Blood Culture (Wb) - Left Hand Blood Culture - Final Streptococcus agalactiae (B) 05/07/21 05:26 Nasal Secretion SARS-CoV-2 Antigen (Rapid) - Final Physical Exam Const alert, oriented x3 and no apparent distress General Appearance: cooperative Exam Limitations: no limitations HEENT normocephalic, head/scalp atraumatic, moist oral mucous membranes and oropharynx normal Head and Scalp: normocephalic Eyes PERRL, EOMs intact bilaterally and conjunctivae normal Neck no lymphadenopathy and supple Resp normal respiratory effort, no retractions, no use of accessory muscles and clear to auscultation bilaterally Cardio regular rate, regular rhythm, S1 normal heart sound, S2 normal heart sound and no murmurs GI normal to inspection, nondistended, normoactive bowel sounds, soft to palpation, non-tender and non-distended GI Narrative: PEG Tube in situ; PEG tube has been changed. Extremity normal to inspection, full ROM and no clubbing, cyanosis or edema Peripheral Pulses: Yes pulses 2+ throughout Skin no rashes or lesions noted, no wounds and skin turgor normal Neuro oriented x3, CN's II-XII intact bilaterally and moves all extremities Sensorium / Orientation: awake and alert Psych affect normal Assessment & Plan Assessment/Plan (1) Esophageal cancer: (2) Hyponatremia: (3) UTI (urinary tract infection): PLAN: #Chronic hyponatremia * sodium is 129 today. will monitor * . On tube feed via PEG tube * #UTI * UA showed 1+ bacteria. On IV ceftriaxone 1gram q24. * urine culture pending * #Lung lesions, probably due to mets from esophageal CA * CT chest showed multiple lung lesions. Was known to have a 2mm lesion in the right lower lobe, per oncology documentation in 2019. * had biopsy of liver lesion done; pathology shows a squamous cell carcinoma. Per oncology, this is likely recurrence of esophageal cancer with metastasis t o the lung. * Oncology following and for patient to have PET scan on outpatient basis to stage III malignancy and discuss treatment options. * oncology on board * * #Malfunctioning PEG tube * PEG tube changed by general surgery. Per general surgery note and patient, to upsize to a bigger PEG tube before discharge. * PEG Tube to be changed to a bigger size by Dr Espinoza tomorrow. * #Left shoulder pain * left shoulder xray showed no acute pathology. This is likely due to osteoathritis * on tylenol and morphine prn * #Debility due to hyponatremia and UTI * PT/OT on board.. Fall precautions * #History of esophageal cancer * S/p radiation. Has PEG tube in place due to esophageal strictures. * oncology on board. * #Hypertension: On atenolol 25 mg twice daily #Nutrition: On Jevity 240mls every 6 hours via PEG tube #Hypothyroidism: On Synthroid DVT prophylaxis: Lovenox CODE STATUS: * DNRCCA. * Disposition: for DC home tomorrow if stable after PEG tube changed. Charges/Coding Visit Charges Inpatient E&M: 44525 Subs Hosp L2
[2021-05-12] MEDS: Acetaminophen 650 MG/20 ML UDC GT (22:47)
[2021-05-12] MEDS: oxyCODONE 5 MG Tablet 10 MG GT (22:48)
[2021-05-13] VITALS (8 sets, daily range): BP systolic 101–120; BP diastolic 53–58; PULSE 69–86; RESP 16–22; TEMP 36.5–36.6; O2SAT 98–100
[2021-05-13] MEDS: Senna Tablet 2 TABLET GT (05:35)
[2021-05-13] MEDS: oxyCODONE 5 MG Tablet 10 MG GT ×2 (05:35→14:13)
[2021-05-13] MEDS: Acetaminophen 650 MG/20 ML UDC GT ×2 (05:35→14:12)
[2021-05-13] MEDS: Levothyroxine 112 MCG Tablet GT (05:46)
[2021-05-13 06:15] LABS: Absolute Lymphocyte Count 3.23 X10^3/uL (0.83-4.51); Absolute Neutrophil Count 5.4 X10^3/uL (2.0-7.7); Basophil# 0.06 X10^3/uL; Basophil% 0.6 % (0-1); Eosinophil# 0.35 X10^3/uL; Eosinophils% 3.5 % (0-5); Hemoglobin 9.6 g/dL (12.0-15.0); Lymphocyte # 3.23 X10^3/ul (0.83-4.51); Lymphocyte % 31.9 % (19-41); Mean Corp Hgb Conc 33.1 g/dL (32-36); Mean Corpuscular Hgb 28.2 pg (27.0-32.0); Mean Corpuscular Volume 85.3 fL (81-99); Mean Platelet Vol. 9.2 fl (6.2-12.0); Monocyte# 0.89 X10^3/uL; Monocyte% 8.8 % (0-10); NRBC Flagged by Analyzer 0 % (0-5); Neutrophil # 5.36 X10^3/uL (2.7-7.7); Platelet Count 324 K/mm3 (150-450); RBC Distribution Width CV 14.7 % (11.6-14.6); RBC Distribution Width SD 45.9 fl (35.1-43.9); White Blood Count 10.1 K/mm3 (4.4-11.0)
[2021-05-13 06:31] LABS: Anion Gap 8 (5-15); BUN 24 mg/dL (7-18); BUN/Creat Ratio 27.7 RATIO (10-20); Calcium,Total 8.8 mg/dL (8.5-10.1); Chloride 97 mmol/L (98-107); Creatinine, Serum 0.86 mg/dL (0.55-1.02); EST Glomerular Filtration Rate 67 mL/min (>60); Est Glom Filt Rate - Afr Amer 80 mL/min (>60); Glucose 99 mg/dL (74-106); Potassium 4.5 mmol/L (3.5-5.1); Sodium Level 128 mmol/L (136-145)
[2021-05-13] MEDS: Budesonide Respules 0.5 MG/2 ML AMPUL.NEB. INHALATION (07:44)
[2021-05-13] MEDS: Albuterol 2.5 MG/3 ML VIAL.NEB. INHALATION ×2 (07:44→13:08)
[2021-05-13] MEDS: 0.9% Saline Lock 10 ML Syringe IV (08:41)
[2021-05-13] MEDS: Ondansetron 4 MG/2 ML Vial IV (08:41)
[2021-05-13] MEDS: Ceftriaxone 1 GM/50 ML BAG IV (10:03)
--- NOTE | 2021-05-13 11:21 | WOUNDNOTE ---
Dr Espinoza in to exchange the gastrostomy tube. the 20F tube was removed and a 22F tube was placed. there is still some denuded skin around the tube, but appears slightly improved. plan to continue with the calmoseptine as a moisture barrier cream. split gauze was placed as well. pt tolerated the procedure well.
[2021-05-13] MEDS: Atenolol 25 MG Tablet GT (11:30)
[2021-05-13] MEDS: Lansoprazole 15 MG Capsule.DR 30 MG GT (11:30)
[2021-05-13] MEDS: Jevity 1.5. 1,000 ML Bottle 250 ML GT ×2 (11:31→13:55)
--- NOTE | 2021-05-13 13:11 | PCM.PN.BLA ---
Progress Note She was seen and examined during AM rounds and then during the second visit later this morning. She reports several bowel movements over the weekend. She is eager to have her gastrostomy tube changed and be underway with her treatment for metastatic esophageal carcinoma. Physical Exam Const alert, oriented x3 and no apparent distress GI GI Narrative: Nondistended, soft, excoriation around patient's PEG tube site appears somewhat improved. The gastrotomy diameter seems somewhat decreased as well. Assessment & Plan Assessment/Plan (1) Malfunction of gastrostomy tube: PLAN: I performed a PEG tube exchange at bedside today placing a 22 [place] gastrostomy through the patient's gastrotomy. Patient tolerated this without much discomfort. The tube showed good apposition with the surrounding soft tissue. The balloon was filled with 6 mL sterile water and the bumper found a position of 4 cm at the skin surface when snugged to the abdominal wall. ?Recommend patient have 1 enteral feeding here prior to discharge ?Recommended patient that she continue on MiraLAX daily in order to have 1 bowel movement daily as obstipation will precipitate further tube leakage ?Patient okay for discharge from a surgical standpoint following enteral feeding Visit Charges Inpatient E&M: [address] [facility] Hosp L2
--- NOTE | 2021-05-13 14:18 | DCINST_ITS ---
Discharge Instructions Diet Discharge Diet: - Activity Discharge Activity: Return to Normal Activity Dressing / Incision Call your doctor if your incision/area has: Continuous Slow Oozing and Increased Redness Call your doctor if you observe: Fever of 101 or Higher, Shortness of breath, Dizziness, Fainting spells, Swelling in the ankles, Chest pain and Increased palpitations (irregular heartbeat) Follow Up Care Test Results: Test results from this visit will be discussed in further detail at your follow-up appointment, if applicable. Discharge Plan Admission Admit Date/Time: 05/08/21 08:41 Attending Provider: Pepe Hodge Primary Care Provider: Renyaldo Aden Chi Consulting Providers: Remy Rodriguez ; Emerson Crawford ; Kim Khan ; Venancio Barroso ; Julio Ramirez ; Kush Roman ; Deon Agustin ; Mariana Resendiz [employer] ; Venancio Samuel Instructions Patient Instructions: CT-Guided Lung Biopsy, Discharge Instructions Needle Biopsy: Lung, ED Procedural Sedation, (Adult) Discharge Orders/Prescriptions Prescriptions: New oxycodone 5 mg capsule 5 mg PO BID PRN (Reason: pain) 3 Days Qty: 10 RF: 0 cefdinir 300 mg capsule 300 mg PO BID 1 Days Qty: 2 RF: 0 Continued atenolol 25 MG tablet 25 mg PO BID RF: 0 levothyroxine 112 MCG tablet 112 mcg PO DAILY RF: 0 omeprazole 10 MG capsule 40 mg PO DAILY RF: 0 fluticasone propion-salmeterol 1 PUFF inhaler 2 puff inhalation BID RF: 0 albuterol sulfate 1 INHALER inhaler 1 - 2 puff INHALATION Q4H PRN PRN (Reason: Asthma) RF: 0 simethicone [Infants Simethicone] 40 mg/0.6 mL drops,suspension 0.6 ml feeding tube TID RF: 0 food supplemt, lactose-reduced Liquid 240 ml feeding tube Q6H RF: 0 Referrals / Follow Up: Reynaldo Aden Chi, MD [Primary Care Provider] - Within 1 Week Disposition Disposition (needs filled in before D/C Order can be placed): Home, Self Care
--- NOTE | 2021-05-13 14:48 | PCM.DC.SUM ---
Providers Date of Admission: 05/08/21 Primary Care Physician: Dr. Reynaldo Aden MD Consultations 05/07/21 11:33 Consult: Oncology/Hematology Routine Consulting Provider: [facility] ([facility]) Reason for Consult: hx of esophageal cancer, has new lung lesions EMERGENT Consult: No Notified: Yes Date Notified: 05/07/21 Time Notified: 11:34 Method of Notification: Verbal 05/08/21 07:45 Consult: Infectious Disease Routine Consulting Provider: Venancio Samuel Reason for Consult: bacteremia EMERGENT Consult: No Notified: Yes Date Notified: 05/08/21 Time Notified: 07:45 Method of Notification: Text Reason For Visit: GENERALIZED WEAKNESS, HYPONATREMIA Diagnosis Discharge Diagnosis (1) Malfunction of gastrostomy tube: Status: Acute Code(s): K94.23 - Gastrostomy malfunction Medications at Discharge Home Medications atenolol 25 mg PO BID 06/01/15 levothyroxine 112 mcg PO DAILY 11/23/18 fluticasone propion-salmeterol 2 puff INHALATION BID 10/18/19 omeprazole 40 mg PO DAILY 10/18/19 albuterol sulfate 1 - 2 puff INHALATION Q4H PRN PRN 07/03/20 food supplemt, lactose-reduced 240 ml FEEDING TUBE Q6H 05/07/21 simethicone [Infants Simethicone] 0.6 ml FEEDING TUBE TID 05/07/21 cefdinir 300 mg PO BID 1 Days #2 cap 05/13/21 oxycodone 5 mg PO BID PRN 3 Days #10 cap 05/13/21 Hospital Course Operations None Procedures None Summary of Care Provided Minutes Spent on Discharge: 45 Hospital Course: Per HPI: TONO SHEN, is a 85 F with an extensive PMH as outlined who presents via the ED on 05/07/2021 with multiple myriad complaints. She complained of generalized weakness, frequency of urination and constipation. She has a history of esophageal cancer and is s/p radiation. She apparently had esophageal strictures after the radiation and required repeated esophageal dilatations till the point where she was told she couldnt have such dilatations again. She subsequently had a PEG tube placed and has been on tube feeds since. She denied any burning with urination, and denied any fever, chills, cough, chest pain, nausea or vomiting. REview of systems is otherwise negative. Vitals in [facility] ed were temperature of 98.8F, NM of 66, BP of 127/49 and RR of 16. .CBC showed Hb of 10.3, with wbc of 15.7, platelets of 363. BMp shwoed sodium of 127, bicarb of 24 nad potassium of 4.7. Lactic acid was 1.7. Urinalysis showed 1+ bacteria. CT done in the ED showed no PE, but showed numerous lung masses, and mediastinal lymphadenopathy, with an incomplete soft tissue mass along the right lower neck extending into the superior mediastinum which wasn't present on previous imaging. She is being admitted to be managed for debility due to hyponatremia, UTI and lung lesions, likely due to metastatic cancer. Hospital Course: 1. Debility secondary to metastatic esophageal cancer with new lung lesions as well as a malfunctioning PEG tube/shoulder pain/strep bacteremia?85-year-old female with esophageal cancer with likely metastatic spread to her lungs and shoulder pain present to the hospital with debility. CT scan on admission showed multiple lung lesions, she had had a biopsy of her liver lesion done as an outpatient which was positive for squamous cell carcinoma which oncology believes is a recurrence of her esophageal cancer with metastasis to her lung. She will need to have a PET scan as an outpatient to determine prognosis and course on discharge. As for her debility this has improved, she was started on IV antibiotics secondary to initially do believe that she had a UTI however urine cultures were negative., It is possible that she could have had cellulitis develop around the PEG tube from irritation which is led to be strep organism in her blood. She had 2 blood cultures each with growth in her anaerobic bottles only. She was started on vancomycin and transition to Rocephin. She will complete 1 more day of Omnicef to complete course per ID recommendations. Her PEG tube was changed today by general surgery at the bedside today which she tolerated well. She did receive 2 tube feeds both of which she tolerated without any leakage around the PEG tube. We will provide her with a few days of oxycodone for her left shoulder pain which is likely related to osteoarthritis. I discussed with her the plan for discharge today she expressed understanding of the risk and benefits of going home and would like to go home today. She will need to follow-up with oncology as an outpatient as well as her PCP in 3 to 5 days. 2. Chronic hyponatremia, hypertension, hypothyroidism all chronic medical conditions which complicate her care. Her home medications were continued where appropriate Physical Exam Const alert, oriented x3 and no apparent distress General Appearance: cooperative HEENT normocephalic and moist oral mucous membranes Eyes PERRL, EOMs intact bilaterally and conjunctivae normal Neck supple and no JVD Resp normal respiratory effort, no retractions, no use of accessory muscles and clear to auscultation bilaterally Auscultation: Negative for crackles, rales, rhonchi or wheezes Cardio regular rate, regular rhythm, S1 normal heart sound, S2 normal heart sound and no murmurs GI soft to palpation, non-tender and non-distended; Negative for hepatosplenomegaly GI Narrative: PEG tube in place Extremity no clubbing, cyanosis or edema Skin no rashes or lesions noted Neuro no focal motor deficits and no sensory deficits noted Psych affect normal Appearance: appropriate Weight / BMI Weight Weight: 152 lb 5.783 oz Body Mass Index (BMI) 27.4 ABG / Lab / Microbiology Data Result Diagrams: 05/13/21 05:50 05/13/21 05:50 Laboratory: Laboratory Results - last 24 hr 05/13/21 05:50: WBC 10.1, RBC 3.40 L, Hgb 9.6 L, Hct 29.0 L, MCV 85.3, MCH 28.2, MCHC 33.1, RDW Std Deviation 45.9 H, RDW Coeff of Mickey 14.7 H, Plt Count 324, MPV 9.2, Immature Gran % (Auto) 2.200 H, Neut % (Auto) 53.0, Lymph % (Auto) 31.9, [place] % (Auto) 8.8, Eos % (Auto) 3.5, Baso % (Auto) 0.6, Absolute Neuts (auto) 5.4, Absolute Lymphs (auto) 3.23, Nucleated RBC % 0 05/13/21 05:50: Sodium 128 L, Potassium 4.5, Chloride 97 L, Carbon Dioxide 23.0, Anion Gap 8, BUN 24 H, Creatinine 0.86, Estim Creat Clear Calc 41.00, Est GFR (MDRD) Af Amer 80, Est GFR (MDRD) Non-Af 67, BUN/Creatinine Ratio 27.7 H, Glucose 99, Calcium 8.8 Microbiology: Microbiology 05/07/21 05:32 Blood Culture (Wb) - Anticubital Right Blood Culture - Final Strep anginosus 05/07/21 Unknown Urine, Clean Catch Urine Culture - Final Culture exhibits no growth. 05/07/21 05:30 Blood Culture (Wb) - Left Hand Blood Culture - Final Streptococcus agalactiae (B) 05/07/21 05:26 Nasal Secretion SARS-CoV-2 Antigen (Rapid) - Final D/C Instructions Discharge Diet: - Call your doctor if your incision/area has: Continuous Slow Oozing and Increased Redness Call your doctor if you observe: Fever of 101 or Higher, Shortness of breath, Dizziness, Fainting spells, Swelling in the ankles, Chest pain and Increased palpitations (irregular heartbeat) Meaningful Use Info Meaningful Use Diagnoses (Choose all that apply): None applicable Discharge Plan Admission Admit Date/Time: 05/08/21 08:41 Attending Provider: Pepe Hodge Primary Care Provider: Reynaldo Aden Chi Consulting Providers: Remy Rodriguez ; Emerson Crawford ; Kim Khan ; Venancio Barroso ; Julio Ramirez ; Kush Roman ; Deon Agustin ; Mariana Resendiz INFECTION CONTROL SPECIALIST ; Venancio Samuel Instructions Patient Instructions: CT-Guided Lung Biopsy, Discharge Instructions Needle Biopsy: Lung, ED Procedural Sedation, (Adult) Discharge Orders/Prescriptions Prescriptions: New oxycodone 5 mg capsule 5 mg PO BID PRN (Reason: pain) 3 Days Qty: 10 RF: 0 cefdinir 300 mg capsule 300 mg PO BID 1 Days Qty: 2 RF: 0 Continued atenolol 25 MG tablet 25 mg PO BID RF: 0 levothyroxine 112 MCG tablet 112 mcg PO DAILY RF: 0 omeprazole 10 MG capsule 40 mg PO DAILY RF: 0 fluticasone propion-salmeterol 1 PUFF inhaler 2 puff inhalation BID RF: 0 albuterol sulfate 1 INHALER inhaler 1 - 2 puff INHALATION Q4H PRN PRN (Reason: Asthma) RF: 0 simethicone [Infants Simethicone] 40 mg/0.6 mL drops,suspension 0.6 ml feeding tube TID RF: 0 food supplemt, lactose-reduced Liquid 240 ml feeding tube Q6H RF: 0 Referrals / Follow Up: Reynaldo Aden Chi, MD [Primary Care Provider] - Within 1 Week Disposition Disposition (needs filled in before D/C Order can be placed): Home, Self Care Charges/Coding Visit Charges Inpatient E&M: 45678 Disch Hosp
--- NOTE | 2021-05-13 15:14 | CASEMGMT ---
MORGAN Sanderson at [facility], she is aware pt is dc'ing today. Plan to see pt on Thursday.
== END 2021-05-13 16:30 | disposition home health service (06) | DRG 181 ==
LOC: ED 08:13 → MS3 09:24
PROVIDERS: Emergency Medicine; Admitting Provider Student in an Organized Health Care Education/Training Program; Emergency Provider Emergency Medicine; PCP Family Medicine Geriatric Medicine; Visit Provider Family Medicine
DX: C78.01 Secondary malignant neoplasm of right lung (principal); E87.1 Hypo-osmolality and hyponatremia; C78.89 Secondary malignant neoplasm of other digestive organs; K94.22 Gastrostomy infection; C15.3 Malignant neoplasm of upper third of esophagus; C78.7 Secondary malignant neoplasm of liver and intrahepatic bile duct; K94.23 Gastrostomy malfunction; N39.0 Urinary tract infection, site not specified; L03.311 Cellulitis of abdominal wall; K22.2 Esophageal obstruction; E87.8 Other disorders of electrolyte and fluid balance, not elsewhere classified; E11.65 Type 2 diabetes mellitus with hyperglycemia; E03.9 Hypothyroidism, unspecified; D72.829 Elevated white blood cell count, unspecified; I10 Essential (primary) hypertension; M19.012 Primary osteoarthritis, left shoulder; B95.4 Other streptococcus as the cause of diseases classified elsewhere; B95.1 Streptococcus, group B, as the cause of diseases classified elsewhere; K59.00 Constipation, unspecified; Z92.3 Personal history of irradiation; R53.1 Weakness; R22.1 Localized swelling, mass and lump, neck; Z66 Do not resuscitate; Z90.49 Acquired absence of other specified parts of digestive tract; Z79.899 Other long term (current) drug therapy; Z87.891 Personal history of nicotine dependence
CPT/HCPCS: 36415; 71045; 71046; 71275; 73030; 74177; 77012; 80048; 80053; 81001; 82962; 83605; 83690; 84484; 85025; 85610; 85730; 87040; 87077; 87086; 87186; 87426; 88305; 88341; 88342; 93005; 94640; 97110; 97116; 97162; 97166; 97530; 97535; 97802; 97803; 99156; 99285; J7030; J7040; Q9967; A4216; J2405

== ENCOUNTER 2021-05-15 14:15 | Outpatient (CLI) | payer MEDICARE, OTHER, SELFPAY ==
[2021-05-15 15:55] LABS: Anion Gap 9 (5-15); BUN 25 mg/dL (7-18); BUN/Creat Ratio 27.1 RATIO (10-20); Calcium,Total 9.3 mg/dL (8.5-10.1); Chloride 94 mmol/L (98-107); Creatinine, Serum 0.92 mg/dL (0.55-1.02); EST Glomerular Filtration Rate 62 mL/min (>60); Est Glom Filt Rate - Afr Amer 75 mL/min (>60); Glucose 106 mg/dL (74-106); Potassium 4.7 mmol/L (3.5-5.1); Sodium Level 128 mmol/L (136-145)
== END 2021-05-15 23:59 | disposition home or self-care (01) ==
LOC: POLAB3 14:30
PROVIDERS: PCP Family Medicine Geriatric Medicine; Visit Provider Family Medicine Geriatric Medicine
DX: E87.1 Hypo-osmolality and hyponatremia (principal)
CPT/HCPCS: 36415; 80048

== ENCOUNTER 2021-05-18 09:46 | Outpatient (CLI) | payer MEDICARE, OTHER, SELFPAY ==
[2021-05-18 10:25] LABS: Urine Sodium 67 mmol/L (Not Establ.)
[2021-05-18 10:41] LABS: Osmolality, Urine 373 mOsm/KG
== END 2021-05-18 23:59 | disposition home or self-care (01) ==
LOC: HH 09:48
PROVIDERS: PCP Family Medicine Geriatric Medicine; Referring Provider Family Medicine Geriatric Medicine; Visit Provider Family Medicine Geriatric Medicine
DX: E87.1 Hypo-osmolality and hyponatremia (principal)
CPT/HCPCS: 83935; 84300

== ENCOUNTER 2021-05-20 07:40 | Outpatient (RCR) | payer MEDICARE, OTHER, SELFPAY ==
[2021-05-17 16:26] LABS: Anion Gap 9 (5-15); BUN 24 mg/dL (7-18); BUN/Creat Ratio 25.6 RATIO (10-20); Calcium,Total 9.2 mg/dL (8.5-10.1); Chloride 94 mmol/L (98-107); Creatinine, Serum 0.94 mg/dL (0.55-1.02); EST Glomerular Filtration Rate 61 mL/min (>60); Est Glom Filt Rate - Afr Amer 73 mL/min (>60); Glucose 84 mg/dL (74-106); Potassium 4.9 mmol/L (3.5-5.1); Sodium Level 127 mmol/L (136-145)
[2021-05-17 16:57] LABS: Osmolality, Serum 275 mOsm/KG (280-301)
== END 2021-05-27 23:59 | disposition home health service (06) ==
LOC: HHLAB 07:40
PROVIDERS: PCP Family Medicine Geriatric Medicine; Visit Provider Family Medicine Geriatric Medicine
DX: E87.1 Hypo-osmolality and hyponatremia (principal)
CPT/HCPCS: 80048; 83930; 83935; 84300

== ENCOUNTER 2021-05-24 13:15 | Outpatient (CLI) | payer MEDICARE, OTHER, SELFPAY ==
[2021-05-24 14:18] LABS: Anion Gap 7 (5-15); BUN 22 mg/dL (7-18); BUN/Creat Ratio 24.8 RATIO (10-20); Calcium,Total 8.8 mg/dL (8.5-10.1); Chloride 94 mmol/L (98-107); Creatinine, Serum 0.89 mg/dL (0.55-1.02); EST Glomerular Filtration Rate 65 mL/min (>60); Est Glom Filt Rate - Afr Amer 78 mL/min (>60); Glucose 102 mg/dL (74-106); Sodium Level 129 mmol/L (136-145)
== END 2021-05-24 23:59 | disposition home or self-care (01) ==
LOC: LAB 13:17
PROVIDERS: PCP Family Medicine Geriatric Medicine; Visit Provider Family Medicine Geriatric Medicine
DX: E87.1 Hypo-osmolality and hyponatremia (principal)
CPT/HCPCS: 36415; 80048

== ENCOUNTER 2021-05-31 10:04 | Outpatient (CLI) | payer MEDICARE, OTHER, SELFPAY | END 2021-05-31 23:59 | disposition home or self-care (01) | PROVIDERS: PCP Family Medicine Geriatric Medicine; Referring Provider Surgery; Visit Provider Surgery | DX: B99.9 Unspecified infectious disease (principal) | CPT/HCPCS: 87040 ==

== ENCOUNTER 2021-06-10 11:48 | Day surgery (SDC) | payer MEDICARE, OTHER, SELFPAY ==
[2021-06-10] VITALS (10 sets, daily range): BP systolic 96–125; BP diastolic 48–69; PULSE 84–95; RESP 16; TEMP 36.3–37.3; O2SAT 94–100; BMI 26.9
--- NOTE | 2021-06-10 12:54 | HP.PCM_ITS ---
History and Physical Date of Admission: 06/10/21 Date of Service: 05/31/21 MR#:[id number]: TONO PEÑA [facility] #:[id number]:1935 Provider:Dr. 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 Is patient in pain?: No Allergies amoxicillin [From Augmentin] Allergy (Verified 05/31/21 09:31) PT UNSURE OF REACTION cefadroxil Allergy (Verified 05/31/21 09:31) PT UNSURE OF REACTION clavulanic acid [From Augmentin] Allergy (Verified 05/31/21 09:31) PT UNSURE OF REACTION clindamycin Allergy (Verified 05/31/21 09:31) PT UNSURE OF REACTION oxycodone [From Percocet] Allergy (Verified 05/31/21 09:31) Rash codeine Adverse Reaction (Verified 05/31/21 09:31) PT UNSURE OF REACTION hydrocodone bitartrate [From Vicodin] Adverse Reaction (Verified 05/31/21 09:31) CONFUSION Medications atenolol 25 mg PO BID 06/01/15 [History Confirmed 05/31/21] levothyroxine 112 mcg PO DAILY 11/23/18 [History Confirmed 05/31/21] fluticasone propion-salmeterol 2 puff INHALATION BID 10/18/19 [History Confirmed 05/31/21] omeprazole 40 mg PO DAILY 10/18/19 [History Confirmed 05/31/21] albuterol sulfate 1 - 2 puff INHALATION Q4H PRN PRN 07/03/20 [History Confirmed 05/31/21] food supplemt, lactose-reduced 240 ml FEEDING TUBE Q6H 05/07/21 [History Confirmed 05/31/21] simethicone [Infants Simethicone] 0.6 ml FEEDING TUBE TID 05/07/21 [History Confirmed 05/31/21] cefdinir 300 mg PO BID 1 Days #2 cap 05/13/21 [Rx Confirmed 05/31/21] oxycodone 5 mg/5 mL oral solution 5 mg PO Q6H PRN 30 Days #473 ml 05/16/21 [Rx Confirmed 05/31/21] nystatin 100,000 unit/gram topical powder 1 applic TOPICAL BID PRN #15 g 05/31/21 [Rx Confirmed 05/31/21] PFSH Medical History (Updated 05/31/21 @ 12:[address] 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 She is known to me from recent hospital admission 05/09 to 05/13/2021 where patient was diagnosed with metastatic esophageal cancer to her bilateral lungs. They have met with oncology and plans are to begin chemotherapy on 06/12/2021. This cancer actually represents a recurrence of primary tumor that was treated in 2014 with a combination of Taxol, carboplatin, and radiation. She and her daughter comment that the last round of chemotherapy was done through peripheral IVs and there is no report utilized with that treatment. Therefore, she has no prior history of central line placement. She has elected treatment for her current condition given the development of nearly continuous pains across her shoulders and upper extremities as well as into her back. She also confirms the development of some shortness of breath. In addition to the diagnosis of metastatic esophageal cancer, patient sought to have her leaking PEG tube addressed. She is exclusively fed and medicated through this access site since exhausting the possibility for esophageal dilation shortly after her initial diagnosis in 2014. During her hospitalization, we downsized her tube, performed silver nitrate ablation to the visible granulation tissue, and then exchanged her tube again. She and her daughter both state that the tube leakage persists, but is significantly better. Ms. Peña and her daughter state that the topical medication we prescribed following her hospitalization did help to improve the irritation around her tube, initially, but now the inflammation has gotten worse again. She admits that she is having ongoing issues with constipation although she has been using MiraLAX once daily. She estimates that her bowel frequency is once daily, but it is always very small volume. Lastly she comments that she is experiencing yeast infections in her inframammary crease and wishes to know what can be done about this issue. Patient has no pacemaker or intracardiac defibrillator. Patient has no renal dysfunction and are not on hemodialysis. Ms. Peña is not currently prescribed blood thinners. ROS General General: Yes fatigue; No weight change, appetite, colon cancer, breast cancer or weakness HEENT HEENT: Yes difficulty swallowing; No eye injury, eye surgery, swollen glands or hoarseness Endo Endocrine: Yes thyroid disease and diabetes mellitus; No thyroid cancer, Hair loss, heat intolerance or cold intolerance Skin Skin: No rash or changing moles Musc Musculoskeletal: Yes arthritis; No back problems, rheumatoid arthritis, gout or joint pain Cardio Cardiovascular: No murmur, pacemaker, heart disease, atrial fibrillation, high blood pressure, heart attack, heart stent, palpitations, shortness of breat with exertion or chest pain Psych Psychiatric: Yes depression; No anxiety or hearing voices Resp Respiratory: Yes shortness of breath, No sleep apnea, Yes cough, Yes COPD, No asthma, No emphysema and No wheezing Gastro Gastrointestinal: No abdominal pain, Yes nausea or vomiting, No diarrhea, No constipation, No blood in stool, Yes acid reflux, No hemorrhoids, No ulcers, No gallbladder problem and No black,tarry stools Harvey Hematologic: No blood thinners, No blood disorders, No bleeding, No anemia and No blood clots Neuro Neurologic: No system reviewed and no additional complaints, except as documented, No as per HPI, No abnormal gait, No abnormal hearing, No abnormal movements, No abnormal speech, No behavioral changes, No burning sensations, No confusion, No convulsions, No disequilibrium, No dizziness, No localized weakness, No frequent falls, No headache(s), No lack of coordination, No loss of vision, No memory loss, No numbness, No other visual disturbances, No radicular pain, No restless legs, No sensory deficit, No syncope, No tingling, No tremor(s), No weakness and No other Exam Const General: cooperative and frail appearing Orientation: alert Chest Other: No incisions or rashes to the upper chest. There is evidence of a yeast infection in the inframammary crease on the left GI Other: Patient's abdomen is soft mildly distended. There is some erythema immediately about the patient's gastrostomy but this is improved from before during her inpatient hospitalization Assessment and Plan Assessment and Plan (1) Constipation: Status: Acute Comment: This is an 85-year-old female with a chronic history of constipation who states that her problems are little improved with the addition of MiraLAX. I suspect this is likely multifactorial but not helped by the fact that she is taking regular pain medication to deal with cancer?related discomfort. I have advised her daughter to double her dose via her PEG tube and that a second administration in the afternoon. Plan - Dr. Alok Espinoza MD: 2 capfuls of MiraLAX daily via PEG tube (2) Positive blood culture: Status: Acute Comment: Patient with streptococcal species from blood cultures during recent inpatient admission. She was seen by infectious disease and prescribed a course of Omnicef. Given that we anticipate placement of a long dwelling central line, I would like to obtain repeat blood cultures to document clearance. Plan - Dr. Alok Espinoza MD: Update blood cultures (3) Yeast infection of the skin: Status: Acute Comment: Patient complains of bothersome rash to underside of her left breast. It is possible this came about following the initiation of antibiotics for her recent hospitalization. I have recommended keeping the area dry and have prescribed nystatin powder for regular application until this can be cleared. Plan - Dr. Alok Espinoza MD: ?Ensure inframammary crease is clean and dry ?Nystatin powder (4) 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: Status: Inactive Qualifiers: Laterality: unspecified laterality Qualified Code(s): C78.00 - Secondary malignant neoplasm of unspecified lung Comment: This is an 85-year-old female with metastatic esophageal cancer (squamous type) to bilateral lungs. She has opted for palliative chemo and is referred for consideration of port placement. She has had no prior central lines before, but did have recent positive blood cultures with her last inpatient stay. Therefore, I am repeating these before proceeding with port placement. We have tentatively selected 06/10/2021 for ultrasound?guided port placement under local MAC, but these plans may need to be revised should her repeat cultures come back positive. She and her daughter confirm that chemotherapy can still be initiated in the absence of a port. Plan - Dr. Alok Espinoza MD: ?Tentatively plan for ultrasound?guided placement of Port-A-Cath on 06/10/2021 under local MAC pending results of repeat blood cultures I have examined the patient the following changes are noted: Reviewed with family that updated blood cultures were negative. Patient's daughter confirms that the yeast infection in the inframammary fold is now improving with application of nystatin powder. They deny any questions related to today's procedure. Given the negative blood cultures we will plan to proceed to the OR for right versus left, ultrasound-guided chest port placement for initiation of palliative chemotherapy given recent diagnosis of metastatic esophageal carcinoma.
[2021-06-10] MEDS: Lactated Ringers 1,000 ML 15 ML IV ×2 (12:55→16:00)
[2021-06-10 13:29] LABS: Thyroid Stim Hormone (TSH) 2.41 uIU/mL (0.358-3.74)
[2021-06-10 14:26] LABS: Bedside Glucose 112 mg/dL (74-106)
[2021-06-10] MEDS: Vancomycin IV 1,000 MG/200 ML BAG 200 MG IV (14:38)
[2021-06-10] MEDS: Bupivacaine Mpf 0.5% 30 ML VIAL (15:30)
--- NOTE | 2021-06-10 17:02 | PCM.OPRPT ---
Report of Operation Date of Procedure: 06/10/21 Pre-Operative Diagnosis: Recurrent, metastatic esophageal carcinoma Post-Operative Diagnosis: Same Surgery/Procedure Performed:: Placement of ultrasound?guided left internal jugular PowerPort (6 Mal[place]ian) Description of Surgical Findings:: ?Thrombosis of right internal jugular vein ?Widely patent left internal jugular vein, but initial difficulty threading the guidewire through the superior vena cava ?Catheter tip placement in right atrium Surgeon: Alok Espinoza Type of Anesthesia: MAC/Supplemental/Local Anesthesiologist: Arnulfo Mesa Estimated Blood Loss (mL): 25 Description of Procedure: After appropriate identification in the preoperative holding area the patient was brought to the operating room. There she was administered preoperative antibiotics and positioned supine on the operating room table. Ultrasound was used to localize the right internal jugular vein. Unfortunately, this appeared to be thrombosed and with color Doppler applied there is no flow through the vein. Therefore we repositioned the patient for access to the left internal jugular vein and this was found to be widely patent with good color Doppler flow. Once sedation was begun, the upper chest and lower cervical region were prepped and draped in usual sterile fashion. A formal timeout was then conducted to confirm both the patient and procedure. Then a wheal of half percent bupivacaine was raised superficially in skin overlying the vein and the vein was accessed under direct ultrasound guidance using a micropuncture access kit and the micro access needle with a Seldinger technique to place a guidewire. The position of the guidewire was confirmed with fluoroscopy. However, when I tried to exchange this for the 035 guidewire, the wire would not proceed in antegrade fashion instead doubled back at the level of the superior vena cava in a cephalad direction. I made several attempts at proper positioning under fluoroscopy, however, the wire refused to take the right course. Therefore, I requested a 035 Glidewire and this wire did pass in an antegrade fashion into the SVC and ultimately the right atrium. Next, the peel-away sheath was placed over this Glidewire and inserted under fluoroscopic visualization to the hub. Next the position of the port pocket was determined and again local anesthetic was used to anesthetize the area of both the pocket and the tunneling cephalad. A transverse incision approximately 3 cm in width was made down through the subcutaneous tissue. Selective electrocautery was used to obtain hemostasis. Then with blunt dissection the port pocket was developed. The catheter was connected to the tunneler and was tunneled up to the position of the Glidewire. Recognizing, that the peel-away sheath would not allow distal positioning of the catheter?where I faced trouble directing the prior guidewire, I elected to remove the inner stylette from the peel-away sheath over the Glidewire and then advanced the catheter over the Glidewire to improve stiffening and directability of the catheter. This worked well to feed the catheter in a position well below the sarah once we had reposition the patient in a reverse Trendelenburg position. Then, the wire was fully withdrawn and the sheath was peeled away as the catheter was inserted fully into the neck. Back in the chest the excess catheter was trimmed and the port was connected to the catheter. This worked well and I proceeded with placing the port in the pocket and placing Prolene sutures to tighten the port. Unfortunately, when I attempted to test the catheter again with saline using our Kimball needle, it would not back aspirate. I again had x-ray checked the position of the catheter and it was apparent that the catheter tip had withdrawn into the proximal SVC. Despite attempts at adjusting the distal portion of the catheter at the insertion site in the neck, I was unsuccessful in advancing the catheter to a point where it regain function. Therefore, I elected to replace the current catheter with a 6 [place]ian PowerPort. I then clamped the existing catheter at the port, cut the port off the catheter and then identified the catheter at the insertion site in the neck. The catheter was carefully withdrawn from the subcutaneous tunnel overlying the clavicle and was used as a sheath to place our 035 guidewire. The catheter was removed off the guidewire and a new catheter was tunneled into position at the insertion site in the neck using the prior tunneling site. A new peel-away sheath was placed over the Glidewire and again the inner stylette was removed over the Glidewire. The new catheter was then fed into the peel-away sheath over the Glidewire to ensure proper positioning. This time the catheter was placed deeply within the heart and the Glidewire was then removed. The catheter was slowly withdrawn under fluoroscopy until I could see the tip within the right atrium. The excess catheter was cut off and the remaining catheter and was placed on the port with the connector. This time the port functioned well with both aspiration and flush of sterile saline. 2-0 Prolene sutures were used to tie the port into the pocket. Function was, again. tested/confirmed using sterile saline on a Kimball needle. The port was locked with 3 mL of heparinized saline (concentration 50U/5mL). The port pocket was closed with a deep dermal stitch using a running 3-0 Vicryl followed by 4-0 Monocryl subcuticular stitch. The 1 cm incision in the neck was closed with a single interrupted subcuticular stitch using 4-0 Monocryl. Dermabond was applied as a dressing. Patient was then aroused from the sedation and taken to PACU for ongoing recovery were a portable chest x-ray was obtained to confirm port positioning and exclude any pneumothorax. Admit VTE Documentation VTE Present on Admission: Yes VTE Mechan Device Prophylaxis: SCD's VTE Pharm Prophylaxis ordered?: No
--- NOTE | 2021-06-10 17:07 | RAD_ITS ---
STUDY: X-RAY CHEST REASON FOR EXAM: Female, 85 years old. CHEST PAIN s/p L chest port placement TECHNIQUE: XR Chest 1 View COMPARISON: 2.9 FINDINGS: Bilateral pulmonary nodules . There is a left Port-A-Cath and/or mediport in place. The tip is in the superior vena cava. There is no pneumothorax. Normal size heart. Normal mediastinum and dwayne. Normal visualized pulmonary arteries. There is atherosclerotic calcification of the aortic arch with tortuosity. There are diffuse degenerative changes of the visualized thoracic spine. There is degenerative osteoarthritis of the bilateral shoulders. There is no demonstrated abnormality of the visualized soft tissue structures of the upper abdomen. RAD/Chest 1 View (Portable) IMPRESSION: Bilateral pulmonary nodules concerning for metastatic disease. Electronically Signed: Domingo Chan MD at 18:13 EDT ,
--- NOTE | 2021-06-10 18:21 | EX.PCM.DISCH ---
Discharge Instructions Diet Discharge Diet: No restrictions Activity Discharge Activity: No Restrictions Ice area for (Minutes): 20 Dressing / Incision Call your doctor if your incision/area has: Sudden Increased Bleeding, Increased Pain/ Swelling, Increased Redness and Swelling at the incision site Call your doctor if you observe: Fever of 101 or Higher, Shortness of breath and Chest pain Remove Dressing in: 1 day (outer bandage- beneath this you will find dermabond that will dissolve with regular showering in 7-10 days) Cleanse incision/area with: Soap & Water Follow Up Care Test Results: Test results from this visit will be discussed in further detail at your follow-up appointment, if applicable. Discharge Plan Admission Primary Reason for Your Visit: Placement of Port-A-Cath Attending Provider: Alok Espinoza Primary Care Provider: Reynaldo Aden Chi Instructions Patient Instructions: Caring for Your Central Vein Access Discharge Orders/Prescriptions Prescriptions: No Action nystatin 100,000 unit/gram powder 1 applic topical BID PRN (Reason: Redness under breasts) Qty: 15 RF: 0 lidocaine-prilocaine 2.5-2.5 % cream 1 applic topical ONCE PRN (Reason: port access) 30 Days Qty: 30 RF: 2 levothyroxine 112 MCG tablet 112 mcg feeding tube DAILY RF: 0 omeprazole 10 MG capsule 40 mg feeding tube DAILY RF: 0 fluticasone propion-salmeterol 1 PUFF inhaler 2 puff inhalation BID RF: 0 albuterol sulfate 1 INHALER inhaler 1 - 2 puff INHALATION Q4H PRN PRN (Reason: Asthma) RF: 0 food supplemt, lactose-reduced Liquid 240 ml feeding tube Q6H RF: 0 oxycodone 5 mg tablet 5 mg feeding tube Q6H PRN (Reason: pain) RF: 0 Referrals / Follow Up: Reynaldo Aden Chi, MD [Primary Care Provider] - Disposition Disposition (needs filled in before D/C Order can be placed): Home, Self Care
== END 2021-06-10 23:59 | disposition home or self-care (01) ==
LOC: SDC 11:50 → AC 11:51
PROVIDERS: Anesthesiology; PCP Family Medicine Geriatric Medicine; Referring Provider Surgery; Visit Provider Surgery
PROC: (CPT 36561; principal; 2021-06-10 13:15)
DX: Z45.2 Encounter for adjustment and management of vascular access device (principal); C78.01 Secondary malignant neoplasm of right lung; C78.02 Secondary malignant neoplasm of left lung; C15.3 Malignant neoplasm of upper third of esophagus; Z93.1 Gastrostomy status; J44.9 Chronic obstructive pulmonary disease, unspecified; I82.C11 Acute embolism and thrombosis of right internal jugular vein; E11.9 Type 2 diabetes mellitus without complications; I10 Essential (primary) hypertension; E07.9 Disorder of thyroid, unspecified; K59.09 Other constipation; K21.9 Gastro-esophageal reflux disease without esophagitis; B37.2 Candidiasis of skin and nail; M19.90 Unspecified osteoarthritis, unspecified site; Z99.3 Dependence on wheelchair; Z79.899 Other long term (current) drug therapy; Z87.891 Personal history of nicotine dependence
CPT/HCPCS: 36561; 71045; 77001; 82962; 84443; C1769; C1788; J2405

== ENCOUNTER 2021-06-16 19:52 | Observation (INO) | payer MEDICARE, OTHER, SELFPAY ==
[2021-06-16 19:53] VITALS: BP 146/76; PULSE 112; RESP 16; TEMP 36.9; O2SAT 98; BMI 28.3
--- NOTE | 2021-06-16 20:17 | EKG12_ITS ---
Test Reason : WEAKNESS Blood Pressure : / mmHG Vent. Rate : 108 BPM Atrial Rate : 108 BPM P-R Int : 140 ms QRS Dur : 076 ms QT Int : 320 ms P-R-T Axes : 054 022 065 degrees QTc Int : 428 ms Sinus tachycardia with Premature atrial complexes Otherwise normal ECG Confirmed by MABEL GRANT, ROSALES ([id number]), science editor MELQUIADES MEJIAS ([id number]) on 06/20/2021 9:20:15 AM Referred By: PL Confirmed By:ROSALES MONROE MD
--- NOTE | 2021-06-16 20:17 | RAD_ITS ---
INDICATION: cough EXAMINATION/TECHNIQUE: X-RAY - XR Chest 1 View COMPARISON: PET/CT [place] [id number] 06/16/2021 and chest x-ray 06/10/2021. FINDINGS: LINES/DEVICES: Left-sided tunneled chest port with access needle in place. Catheter tip at the level of the proximal right atrium. LUNGS: Right lower lobe, superior segment and left upper lobe nodular pulmonary opacities consistent with neoplasm as demonstrated on comparison PET CT. Lungs are otherwise clear. No pneumothorax. No pleural effusion. MEDIASTINUM AND CARDIOVASCULAR STRUCTURES: Normal size and contour of the cardiomediastinal silhouette. No evidence of pulmonary vascular congestion. BONES AND SOFT TISSUES: Thoracic spine metastases visible on PET scan not clearly seen on this exam. RAD/Chest 1 View (Portable) IMPRESSION: 1. Pulmonary nodules as previously described. 2. No new cardiopulmonary disease. Electronically Signed: Alok Xavier DO at 20:56 EDT ,
[2021-06-16 20:26] LABS: Absolute Lymphocyte Count 1.61 X10^3/uL (0.83-4.51); Absolute Neutrophil Count 5.9 X10^3/uL (2.0-7.7); Basophil# 0.02 X10^3/uL; Basophil% 0.3 % (0-1); Eosinophil# 0.21 X10^3/uL; Eosinophils% 2.6 % (0-5); Hematocrit 25.8 % (37-47); Hemoglobin 8.6 g/dL (12.0-15.0); Lymphocyte # 1.61 X10^3/ul (0.83-4.51); Lymphocyte % 20.3 % (19-41); Mean Corp Hgb Conc 33.3 g/dL (32-36); Mean Corpuscular Hgb 27.4 pg (27.0-32.0); Mean Corpuscular Volume 82.2 fL (81-99); Mean Platelet Vol. 8.7 fl (6.2-12.0); Monocyte# 0.15 X10^3/uL; Monocyte% 1.9 % (0-10); NRBC Flagged by Analyzer 0 % (0-5); Neutrophil # 5.91 X10^3/uL (2.7-7.7); Neutrophil % 74.4 % (47-70); Platelet Count 277 K/mm3 (150-450); RBC Distribution Width CV 15.4 % (11.6-14.6); RBC Distribution Width SD 46.4 fl (35.1-43.9); Red Blood Count 3.14 M/mm3 (4.2-5.4); White Blood Count 7.9 K/mm3 (4.4-11.0)
[2021-06-16] MEDS: Morphine 4 MG/ML Syringe IV ×2 (20:35→22:02)
--- NOTE | 2021-06-16 20:39 | EX.ED.DYSGE1 ---
HPI History of Present Illness Chief Complaint: Weakness Informant: patient and family Narrative Narrative: Patient's brought in by EMS. She lives at home with family. They are concerned because she is getting progressively weaker and just cannot even get up and walk around with her walker now. This patient has a history of esophageal cancer 6 years ago. It was nonoperative. She was treated with chemotherapy and possibly radiation then. It recurred recently. She just had her first chemotherapy on Thursday. She had a fusions in the chemotherapy center and then had home infusion that was stopped on Thursday morning. Since that time she is gotten weaker. She complains of lot of bone pain across her back and shoulders and arms. These are where known metastases are. These areas of pain are not new they are just not able to be managed well. She was taking oxycodone without much benefit. She was given a fentanyl patch at 25 mcg. This is not working either. She is not had documented fevers or chills. She has a chronic cough which is unchanged thought to be related to difficulty swallowing. She has irritation around her PEG tube but no significant erythema. This tube is been in for years. No dysuria. They deny any skin lesions. 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 Multiple lung nodules Redness of skin Shortness of breath on exertion Squamous cell carcinoma Syncope Thyroid disease Thyroid disease Uses wheelchair Vitamin D deficiency Walker as ambulation aid Wears dentures Wears glasses Wears hearing aid Home Medications levothyroxine 112 mcg FEEDING TUBE DAILY 11/23/18 [History Last Taken 07/09/20] fluticasone propion-salmeterol [Advair HFA] 2 puff INHALATION BID 10/18/19 [History Last Taken 07/10/20] omeprazole 40 mg FEEDING TUBE DAILY 10/18/19 [History Last Taken 07/09/20] albuterol sulfate 1 - 2 puff INHALATION Q4H PRN PRN 07/03/20 [History Last Taken 07/10/20] food supplemt, lactose-reduced 240 ml FEEDING TUBE Q6H 05/07/21 [History Last Taken Unknown] lidocaine-prilocaine 2.5 %-2.5 % topical cream 1 applic TOPICAL ONCE PRN 30 Days #30 g 06/05/21 [Rx Last Taken Unknown] oxycodone 5 mg FEEDING TUBE Q6H PRN 06/06/21 [History Last Taken Unknown] fentanyl 25 mcg/hr transdermal patch 1 patch TRANSDERMAL Q72H 30 Days #10 ea 06/12/21 [Rx Last Taken Unknown] nystatin 100,000 unit/gram topical powder 1 applic TOPICAL BID #30 g 06/13/21 [Rx Last Taken Unknown] Allergy/AdvReac Type Severity Reaction Status Date / Time amoxicillin [From Augmentin] Allergy PT UNSURE Verified 06/16/21 20:00 OF REACTION cefadroxil Allergy PT UNSURE Verified 06/16/21 20:00 OF REACTION clavulanic acid Allergy PT UNSURE Verified 06/16/21 20:00 [From Augmentin] OF REACTION clindamycin Allergy PT UNSURE Verified 06/16/21 20:00 OF REACTION oxycodone [From Percocet] Allergy Rash Verified 06/16/21 20:00 codeine AdvReac PT UNSURE Verified 06/16/21 20:00 OF REACTION hydrocodone bitartrate AdvReac CONFUSION Verified 06/16/21 20:00 [From Vicodin] Family History Mother Osteoporosis Heart disease Surgical History History of cardiac catheterization History of cholecystectomy History of tubal ligation S/P dilatation of esophageal stricture Social History household members: none Smoking Status: Former smoker alcohol intake: never substance use type: does not use ROS ROS ED Constitutional Constitutional ED: Denies chills or fever(s) Eyes Eyes: Denies blurry vision ENT ENT ED: Reports sore throat; Denies rhinorrhea Cardiovascular Cardiovascular: Denies chest pain Respiratory/Chest Respiratory/Chest: Reports cough; Denies dyspnea or sputum Gastrointestinal Gastrointestinal: Reports other Details: Stools are always soft but no significant change. ; Denies nausea or vomiting Genitourinary Genitourinary ED: Denies dysuria Musculoskeletal Musculoskeletal: Reports arthralgias, back pain and other Details: Bone pain from cancer. Integumentary Denies rash Neurologic Neurologic: Denies headache(s) Endocrine Endocrinology: Denies polydipsia or polyuria Allergic/Immunologic Allergic/Immunologic ED: Denies urticaria EXAM Physical Exam Const Vital Signs: 06/16/21 19:53 06/16/21 19:56 06/16/21 20:56 Temperature 98.5 F 98.8 F Temperature Source Oral Temporal Pulse Rate 112 H 107 H Respiratory Rate 16 21 H Respiratory Effort Normal Non-Labored Respiratory Pattern Normal Blood Pressure 146/76 H 134/77 H Blood Pressure Mean 99 96 Pulse Ox 98 100 Oxygen Delivery Method Room Air Room Air 06/16/21 22:00 Temperature 98.5 F Temperature Source Temporal Pulse Rate 105 H Respiratory Rate 15 Respiratory Effort Respiratory Pattern Blood Pressure 130/63 H Blood Pressure Mean 85 Pulse Ox 98 Oxygen Delivery Method Room Air Positive well nourished and well developed Constitutional Narrative: Patient does not look acutely toxic but she is very weak. She speaks slowly. She has very little energy. She has little energy to lift her extremities although she cannot. General Appearance ED: well developed; Negative for pallor HEENT Reports dry mucous membranes HEENT Narrative: Mucous membranes are dry. Negative for trauma Mouth ED: Yes dry mucous membranes Mouth: dry mucous membranes Eyes EOMs intact bilaterally Neck no JVD Chest Wall inspection of chest normal Chest Narrative: There is a Mediport in the left upper chest that looks good. It is being accessed. Resp normal respiratory effort and clear to auscultation bilaterally Cardio regular rhythm Rate: tachycardic GI normal to inspection, nondistended, normoactive bowel sounds and non-tender GI Narrative: PEG tube is in upper abdomen. There is a little bit of irritation of the skin right around the tube but no sign of cellulitis. Palpation: soft Extremity normal to inspection Neuro oriented x3 Sensorium / Orientation: alert Skin no rashes or lesions noted Skin Narrative: No diaphoresis. General Skin Exam: Negative for jaundice or pallor MDM MDM MDM Narrative Medical decision making narrative: Patient's blood work shows relatively normal CBC. Electrolytes show mildly low sodium but near her baseline. Leukosis preserved. Troponin is negative. LFTs show no marked abnormalities. Lactate is negative. Chest x-ray shows no acute process. Urine is clean. Patient still nauseated and having pain. We will try further meds. She had had Zofran at home. We will try IV Zofran and Phenergan here. I had a long talk with the patient and her family. They realize that her treatment is really palliative and not curative. They actually have an appointment with palliative medicine tomorrow. But their concern is that the patient is too weak nauseated and in pain that they cannot manage at home. They would like her to come in to try to get this pain under control. They have tried oxycodone at home. Fentanyl was added. They are taking fentanyl with oxycodone and still her metastatic bone pain cannot be controlled. She is also getting too weak to walk safely even with her walker. She required significant assistance from 2 people today. I discussed case with hospitalist. Lab Data Attestation: I reviewed the patient's lab results. Labs: Laboratory Results - last 24 hr 06/16/21 06/16/21 06/16/21 20:20 20:20 20:20 WBC 7.9 RBC 3.14 L Hgb 8.6 L Hct 25.8 L MCV 82.2 MCH 27.4 MCHC 33.3 RDW Std Deviation 46.4 H RDW Coeff of Mickey 15.4 H Plt Count 277 MPV 8.7 Immature Gran % (Auto) 0.500 Neut % (Auto) 74.4 H Lymph % (Auto) 20.3 [place]ett % (Auto) 1.9 Eos % (Auto) 2.6 Baso % (Auto) 0.3 Absolute Neuts (auto) 5.9 Absolute Lymphs (auto) 1.61 Nucleated RBC % 0 Sodium 126 L Potassium 4.2 Chloride 93 L Carbon Dioxide 25.0 Anion Gap 8 BUN 19 H Creatinine 0.80 Estim Creat Clear Calc 44.08 Est GFR (MDRD) Af Amer 88 Est GFR (MDRD) Non-Af 73 BUN/Creatinine Ratio 23.7 H Glucose 122 H Lactic Acid Calcium 8.6 Total Bilirubin 0.20 AST 18 ALT 19 Alkaline Phosphatase 84 Troponin I High Sens 5 Total Protein 7.3 Albumin 2.4 L Globulin 4.9 H Albumin/Globulin Ratio 0.5 L Urine Color Urine Clarity Urine pH Ur Specific [place] Urine Protein Urine Glucose (UA) Urine Ketones Urine Occult Blood Urine Nitrite Urine Bilirubin Urine Urobilinogen Ur Leukocyte Esterase Urine RBC Urine WBC Ur Squamous Epith Cells Amorphous Sediment Urine Bacteria Urine Mucus 06/16/21 06/16/21 20:25 21:04 WBC RBC Hgb Hct MCV MCH MCHC RDW Std Deviation RDW Coeff of Mickey Plt Count MPV Immature Gran % (Auto) Neut % (Auto) Lymph % (Auto) [place] % (Auto) Eos % (Auto) Baso % (Auto) Absolute Neuts (auto) Absolute Lymphs (auto) Nucleated RBC % Sodium Potassium Chloride Carbon Dioxide Anion Gap BUN Creatinine Estim Creat Clear Calc Est GFR (MDRD) Af Amer Est GFR (MDRD) Non-Af BUN/Creatinine Ratio Glucose Lactic Acid 1.5 Calcium Total Bilirubin AST ALT Alkaline Phosphatase Troponin I High Sens Total Protein Albumin Globulin Albumin/Globulin Ratio Urine Color Yellow Urine Clarity Sl. Cloudy Urine pH 8.0 Ur Specific [place] 1.015 Urine Protein Negative Urine Glucose (UA) Normal Urine Ketones Negative Urine Occult Blood Negative Urine Nitrite Negative Urine Bilirubin Negative Urine Urobilinogen Normal Ur Leukocyte Esterase Negative Urine RBC 0 SEEN Urine WBC 0 SEEN Ur Squamous Epith Cells 0 SEEN Amorphous Sediment 2+ Urine Bacteria 0 SEEN Urine Mucus 0 SEEN Radiography Diagnostic Testing: Clinical Impression(s) from Imaging Studies Chest X-Ray 06/16/21 20:17 IMPRESSION: 1. Pulmonary nodules as previously described. 2. No new cardiopulmonary disease. Electronically Signed: Alok Xavier DO at 20:56 EDT , Discharge Plan Dx/Rx/DC Orders Clinical Impression: Pain from bone metastases, Nausea, Generalized weakness Disposition Disposition: Acute Care Hospital [facility]
[2021-06-16 20:43] LABS: ALB/GLOB Ratio 0.5 RATIO (0.9-2.4); AST(SGOT) 18 U/L (15-37); Alanine Aminotransfer ALT/SGPT 19 U/L (13-56); Albumin, Serum 2.4 g/dL (3.2-5.0); Alkaline Phosphatase 84 U/L (45-117); Anion Gap 8 (5-15); BUN 19 mg/dL (7-18); BUN/Creat Ratio 23.7 RATIO (10-20); Calcium,Total 8.6 mg/dL (8.5-10.1); Chloride 93 mmol/L (98-107); EST Glomerular Filtration Rate 73 mL/min (>60); Est Glom Filt Rate - Afr Amer 88 mL/min (>60); Estimated Creatinine Clearance 44.08 ml/min; Globulin 4.9 g/dL (2.2-4.2); Glucose 122 mg/dL (74-106); Potassium 4.2 mmol/L (3.5-5.1); Protein, Total 7.3 g/dL (6.4-8.2); Sodium Level 126 mmol/L (136-145)
[2021-06-16 20:56] VITALS: BP 134/77; PULSE 107; RESP 21; TEMP 37.1; O2SAT 100
[2021-06-16 21:02] LABS: Lactic Acid 1.5 mmol/L (0.4-1.9)
[2021-06-16 21:11] LABS: Bacteria 0 SEEN /hpf (None Seen); Mucous, Urine 0 SEEN /hpf (<or=2+); Red Blood Cells-Urine 0 SEEN /hpf (0-5); Squamous Epithelial Cells - UA 0 SEEN /hpf (5-10); White Blood Cells 0 SEEN /hpf (0-5)
[2021-06-16 21:18] LABS: Color, Urine Yellow (Yellow); Glucose, Dipstick Normal (Normal); Ketone-Dipstick Negative (Negative); Leukocyte Esterase-Dipstick Negative /ul (Negative); Nitrite-Dipstick Negative (Negative); Occult Blood-Urine Negative /ul (Negative); Protein-Dipstick Negative (Negative); Specific Gravity, Urine 1.015 (1.002-1.030); Urine Bilirubin Dipstick Negative (Negative); Urine Clarity Sl. Cloudy (Clear); Urine Urobilinogen Normal (Normal)
[2021-06-16 21:26] LABS: Amorphous Sediment 2+
[2021-06-16 21:30] LABS: Troponin-I HS 5 pg/mL (3.0-54.0)
[2021-06-16 22:00] VITALS: BP 130/63; BP 143/61; PULSE 102; PULSE 105; RESP 13; RESP 15; TEMP 36.9; O2SAT 97; O2SAT 98
[2021-06-16] MEDS: proMETHazine 25 MG/ML Syringe 12.5 MG IM (22:02)
--- NOTE | 2021-06-16 22:10 | PCM.HP.STD ---
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 Patient had IV palliative chemotherapy on Thursday06/12/2021. Then chemotherapy pump was started and ended on Thursday. Patient is on home p.o. oxycodone and fentanyl patch. However, she continues to have pain that has remained uncontrolled. Associated with symptoms is nausea and dry heaving. She feels constipated. Her last bowel movement was on the same day of presentation but her last bowel movement did not produce enough relief. Sfe feels that her mouth is dry. Of note patient was diagnosed with nonoperable esophageal cancer in 2014. She received chemotherapy and radiation. However her cancer has re-occurred as above. She follows up with Dr. Crawford. Patient is supposed to have an outpatient palliative care meeting on 06/17/2021. 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 Multiple lung nodules Redness of skin Shortness of breath on exertion Squamous cell carcinoma Syncope Thyroid disease Thyroid disease Uses wheelchair Vitamin D deficiency Walker as ambulation aid Wears dentures Wears glasses Wears hearing aid Home Medications levothyroxine 112 mcg FEEDING TUBE DAILY 11/23/18 [History Last Taken 07/09/20] fluticasone propion-salmeterol [Advair HFA] 2 puff INHALATION BID 10/18/19 [History Last Taken 07/10/20] omeprazole 40 mg FEEDING TUBE DAILY 10/18/19 [History Last Taken 07/09/20] albuterol sulfate 1 - 2 puff INHALATION Q4H PRN PRN 07/03/20 [History Last Taken 07/10/20] food supplemt, lactose-reduced 240 ml FEEDING TUBE Q6H 05/07/21 [History Last Taken Unknown] lidocaine-prilocaine 2.5 %-2.5 % topical cream 1 applic TOPICAL ONCE PRN 30 Days #30 g 06/05/21 [Rx Last Taken Unknown] oxycodone 5 mg FEEDING TUBE Q6H PRN 06/06/21 [History Last Taken Unknown] fentanyl 25 mcg/hr transdermal patch 1 patch TRANSDERMAL Q72H 30 Days #10 ea 06/12/21 [Rx Last Taken Unknown] nystatin 100,000 unit/gram topical powder 1 applic TOPICAL BID #30 g 06/13/21 [Rx Last Taken Unknown] Allergy/AdvReac Type Severity Reaction Status Date / Time amoxicillin [From Augmentin] Allergy PT UNSURE Verified 06/16/21 20:00 OF REACTION cefadroxil Allergy PT UNSURE Verified 06/16/21 20:00 OF REACTION clavulanic acid Allergy PT UNSURE Verified 06/16/21 20:00 [From Augmentin] OF REACTION clindamycin Allergy PT UNSURE Verified 06/16/21 20:00 OF REACTION oxycodone [From Percocet] Allergy Rash Verified 06/16/21 20:00 codeine AdvReac PT UNSURE Verified 06/16/21 20:00 OF REACTION hydrocodone bitartrate AdvReac CONFUSION Verified 06/16/21 20:00 [From Vicodin] Family History Mother Osteoporosis Heart disease Surgical History History of cardiac catheterization History of cholecystectomy History of tubal ligation S/P dilatation of esophageal stricture Social History household members: none Smoking Status: Former smoker alcohol intake: never substance use type: does not use ROS ROS Narrative Pertinent positives and pertinent negatives as noted in HPI. All other systems were reviewed and are negative. Vital Signs Vital Signs Vital Signs: 06/16/21 19:53 06/16/21 19:56 06/16/21 20:56 Temperature 98.5 F 98.8 F Temperature Source Oral Temporal Pulse Rate 112 H 107 H Respiratory Rate 16 21 H Respiratory Effort Normal Non-Labored Respiratory Pattern Normal Blood Pressure 146/76 H 134/77 H Blood Pressure Mean 99 96 Pulse Ox 98 100 Oxygen Delivery Method Room Air Room Air 06/16/21 22:00 Temperature 98.5 F Temperature Source Temporal Pulse Rate 105 H Respiratory Rate 15 Respiratory Effort Respiratory Pattern Blood Pressure 130/63 H Blood Pressure Mean 85 Pulse Ox 98 Oxygen Delivery Method Room Air Weight Weight: 72.6 kg Body Mass Index (BMI) 28.3 Results Lab / Micro Data Result Diagrams: 06/16/21 20:20 06/16/21 20:20 Labs: Laboratory Results - last 24 hr 06/16/21 20:20: WBC 7.9, RBC 3.14 L, Hgb 8.6 L, Hct 25.8 L, MCV 82.2, MCH 27.4, MCHC 33.3, RDW Std Deviation 46.4 H, RDW Coeff of Mickey 15.4 H, Plt Count 277, MPV 8.7, Immature Gran % (Auto) 0.500, Neut % (Auto) 74.4 H, Lymph % (Auto) 20.3, [place] % (Auto) 1.9, Eos % (Auto) 2.6, Baso % (Auto) 0.3, Absolute Neuts (auto) 5.9, Absolute Lymphs (auto) 1.61, Nucleated RBC % 0 06/16/21 20:20: Sodium 126 L, Potassium 4.2, Chloride 93 L, Carbon Dioxide 25.0, Anion Gap 8, BUN 19 H, Creatinine 0.80, Estim Creat Clear Calc 44.08, Est GFR (MDRD) Af Amer 88, Est GFR (MDRD) Non-Af 73, BUN/Creatinine Ratio 23.7 H, Glucose 122 H, Calcium 8.6, Total Bilirubin 0.20, AST 18, ALT 19, Alkaline Phosphatase 84, Total Protein 7.3, Albumin 2.4 L, Globulin 4.9 H, Albumin/Globulin Ratio 0.5 L 06/16/21 20:20: Troponin I High Sens 5 06/16/21 20:25: Lactic Acid 1.5 06/16/21 21:04: Urine Color Yellow, Urine Clarity Sl. Cloudy, Urine pH 8.0, Ur Specific [place] 1.015, Urine Protein Negative, Urine Glucose (UA) Normal, Urine Ketones Negative, Urine Occult Blood Negative, Urine Nitrite Negative, Urine Bilirubin Negative, Urine Urobilinogen Normal, Ur Leukocyte Esterase Negative, Urine RBC 0 SEEN, Urine WBC 0 SEEN, Ur Squamous Epith Cells 0 SEEN, Amorphous Sediment 2+, Urine Bacteria 0 SEEN, Urine Mucus 0 SEEN Radiology Impression Chest X-Ray 06/16/21 20:17 IMPRESSION: 1. Pulmonary nodules as previously described. 2. No new cardiopulmonary disease. Electronically Signed: Alok Xavier, DO at 20:56 EDT , Assessment & Plan Assessment/Plan (1) Pain from bone metastases: (2) Nausea: (3) Generalized weakness: PLAN: Pain from bone metastases/Generalized weakness/Nausea and dry heaving CXR image was visualized and independently interpreted. Also previous CXR was visualized. I agree with radiologist interpretation. Continue fentanyl patch Increase frequency of po oxycodone. Add prn IV morphine Palliative consult Consider further discussion with patient's oncologist PT and OT to work with patient for strengthening and balance training Zofran prn for nausea/dry heaving Continue home bolus tube feeding Hyponatremia Sodium of 126. Review of records shows that this is chronic. Gentle normal saline hydration. Trend BMP Constipation Senokot-S per Peg tube ordered Hypothyroidism Labs reviewed showed TSH of 5.21H; Free T4 1.52H. Labs were on 06/12/21. Synthroid continued. DVT Prophylaxis: Subcutaneous lovenox ordered Charges/Coding Visit Charges OBSV E&M: 13283 Initial observation care L3
[2021-06-16 22:19] VITALS: BP 130/63; PULSE 107; RESP 16; O2SAT 92
[2021-06-16 22:33] VITALS: BMI 27.3
[2021-06-16 22:42] VITALS: BP 152/80; PULSE 111; RESP 18; TEMP 36.8; O2SAT 99
[2021-06-16] MEDS: 0.9% Saline Lock 10 ML Syringe IV (23:22)
[2021-06-16] MEDS: 0.9% Normal Saline 1,000 ML 60 ML IV (23:22)
[2021-06-17] VITALS (15 sets, daily range): BP systolic 112–139; BP diastolic 62–73; PULSE 97–135; RESP 16–20; TEMP 37–37.2; O2SAT 94–97
[2021-06-17] MEDS: oxyCODONE 5 MG Tablet GT ×4 (00:23→20:17)
[2021-06-17] MEDS: Nystatin Powder 15gm Bottle 1 APPLIC TOPICAL ×3 (00:23→21:31)
[2021-06-17] MEDS: Senna/Docusate Sodium 1 Tablet 2 TABLET GT (00:23)
[2021-06-17] MEDS: Jevity 1.5. 1,000 ML Bottle 240 ML GT ×5 (00:24→19:31)
[2021-06-17] MEDS: Levothyroxine 112 MCG Tablet GT (05:13)
[2021-06-17] MEDS: Morphine 4 MG/ML Syringe IV ×2 (05:44→12:39)
[2021-06-17] MEDS: Ondansetron 4 MG/2 ML Vial IV ×2 (05:49→14:41)
[2021-06-17 06:31] LABS: Absolute Lymphocyte Count 1.69 X10^3/uL (0.83-4.51); Absolute Neutrophil Count 5.9 X10^3/uL (2.0-7.7); Basophil# 0.03 X10^3/uL; Basophil% 0.4 % (0-1); Eosinophils% 2.5 % (0-5); Hematocrit 25.5 % (37-47); Hemoglobin 8.8 g/dL (12.0-15.0); Lymphocyte # 1.69 X10^3/ul (0.83-4.51); Lymphocyte % 20.9 % (19-41); Mean Corp Hgb Conc 34.5 g/dL (32-36); Mean Corpuscular Hgb 27.8 pg (27.0-32.0); Mean Corpuscular Volume 80.4 fL (81-99); Mean Platelet Vol. 8.6 fl (6.2-12.0); Monocyte# 0.19 X10^3/uL; Monocyte% 2.4 % (0-10); NRBC Flagged by Analyzer 0 % (0-5); Neutrophil # 5.92 X10^3/uL (2.7-7.7); Neutrophil % 73.2 % (47-70); Platelet Count 268 K/mm3 (150-450); RBC Distribution Width CV 15.2 % (11.6-14.6); RBC Distribution Width SD 44.6 fl (35.1-43.9); Red Blood Count 3.17 M/mm3 (4.2-5.4); White Blood Count 8.1 K/mm3 (4.4-11.0)
[2021-06-17 06:50] LABS: Anion Gap 7 (5-15); BUN 20 mg/dL (7-18); BUN/Creat Ratio 26.8 RATIO (10-20); Calcium,Total 8.3 mg/dL (8.5-10.1); Chloride 96 mmol/L (98-107); Creatinine, Serum 0.75 mg/dL (0.55-1.02); EST Glomerular Filtration Rate 79 mL/min (>60); Est Glom Filt Rate - Afr Amer 95 mL/min (>60); Estimated Creatinine Clearance 33.71 ml/min; Glucose 128 mg/dL (74-106); Potassium 4.4 mmol/L (3.5-5.1); Sodium Level 126 mmol/L (136-145)
--- NOTE | 2021-06-17 06:50 | PN.HOSP_ITS ---
Subjective Subjective Patient overnight notes heel discomfort and some generalized fatigue as well as ongoing severe weakness otherwise no current complaints. Per discussion with case management as well as patient possible intention for transition to home with potential palliative versus hospice at home but awaiting family meeting with palliative services. Patient denies fevers, chills, nausea, emesis, abdominal pain, chest pain or dyspnea. Objective Data Objective Data Vital Signs: Vital Signs Temp Pulse Resp BP Pulse Ox 98.9 F 135 H 18 121/67 H 94 06/17/21 05:08 06/17/21 06:00 06/17/21 05:08 06/17/21 05:08 06/17/21 05:08 Oxygen Delivery Method Room Air Weight: 154 lb 8.705 oz Body Mass Index (BMI) 27.3 Intake & Output: Intake and Output for Last 24 Hours 06/15/21 06/16/21 06/17/21 23:59 23:59 23:59 Intake Total 500 / 500 320 / 320 Output Total 450 / 450 Balance 500 / 500 -130 / -130 Lab / Micro Data Result Diagrams: 06/17/21 06:20 06/17/21 06:20 Labs: Laboratory Results - last 24 hr 06/16/21 20:20: WBC 7.9, RBC 3.14 L, Hgb 8.6 L, Hct 25.8 L, MCV 82.2, MCH 27.4, MCHC 33.3, RDW Std Deviation 46.4 H, RDW Coeff of Mickey 15.4 H, Plt Count 277, MPV 8.7, Immature Gran % (Auto) 0.500, Neut % (Auto) 74.4 H, Lymph % (Auto) 20.3, Bureau % (Auto) 1.9, Eos % (Auto) 2.6, Baso % (Auto) 0.3, Absolute Neuts (auto) 5.9, Absolute Lymphs (auto) 1.61, Nucleated RBC % 0 06/16/21 20:20: Sodium 126 L, Potassium 4.2, Chloride 93 L, Carbon Dioxide 25.0, Anion Gap 8, BUN 19 H, Creatinine 0.80, Estim Creat Clear Calc 44.08, Est GFR (MDRD) Af Amer 88, Est GFR (MDRD) Non-Af 73, BUN/Creatinine Ratio 23.7 H, Glucose 122 H, Calcium 8.6, Total Bilirubin 0.20, AST 18, ALT 19, Alkaline Phosphatase 84, Total Protein 7.3, Albumin 2.4 L, Globulin 4.9 H, Albumin/Globulin Ratio 0.5 L 06/16/21 20:20: Troponin I High Sens 5 06/16/21 20:25: Lactic Acid 1.5 06/16/21 21:04: Urine Color Yellow, Urine Clarity Sl. Cloudy, Urine pH 8.0, Ur Specific [place] 1.015, Urine Protein Negative, Urine Glucose (UA) Normal, Urine Ketones Negative, Urine Occult Blood Negative, Urine Nitrite Negative, Urine Bilirubin Negative, Urine Urobilinogen Normal, Ur Leukocyte Esterase Negative, Urine RBC 0 SEEN, Urine WBC 0 SEEN, Ur Squamous Epith Cells 0 SEEN, Amorphous Sediment 2+, Urine Bacteria 0 SEEN, Urine Mucus 0 SEEN 06/17/21 06:20: WBC 8.1, RBC 3.17 L, Hgb 8.8 L, Hct 25.5 L, MCV 80.4 L, MCH 27.8, MCHC 34.5, RDW Std Deviation 44.6 H, RDW Coeff of Mickey 15.2 H, Plt Count 268, MPV 8.6, Immature Gran % (Auto) 0.600, Neut % (Auto) 73.2 H, Lymph % (Auto) 20.9, Bureau % (Auto) 2.4, Eos % (Auto) 2.5, Baso % (Auto) 0.4, Absolute Neuts (auto) 5.9, Absolute Lymphs (auto) 1.69, Nucleated RBC % 0 06/17/21 06:20: Sodium 126 L, Potassium 4.4, Chloride 96 L, Carbon Dioxide 23.0, Anion Gap 7, BUN 20 H, Creatinine 0.75, Estim Creat Clear Calc 33.71, Est GFR (MDRD) Af Amer 95, Est GFR (MDRD) Non-Af 79, BUN/Creatinine Ratio 26.8 H, Glucose 128 H, Calcium 8.3 L Radiography Diagnostic Testing: Radiology Impression Chest X-Ray 06/16/21 20:17 IMPRESSION: 1. Pulmonary nodules as previously described. 2. No new cardiopulmonary disease. Electronically Signed: Alok Xavier DO at 20:56 EDT , Physical Exam Narrative Physical Examination: General: Awake, alert, oriented to self, place and recent events, remains cooperative, seated upright in medical surgical bed, fatigued, complaining of heel pain. Skin: Normal color, normal turgor, no icterus, no cyanosis. HEENT: AT/NC, EOMI, PERRLA, moderately dry MM. Lungs: Diminished, greater bases, moderate effort, no rales, ronchi or wheezing. Heart: Currently mildly tachycardic with regular rhythm; no gallop, rub audible. Abdomen: Soft, NTTP, PEG in place, no obvious distention, mildly hyperactive bowel sounds. Extremities: No cyanosis, clubbing, or edema. No obvious heel deformity or injury. Neurological: Patient awake, alert, oriented as noted, cognitive function seems near baseline intact; pupils equally reactive to light and accommodation, cranial nerves II-XII grossly normal, moving all 4 extremities, no focal deficits, strength moderately to severely global decreased Psychiatric: Affect appears fatigued, flat, no acute evidence of depressive or anxiety feelings. Assessment & Plan Assessment/Plan (1) FTT (failure to thrive) in adult: PLAN: The patient is an 85 y/o F w/ PMHx: Chronic COPD, GERD, OA, Esophageal cancer with metastatic disease w/ PEG tube in place/NPO status w/ recent 06/10/21 power port placement who presents to the [facility] ED on 06/16/21 with progressively worsening weakness, debility following recent initiation of chemotherapy which ended this prior Thursday. #1. Failure to Thrive, Adult: Patient mated to medical surgical floor given inability to safely care for herself outpatient with recent initiation of palliative chemotherapy secondary to recurrent metastatic esophageal cancer, worsening weakness, fatigue prompting transition to the ED for evaluation, no acute findings upon ED presentation with stable chronic lab changes including chronic hyponatremia as well as chronic anemia, will maintain on fall and aspiration precautions, continue n.p.o. status with PEG tube feeds and flushes per home protocol, trend CBC, CMP, pending palliative care evaluation his family is interested in potentially returning to home therefore will await meetings. PT and OT as well as case management involved for discharge planning. #2. Metastatic Esophageal Cancer to the BL lungs: Recent CTA on 05/06/2021 showed multiple bilateral lung nodules w/ CT guided biopsy on 05/08/2021 w/ non small cell carcinoma-favor squamous cell carcinoma, f/u PET/CT 05/22/21 w/ activity right anterior and lateral neck, right periclavicular region, right axillary and retropectoral lymph nodes, right and left pulmonary parenchyma, mediastinum, second?third thoracic vertebrae w/ initiation of palliative chemotherapy with FOLFOX and Nivolumab, following with Dr. Crawford, mag and phos levels requested. Continue home TF regimen w/ flushes per home protocol. Palliative consultation requested although from discussions with staff w/ family there is the impression they would like to take her home. We will continue patient chronic pain regimen including fentanyl patch and as needed oxycodone regimen. #3. Chronic Hyponatremia: Admission sodium 126, baseline prior noted primarily 126-128, stable, judiciously hydrating given concern for mild hypokalemia, will continue to trend CMP. #4. Chronic Anemia/Microcytic/AOCD: Admission hemoglobin 8.6, baseline 8-9, stable, trend. #5. Chronic COPD: We will continue home Advair regimen, PRN albuterol, HOB, IS parameters. #6. Hypothyroidism: We will continue patient home levothyroxine regimen. #7. GERD: We will maintain on PPI. #8. DVT prophylaxis: SCDs, Lovenox. Charges/Coding Visit Charges OBSV E&M: 12893 Subsequent observation care L2
[2021-06-17 07:08] LABS: Magnesium 1.9 mg/dL (1.6-2.6); Phosphorus 2.3 mg/dL (2.5-4.9)
[2021-06-17] MEDS: Albuterol 2.5 MG/3 ML VIAL.NEB. INHALATION ×2 (07:25→19:00)
[2021-06-17] MEDS: Budesonide Respules 0.5 MG/2 ML AMPUL.NEB. INHALATION ×2 (07:25→19:00)
--- NOTE | 2021-06-17 08:48 | CASEMGMT ---
Pt with Palliative Care order, completed screening tool. Emailed Palliative Care regarding referral. Per notes, pt had appt set up for today as an outpt prior to hospitalization.
[2021-06-17] MEDS: Enoxaparin 40 MG/0.4 ML Syringe SC (09:29)
[2021-06-17] MEDS: LANSOPRAZOLE 15 MG CAPSULE.DR 30 MG GT (09:33)
[2021-06-17] MEDS: fentaNYL 25 MCG Patch TD (09:33)
[2021-06-17] MEDS: 0.9% Saline Lock 10 ML Syringe IV ×2 (12:39→14:41)
--- NOTE | 2021-06-17 12:45 | CON.PCM.PA_ITS ---
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 1. Cancer related pain: Not well controlled on current regimen which consists of oxycodone 5 mg every 6 hours PRN, Tylenol PRN, and newly applied fentanyl patch 25 mcg every 72 hours (2nd dose applied today). Recommendations as follows: -Schedule oxycodone 5 mg every 6 hours -Add dexamethasone 8 mg GT daily 3 days, then decrease to 4 mg daily until seen as outpatient by palliative care later this week -Continue with fentanyl 25 mcg every 72 hours, this may need increased depending upon her requirements after steroids. Should have some benefit by now, likely on too small of a dose but would agree 25 mcg would be a good starting dose for patient's age and debility -Continue with as needed morphine while in the hospital 2. 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 She has a PEG tube which has chronic issues with leaking. It is currently red and inflamed, painful. She has been seen by Dr. Espinoza and was in the hospital about a month ago for similar issues. She receives nutrition via PEG tube. 3. Constipation: Typically controlled with MiraLAX at home, however she still has issues. they were going to try MiraLAX twice daily, however this causes her stool to be too loose. 4. Squamous cell carcinoma of the lung with metastasis to multiple sites:new bony lesions T2-T3, very painful. Following with oncology. There is a consult pending regarding whether or not patient should continue chemotherapy at this point Thank you for the opportunity to participate in this patient's care, please do not hesitate to contact your healthcare palliative with any further questions or concerns at [phone].the patient is unable to make her own decisions at this time due to confusion and medications, however her daughter Soo is agreeable to palliative and possibly hospice depending upon patient wishes. Greater than 50% of visit was dedicated to education and counseling regarding hospice and palliative services, education on comorbid conditions, prognosis, and coordination of care with other healthcare providers.I spoke with the patient's family, the patient, and attending regarding plan of care. Start time: 1246 End time: 1403 HPI Consult Data Date of Consult: 06/18/21 HPI Narrative HPI Narrative: TONO SHEN, is a 85 F who presents to [facility] 06/18 with complaints of weakness. 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 Patient has become progressively weaker and was unable to get up and ambulate much with her walker so family called squad. Patient was actually supposed to be seen by palliative for consultation as an outpatient today for cancer related pain management, however ended up in the hospital. Patient follows with Dr. Crawford and was last seen by oncology 05/28/2021. He did discuss disease progression at that time and noted prognosis is poor but depends on response to chemotherapy and immunotherapy. Patient did have a port placed recently and was to start FOLFOX. She did have her first dose of chemo, which apparently she did not tolerate. Patient was taking oxycodone 5 mg every 6 hours as needed for pain and Tylenol as needed at home, both which had little to no effect. Other PMH includes anemia, CKD, hyponatremia, hypertension, hypothyroidism, and GERD. Patient's daughter Soo and her spouse care for Tono. Patient lives in a mobile home on their property. She typically can ambulate with a walker with no assist, however recently has required standby assist due to her weakness. Patient had been tolerating immunotherapy at home and received a dose through her pump Thursday through Thursday, also got iron infusion. Her back and arms are so weak now that she can no longer lift things or care for her PEG tube. She was completely independent with this 2 weeks ago. She has chronic issues with her PEG tube, which has been leaking for the past 2 years or so. She now has dark green drainage and bleeding around the insertion site, which is a change today. Originally, patient had a PEG tube when she was diagnosed with esophageal cancer in 2014, but it was reversed. She then had it replaced because she was requiring esophageal dilation every [address] Garcia. Soo also reports she had a nosebleed on Thursday, possibly due to the chemo. Patient is having a lot of pain in the area of her spinal metastases T2-T3. She is currently on fentanyl patch 25 mcg every 72 hours, morphine 4 mg IV every 3 hours as needed, Tylenol 650 mg every 6 hours as needed, and oxycodone 5 mg every 4 hours as needed. Her pain is not well controlled on this regimen. When at home, the patient was taking the oxycodone every 6 hours when they had enough, however the patient only got a 2-week supply each time and had to be seen by the physician to get another prescription, which was difficult to accomplish. Soo is concerned with taking the patient home. She is too weak and they cannot care for her as her needs exceed their abilities. They are considering correction for the time being to see if she can get stronger and would prefer [facility] home, which I did relay to social media community manager. The patient has not been seen by her oncologist while here in the hospital. It is unclear if he would recommend continuing chemotherapy at this time. I did speak with the hospitalist, Dr. Gonzalez and she will consult oncology for their input. If the patient would decide that she would like to forego any further treatment, she would be hospice appropriate. If her pain does not get under better control while here in the hospital, I would also recommend that she be transferred to the inpatient unit at hospice for adjustment of her pain medications prior to being discharged home or to F. Otherwise, we will make recommendations for better pain control and f/u prn while in the hospital and soon after discharge. [facility] Medical History Arthritis Back pain Bladder disease Bone cancer Cancer of upper third of esophagus Cataracts, bilateral Chronic pain COPD (chronic obstructive pulmonary disease) Depression Diabetes mellitus Difficulty swallowing Easy bruising Encounter for education Esophageal cancer Feeding by G-tube Former smoker Gastric reflux Hearing problem History of esophageal cancer History of esophageal dilatation History of pneumonia History of stress test Hoarseness of voice Hypertension Hyponatremia Infection Irregular heart beat Left shoulder pain 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 Multiple lung nodules Redness of skin Shortness of breath on exertion Squamous cell carcinoma Syncope Thyroid disease Thyroid disease Uses wheelchair Vitamin D deficiency Walker as ambulation aid Wears dentures Wears glasses Wears hearing aid Home Medications levothyroxine 112 mcg FEEDING TUBE DAILY 11/23/18 [History Last Taken 07/09/20] Advair HFA 2 puff INHALATION BID 10/18/19 [History Last Taken 07/10/20] omeprazole 40 mg FEEDING TUBE DAILY 10/18/19 [History Last Taken 07/09/20] albuterol sulfate 1 - 2 puff INHALATION Q4H PRN PRN 07/03/20 [History Last Taken 07/10/20] food supplemt, lactose-reduced 240 ml FEEDING TUBE Q6H 05/07/21 [History Last Taken Unknown] lidocaine-prilocaine 2.5 %-2.5 % topical cream 1 applic TOPICAL ONCE PRN 30 Days #30 g 06/05/21 [Rx Last Taken Unknown] nystatin 100,000 unit/gram topical powder 1 applic TOPICAL BID #30 g 06/13/21 [Rx Last Taken Unknown] dexamethasone 8 mg G-TUBE DAILY 2 Days #4 tab 06/18/21 [Rx Last Taken Unknown] dexamethasone [Decadron] 4 mg PO DAILY 30 Days #30 tab 06/18/21 [Rx Last Taken Unknown] fentanyl 1 patch TRANSDERMAL Q72H 30 Days #1 ea 06/18/21 [Rx Last Taken Unknown] menthol-zinc oxide [Calmoseptine] 1 applic TOPICAL TID 30 Days #113 g 06/18/21 [Rx Last Taken Unknown] metoprolol tartrate 12.5 mg G-TUBE BID #0 tab 06/18/21 [Rx Last Taken Unknown] oxycodone 5 mg G-TUBE Q6H 5 Days #20 tab 06/18/21 [Rx Last Taken Unknown] potassium, sodium phosphates 1 packet G-TUBE 4X/DAY 5 Days #0 packet 06/18/21 [Rx Last Taken Unknown] sennosides-docusate sodium [Stool Softener-Stimulant Laxat] 2 tab G-TUBE DAILY #0 tab 06/18/21 [Rx Last Taken Unknown] Allergy/AdvReac Type Severity Reaction Status Date / Time amoxicillin [From Augmentin] Allergy Rash Verified 06/16/21 23:16 cefadroxil Allergy Rash Verified 06/16/21 23:16 clavulanic acid Allergy Rash Verified 06/16/21 23:16 [From Augmentin] clindamycin Allergy Rash Verified 06/16/21 23:16 codeine AdvReac Other Verified 06/16/21 23:16 hydrocodone bitartrate AdvReac Other Verified 06/16/21 23:16 [From Vicodin] oxycodone [From Percocet] AdvReac Other Verified 06/16/21 23:16 Family History Mother Osteoporosis Heart disease Surgical History History of cardiac catheterization History of cholecystectomy History of tubal ligation S/P dilatation of esophageal stricture Social History household members: none Smoking Status: Former smoker alcohol intake: never substance use type: does not use ROS ROS Narrative Review of systems otherwise negative from a constitutional, HEENT, respiratory, cardiovascular, GI, genitourinary, musculoskeletal, skin, neurologic, psychiatric and hematologic system unless stated above. Limited due to cognitive status, however answering most questions. Daughter providing much of information. Physical Exam Const General Appearance: lethargic and ill appearing HEENT normocephalic and head/scalp atraumatic Neck supple General: trachea midline Resp normal respiratory effort Effort and Inspection: symmetric chest movement Auscultation: diminished lung sounds Cardio regular rhythm, S1 normal heart sound and S2 normal heart sound Rate: tachycardic GI soft to palpation GI Narrative: PEG tube insertion site is red and inflamed, no current drainage. Very tender to touch Auscultation: normoactive bowel sounds Extremity no clubbing, cyanosis or edema Skin Skin Narrative: Pale, appears to be intact other than sight around PEG insertion Neuro Neuro Narrative: Limited exam secondary to lethargy Psych cooperative
--- NOTE | 2021-06-17 13:39 | CHAPLAIN ---
Type of Pastoral Visit _x__ Initial Visit ___ Follow-up Visit ___ On-call Visit ___ General Patient Visit ___ Spiritual Assessment ___ Family Conference ___ Bereavement ___ Rapid Response ___ Code Blue ___ Other (describe below) Pastoral Care Referral From ___ Patient _x__ Family ___ Nurse ___ Physician ___ Research Investigator ___ Cable Tool Driller ___ Other (describe below) Sacrament/Intervention _x__ Active listening ___ Anointing ___ Alevism ___ Bereavement ___ Communion ___ Yari exploration ___ ___ Life review _x__ Prayer ___ Reconciliation ___ Sacrament of Sick _x__ Supportive presence ___ Wedding ___ Other (describe below) Pastoral Comments patient just had meds and is now resting comfortably it appears; pt does not stir awake; daughter and nav are in room and daughter gives background information about cancer illness of pt; complications have recently serviced; pt handles the illness pretty well according to the daughter; family welcomes prayer and future visits if possible
--- NOTE | 2021-06-17 14:20 | CASEMGMT ---
ANNALISA PAEZ Assessment: Face to Face with pt for initial transition planning/care coordination assessment. ANNALISA PAEZ introduced self and role at [facility], pt dtr and son in law voice understanding and consent to assessment. Pt is lying in bed with eyes closed and did not open them during assessment. Care providers, pharmacy, and demographics verified/updated. Admitting Dx: debility, generalized weakness PCP:Markie Specialists:Olga, surgeon; Richard, pulm; Praalissa, onc Preferred Pharmacy: [facility] Insurance: [facility], AARP Prescription Benefit: yes LW/HPOA: Pt family deny pt having a LW/DPOA and denies need for info regarding AD. LNOK: Soofranklin Navarro, dtr; Renée Melanie, granddtr Living Arrangements: Pt lives with dtr and son in law in a single story house with 2 steps to enter with a rail. Pt needs complete assistance from dtr to perform ADL's. Transportation: Pt family transports pt to medical appts. DME/HHC/SNF: Pt has a w/c, lift chair, hosp bed, BGM with sufficient supplies. Pt checks blood sugars weekly. Pt also has a walker, grab bar in the shower, walk in shower and shower chair. Pt is current with [facility] SN. They were planning on dc'ing last Thursday but wanted to wait until Palliative Care had startedd. Pt dtr denies pt being in a SNF. Pt has a PEG tube and port. Pt dtr states that she cannot care for pt in the way that she needs taken care of at this time. She states she would like pt to go to [facility]. She does not currently have a second choice. Pt family states no further concerns/needs. CM to follow. Advised pt family to ask CM if any further question/concerns/needs arise, voices understanding. Pt Goal: [facility] Plan: [facility] pending acceptance, notified MANAGER WATER. Prior to assessment, Erika from Palliative Care states pt family is agreeable to skilled care and is requesting [facility] as she cannot go home.
--- NOTE | 2021-06-17 14:49 | CASEMGMT ---
Discharge Mill Recorder Called Jeannette at [facility]. Left a VM. Faxed over referral. Will follow up. Mellisa Daigle Discharge Mill Recorder
--- NOTE | 2021-06-17 15:29 | CASEMGMT ---
ANNALISA PAEZ in to discuss MEYER form with patient. Patient lying in bed with eyes closed. Pt dtr stated she would sign the form. RN JEANNINE explained MEYER form, patient dtr voiced understanding. Pt dtr signed form and filed in chart. Pt dtr provided with a copy of signed MEYER form. Patient had no further questions or concerns at this time.
--- NOTE | 2021-06-17 15:35 | CASEMGMT ---
Social Work Note SW received referral for SNF placement and pt's family preferred provider is [facility]. SW placed a call to Laurita Daigle and asked for referral to be sent to [facility]. Plan: [facility] pending acceptance Sneha You REFERRAL MANAGER, ESCALATOR ATTENDANT
--- NOTE | 2021-06-17 15:40 | CASEMGMT ---
Discharge Electric Welder Jeannette from [facility] called and can accept patient. Sneha LARKIN notified Mellisa Daigle Discharge Electric Welder.
--- NOTE | 2021-06-17 16:05 | CASEMGMT ---
Social Work Note TRAE received update that [facility] is requesting family provide tube feed for pt as [facility] needs to order the tube feed. [facility] is able to accept. TRAE spoke with pt's daughter Soo and ALEKSANDR Aldana. TRAE introduced self and role at [facility]. TRAE updated Soo and Jovan that [facility] is able to accept pt, requests that family provide [facility] with tube feeds. Soo states she has tube feed that she can provide to [facility] for pt. TRAE updated physician. Plan is for pt to discharge to [facility] tomorrow. TRAE updated Soo that plan is for pt to discharge to [facility] tomorrow. Soo states she will take tube feed to [facility] tomorrow morning. TRAE placed a call to Jeannette at [facility] and updated her that plan is for pt to discharge to [facility] tomorrow and family will provide tube feed. Jeannette states understanding. Plan: [facility] skilled tomorrow Sneha You UTILITY AIDE, EXPERIMENTAL FLIGHT TEST MECHANIC
[2021-06-17] MEDS: 0.9% Normal Saline 1,000 ML 60 ML IV (16:35)
[2021-06-17] MEDS: dexAMETHasone 4 MG Tablet 8 MG GT (16:35)
[2021-06-17] MEDS: Metoprolol Tartrate 25 MG Tablet 12.5 MG GT ×2 (16:37→21:27)
--- NOTE | 2021-06-17 16:42 | CON.PCM.ON_ITS ---
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 Now admitted with General weakness with deterioration in functional status. Prognosis is poor. Suggest supportive care with IV fluid, Pain management. She wants to discuss further doses of therapy with her family. She can proceed to hospice if she elects to stop therapy. Will no follow further on this admission. If she is discharged, she should follow up in the [facility] clinic. HPI Consult Data Date of Service:: 06/17/21 PCP / Referring Provider: Dr. Reynaldo Aden MD Attending: Dr. Emerson Badillo MD Chief Complaint Chief Complaint: Asked to see Pt admitted with general weakness, History of Present Illness History of Present Illness: 85y.o.woman with H/o of Upper 3rd esophageal squamous cell cancer was found have metastatic disease to bone, lungs, mediastinal nodes, retroperitoneal nodes, R axillary nodes. She started palliative chemotherapy FOLFOX and Immunotherapy-Nivolumab every 2 weeks on 06/12/2021. Since then, she has become progressively weak, Peg tube site has become red and leaking greenish fluid. Advanced Directives Power of Production Control Coordinating Clerk: No Living Will: No PFSH Medical History Arthritis Back pain Bladder disease Bone cancer Cancer of upper third of esophagus Cataracts, bilateral Chronic pain COPD (chronic obstructive pulmonary disease) Depression Diabetes mellitus Difficulty swallowing Easy bruising Encounter for education Esophageal cancer Feeding by G-tube Former smoker Gastric reflux Hearing problem History of esophageal cancer History of esophageal dilatation History of pneumonia History of stress test Hoarseness of voice Hypertension Hyponatremia Infection Irregular heart beat Left shoulder pain 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 Multiple lung nodules Redness of skin Shortness of breath on exertion Squamous cell carcinoma Syncope Thyroid disease Thyroid disease Uses wheelchair Vitamin D deficiency Walker as ambulation aid Wears dentures Wears glasses Wears hearing aid Home Medications levothyroxine 112 mcg FEEDING TUBE DAILY 11/23/18 [History Last Taken 07/09/20] fluticasone propion-salmeterol [Advair HFA] 2 puff INHALATION BID 10/18/19 [History Last Taken 07/10/20] omeprazole 40 mg FEEDING TUBE DAILY 10/18/19 [History Last Taken 07/09/20] albuterol sulfate 1 - 2 puff INHALATION Q4H PRN PRN 07/03/20 [History Last Taken 07/10/20] food supplemt, lactose-reduced 240 ml FEEDING TUBE Q6H 05/07/21 [History Last Taken Unknown] lidocaine-prilocaine 2.5 %-2.5 % topical cream 1 applic TOPICAL ONCE PRN 30 Days #30 g 06/05/21 [Rx Last Taken Unknown] oxycodone 5 mg FEEDING TUBE Q6H PRN 06/06/21 [History Last Taken Unknown] fentanyl 25 mcg/hr transdermal patch 1 patch TRANSDERMAL Q72H 30 Days #10 ea 06/12/21 [Rx Last Taken 06/14/21 1045] nystatin 100,000 unit/gram topical powder 1 applic TOPICAL BID #30 g 06/13/21 [Rx Last Taken Unknown] Allergy/AdvReac Type Severity Reaction Status Date / Time amoxicillin [From Augmentin] Allergy Rash Verified 06/16/21 23:16 cefadroxil Allergy Rash Verified 06/16/21 23:16 clavulanic acid Allergy Rash Verified 06/16/21 23:16 [From Augmentin] clindamycin Allergy Rash Verified 06/16/21 23:16 codeine AdvReac Other Verified 06/16/21 23:16 hydrocodone bitartrate AdvReac Other Verified 06/16/21 23:16 [From Vicodin] oxycodone [From Percocet] AdvReac Other Verified 06/16/21 23:16 Family History Mother Osteoporosis Heart disease Surgical History History of cardiac catheterization History of cholecystectomy History of tubal ligation S/P dilatation of esophageal stricture Social History household members: none Smoking Status: Former smoker alcohol intake: never substance use type: does not use ROS Constitutional Constitutional: Reports fatigue; Denies fever(s) ENT HEENT: Reports dysphagia Cardiovascular Cardiovascular: Denies chest pain Respiratory/Chest Respiratory/Chest: Denies cough Gastrointestinal Gastrointestinal: Reports abdominal pain Genitourinary Genitourinary: Denies change in urinary stream Musculoskeletal Musculoskeletal: Reports muscle weakness Integumentary Integumentary: Reports erythema and other Details: around PEG tube Neurologic Neurologic: Reports dizziness Psychiatric Psychiatric: Denies homicidal ideation Endocrine Endocrinology: Denies cold intolerance Hematologic/Lymphatic Hematologic/Lymphatic: Denies easy bleeding or easy bruising Physical Exam Const alert and oriented x3 HEENT normocephalic Eyes PERRL, conjunctivae normal and no scleral icterus Neck no lymphadenopathy Lymph Lymphatic: no lymphedema noted Chest Chest Narrative: +port L IC area. Resp normal respiratory effort and clear to auscultation bilaterally Cardio regular rate, regular rhythm, S1 normal heart sound and S2 normal heart sound GI GI Narrative: + tenderness around the Peg tube side, leaking greenish fluid. Extremity normal to inspection Skin no rashes or lesions noted Neuro CN's II-XII intact bilaterally Psych mental status grossly normal Vital Signs Temperature 98.8 F 06/17/21 16:33 Temperature Source Temporal 06/17/21 16:33 Pulse Rate 119 H 06/17/21 16:37 Respiratory Rate 16 06/17/21 16:33 Respiratory Effort Non-Labored 06/17/21 07:45 Respiratory Depth Normal 06/17/21 07:45 Respiratory Pattern Normal 06/17/21 07:45 Blood Pressure 123/70 H 06/17/21 16:33 Blood Pressure Mean 87 06/17/21 16:33 Blood Pressure Source Monitor 06/17/21 16:33 Blood Pressure Position Semi-Fowlers 06/17/21 16:33 Blood Pressure Location Right Arm 06/17/21 16:33 Pulse Ox 97 06/17/21 16:33 Oxygen Delivery Method Room Air 06/17/21 16:33 Laboratory Results - last 24 hr 06/16/21 20:20: WBC 7.9, RBC 3.14 L, Hgb 8.6 L, Hct 25.8 L, MCV 82.2, MCH 27.4, MCHC 33.3, RDW Std Deviation 46.4 H, RDW Coeff of Mickey 15.4 H, Plt Count 277, MPV 8.7, Immature Gran % (Auto) 0.500, Neut % (Auto) 74.4 H, Lymph % (Auto) 20.3, [place] % (Auto) 1.9, Eos % (Auto) 2.6, Baso % (Auto) 0.3, Absolute Neuts (auto) 5.9, Absolute Lymphs (auto) 1.61, Nucleated RBC % 0 06/16/21 20:20: Sodium 126 L, Potassium 4.2, Chloride 93 L, Carbon Dioxide 25.0, Anion Gap 8, BUN 19 H, Creatinine 0.80, Estim Creat Clear Calc 44.08, Est GFR (MDRD) Af Amer 88, Est GFR (MDRD) Non-Af 73, BUN/Creatinine Ratio 23.7 H, Glucose 122 H, Calcium 8.6, Total Bilirubin 0.20, AST 18, ALT 19, Alkaline Phosphatase 84, Total Protein 7.3, Albumin 2.4 L, Globulin 4.9 H, Albumi n/Globulin Ratio 0.5 L 06/16/21 20:20: Troponin I High Sens 5 06/16/21 20:25: Lactic Acid 1.5 06/16/21 21:04: Urine Color Yellow, Urine Clarity Sl. Cloudy, Urine pH 8.0, Ur Specific [place] 1.015, Urine Protein Negative, Urine Glucose (UA) Normal, Urine Ketones Negative, Urine Occult Blood Negative, Urine Nitrite Negative, Urine Bilirubin Negative, Urine Urobilinogen Normal, Ur Leukocyte Esterase Negative, Urine RBC 0 SEEN, Urine WBC 0 SEEN, Ur Squamous Epith Cells 0 SEEN, Amorphous Sediment 2+, Urine Bacteria 0 SEEN, Urine Mucus 0 SEEN 06/17/21 06:20: WBC 8.1, RBC 3.17 L, Hgb 8.8 L, Hct 25.5 L, MCV 80.4 L, MCH 27.8, MCHC 34.5, RDW Std Deviation 44.6 H, RDW Coeff of Mickey 15.2 H, Plt Count 268, MPV 8.6, Immature Gran % (Auto) 0.600, Neut % (Auto) 73.2 H, Lymph % (Auto) 20.9, [place] % (Auto) 2.4, Eos % (Auto) 2.5, Baso % (Auto) 0.4, Absolute Neuts (auto) 5.9, Absolute Lymphs (auto) 1.69, Nucleated RBC % 0 06/17/21 06:20: Sodium 126 L, Potassium 4.4, Chloride 96 L, Carbon Dioxide 23.0, Anion Gap 7, BUN 20 H, Creatinine 0.75, Estim Creat Clear Calc 33.71, Est GFR (MDRD) Af Amer 95, Est GFR (MDRD) Non-Af 79, BUN/Creatinine Ratio 26.8 H, Glucose 128 H, Calcium 8.3 L 06/17/21 06:20: Phosphorus 2.3 L, Magnesium 1.9 Microbiology 06/16/21 21:04 Urine, Catheterized Urine Culture - Preliminary Culture exhibits no growth. Diagnostic Data Chest X-Ray 06/16/21 20:17 IMPRESSION: 1. Pulmonary nodules as previously described. 2. No new cardiopulmonary disease. Electronically Signed: Alok Xavier DO at 20:56 EDT , Charges/Coding Visit Charges Office Visits / Consults: [id number] IP Consult L3
[2021-06-17] MEDS: Na Biphos/Potassium Phosphate PACKET 1 PACKET GT ×2 (19:31→22:44)
--- NOTE | 2021-06-17 20:09 | EX.PCM.CON.S ---
Assessment & Plan Assessment/Plan (1) Leaking percutaneous endoscopic gastrostomy (PEG) tube: PLAN: This is an 85-year-old female with metastatic esophageal squamous cell carcinoma currently undergoing palliative chemotherapy who is admitted for failure to thrive. Surgery is asked to see the patient for complaints of irritation about her PEG tube and some leakage. This is a issue that I have seen the patient for in the past. At that time, we were able to remove the patient's existing 22 [address] tube, place a 20 [place] tube and allow the os to shrink down and provide a tighter fit when her 22 [place] tube was replaced. However, at this time I do not believe the patient would be able to tolerate this manipulation and given her questionable nutrition, I am not confident that the downsizing procedure would have the desired effect. Therefore, I suggest regular application of barrier cream around the PEG tube insertion site and careful attention to the patient's bumper so that it is snug to the skin but not overly tight. I do believe there is a multifactorial cause to the patient's issues here to include slowed GI motility. Recommend consistent bowel regimen. HPI Consult Data Date of Consult: 06/17/21 HPI Narrative HPI Narrative: TONO SHEN, is a 85 F who presents to [facility] with failure to thrive after initiation of chemotherapy for diagnosis of metastatic esophageal squamous cell carcinoma. She is known to me from a prior admission for leaking PEG tube and then also from her recent port placement. Hospitalist service has consulted me to assess patient for ongoing issues related to her PEG tube. Patient is found by herself in her room and instructed me to obtain the clinical update from the nursing staff. She confirms that she has been very weak and is unable to answer some basic questions about her recent health. However, she does state that she has been able to have occasional bowel movements and has exquisite pain at her PEG tube site. Nursing is able to update me that patient's PEG tube is leaking after feeds and if patient changes positions too quickly feeds simply poor out. There is also been drainage of a mustard color with patient's PEG tube site dressing changes. Lastly they relate that the patient had a large, loose bowel movement earlier today. [facility] Medical History Arthritis Back pain Bladder disease Bone cancer Cancer of upper third of esophagus Cataracts, bilateral Chronic pain COPD (chronic obstructive pulmonary disease) Depression Diabetes mellitus Difficulty swallowing Easy bruising Encounter for education Esophageal cancer Feeding by G-tube Former smoker Gastric reflux Hearing problem History of esophageal cancer History of esophageal dilatation History of pneumonia History of stress test Hoarseness of voice Hypertension Hyponatremia Infection Irregular heart beat Left shoulder pain 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 Multiple lung nodules Redness of skin Shortness of breath on exertion Squamous cell carcinoma Syncope Thyroid disease Thyroid disease Uses wheelchair Vitamin D deficiency Walker as ambulation aid Wears dentures Wears glasses Wears hearing aid Home Medications levothyroxine 112 mcg FEEDING TUBE DAILY 11/23/18 [History Last Taken 07/09/20] fluticasone propion-salmeterol [Advair HFA] 2 puff INHALATION BID 10/18/19 [History Last Taken 07/10/20] omeprazole 40 mg FEEDING TUBE DAILY 10/18/19 [History Last Taken 07/09/20] albuterol sulfate 1 - 2 puff INHALATION Q4H PRN PRN 07/03/20 [History Last Taken 07/10/20] food supplemt, lactose-reduced 240 ml FEEDING TUBE Q6H 05/07/21 [History Last Taken Unknown] lidocaine-prilocaine 2.5 %-2.5 % topical cream 1 applic TOPICAL ONCE PRN 30 Days #30 g 06/05/21 [Rx Last Taken Unknown] oxycodone 5 mg FEEDING TUBE Q6H PRN 06/06/21 [History Last Taken Unknown] fentanyl 25 mcg/hr transdermal patch 1 patch TRANSDERMAL Q72H 30 Days #10 ea 06/12/21 [Rx Last Taken 06/14/21 1045] nystatin 100,000 unit/gram topical powder 1 applic TOPICAL BID #30 g 06/13/21 [Rx Last Taken Unknown] Allergy/AdvReac Type Severity Reaction Status Date / Time amoxicillin [From Augmentin] Allergy Rash Verified 06/16/21 23:16 cefadroxil Allergy Rash Verified 06/16/21 23:16 clavulanic acid Allergy Rash Verified 06/16/21 23:16 [From Augmentin] clindamycin Allergy Rash Verified 06/16/21 23:16 codeine AdvReac Other Verified 06/16/21 23:16 hydrocodone bitartrate AdvReac Other Verified 06/16/21 23:16 [From Vicodin] oxycodone [From Percocet] AdvReac Other Verified 06/16/21 23:16 Family History Mother Osteoporosis Heart disease Surgical History History of cardiac catheterization History of cholecystectomy History of tubal ligation S/P dilatation of esophageal stricture Social History household members: none Smoking Status: Former smoker alcohol intake: never substance use type: does not use Physical Exam Const alert General Appearance: frail Nutritional Appearance: thin GI GI Narrative: There is significant erythema about the patient's PEG tube site consistent with local irritation from, leakage. There is some active leaking of tube feeds at this location. Patient is exquisitely tender and unable to tolerate much of an exam. Manger of the abdomen, however, it is nontender with palpation Inspection: Negative for abdominal distention Lab / Micro Data Result Diagrams: 06/17/21 06:20 06/17/21 06:20 Labs: Laboratory Results - last 24 hr 06/16/21 20:20: WBC 7.9, RBC 3.14 L, Hgb 8.6 L, Hct 25.8 L, MCV 82.2, MCH 27.4, MCHC 33.3, RDW Std Deviation 46.4 H, RDW Coeff of Mickey 15.4 H, Plt Count 277, MPV 8.7, Immature Gran % (Auto) 0.500, Neut % (Auto) 74.4 H, Lymph % (Auto) 20.3, [place] % (Auto) 1.9, Eos % (Auto) 2.6, Baso % (Auto) 0.3, Absolute Neuts (auto) 5.9, Absolute Lymphs (auto) 1.61, Nucleated RBC % 0 06/16/21 20:20: Sodium 126 L, Potassium 4.2, Chloride 93 L, Carbon Dioxide 25.0, Anion Gap 8, BUN 19 H, Creatinine 0.80, Estim Creat Clear Calc 44.08, Est GFR (MDRD) Af Amer 88, Est GFR (MDRD) Non-Af 73, BUN/Creatinine Ratio 23.7 H, Glucose 122 H, Calcium 8.6, Total Bilirubin 0.20, AST 18, ALT 19, Alkaline Phosphatase 84, Total Protein 7.3, Albumin 2.4 L, Globulin 4.9 H, Albumin/Globulin Ratio 0.5 L 06/16/21 20:20: Troponin I High Sens 5 06/16/21 20:25: Lactic Acid 1.5 06/16/21 21:04: Urine Color Yellow, Urine Clarity Sl. Cloudy, Urine pH 8.0, Ur Specific [place] 1.015, Urine Protein Negative, Urine Glucose (UA) Normal, Urine Ketones Negative, Urine Occult Blood Negative, Urine Nitrite Negative, Urine Bilirubin Negative, Urine Urobilinogen Normal, Ur Leukocyte Esterase Negative, Urine RBC 0 SEEN, Urine WBC 0 SEEN, Ur Squamous Epith Cells 0 SEEN, Amorphous Sediment 2+, Urine Bacteria 0 SEEN, Urine Mucus 0 SEEN 06/17/21 06:20: WBC 8.1, RBC 3.17 L, Hgb 8.8 L, Hct 25.5 L, MCV 80.4 L, MCH 27.8, MCHC 34.5, RDW Std Deviation 44.6 H, RDW Coeff of Mickey 15.2 H, Plt Count 268, MPV 8.6, Immature Gran % (Auto) 0.600, Neut % (Auto) 73.2 H, Lymph % (Auto) 20.9, [place] % (Auto) 2.4, Eos % (Auto) 2.5, Baso % (Auto) 0.4, Absolute Neuts (auto) 5.9, Absolute Lymphs (auto) 1.69, Nucleated RBC % 0 06/17/21 06:20: Sodium 126 L, Potassium 4.4, Chloride 96 L, Carbon Dioxide 23.0, Anion Gap 7, BUN 20 H, Creatinine 0.75, Estim Creat Clear Calc 33.71, Est GFR (MDRD) Af Amer 95, Est GFR (MDRD) Non-Af 79, BUN/Creatinine Ratio 26.8 H, Glucose 128 H, Calcium 8.3 L 06/17/21 06:20: Phosphorus 2.3 L, Magnesium 1.9 Micro: Microbiology 06/16/21 21:04 Urine, Catheterized Urine Culture - Preliminary Culture exhibits no growth. Radiology Impression Chest X-Ray 06/16/21 20:17 IMPRESSION: 1. Pulmonary nodules as previously described. 2. No new cardiopulmonary disease. Electronically Signed: Alok Xavier DO at 20:56 EDT , Charges/Coding Visit Charges Inpatient E&M: 61005 Subs Hosp L2
[2021-06-17] MEDS: Menthol/Lanolin/Calamine/Znox 113 GM Tube 1 APPLIC TOPICAL (20:26)
[2021-06-18] VITALS (10 sets, daily range): BP systolic 133–137; BP diastolic 61–72; PULSE 79–99; RESP 16–18; TEMP 36.6–36.7; O2SAT 95–98
[2021-06-18] MEDS: Menthol/Lanolin/Calamine/Znox 113 GM Tube 1 APPLIC TOPICAL ×2 (05:16→14:39)
[2021-06-18] MEDS: Levothyroxine 112 MCG Tablet GT (05:16)
--- NOTE | 2021-06-18 06:31 | TREXTCAR_ITS ---
Diet 06/16/21 23:03 Diet: Nothing Per Oral Diet Comments: All po meds through peg tube Routine Orders/Code Status Keep PO Greater than or Equal to (%): 92 Routine Lab Work: - (CBC, BMP repeat in 1 week.) Wound(s) Abdomen: Wound Type: peg tube insertion site (Please use rishi around the PEG tube for skin barrier as needed aggressively.) Suggestions for Active Care Change Position every (hours): 2 Hours to sit in a chair: 4 Times a day to sit in chair: 3 Therapies Weight Bearing: Full weight bearing Physical Therapy: Eval and Treat Occupational Therapy: Eval and Treat Speech Therapy: Eval and Treat Problem/Diagnosis (1) Leaking percutaneous endoscopic gastrostomy (PEG) tube: Status: Acute Allergies/Procedures Done in Hospital Allergies amoxicillin [From Augmentin] Allergy (Verified 06/16/21 23:16) Rash skin turns red and pt feels unwell cefadroxil Allergy (Verified 06/16/21 23:16) Rash skin turns red and pt feels unwell clavulanic acid [From Augmentin] Allergy (Verified 06/16/21 23:16) Rash skin turns red and pt feels unwell clindamycin Allergy (Verified 06/16/21 23:16) Rash skin turns red and pt feels unwell codeine Adverse Reaction (Verified 06/16/21 23:16) Other pt 'does not like the way it makes her feel' hydrocodone bitartrate [From Vicodin] Adverse Reaction (Verified 06/16/21 23:16) Other pt 'does not like the way it makes her feel' oxycodone [From Percocet] Adverse Reaction (Verified 06/16/21 23:16) Other pt 'does not like the way it makes her feel' Procedures: None Type of Care/Length of Stay Estimated LOS: Convalescent Care Less Than 30 days Type of Care Needed: Skilled Rehab Potential: Fair Prognosis: Fair Additional Orders/Day of Discharge Additional Orders: Palliative Care Day of Discharge: 06/18/21 Dietary and Speech Recommendations Dietitian Recommendations/Changes: Continue bolus TF Jevity 1.5 240 ml 4x/day as does at home (1000, 1300, 1600, 1900) w/ 175 ml water flush w/ each bolus feeding to provide 1440 javier / 61 gm pro/ 1429 ml free water/day. Discharge Plan Admission Admit Date/Time: 06/16/21 21:56 Primary Reason for Your Visit: FTT Adult Attending Provider: Emerson Badillo Primary Care Provider: Reynaldo Aden Chi Consulting Providers: Gabriela Hooks ; Remy Hernandez ; Alicia Bhatia ; Erika Gibbons ; Yudith Damico ; Margaux Wei [employer]URING INDUSTRIAL ENGINEER ; Alok Espinoza ; Remy Rodriguez ; Emerson Crawford ; Kim Khan ; Venancio Barroso ; Julio Ramirez ; Kush Roman ; Deon Agustin ; Mariana Resendiz NP Discharge Orders/Prescriptions Prescriptions: New oxycodone 5 mg Tablet 5 mg G-tube Q6H 5 Days Qty: 20 RF: 0 sennosides-docusate sodium [Stool Softener-Stimulant Laxat] 8.6-50 mg Tablet 2 tab G-tube DAILY Qty: 0 RF: 0 potassium, sodium phosphates 280-160-250 mg Powder In Packet 1 packet G-tube 4X/DAY 5 Days Qty: 0 RF: 0 dexamethasone 4 mg Tablet 8 mg G-tube DAILY 2 Days Qty: 4 RF: 0 metoprolol tartrate 25 mg Tablet 12.5 mg G-tube BID Qty: 0 RF: 0 menthol-zinc oxide [Calmoseptine] 0.44-20.6 % Ointment 1 applic topical TID 30 Days Qty: 113 RF: 0 dexamethasone [Decadron] 4 mg tablet 4 mg PO DAILY 30 Days Qty: 30 RF: 0 Continued lidocaine-prilocaine 2.5-2.5 % cream 1 applic topical ONCE PRN (Reason: port access) 30 Days Qty: 30 RF: 2 levothyroxine 112 MCG tablet 112 mcg feeding tube DAILY RF: 0 omeprazole 10 MG capsule 40 mg feeding tube DAILY RF: 0 Advair HFA 1 PUFF inhaler 2 puff inhalation BID RF: 0 albuterol sulfate 1 INHALER inhaler 1 - 2 puff INHALATION Q4H PRN PRN (Reason: Asthma) RF: 0 food supplemt, lactose-reduced Liquid 240 ml feeding tube Q6H RF: 0 fentanyl 25 mcg/hr patch 72 hour 1 patch transdermal Q72H 30 Days Qty: 1 RF: 0 nystatin 100,000 unit/gram powder 1 applic topical BID Qty: 30 RF: 0 Discontinued oxycodone 5 mg tablet 5 mg feeding tube Q6H PRN (Reason: pain) RF: 0 Referrals / Follow Up: Emerson Crawford MD [NON-STAFF] - (Follow-up in 1 week or if preference for Hospice transition may defer.) Alok Espinoza MD [STAFF PHYSICIAN] - (Follow-up as needed or in 1-2 weeks.) Reynaldo Aden Chi, MD [Primary Care Provider] - (Follow-up in 1 week.) Disposition Disposition (needs filled in before D/C Order can be placed): Shelter F acility
[2021-06-18] MEDS: Albuterol 2.5 MG/3 ML VIAL.NEB. INHALATION ×2 (07:32→13:30)
[2021-06-18] MEDS: Budesonide Respules 0.5 MG/2 ML AMPUL.NEB. INHALATION (07:32)
[2021-06-18] MEDS: oxyCODONE 5 MG Tablet GT ×2 (08:30→13:23)
[2021-06-18] MEDS: 0.9% Normal Saline 1,000 ML 60 ML IV (08:32)
--- NOTE | 2021-06-18 08:54 | CASEMGMT ---
Notified Maria E at [facility] that pt will be dc'd to [facility] today.
--- NOTE | 2021-06-18 09:14 | WOUNDNOTE ---
Was asked to see patient for redness and drainage from around the PEG tube. Pt is known to this nurse from a previous admission. Patient has had large amounts of drainage from around the PEG tube for quite some time. gently removed the split gauze. the redness is actually improved from last admission. still very tender to touch. attempted to try to place a wound drainage back around the tube, pt was too tender. patient has a skin fold in this area as well and feel by placing an appliance, this may just end up leaking under it as well. gently cleansed the skin with soap and water. pat dry. lightly dusted the skin with stoma powder, then calmoseptine, and more stoma powder to help crust up the area to protect it from the drainage. placed 1 split gauze under the bumper and a couple other on top. pt tolerated well. see skin photo.
--- NOTE | 2021-06-18 09:19 | WOUNDNOTE ---
skin photo: abdomen
[2021-06-18] MEDS: Enoxaparin 40 MG/0.4 ML Syringe SC (09:36)
[2021-06-18] MEDS: Na Biphos/Potassium Phosphate PACKET 1 PACKET GT ×2 (09:36→13:23)
[2021-06-18] MEDS: Senna/Docusate Sodium 1 Tablet 2 TABLET GT (09:36)
[2021-06-18] MEDS: LANSOPRAZOLE 15 MG CAPSULE.DR 30 MG GT (09:36)
[2021-06-18] MEDS: Metoprolol Tartrate 25 MG Tablet 12.5 MG GT (09:38)
[2021-06-18] MEDS: dexAMETHasone 4 MG Tablet 8 MG GT (09:39)
[2021-06-18] MEDS: Jevity 1.5. 1,000 ML Bottle 240 ML GT ×2 (09:39→13:23)
[2021-06-18] MEDS: Nystatin Powder 15gm Bottle 1 APPLIC TOPICAL (10:05)
--- NOTE | 2021-06-18 12:34 | PCM.DC.SUM ---
Providers Date of Admission: 06/16/21 Primary Care Physician: Dr. Reynaldo Aden MD Consultations 06/16/21 23:03 Consult: Hospice / Palliative Care Routine Consulting Provider: [facility] Reason for Consult: Palliative care for pain and goals of care EMERGENT Consult: No MD Notified: Yes Date Notified: 06/17/21 Time Notified: 08:39 Method of Notification: Answering Service Comments:: per Flor case mgmt, sent an email 06/17/21 13:06 Consult: General Surgery Routine Consulting Provider: Alok Espinoza Reason for Consult: PEG tube feeds coming around tube, family concerned EMERGENT Consult: No Notified: Yes Date Notified: 06/17/21 Time Notified: 13:07 Method of Notification: cortext\ 06/17/21 14:15 Consult: Oncology/Hematology Routine Consulting Provider: [facility]) Reason for Consult: FTT Adult following chemo, family interested in discussing future onc plans EMERGENT Consult: No Notified: Yes Date Notified: 06/17/21 Time Notified: 14:15 Method of Notification: cortext 06/18/21 08:13 Consult: Onc/Wound/access tech Routine Comment: Reason for Consult:: Leaking around PEG tube Comments:: ? placing urostomy or ostomy appliance for drainage Reason For Visit: DEBILITY, GENERALIZED WEAKNESS Diagnosis Discharge Diagnosis (1) Leaking percutaneous endoscopic gastrostomy (PEG) tube: Status: Acute Code(s): K94.23 - Gastrostomy malfunction Medications at Discharge Home Medications levothyroxine 112 mcg FEEDING TUBE DAILY 11/23/18 Advair HFA 2 puff INHALATION BID 10/18/19 omeprazole 40 mg FEEDING TUBE DAILY 10/18/19 albuterol sulfate 1 - 2 puff INHALATION Q4H PRN PRN 07/03/20 food supplemt, lactose-reduced 240 ml FEEDING TUBE Q6H 05/07/21 lidocaine-prilocaine 2.5 %-2.5 % topical cream 1 applic TOPICAL ONCE PRN 30 Days #30 g 06/05/21 nystatin 100,000 unit/gram topical powder 1 applic TOPICAL BID #30 g 06/13/21 dexamethasone 8 mg G-TUBE DAILY 2 Days #4 tab 06/18/21 dexamethasone [Decadron] 4 mg PO DAILY 30 Days #30 tab 06/18/21 fentanyl 1 patch TRANSDERMAL Q72H 30 Days #1 ea 06/18/21 menthol-zinc oxide [Calmoseptine] 1 applic TOPICAL TID 30 Days #113 g 06/18/21 metoprolol tartrate 12.5 mg G-TUBE BID #0 tab 06/18/21 oxycodone 5 mg G-TUBE Q6H 5 Days #20 tab 06/18/21 potassium, sodium phosphates 1 packet G-TUBE 4X/DAY 5 Days #0 packet 06/18/21 sennosides-docusate sodium [Stool Softener-Stimulant Laxat] 2 tab G-TUBE DAILY #0 tab 06/18/21 Hospital Course Operations None Procedures EKG Summary of Care Provided Minutes Spent on Discharge: 35 Hospital Course: Discharge Diagnoses: #1. Failure to Thrive, Adult #2. 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 Chronic Hyponatremia #4. Chronic Anemia/Microcytic/AOCD #5. Chronic COPD #6. Hypothyroidism #7. GERD #8. Hypertension #9. CODE STATUS: DNR-CCA, no intubation DISCHARGE SUMMARY: The patient is an 85 y/o F w/ PMHx: Chronic COPD, GERD, OA, Esophageal cancer with metastatic disease w/ PEG tube in place/NPO status w/ recent 06/10/21 power port placement who presented to the [facility] ED on 06/16/21 with progressively worsening weakness, debility following recent initiation of chemotherapy which ended this prior Thursday. Patient admitted to medical surgical floor given inability to safely care for herself outpatient with recent initiation of palliative chemotherapy secondary to recurrent metastatic esophageal cancer, worsening weakness, fatigue prompting transition to the ED for evaluation, no acute findings upon ED presentation with stable chronic lab changes including chronic hyponatremia as well as chronic anemia. Patient was maintained on fall and aspiration precautions. Continued NPO status w/ PEG. Dr. Espinoza was consulted for pola-PEG tube irritation with recommended usage of barrier cream with improved discomfort. Dr. Crawford was also consulted and agreed with SNF transition with ongoing evaluations with palliative care and agreement with Hospice if patient preferred that transition. Palliative care was consulted and evaluated patient with transition of her chronic pain regimen to scheduled with hold parameters for sedation in addition to decadron 8 mg daily x 3 days then transition to 4 mg daily thereafter until re-evaluated by Palliative at SNF. During admission patient was judiciously hydrated and Na remained chronically mildly decreased. Also, during admission patient w/ mild tachycardia and HTN with history, added low dose BB with improvement and likely also improved with pain lessening with regimen changes which was continued upon SNF transition. Patient felt improved, pain lessened with transition to SNF following. Discharge Time: > 35 Minutes DAY OF DISCHARGE PROGRESS NOTE: Subjective: Patient without acute event overnight per self and nursing report. Patient noted improvement of her pain with regimen changes. Discussed code status and transitioned to DNR-CCA, no intubation. Patient notes intention to continue to think about hospice and will likely transition at Facility. Patient denies fever, chills, nausea, emesis, abdominal pain, chest pain or dyspnea. Patient agreeable to discharge to SNF. Patient will be discharged with follow-up with primary care physician, Surgery, Oncology as well as Palliative. Objective: T 98.1, heart rate 99, BP 133/61, respiratory rate 16, 97% on room air Physical Examination: General: Awake, alert, oriented to self, place and recent events, remains cooperative, seated upright in medical surgical bed, less fatigued, notes pain improved with pain regimen alterations. Skin: Normal color, normal turgor, no icterus, no cyanosis except mild irritation around PEG. HEENT: AT/NC, EOMI, PERRLA, improved MMM. Lungs: Diminished, greater bases, moderate effort, no rales, ronchi or wheezing. Heart: Regular rate with regular rhythm; no gallop, rub audible. Abdomen: Soft, NTTP, PEG in place, no obvious distention, normalized bowel sounds. Extremities: No cyanosis, clubbing, or edema. Neurological: Patient awake, alert, oriented as noted, cognitive function seems near baseline intact; pupils equally reactive to light and accommodation, cranial nerves II-XII grossly normal, moving all 4 extremities, no focal deficits, strength moderately to severely global decreased Psychiatric: Affect appears less fatigued, more comfortable, no acute evidence of depressive or anxiety feelings. Assessment and Plan: Please see hospital summary above. Weight / BMI Weight Weight: 154 lb 8.705 oz Body Mass Index (BMI) 27.3 ABG / Lab / Microbiology Data Result Diagrams: 06/17/21 06:20 06/17/21 06:20 Microbiology: Microbiology 06/16/21 21:04 Urine, Catheterized Urine Culture - Final Culture exhibits no growth. Meaningful Use Info Meaningful Use Diagnoses (Choose all that apply): None applicable Discharge Plan Admission Admit Date/Time: 06/16/21 21:56 Primary Reason for Your Visit: FTT Adult Attending Provider: Emerson Badillo Primary Care Provider: Reynaldo Aden Chi Consulting Providers: Gabriela Hooks ; Remy Hernandez ; Alicia Bhatia ; Erika Gibbons ; Yudith Damico ; Margaux Wei COMPOSITE MECHANIC ; Alok Espinoza ; Remy Rodriguez ; Emerson Crawford ; Kim Khan ; Venancio Barroso ; Julio Ramirez ; Kush Roman ; Deon Agustin ; Mariana Resendiz NP Discharge Orders/Prescriptions Prescriptions: New oxycodone 5 mg Tablet 5 mg G-tube Q6H 5 Days Qty: 20 RF: 0 sennosides-docusate sodium [Stool Softener-Stimulant Laxat] 8.6-50 mg Tablet 2 tab G-tube DAILY Qty: 0 RF: 0 potassium, sodium phosphates 280-160-250 mg Powder In Packet 1 packet G-tube 4X/DAY 5 Days Qty: 0 RF: 0 dexamethasone 4 mg Tablet 8 mg G-tube DAILY 2 Days Qty: 4 RF: 0 metoprolol tartrate 25 mg Tablet 12.5 mg G-tube BID Qty: 0 RF: 0 menthol-zinc oxide [Calmoseptine] 0.44-20.6 % Ointment 1 applic topical TID 30 Days Qty: 113 RF: 0 dexamethasone [Decadron] 4 mg tablet 4 mg PO DAILY 30 Days Qty: 30 RF: 0 Continued lidocaine-prilocaine 2.5-2.5 % cream 1 applic topical ONCE PRN (Reason: port access) 30 Days Qty: 30 RF: 2 levothyroxine 112 MCG tablet 112 mcg feeding tube DAILY RF: 0 omeprazole 10 MG capsule 40 mg feeding tube DAILY RF: 0 Advair HFA 1 PUFF inhaler 2 puff inhalation BID RF: 0 albuterol sulfate 1 INHALER inhaler 1 - 2 puff INHALATION Q4H PRN PRN (Reason: Asthma) RF: 0 food supplemt, lactose-reduced Liquid 240 ml feeding tube Q6H RF: 0 fentanyl 25 mcg/hr patch 72 hour 1 patch transdermal Q72H 30 Days Qty: 1 RF: 0 nystatin 100,000 unit/gram powder 1 applic topical BID Qty: 30 RF: 0 Discontinued oxycodone 5 mg tablet 5 mg feeding tube Q6H PRN (Reason: pain) RF: 0 Referrals / Follow Up: Emerson Crawford MD [NON-STAFF] - (Follow-up in 1 week or if preference for Hospice transition may defer.) Alok Espinoza MD [STAFF PHYSICIAN] - (Follow-up as needed or in 1-2 weeks.) Reynaldo Aden Chi, MD [Primary Care Provider] - (Follow-up in 1 week.) Disposition Disposition (needs filled in before D/C Order can be placed): Detention Facility Charges/Coding Visit Charges OBSV E&M: 47482 Observation care discharge
--- NOTE | 2021-06-18 14:10 | CASEMGMT ---
Social Work Note Pt to discharge to [facility] today. TRAE completed PAS/RR in [facility]. TRAE faxed completed discharge paperwork to [facility] including transfer to extended care facility, signed medication list, any scripts, COVID test/tool, and PAS/RR and PAS/RR results. Original in SNF folder and copy on pt's chart. TRAE spoke with RN, pt to transport via cot. SW accessed trip assist and arranged transportation via cot for 3:45pm. Transportation form completed and placed on SNF folder and copy on pt's chart. TRAE updated RN on transportation time. TRAE attempted to update pt, pt soundly sleeping. TRAE placed a call to Jeannette at [facility] and updated her on discharge and transportation time. Jeannette states understanding. TRAE placed a call to pt's daughter Soo and updated her on discharge and transportation time. Soo states understanding, states she will meet pt at [facility]. Plan: [facility] skilled today under PAS/RR level of care with Physician's transporting pt via cot at 3:45pm. Sneha [employer]
[2021-06-18] MEDS: 0.9% Saline Lock 10 ML Syringe IV (14:40)
== END 2021-06-18 18:00 | disposition skilled nursing facility (03) ==
LOC: ED 20:43 → MS3 22:22
PROVIDERS: Family Medicine; Admitting Provider Hospitalist; Emergency Provider Emergency Medicine; PCP Family Medicine Geriatric Medicine; Visit Provider Hospitalist
DX: K94.23 Gastrostomy malfunction (principal); G89.3 Neoplasm related pain (acute) (chronic); C79.51 Secondary malignant neoplasm of bone; C78.1 Secondary malignant neoplasm of mediastinum; C34.90 Malignant neoplasm of unspecified part of unspecified bronchus or lung; J44.9 Chronic obstructive pulmonary disease, unspecified; C78.01 Secondary malignant neoplasm of right lung; E11.22 Type 2 diabetes mellitus with diabetic chronic kidney disease; E87.1 Hypo-osmolality and hyponatremia; I12.9 Hypertensive chronic kidney disease with stage 1 through stage 4 chronic kidney disease, or unspecified chronic kidney disease; D63.8 Anemia in other chronic diseases classified elsewhere; E03.9 Hypothyroidism, unspecified; R62.7 Adult failure to thrive; R53.81 Other malaise; K21.9 Gastro-esophageal reflux disease without esophagitis; N18.9 Chronic kidney disease, unspecified; D50.9 Iron deficiency anemia, unspecified; K59.00 Constipation, unspecified; C78.02 Secondary malignant neoplasm of left lung; M19.90 Unspecified osteoarthritis, unspecified site; Z95.828 Presence of other vascular implants and grafts; Z92.21 Personal history of antineoplastic chemotherapy; Z87.891 Personal history of nicotine dependence; Z79.51 Long term (current) use of inhaled steroids; Z79.899 Other long term (current) drug therapy; Z79.890 Hormone replacement therapy
CPT/HCPCS: 36415; 36591; 71045; 80048; 80053; 81001; 83605; 83735; 84100; 84484; 85025; 87040; 87086; 87426; 93005; 94640; 96372; 96374; 96375; 96376; 97162; 97167; 97530; 97535; 97802; 99218; 99285; J7030; J7050; P9612; A4216; G0378; J2405